=== PATIENT | female | born 1965 | race Caucasian/White ===

== ENCOUNTER 2017-08-01 17:59 | Inpatient (IN) | payer MEDICAID, SELFPAY ==
[2017-08-01] VITALS (7 sets, daily range): BP systolic 94–129; BP diastolic 66–79; PULSE 81–112; RESP 16–28; TEMP 36.7–36.8; O2SAT 92–98; BMI 40.7; BMI 38.8
--- NOTE | 2017-08-01 18:28 | HMH.EDGENADL ---
ED Disposition Condition on Discharge: Fair - Critical Care Critical Care Time: No <RashadTy nava - Last Filed: 08/01/17 20:17> <Bashir Red - Last Filed: 08/01/17 22:12> Clinical Impression: COPD exacerbation Disposition: Still a Patient Attestation: On 08/01/17, the high probability of a clinically significant, sudden or life threatening deterioration of the following system(s) required my full and direct attention, intervention and personal management. The time I documented below is in addition to time spent performing reported procedures but includes the following listed in this critical care notation. Medical Decision Making - Matt Inquiry Pt receiving controlled substance: No - Radiology Data #1 Image(s): Chest Image Reviewed: Yes I reviewed the patient's radiology image <RashadTy nava - Last Filed: 08/01/17 20:17> - Lab Data Result diagrams: 08/01/17 20:03 08/01/17 20:03 - Physician Consults Physician Consulted: franklin Reason -: Admission <Bashir Red - Last Filed: 08/01/17 22:12> Vital Signs: 08/01/17 18:02 08/01/17 18:03 08/01/17 18:32 Temperature 98.0 F Temperature Source Oral Pulse Rate Pulse Rate [Right Radial] 104 H 112 H 97 H Respiratory Rate 16 28 H 16 Blood Pressure [Right Arm] 107/69 129/75 94/66 Blood Pressure Mean [Right Arm] 81 93 75 Blood Pressure Source [Right Arm] Automatic Cuff Automatic Cuff Automatic Cuff Blood Pressure Position [Right Arm] Sitting Sitting Sitting 02 Sat by Pulse Oximetry 94 L 96 98 Oxygen Delivery Method Nasal Cannula Oxygen Flow Rate (LPM) 3 08/01/17 19:02 08/01/17 20:10 Temperature Temperature Source Pulse Rate 81 Pulse Rate [Right Radial] 96 H Respiratory Rate 18 Blood Pressure [Right Arm] 104/71 Blood Pressure Mean [Right Arm] 82 Blood Pressure Source [Right Arm] Automatic Cuff Blood Pressure Position [Right Arm] Sitting 02 Sat by Pulse Oximetry 94 L Oxygen Delivery Method Oxygen Flow Rate (LPM) - Lab Data Lab Results 08/01/17 19:22: Specimen Source R/r, O2 % 3, ABG pH 7.39, ABG pCO2 55.3 H, ABG pO2 73.2 L, ABG HCO3 32.8 H, ABG Total CO2 34.5 H, ABG O2 Saturation 95, ABG Base Excess 7.9 H, Juan M Test Y 08/01/17 20:03: WBC 7.5, RBC 4.40, Hgb 14.6, Hct 44.3, MCV 100.5 H, MCH 33.2 H, MCHC 33.0, RDW 13.0, Plt Count 165, MPV 8.7, Neut % (Auto) 64.5, Lymph % (Auto) 31.4, [place] % (Auto) 3.1, Eos % (Auto) 0.9, Baso % (Auto) 0.2, Neut # (Auto) 4.9, Lymph # (Auto) 2.4, [place] # (Auto) 0.2, Eos # (Auto) 0.1, Baso # (Auto) 0.0 08/01/17 20:03: Sodium 138, Potassium 3.9, Chloride 99, Carbon Dioxide 32, Anion Gap 10.9, BUN 13, Creatinine 0.97, Estimated Creat Clear 129, Estimated GFR 61, Est GFR ( Amer) 74, Glucose 136 H, Calcium 8.2 L, Total Bilirubin 0.3, AST 24, ALT 35, Alkaline Phosphatase 128 H, Total Creatine Kinase 57, CK-MB (CK-2) 1.1, CK-MB (CK-2) Rel Index 1.9, Troponin I < 0.02, Total Protein 7.7, Albumin 3.0 L, Globulin 4.7 H, Albumin/Globulin Ratio 0.6 L 08/01/17 20:03: B-Natriuretic Peptide 12 Orders (Tests/Meds): ED MEDICATIONS Generic Name Dose Route Start Last Admin Trade Name Freq PRN Reason Stop Dose Admin Albuterol/Ipratropium 3 ml 08/01/17 20:00 08/01/17 19:55 Duoneb 3ml Neb IH 08/31/17 19:59 3 ml QIDRT TAMY Administration Sodium Chloride 1,000 mls @ 500 mls/hr 08/01/17 20:30 08/01/17 20:33 Sod Chlor 0.9% 1000ml Bag IV 08/31/17 20:29 500 mls/hr .Q2H TAMY Administration Discontinued Medications Generic Name Dose Route Start Last Admin Trade Name Freq PRN Reason Stop Dose Admin Levofloxacin/Dextrose 750 mg in 150 mls @ 100 mls/hr 08/01/17 19:36 08/01/17 20:07 Levofloxacin 750mg/150ml Premix IV 08/01/17 21:05 100 mls/hr ONCE ONE Administration Protocol Methylprednisolone Sodium Succinate 125 mg 08/01/17 18:49 08/01/17 19:09 Solu-Medrol 125mg/2ml Vial IV 08/01/17 18:50 125 mg ONCE ONE Administration OR
--- NOTE | 2017-08-01 18:49 | XR_ITS ---
XR chest portable HISTORY: Shortness of breath ITS.REASON: soa ORDERING PHYSICIAN: Ty Franklin MD PATIENT AGE: 51 years COMPARISON: None available FINDINGS: Normal heart size. The fátima are somewhat prominent and may be due to underlying vascularity. Nodular opacity is present in the right hilum at 1.6 cm. There are chronic changes in the lower lobes. No acute bony anomalies. IMPRESSION: Chronic changes with possible right hilar nodule. Consider chest CT with contrast for further evaluation
[2017-08-01 19:24] LABS: ABG Base Excess 7.9 mmol/L (-2.4-2.3); ABG HCO3 32.8 mmhg (22.0-26.0); ABG Oxygen Saturation 95 % (90-100); ABG PH 7.39 mmol/L (7.35-7.45); ABG PO2 73.2 mmhg (80-100); ABG TCO2 34.5 mmhg (23-27); Allen's Test Y; Oxygen 3 %; Source R/R
[2017-08-01 19:25] LABS: ABG PCO2 55.3 mmhg (35.0-45.0)
[2017-08-01 20:23] LABS: Basophils % 0.2 % (0.1-2.0); Eosinophils # 0.1 K/mm3 (0.0-0.4); Eosinophils % 0.9 % (0.1-12.0); Hematocrit 44.3 % (37.0-47.0); Hemoglobin 14.6 g/dL (12.2-16.2); Lymphocytes # 2.4 K/mm3 (0.7-4.5); Lymphocytes % 31.4 K/mm3 (10-50); Mean Corpuscular Hemoglobin 33.2 pg (27.0-31.2); Mean Corpuscular Volume 100.5 fl (81-99); Mean Platelet Volume 8.7 fl (7.4-10.4); Monocytes # 0.2 K/mm3 (0.1-1.0); Monocytes % 3.1 % (1.7-9.3); Neutrophils # 4.9 K/mm3 (1.8-7.8); Neutrophils % 64.5 % (37.0-80.0); Platelet Count 165 K/mm3 (142-424); White Blood Count 7.5 K/mm3 (4.8-10.8)
[2017-08-01 21:04] LABS: Alanine Aminotransferase 35 U/L (12-78); Albumin/Globulin Ratio 0.6 (1.1-1.8); Alkaline Phosphatase 128 U/L (46-116); Anion Gap 10.9 mEq/L (5-15); Aspartate Amino Transferase 24 U/L (15-37); Bilirubin,Total 0.3 mg/dL (0.2-1.0); Blood Urea Nitrogen 13 mg/dL (7-18); CKMB Relative Index 1.9 U/L (0-4.0); Calcium 8.2 mg/dL (8.5-10.1); Carbon Dioxide 32 mmol/L (21.0-32.0); Chloride 99 mmol/L (98-107); Creatine Kinase 57 U/L (26-192); Creatine Kinase MB 1.1 mg/ml (0.0-3.6); Creatinine Clearance Estimated 129 mL/min (0-300); Creatinine,Serum 0.97 mg/dL (0.55-1.02); Estimated Glomerular Filt Rate 61 ml/min (>60); GFR (African American) 74 ML/MIN (>60); Globulin 4.7 gm/dl (1.3-3.2); Glucose 136 mg/dL (74-106); Potassium 3.9 mmoL/L (3.5-5.1); Sodium 138 mmol/L (136-145); Total Protein,Serum 7.7 gm/dL (6.4-8.2); Troponin I < 0.02 ng/ml (0.00-0.06)
--- NOTE | 2017-08-01 22:01 | PC.NURSE ---
Dr. Geoffrey guzman
[2017-08-02] VITALS (10 sets, daily range): BP systolic 108–147; BP diastolic 4–95; PULSE 80–107; RESP 18–20; TEMP 36.3–36.9; O2SAT 90–96; BMI 38.9
[2017-08-02 06:42] LABS: Eosinophils % 0.2 % (0.1-12.0); Hematocrit 48.2 % (37.0-47.0); Hemoglobin 14.9 g/dL (12.2-16.2); Lymphocytes # 1.1 K/mm3 (0.7-4.5); Lymphocytes % 22.4 K/mm3 (10-50); Mean Corpuscular HGB Conc 30.9 g/dL (31.8-35.4); Mean Corpuscular Hemoglobin 33.1 pg (27.0-31.2); Mean Corpuscular Volume 107.3 fl (81-99); Monocytes # 0.1 K/mm3 (0.1-1.0); Monocytes % 1.3 % (1.7-9.3); Neutrophils # 3.6 K/mm3 (1.8-7.8); Platelet Count 168 K/mm3 (142-424); Red Blood Count 4.49 M/mm3 (4.20-5.40); Red Cell Distribution Width 12.6 % (11.5-17.5); White Blood Count 4.7 K/mm3 (4.8-10.8)
[2017-08-02 07:05] LABS: Anion Gap 13.8 mEq/L (5-15); Blood Urea Nitrogen 14 mg/dL (7-18); Carbon Dioxide 30 mmol/L (21.0-32.0); Chloride 94 mmol/L (98-107); Creatinine Clearance Estimated 85 mL/min (0-300); Estimated Glomerular Filt Rate 40 ml/min (>60); GFR (African American) 48 ML/MIN (>60); Potassium 4.8 mmoL/L (3.5-5.1); Sodium 133 mmol/L (136-145)
[2017-08-02 07:20] LABS: Glucose 560 mg/dL (74-106)
--- NOTE | 2017-08-02 07:31 | PC.NURSE ---
REPORT GIVEN TO Duy BURROWS W/C
--- NOTE | 2017-08-02 08:16 | HMH.HP ---
*Admission Date: 08/01/17 <Eloise Li 08/02/17 08:17> *Chief complaint: shortness of breath <Eloise Li 08/02/17 08:17> *History of present illness: Ms Jackman is a 51 year old female brought in by ambulance with a complaint of shortness of breath. She states that she has been short of breath since 8 AM. In the p.m. she noticed that her lips, fingertips, and nose were purple. She noted that she has a history of COPD and is on oxygen continuously. She uses nebulizer treatments 4 times a day; she had taken two treatment so far today and was given a third during transport. Her breathing improved as did her O2 sats which originally were 81% in the ambulance. She says she is not wheezing. She denies cough, fever, and any other upper respiratory symptoms. A couple of weeks ago she says she was treated for bronchitis at [facility] emergency department, when she was seen there for pancreatitis. She thinks that she was given antibiotics and steroids. She says she continues to smoke episodically and usually less than half a pack a day. He did smoke 4 cigarettes yesterday. She does not have a primary care provider has been assigned Dr. Mae. She says that she has a dietary tech in [place], but he has left the practice. This a.m. patient states she does not feel any better and is still short of breath. She did not sleep well. She ate breakfast without any problems. She is not coughing. She denies chest pain although her lungs hurt. <Eloise Li 08/02/17 08:51> [facility] History I have reviewed the patient's past medical history: Yes <Eloise Li 08/02/17 08:45> Medical History: Reports:: Anxiety, Chronic Obstructive Pulmonary Disease (COPD), Depression, Hypertension, Lung Disease Denies:: Atherosclerotic Heart Disease, Cancer, Congestive Heart Failure, Coronary Artery Disease, Cerebrovascular Accident, Diabetes Mellitus Type 1, Diabetes Mellitus Type 2 <Eloise Li 08/02/17 08:45> - *Social History Educational Level: Completed High School <Eloise Li 08/02/17 08:17> Smoking Status: Current every day smoker <Eloise Li 08/02/17 08:17> Tobacco Type: cigarettes <Eloise Li 08/02/17 08:17> # Packs/Day (cigarettes): 1 <Eloise Li 08/02/17 08:17> #Yrs smoked (if former smoker): 15 <Eloise Li 08/02/17 08:17> Alcohol Intake: never <Eloise Li 08/02/17 08:17> Occupational Status: unemployed <Eloise Li 08/02/17 08:17> Housing: apartment <Eloise Li 08/02/17 08:17> Household Members: spouse <Eloise Li 08/02/17 08:17> - Psychiatric History Expresses thoughts of harming self/others: None <LiEloise 08/02/17 08:17> Suicide Plan Description: No Plan <Eloise Li 08/02/17 08:17> *Family Hx:: Coronary Artery Disease, no Diabetes <LiEloise 08/02/17 08:45> Review of Systems - Constitutional Denies body ache(s), Denies fever(s), Denies headache(s) <LiEloise 08/02/17 08:45> - ENT Denies dizziness, Denies ear pain, Denies facial pain, Denies headache(s), Denies sore throat <LiEloise 08/02/17 08:45> - *Cardiovascular Reports shortness of breath, Denies chest pain, Denies irregular heart rhythm, Denies leg swelling <GuillermoEloise 08/02/17 08:45> - *Respiratory Reports shortness of breath, Denies cough, Denies excessive phlegm production, Denies coughing up blood <LiEloise 08/02/17 08:45> Comments: States her lungs hurt across the entire back. <Li,Eloise 08/02/17 08:45> - *Gastrointestinal Denies abdominal pain, Denies change in bowel habits, Denies constipation, Denies vomiting blood, Denies nausea, Denies vomiting <GuillermoEloise 08/02/17 08:45> - *Genitourinary Denies difficulty urinating, Denies blood in urine <Eloise Li - 08/02/17 08:45> - *Musculoskeletal Reports joint pain (Knees and feet) <Eloise Li - 08/02/17 08:45> Comments: Difficulty with walking <Benito Li
[2017-08-02 08:32] LABS: Hemoglobin A1C 6.7 % (0.0-7.0)
--- NOTE | 2017-08-02 08:32 | NVE_ITS ---
Venous Exam Indications: 729.5 Pain in limb. IMPRESSIONS 1. There is no evidence of significant Reflux. 2. No evidence of deep or superficial vein thrombosis involving the left lower extremity Left lower extremity venous duplex evaluation. Doppler flow study including spectral analysis, color and almanzar scale imaging. Location: Bedside. Patient status: Inpatient. Tables: Venous flow and imaging: + +-------+ + Location Overall Flow properties + +-------+ + Left common femoral Patent Normal phasicity; spontaneous; normal augmentation; compressible + +-------+ + Left saphenofemoral junction Patent Compressible + +-------+ + Left profunda femoral Patent Compressible + +-------+ + Left femoral Patent Normal phasicity; spontaneous; normal augmentation; compressible + +-------+ + Left greater saphenous Patent Normal phasicity; spontaneous; normal augmentation; compressible + +-------+ + Left popliteal Patent Normal phasicity; spontaneous; normal augmentation; compressible + +-------+ + Left posterior tibial Patent Compressible + +-------+ + Left peroneal Patent Compressible + +-------+ + Left gastrocnemius Patent Compressible + +-------+ + Left soleal Patent Compressible + +-------+ + (Report amended ) Electronically signed by: Juan M Henry [id number]
--- NOTE | 2017-08-02 08:41 | PC.NURSE ---
C/O SOA AROUND 0500, O2SAT OBTAINED AND NOTED 93% ON 2LNC. RT CALLED FOR PRN BREATHING TREATMENT, PT STATED RELIEF FROM PRN BREATHING TREATMENT. LUNG SOUNDS NOTED CLEAR T/O AUSCULTATION. 2LNC TOLERATED WELL. VSS. WILL CONTINUE TO MONITOR.
--- NOTE | 2017-08-02 09:06 | P.CONPHA_ITS ---
[facility] Pharmacy VTE Monitoring - Patient Demographics Admission date: 08/01/17 Report Date: 08/02/17 Time: 09:06 Allergies/Adverse Reactions: Patient Allergies No Known Allergies Allergy (Verified 08/01/17 22:57) Height: 1.7 m Weight: 112.491 kg Patient Problems: Current Active Problems COPD exacerbation (Acute) COPD (chronic obstructive pulmonary disease) (Chronic) Hyperglycemia (Acute) Leg pain (Acute) Tobacco use disorder (Acute) Lung nodule (Chronic) - VTE Risk Labs: VTE Related Lab Results Hgb 14.9 g/dL (12.2-16.2) 08/02/17 06:20 Hct 48.2 % (37.0-47.0) H 08/02/17 06:20 Plt Count 168 K/mm3 (142-424) 08/02/17 06:20 BUN 14 mg/dL (7-18) 08/02/17 06:20 Creatinine 1.40 mg/dL (0.55-1.02) H D 08/02/17 06:20 Estimated Creat Clear 85 mL/min (0-300) 08/02/17 06:20 Was VTE Risk Assessment Performed: Yes VTE Score: 3 VTE Risk Level: Low Risk Clinical Trial Participant: No - Prophylaxis VTE Prophylaxis Ordered?: Yes Types of VTE Prophylaxis: TEDS Knee High
[2017-08-02 09:19] LABS: D-Dimer 542 (0-400)
[2017-08-02 12:00] LABS: POC Glucose,Bedside 486 mg/dL (70-110)
[2017-08-02 16:42] LABS: POC Glucose,Bedside 503 mg/dL (70-110)
--- NOTE | 2017-08-02 16:59 | PC.NURSE ---
DR MOHAMUD STATES TO GIVE PATIENT 12 UNITS OF HUMALOG
--- NOTE | 2017-08-02 17:54 | PC.NURSE ---
PATIENT SITTING ON SIDE OF BED AT THIS TIME. PATIENT IS A&OX3. LUNGS ARE DIMINISHED T/O MORE RIGHT THAN LEFT. DENIES PAIN OR NAUSEA/VOMITING AT THIS TIME. PATIENT WAS EDUCATED THIS SHIFT ON HOW TO ADMINISTER INSULIN PEN INJECTIONS IF NEEDED ON DC. SHE STATES THAT SHE HAD HIGH BLOOD SUGAR ONCE BEFORE AND HER DR SAID IT MAY BE BECAUSE OF HER BAD PANCREAS. CALL LIGHT WITHIN REACH WILL CONTINUE TO MONITOR.
--- NOTE | 2017-08-02 19:15 | PC.NURSE ---
REPORT GIVEN TO Randal NARAYAN
--- NOTE | 2017-08-02 21:01 | PC.NURSE ---
NOTIFIED OF ELEVATED BLOOD SUGAR. PT PLACED ON MEDIUM INTENSITY SCALE. 15 UNITS OF HUMALOG ADMIN.
[2017-08-03] VITALS (10 sets, daily range): BP systolic 135–141; BP diastolic 86–97; PULSE 75–94; RESP 18–20; TEMP 36.2–36.9; O2SAT 88–97
[2017-08-03 01:16] LABS: POC Glucose,Bedside 429 mg/dL (70-110)
--- NOTE | 2017-08-03 03:48 | PC.NURSE ---
PT CURRENTLY RESTING AT THIS TIME. PT RESTLESS AT BEGINNING PART OF SHIFT, REQUESTING SNACK FOODS UNTIL 0100. BLOOD SUGAR AT 2100 WAS 426 MD MOHAMUD NOTIFIED AND MEDIUM SLIDING SCALE ORDERED, 15 UNITS GIVEN. PT QUESTIONED HOW TO LOWER HER BLOOD SUGAR, EDUCATION ON DIABETES GIVEN, SNACKS STILL REQUESTED. LUNGS ARE DIMINISHED UPON AUSCULTATION. NO C/O OF PAIN. NO C/O SOA. MEDS ADMIN PER JUL. VSS. WILL CONT TO MONITOR.
--- NOTE | 2017-08-03 07:26 | PC.NURSE ---
REPORT HAND OFF TO Elroy SANCHEZ
--- NOTE | 2017-08-03 08:13 | HMH.ACPN2 ---
Internal Medicine - PN: Subj *Date: 08/03/17 *Time: 08:13 Interval history: Patient states she is feeling slightly better this a.m. She is now having some epigastric pain. She states she has had some problems with her pancreas in the past and would like her pancreatic enzymes checked this morning. Her shortness of breath has improved with steroids and duo nebs. D-dimer was slightly elevated but her left lower extremity was negative for DVT. Exam Vital signs and Labs for Last 24 Hours: Temp Pulse Resp BP Pulse Ox 98.0 F 88 18 141/86 92 L 08/03/17 07:28 08/03/17 07:28 08/03/17 07:28 08/03/17 07:28 08/03/17 07:28 Laboratory Results - last 24 hr 08/02/17 06:20: Hemoglobin A1c 6.7 08/02/17 06:20: D-Dimer 542 H* 08/02/17 11:45: POC Glucose 486 08/02/17 16:33: POC Glucose 503 08/02/17 16:45: Random Glucose 499 H 08/02/17 20:21: POC Glucose 429 I & O for Last 24 hours: Intake & Output 07/31/17 08/01/17 08/02/17 08/03/17 11:59 11:59 11:59 11:59 Intake Total 2742 / 2742 Balance 2742 / 2742 Weight 248 lb 247 lb 15.968 oz - Constitutional no acute distress - *Routine Respiratory Exam Present: rhonchi (bilateral bases). Absent: rales, wheezes - *Routine Cardiovascular Exam Present: RRR - *Routine Abdominal Exam Present: soft, normoactive bowel sounds, tenderness (epigastric area) - *Routine Extremities Exam Absent: edema Assessment and Plan (1) COPD exacerbation Current visit: Yes Status: Acute Category: Medical Code(s): J44.1 - Chronic obstructive pulmonary disease with (acute) exacerbation (2) COPD (chronic obstructive pulmonary disease) Current visit: Yes Status: Chronic Category: Medical Code(s): J44.9 - Chronic obstructive pulmonary disease, unspecified (3) Hyperglycemia Current visit: Yes Status: Acute Category: Medical Code(s): R73.9 - Hyperglycemia, unspecified (4) Leg pain Current visit: Yes Status: Acute Category: Medical Code(s): M79.606 - Pain in leg, unspecified (5) Tobacco use disorder Current visit: Yes Status: Acute Category: Medical Code(s): F17.200 - Nicotine dependence, unspecified, uncomplicated (6) Lung nodule Current visit: Yes Status: Chronic Category: Medical Code(s): R91.1 - Solitary pulmonary nodule - Assessment and plan all Dx Assessment and Plan for all problems:: We will check labs this morning. Chest x-ray suggested getting a chest CT. Will discuss with Dr. cavazos.
[2017-08-03 09:05] LABS: Basophils % 0.1 % (0.1-2.0); Eosinophils % 0.2 % (0.1-12.0); Hematocrit 45.2 % (37.0-47.0); Hemoglobin 14.2 g/dL (12.2-16.2); Lymphocytes # 0.7 K/mm3 (0.7-4.5); Lymphocytes % 5.6 K/mm3 (10-50); Mean Corpuscular HGB Conc 31.4 g/dL (31.8-35.4); Mean Corpuscular Hemoglobin 33.1 pg (27.0-31.2); Mean Corpuscular Volume 105.5 fl (81-99); Mean Platelet Volume 9.5 fl (7.4-10.4); Monocytes # 0.2 K/mm3 (0.1-1.0); Monocytes % 1.8 % (1.7-9.3); Neutrophils # 11.4 K/mm3 (1.8-7.8); Neutrophils % 92.3 % (37.0-80.0); Platelet Count 184 K/mm3 (142-424); Red Blood Count 4.29 M/mm3 (4.20-5.40); Red Cell Distribution Width 12.9 % (11.5-17.5); White Blood Count 12.4 K/mm3 (4.8-10.8)
[2017-08-03 09:07] LABS: MANUAL DIFFERENTIAL MANUAL DIFFERENTIAL (MANUAL DIFF)
[2017-08-03 09:12] LABS: Alanine Aminotransferase 31 U/L (12-78); Albumin Level 3.2 gm/dL (3.4-5.0); Albumin/Globulin Ratio 0.7 (1.1-1.8); Alkaline Phosphatase 150 U/L (46-116); Amylase 47 U/L (25-125); Anion Gap 12.6 mEq/L (5-15); Aspartate Amino Transferase 13 U/L (15-37); Bilirubin,Total 0.2 mg/dL (0.2-1.0); Blood Urea Nitrogen 26 mg/dL (7-18); Calcium 8.4 mg/dL (8.5-10.1); Carbon Dioxide 31 mmol/L (21.0-32.0); Chloride 94 mmol/L (98-107); Creatinine Clearance Estimated 97 mL/min (0-300); Creatinine,Serum 1.23 mg/dL (0.55-1.02); Estimated Glomerular Filt Rate 46 ml/min (>60); GFR (African American) 56 ML/MIN (>60); Globulin 4.7 gm/dl (1.3-3.2); Lipase 89 u/L (73-393); Potassium 4.6 mmoL/L (3.5-5.1); Sodium 133 mmol/L (136-145); Total Protein,Serum 7.9 gm/dL (6.4-8.2)
[2017-08-03 09:36] LABS: Glucose 481 mg/dL (74-106)
[2017-08-03 12:07] LABS: Lymphocytes % 4 % (10-50); Monocytes % 1 % (2-9); Neutrophils % 95 % (42-76); Total Cells Counted 100
[2017-08-03 12:08] LABS: Hypochromasia 1+; Macrocytosis 1+; Platelet Estimate Normal
[2017-08-03 12:20] LABS: POC Glucose,Bedside 451 mg/dL (70-110)
[2017-08-03 17:09] LABS: POC Glucose,Bedside 382 mg/dL (70-110)
[2017-08-03 17:09] LABS: POC Glucose,Bedside 467 mg/dL (70-110)
--- NOTE | 2017-08-03 17:28 | SW/DCPLANNER ---
Visited patient this evening to explain Discharge Planning Checklist .....patient asked that I help her complete the Living Will packet in her folder. I read packet to patient and patient answered what she wishes to have done if she is ever in a situation that she can NOT make decisions for herself. During the completion of Living Will packet I was informed that there is no staff member available that is a notary. Patient stated that she has a friend that is a notary and will follow up with her when she is released. Patient did not have any other needs at this time. I will follow up with patient at time of discharge to assist with any needs/new orders.
[2017-08-03 20:57] LABS: POC Glucose,Bedside 346 mg/dL (70-110)
--- NOTE | 2017-08-04 04:35 | PC.NURSE ---
PATIENT HAS BEEN AWAKE ALL SHIFT. SHE DID BECOME SOA ONCE, BUT STATED IT WAS BECAUSE HER ROOM WAS TOO WARM. TEMPERATURE IN ROOM WAS DECREASED AND PATIENT WAS GIVEN A FAN AND SOA SUBSIDED. NO C/O PAIN VOICED. PATIENT CURRENTLY SITTING UP IN BED WATCHING TV. VSS. NO OTHER PROBLEMS NOTED AT THIS TIME. WILL CONTINUE TO MONITOR.
[2017-08-04 04:42] VITALS: BP 141/89; PULSE 89; RESP 18; TEMP 37.1; O2SAT 92
[2017-08-04 06:29] VITALS: PULSE 97; O2SAT 93
[2017-08-04 06:37] LABS: POC Glucose,Bedside 283 mg/dL (70-110)
[2017-08-04 07:30] VITALS: BP 137/94; PULSE 100; RESP 18; TEMP 36.9; O2SAT 95
[2017-08-04 07:59] VITALS: O2SAT 95
--- NOTE | 2017-08-04 08:29 | P.PN_ITS ---
Internal Medicine - PN: Subj *Date: 08/04/17 *Time: 08:40 Interval history: Patient feeling better today. Still has a cough. Shortness of air is improved. Denies any pain. Exam Vital signs and Labs for Last 24 Hours: Temp Pulse Resp BP Pulse Ox 98.4 F 100 H 18 137/94 95 08/04/17 07:30 08/04/17 07:30 08/04/17 07:30 08/04/17 07:30 08/04/17 07:59 Laboratory Results - last 24 hr 08/03/17 06:08: POC Glucose 467 08/03/17 08:50: WBC 12.4 H D, RBC 4.29, Hgb 14.2, Hct 45.2, MCV 105.5 H, MCH 33.1 H, MCHC 31.4 L, RDW 12.9, Plt Count 184, MPV 9.5, Neut % (Auto) 92.3 H, Lymph % (Auto) 5.6 L, [place] % (Auto) 1.8, Eos % (Auto) 0.2, Baso % (Auto) 0.1, Neut # (Auto) 11.4 H, Lymph # (Auto) 0.7, [place] # (Auto) 0.2, Eos # (Auto) 0.0, Baso # (Auto) 0.0, Total Counted 100, Neutrophils % (Manual) 95 H, Lymphocytes % (Manual) 4 L, Monocytes % (Manual) 1 L, Platelet Estimate Normal, Hypochromasia 1+, Macrocytosis 1+ 08/03/17 08:50: Sodium 133 L, Potassium 4.6, Chloride 94 L, Carbon Dioxide 31, Anion Gap 12.6, BUN 26 H D, Creatinine 1.23 H, Estimated Creat Clear 97, Estimated GFR 46 L, Est GFR ( Amer) 56 L, Glucose 481 H*, Calcium 8.4 L, Total Bilirubin 0.2, AST 13 L D, ALT 31, Alkaline Phosphatase 150 H, Total Protein 7.9, Albumin 3.2 L, Globulin 4.7 H, Albumin/Globulin Ratio 0.7 L, Amylase 47, Lipase 89 08/03/17 11:57: POC Glucose 451 08/03/17 16:58: POC Glucose 382 08/03/17 20:40: POC Glucose 346 08/04/17 06:12: POC Glucose 283 I & O for Last 24 hours: Intake & Output 08/01/17 08/02/17 08/03/17 08/04/17 11:59 11:59 11:59 11:59 Intake Total 2742 / 2742 1680 / 1680 Output Total 800 / 800 Balance 2742 / 2742 880 / 880 Weight 248 lb 247 lb 15.968 oz - Constitutional no acute distress - *Routine Respiratory Exam Present: CTA bilaterally - *Routine Cardiovascular Exam Present: RRR - *Routine Abdominal Exam Present: soft, normoactive bowel sounds. Absent: tenderness - *Routine Extremities Exam Absent: edema Assessment and Plan (1) COPD exacerbation Current visit: Yes Status: Acute Category: Medical Code(s): J44.1 - Chronic obstructive pulmonary disease with (acute) exacerbation (2) COPD (chronic obstructive pulmonary disease) Current visit: Yes Status: Chronic Category: Medical Code(s): J44.9 - Chronic obstructive pulmonary disease, unspecified (3) Hyperglycemia Current visit: Yes Status: Acute Category: Medical Code(s): R73.9 - Hyperglycemia, unspecified (4) Leg pain Current visit: Yes Status: Acute Category: Medical Code(s): M79.606 - Pain in leg, unspecified (5) Tobacco use disorder Current visit: Yes Status: Acute Category: Medical Code(s): F17.200 - Nicotine dependence, unspecified, uncomplicated (6) Lung nodule Current visit: Yes Status: Chronic Category: Medical Code(s): R91.1 - Solitary pulmonary nodule - Assessment and plan all Dx Assessment and Plan for all problems:: Pt doing well today. Possible discharge home. Lungs and glucose have improved.
--- NOTE | 2017-08-04 09:07 | XR_ITS ---
XR chest 2V COMPARISON: PA and lateral chest 07/30/2012 HISTORY: Chronic cough, suspect bronchitis TECHNIQUE: PA and lateral chest FINDINGS: Mild to moderate emphysematous changes seen with hyperexpansion of lung nevarez and landing of the hemidiaphragms. There is a somewhat shaggy appearance to the right hilum and right heart border and the previous chest film in July 2012 showed patchy pneumonia in the right perihilar region and right upper lobe and this likely represents post inflammatory scarring. The lung nevarez appear to be clear of active infiltrate though there are slightly accentuated bronchovascular markings in the lower lobes bilaterally.. There are partially calcified left hilar nodes. Cardiac size is normal and the vascularity is normal and is no pleural fluid. IMPRESSION: Underlying COPD with mild chronic basilar changes and moderate post inflammatory scarring in the right hilar region and along the right heart border, doubt acute pneumonia.
[2017-08-04 11:09] LABS: POC Glucose,Bedside 283 mg/dL (70-110)
--- NOTE | 2017-08-04 13:19 | DIET.NUTRFU ---
Pt remains with elevated glucose in house. She is on medium intensity sliding scale insulin and a diabetic diet. POC glucose 346,283. Staff reports frequent requests for between meal snacks. A1c 6.7 PO intakes 100% all meals. Provided verbal and written pt education on diabetes and encouraged to f/u with physician for further work up. Pt educated on outpt medical nutrition services available to her. Pt asks appropriate questions and is appreciative of information.
[2017-08-04 15:21] LABS: Vitamin B12 304 pg/mL (232-1245)
[2017-08-04 15:47] VITALS: BP 138/93; PULSE 83; RESP 20; TEMP 36.9; O2SAT 94
--- NOTE | 2017-08-04 15:50 | PC.NURSE ---
PT IS ALERT AND ORIENTED X4, CLEAR SPEECH, APPROPRIATE MOOD/AFFECT. PT IS SITTING ON SIDE OF BED. NO C/O PAIN, NAUSEA OR VOMITING. NO S/S OF DISTRESS NOTED. LUNGS ARE DIMINISHED THROUGHOUT. NO C/O OF SOA. EDUCATION PROVIDED TO PT ON HOW TO ADMINISTER INSULIN AND FSBS, IF NEEDED AT DISCHARGE. IV IS SECURE, PATENT AND INFUSING IVF. VSS. CALL LIGHT WITHIN REACH, WILL CONTINUE TO MONITOR.
[2017-08-05 02:01] LABS: POC Glucose,Bedside 242 mg/dL (70-110)
--- NOTE | 2017-08-07 15:04 | HMH.DCSUM ---
General - General Admission date: 08/01/17 Discharge date: 08/04/17 HPI HPI: Ms Jackman is a 51 year old female brought in by ambulance with a complaint of shortness of breath. She states that she has been short of breath since 8 AM. In the p.m. she noticed that her lips, fingertips, and nose were purple. She noted that she has a history of COPD and is on oxygen continuously. She uses nebulizer treatments 4 times a day; she had taken two treatment so far today and was given a third during transport. Her breathing improved as did her O2 sats which originally were 81% in the ambulance. She says she is not wheezing. She denies cough, fever, and any other upper respiratory symptoms. A couple of weeks ago she says she was treated for bronchitis at [facility] emergency department, when she was seen there for pancreatitis. She thinks that she was given antibiotics and steroids. She says she continues to smoke episodically and usually less than half a pack a day. She does not have a primary care provider and has been assigned Dr. Mae. 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 Hospital Course Hospital Course: CXR showed chronic changes with a left hilar nodule. She had a venous doppler of the LLE d/t and elevated D-dimer and it was normal. She improved but her glucose elevated. Her sliding scale insulin was increased and lantus was added. She was switched to oral steroids. Her respiratory status and glucose improved and she was stable to be discharged home. She will need a workup for the pulmonary nodule on an outpatient basis. Objective Vital signs: Temp Pulse Resp BP Pulse Ox 98.4 F 83 20 138/93 94 L 08/04/17 15:47 08/04/17 15:47 08/04/17 15:47 08/04/17 15:47 08/04/17 15:47 Narrative: - Constitutional no acute distress, obese Comments: Sitting in recliner at bedside. Appears comfortable. - *Routine HEENT Exam Head: Present: normocephalic, atraumatic Eye: Present: PERRL. Absent: scleral injection - *Routine Neck Exam Present: supple, full ROM. Absent: carotid bruit, lymphadenopathy, thyromegaly - *Routine Respiratory Exam Comments: Diminished breath sounds posteriorly - *Routine Cardiovascular Exam Present: RRR - *Routine Abdominal Exam Present: soft, normoactive bowel sounds, tenderness (Left upper quadrant) - *Routine Extremities Exam Present: full ROM. Absent: edema Comments: JUAN PABLO hose on. Tenderness in the left mid calf. No palpable cords or masses. Varicosities - *Routine Neurological Exam Present: alert, oriented X3 DS: Diagnosis - Discharge Diagnosis (1) COPD exacerbation Status: Acute (2) COPD (chronic obstructive pulmonary disease) Status: Chronic (3) Hyperglycemia Status: Acute (4) Leg pain Status: Acute (5) Tobacco use disorder Status: Acute (6) Lung nodule Status: Chronic Discharge Plan - Patient Discharge Instructions ACTIVITY: Limited activity DIET: diabetic diet Additional Instructions: Contact your doctor soon for follow-up Patient Instructions: DI for Chronic Obstructive Pulmonary Disease, DI for Hyperglycemia -- Adult - Follow up Plan Follow up with: Bijan Alvarado [Referring] - Disposition: Home, Self-Long-Term Medications: Home Medications Medication Instructions Recorded Confirmed Type Albuterol Sulfate [Albuterol HFA 1 - 2 puffs IH Q4-6H PRN 08/01/17 08/02/17 History Inhaler] Fluticasone Propionate [Flonase 2 spr NS DAILY 08/01/17 08/02/17 History 50mcg nasal spray 16gm] Fluticasone/Vilanterol [Breo 1 each IH DAILY 08/01/17 08/02/17 History Ellipta 100-25 Mcg INH] Tiotropium Altha [Spiriva 1 puff INHALATION DAILY 08/01/17 08/02/17 History 18mcg/puff inhaler] Prescriptions/Medication Reconciliation: New Nicotine [Nicoderm 21mg/24hr patch] 21 mg TD DAILYP PRN #30 patch.
--- NOTE | 2017-08-07 15:10 | P.DS_ITS ---
General - General Admission date: 08/01/17 Discharge date: 08/04/17 HPI HPI: Ms Jackman is a 51 year old female brought in by ambulance with a complaint of shortness of breath. She states that she has been short of breath since 8 AM. In the p.m. she noticed that her lips, fingertips, and nose were purple. She noted that she has a history of COPD and is on oxygen continuously. She uses nebulizer treatments 4 times a day; she had taken two treatment so far today and was given a third during transport. Her breathing improved as did her O2 sats which originally were 81% in the ambulance. She says she is not wheezing. She denies cough, fever, and any other upper respiratory symptoms. A couple of weeks ago she says she was treated for bronchitis at [facility] emergency department, when she was seen there for pancreatitis. She thinks that she was given antibiotics and steroids. She says she continues to smoke episodically and usually less than half a pack a day. She does not have a primary care provider and has been assigned Dr. Mae. She says that she has a curator of photography and prints in [place], but he has left the practice. Hospital Course Hospital Course: CXR showed chronic changes with a left hilar nodule. She had a venous doppler of the LLE d/t and elevated D-dimer and it was normal. She improved but her glucose elevated. Her sliding scale insulin was increased and lantus was added. She was switched to oral steroids. Her respiratory status and glucose improved and she was stable to be discharged home. She will need a workup for the pulmonary nodule on an outpatient basis. Objective Vital signs: Temp Pulse Resp BP Pulse Ox 98.4 F 83 20 138/93 94 L 08/04/17 15:47 08/04/17 15:47 08/04/17 15:47 08/04/17 15:47 08/04/17 15:47 Narrative: - Constitutional no acute distress, obese Comments: Sitting in recliner at bedside. Appears comfortable. - *Routine HEENT Exam Head: Present: normocephalic, atraumatic Eye: Present: PERRL. Absent: scleral injection - *Routine Neck Exam Present: supple, full ROM. Absent: carotid bruit, lymphadenopathy, thyromegaly - *Routine Respiratory Exam Comments: Diminished breath sounds posteriorly - *Routine Cardiovascular Exam Present: RRR - *Routine Abdominal Exam Present: soft, normoactive bowel sounds, tenderness (Left upper quadrant) - *Routine Extremities Exam Present: full ROM. Absent: edema Comments: JUAN PABLO hose on. Tenderness in the left mid calf. No palpable cords or masses. Varicosities - *Routine Neurological Exam Present: alert, oriented X3 DS: Diagnosis - Discharge Diagnosis (1) COPD exacerbation Status: Acute (2) COPD (chronic obstructive pulmonary disease) Status: Chronic (3) Hyperglycemia Status: Acute (4) Leg pain Status: Acute (5) Tobacco use disorder Status: Acute (6) Lung nodule Status: Chronic Discharge Plan - Patient Discharge Instructions ACTIVITY: Limited activity DIET: diabetic diet Additional Instructions: Contact your doctor soon for follow-up Patient Instructions: DI for Chronic Obstructive Pulmonary Disease, DI for Hyperglycemia -- Adult - Follow up Plan Follow up with: Bijan Alvarado [Referring] - Disposition: Home, Self-Intermediate Medications: Home Medications Medication Instructions Recorded Confirmed Type Albut
[2017-08-07 16:35] LABS: Glucose,Random 499 mg/dL (70-110)
== END 2017-08-04 17:40 | disposition home or self-care (01) | DRG 192 ==
LOC: ER 20:18 → 2ND 08-02 06:50
PROVIDERS: Emergency Medicine; Family Medicine; Nurse Practitioner Family; Physician Assistant; Admitting Provider Family Medicine; Emergency Provider Emergency Medicine; PCP Family Medicine; Visit Provider Family Medicine
DX: J44.1 Chronic obstructive pulmonary disease with (acute) exacerbation (principal); Z99.81 Dependence on supplemental oxygen; I10 Essential (primary) hypertension; Z72.0 Tobacco use; R91.1 Solitary pulmonary nodule; R73.9 Hyperglycemia, unspecified; F41.8 Other specified anxiety disorders
CPT/HCPCS: 36415; 71045; 71046; 80048; 80053; 82150; 82550; 82553; 82607; 82803; 82947; 82962; 83036; 83690; 83880; 84484; 85007; 85025; 85378; 93005; 93971; 94640; 94761; 96365; 96374; 96375; 99284; J1956; J2405

== ENCOUNTER → 2018-02-22 16:28 | Outpatient (CLI) | payer MEDICAID, SELFPAY ==
--- NOTE | 2018-02-22 16:32 | XR_ITS ---
XR chest 2V HISTORY: ITS.REASON: FEVER, SHORTNESS OF BREATH, PULMONARY EMPYSEMA ORDERING PHYSICIAN: Anna Osman PATIENT AGE: 52 years COMPARISON: 08/04/2017 FINDINGS: The heart size is unremarkable. There is prominence of the fátima consistent with prominent pulmonary arteries consistent with pulmonary arterial hypertension. Chronic changes are present with COPD. There is chronic coarsening of the bronchovascular markings. In addition, there is increased density in the right perihilar region which may be due to underlying pneumonia. There is chronic increased density overlying the anterior aspect of the heart on the lateral view. IMPRESSION: Prominence of the pulmonary arteries consistent with pulmonary hypertension with COPD with right perihilar infiltrate
== END ==
PROVIDERS: PCP Nurse Practitioner Family; Visit Provider Nurse Practitioner Family
DX: R50.9 Fever, unspecified (principal); R06.02 Shortness of breath; J43.9 Emphysema, unspecified
CPT/HCPCS: 71046

== ENCOUNTER 2018-02-27 15:53 | Outpatient (RCR) | payer MEDICAID, SELFPAY | END 2018-02-27 15:54 | disposition home or self-care (01) | LOC: PT 15:53 | PROVIDERS: Visit Provider Orthopaedic Surgery | DX: S82.832A Other fracture of upper and lower end of left fibula, initial encounter for closed fracture (principal); S82.65XA Nondisplaced fracture of lateral malleolus of left fibula, initial encounter for closed fracture; S93.491A Sprain of other ligament of right ankle, initial encounter | CPT/HCPCS: 97760 ==

== ENCOUNTER → 2019-11-27 13:51 | Outpatient (POV) | payer MEDICAID, SELFPAY | DX: Z00.00 Encounter for general adult medical examination without abnormal findings (principal) ==

== ENCOUNTER 2019-12-29 09:25 | Emergency (ER) | payer MEDICAID, SELFPAY ==
--- NOTE | 2019-12-29 09:19 | ECG_ITS ---
APPROVED REPORT Exam: Resting ECG HR:79 bpm ECG Measurements Heart Rate 79 AXES AK 130 P 73 QRSd 80 QRS 66 QT 394 T 70 QTc 451 <Conclusion> Sinus rhythm with premature supraventricular complexes Otherwise normal ECG Electronically signed by : Dash Villarreal, 12/30/2019 20:01:55
[2019-12-29 09:25] VITALS: BP 142/96; PULSE 77; RESP 24; TEMP 36.6; O2SAT 94; BMI 29.8
--- NOTE | 2019-12-29 09:29 | XR_ITS ---
PROCEDURE: XR CHEST 2V CLINICAL INDICATION: pain Left-sided chest pain, smoker COMPARISON: CXR2V XR chest 2V from 08/04/2017 CXR2V XR chest 2V from 05/03/2018 FINDINGS: Changes of COPD. Mild prominence of the fátima. No lobar consolidation or collapse. There is a 10 mm nodular opacity overlying the left lower lobe. The remaining lungs are clear. Other findings:None. IMPRESSION: Chronic changes. 10 mm left lower lobe nodule. Consider CT follow-up Dictated b Juan M Henry MD 12/29/2019 10:46 Juan M Henry MD in [place] 12/29/2019 10:46
[2019-12-29 09:40] LABS: Basophils % 0.3 % (0.1-2.0); Eosinophils # 0.1 K/mm3 (0.0-0.4); Eosinophils % 2.3 % (0.1-12.0); Hematocrit 43.3 % (37.0-47.0); Hemoglobin 15.2 g/dL (12.2-16.2); Lymphocytes # 2.1 K/mm3 (0.7-4.5); Mean Corpuscular HGB Conc 35.1 g/dL (31.8-35.4); Mean Corpuscular Hemoglobin 35.2 pg (27.0-31.2); Mean Corpuscular Volume 100.4 fl (81-99); Mean Platelet Volume 8.2 fl (7.4-10.4); Monocytes # 0.3 K/mm3 (0.1-1.0); Neutrophils # 2.9 K/mm3 (1.8-7.8); Neutrophils % 53.5 % (37.0-80.0); Platelet Count 174 K/mm3 (142-424); Red Blood Count 4.31 M/mm3 (4.20-5.40); Red Cell Distribution Width 13.5 % (11.5-17.5); White Blood Count 5.5 K/mm3 (4.8-10.8)
[2019-12-29 09:44] LABS: Chloride 99 mmol/L (98-107); Potassium 4.8 mmoL/L (3.5-5.1); Sodium 139 mmol/L (136-145)
[2019-12-29 09:47] LABS: Alanine Aminotransferase 14 U/L (12-78); Albumin Level 3.8 g/dl (3.5-5.0); Albumin/Globulin Ratio 0.9 (1.1-1.8); Alkaline Phosphatase 98 U/L (38-126); Anion Gap 9.8 mEq/L (5-15); Aspartate Amino Transferase 28 U/L (14-36); Bilirubin,Total 0.5 mg/dl (0.2-1.3); Blood Urea Nitrogen 20 mg/dl (7-17); Calcium 9.1 mg/dl (8.4-10.2); Carbon Dioxide 35 mmol/L (22.0-30.0); Creatinine Clearance Estimated 114 mL/min (50-200); Estimated Glomerular Filt Rate 65 ml/min (>60); GFR (African American) 79 ML/MIN (>60); Globulin 4.2 g/dL (1.3-3.2); Glucose 126 mg/dl (74-100)
[2019-12-29 10:00] LABS: Troponin I < 0.01 ng/ml (0.00-0.034)
--- NOTE | 2019-12-29 10:47 | HMH.EDGENADL ---
ED Disposition Clinical Impression: Chest pain Disposition: Home, Self-Care Condition on Discharge: Good Instructions: DI for Acute Pain -- Adult Additional Instructions: follow up with PCP for outpatient stress test. Referrals: Andreina Shah APRN [Primary Care Provider] - - Critical Care Critical Care Time: No Attestation: On 12/29/19, the high probability of a clinically significant, sudden or life threatening deterioration of the following system(s) required my full and direct attention, intervention and personal management. The time I documented below is in addition to time spent performing reported procedures but includes the following listed in this critical care notation. Medical Decision Making - Medical Records Medical records reviewed: Yes: I reviewed the patient's medical records. - Matt Inquiry Pt receiving controlled substance: No Vital Signs: 12/29/19 09:25 Temperature 98 F Temperature Source Oral Pulse Rate [Right] 77 Respiratory Rate 24 Blood Pressure [Right Arm] 142/96 H Blood Pressure Mean [Right Arm] 111 02 Sat by Pulse Oximetry 94 L - Lab Data Lab results reviewed: Yes: I reviewed the patient's lab results. Lab Results 12/29/19 09:30: WBC 5.5, RBC 4.31, Hgb 15.2, Hct 43.3, MCV 100.4 H, MCH 35.2 H, MCHC 35.1, RDW 13.5, Plt Count 174, MPV 8.2, Neut % (Auto) 53.5, Lymph % (Auto) 39.0, Clinch % (Auto) 5.0, Eos % (Auto) 2.3, Baso % (Auto) 0.3, Neut # (Auto) 2.9, Lymph # (Auto) 2.1, Clinch # (Auto) 0.3, Eos # (Auto) 0.1, Baso # (Auto) 0.0 12/29/19 09:30: Sodium 139, Potassium 4.8, Chloride 99, Carbon Dioxide 35 H, Anion Gap 9.8, BUN 20 H, Creatinine 0.90, Estimated Creat Clear 114, Estimated GFR 65, Est GFR ( Amer) 79, Glucose 126 H, Calcium 9.1, Total Bilirubin 0.5, AST 28, ALT 14, Alkaline Phosphatase 98, Troponin I < 0.01, Total Protein 8.0, Albumin 3.8, Globulin 4.2 H, Albumin/Globulin Ratio 0.9 L Result diagrams: 12/29/19 09:30 12/29/19 09:30 Orders (Tests/Meds): ORDERS Category Date Time Status XR chest 2V Stat Exams 12/29/19 09:29 Taken Troponin I Q3H Lab 12/29/19 12:30 Ordered Troponin I Q3H Lab 12/29/19 15:30 Ordered ECG Request by /Oneil Stat Y 12/29/19 09:29 Ordered - Radiology Data #1 Image(s): Chest Preliminary Findings: Normal/NAD - ECG Data Tracing #1 I reviewed this ECG and interpreted as documented below: Normal Sinus Rhythm: Yes - MIAN Score for Non-Stemi Age of Patient: 50-59 years old Heart Rate: 70-89 bpm Systolic Blood Pressure: 120-139 mmhg Serum Creatinine: 0.40-0.79 mg/dl CHF Killip Class: I-No CHF Other Risk Factors: None Non-Stemi Risk Score: 88 Risk Stratification: 1-108 = Low Risk General Adult HPI - General Chief complaint: PAIN Stated complaint: left arm, shoulder, chest pain Time Seen by Provider: 12/29/19 10:47 Mode of Arrival: EMS Limitations: No Limitations Description of Symptoms (Recalled from ER Triage Doc. by RN): C/O left arm and shoulder pain, states she had a period of chest pain but does not have any now. Pt states she has been under a lot of stress lately since her sister recently, states her symptoms started after she . - History of Present Illness Onset (ago): day(s) Location: chest, left, upper extremity Radiation: extremity Severity: moderate Severity scale (1-10): 4 Quality: aching Consistency: intermittent Relieving factors: rest Exacerbating factors: movement Associated symptoms: denies other symptoms Treatments prior to arrival: none - Related Data Home Medications Medication Instructions Recorded Confirmed Albuterol Sulfate [Ventolin HFA 1 - 2 puffs IH Q4-6H PRN 08/01/17 05/03/18 Inhaler] Fluticasone Propionate [Flonase 2 spr NS DAILY 08/01/17 05/03/18 50mcg nasal spray 16gm] Fluticasone/Vilanterol [Breo 1 each IH DAILY 08/01/17 05/03/18 Ellipta 100-25 Mcg INH] Tiotropium [place] [Spiriva 1 puff INHALATION DAILY 08/01/17 05/03/18 18mcg/
[2019-12-29 10:55] VITALS: BP 105/60; PULSE 68; RESP 20; O2SAT 99
[2019-12-29 11:01] VITALS: BP 145/80; PULSE 80; RESP 18; TEMP 36.7; O2SAT 98
== END 2019-12-29 11:02 | disposition home or self-care (01) ==
PROVIDERS: Emergency Provider Family Medicine; PCP Nurse Practitioner Family
DX: R07.9 Chest pain, unspecified (principal); M79.622 Pain in left upper arm; E11.9 Type 2 diabetes mellitus without complications; Z79.4 Long term (current) use of insulin; I10 Essential (primary) hypertension; J44.9 Chronic obstructive pulmonary disease, unspecified; F41.8 Other specified anxiety disorders; F17.210 Nicotine dependence, cigarettes, uncomplicated; Z90.49 Acquired absence of other specified parts of digestive tract; Z79.899 Other long term (current) drug therapy
CPT/HCPCS: 71046; 80053; 84484; 85025; 93005; 99283

== ENCOUNTER → 2020-04-15 10:44 | Outpatient (CLI) | payer OTHER, SELFPAY | PROVIDERS: PCP Nurse Practitioner Family; Visit Provider Physician Assistant | DX: R91.1 Solitary pulmonary nodule (principal); J44.9 Chronic obstructive pulmonary disease, unspecified | CPT/HCPCS: 93306; 93308; A9502 ==

== ENCOUNTER → 2020-06-29 11:24 | Outpatient (CLI) | payer OTHER, SELFPAY ==
[2020-06-29 13:14] LABS: Coronavirus 19 IgG Antibody Negative (Negative); Coronavirus 19 IgM Antibody Negative (Negative)
== END ==
PROVIDERS: Visit Provider Ophthalmology
DX: Z01.812 Encounter for preprocedural laboratory examination (principal); Z20.822 Contact with and (suspected) exposure to COVID-19; H25.12 Age-related nuclear cataract, left eye
CPT/HCPCS: 36415; 86328

== ENCOUNTER 2020-06-30 07:56 | Day surgery (SDC) | payer OTHER, SELFPAY ==
[2020-06-25 14:25] VITALS: BMI 32.3
[2020-06-30] VITALS (14 sets, daily range): BP systolic 103–143; BP diastolic 60–86; PULSE 64–104; RESP 16–22; TEMP 36.1–36.4; O2SAT 90–100
[2020-06-30 08:48] LABS: POC Glucose,Bedside 104 (70-110)
== END 2020-06-30 11:03 | disposition home or self-care (01) ==
LOC: OR 07:58
PROVIDERS: PCP Nurse Practitioner Family; Visit Provider Ophthalmology
PROC: (CPT 66982; principal; 2020-06-30 09:30)
DX: H26.9 Unspecified cataract (principal); H21.89 Other specified disorders of iris and ciliary body; F41.9 Anxiety disorder, unspecified; J44.9 Chronic obstructive pulmonary disease, unspecified; F32.9 Major depressive disorder, single episode, unspecified; E11.9 Type 2 diabetes mellitus without complications; I10 Essential (primary) hypertension; E78.5 Hyperlipidemia, unspecified; Z82.1 Family history of blindness and visual loss; Z83.3 Family history of diabetes mellitus; Z82.49 Family history of ischemic heart disease and other diseases of the circulatory system; Z79.899 Other long term (current) drug therapy
CPT/HCPCS: 66982; 82962; V2632

== ENCOUNTER → 2020-11-04 15:22 | Outpatient (CLI) | payer OTHER, SELFPAY ==
--- NOTE | 2020-11-04 15:24 | CT_ITS ---
PROCEDURE: CT CHEST WO CON CLINICAL INDICATION: Lung nodule on chest x-ray COMPARISON: CR XR CHEST 2V from 12/29/2019 TECHNIQUE: Axial images obtained with sagittal and coronal reformats. All CT scans at the facility use one or more dose reduction, viz: automated exposure control, ma/kV adjustment per patient size (including targeted exams where dose is matched to indication, i.e. head), or iterative reconstruction technique. FINDINGS: There are a few small subcentimeter pulmonary nodules in the right lower lobe with a single small subcentimeter pulmonary nodule in the right middle lobe and a single small subcentimeter pulmonary nodule in the left lower lobe. Repeat chest CT in 6 months recommended for close follow-up. Scattered emphysematous changes with some areas of bullous emphysema in the right middle lobe and right lung base. No pleural effusion or pneumothorax. Heart is not enlarged. No pericardial effusion or thickening. Some calcified left hilar lymph nodes are present. A few small non-specific middle mediastinal lymph nodes are present. There is mild calcification of thoracic aorta without aneurysm. Airways are patent. Some coronary artery calcifications are noted. Images of the upper abdomen show few calcifications in the spleen. Gallbladder surgically absent. 3 centimeter left renal cortical cyst upper pole. 1.5 centimeter cystic lesion upper pole more anteriorly is incompletely assessed. Correlation with CT abdomen with renal mass protocol is suggested. No adrenal mass. Moderate diffuse degenerative changes of the thoracic spine. No acute bony abnormality. IMPRESSION: A few small bilateral subcentimeter pulmonary nodules as described above for which repeat chest CT in 6 months is recommended for close follow-up. Scattered emphysematous changes with some areas of bullous emphysema in the right middle lobe and right lung base and bilateral areas of parenchymal scarring. Mild calcification of the thoracic aorta without aneurysm. A few small non-specific middle mediastinal lymph nodes. 1.5 centimeter cystic lesion upper pole left kidney incompletely assessed with 3 centimeter left renal cortical cyst also in the upper pole. Correlation with CT abdomen with renal mass protocol is suggested. Prior cholecystectomy. No adrenal mass. Dictated by: Jon Jerry MD 11/04/2020 16:23 Jon Jerry MD in [place] 11/04/2020 16:23
== END ==
PROVIDERS: PCP Family Medicine Adult Medicine; Visit Provider Internal Medicine Pulmonary Disease
DX: R91.8 Other nonspecific abnormal finding of lung field (principal)
CPT/HCPCS: 71250

== ENCOUNTER → 2020-11-11 09:39 | Outpatient (CLI) | payer OTHER, SELFPAY | PROVIDERS: PCP Family Medicine Adult Medicine; Visit Provider Internal Medicine Pulmonary Disease | DX: R06.09 Other forms of dyspnea (principal); R91.8 Other nonspecific abnormal finding of lung field | CPT/HCPCS: 94060; 94727; 94729; 94762 ==

== ENCOUNTER → 2021-01-26 13:48 | Outpatient (CLI) | payer OTHER, SELFPAY | PROVIDERS: PCP Nurse Practitioner Family; Visit Provider Specialist | DX: J43.9 Emphysema, unspecified (principal); G47.34 Idiopathic sleep related nonobstructive alveolar hypoventilation; F17.200 Nicotine dependence, unspecified, uncomplicated | CPT/HCPCS: 94618 ==

== ENCOUNTER → 2021-05-05 14:18 | Outpatient (CLI) | payer OTHER, SELFPAY ==
--- NOTE | 2021-05-05 14:23 | CT_ITS ---
PROCEDURE: CT CHEST WO CON CLINICAL INDICATION: 6 month Six-month follow-up pulmonary nodules COMPARISON: No exams were available for comparison TECHNIQUE: Axial images obtained with sagittal and coronal reformats. All CT scans at the facility use one or more dose reduction, viz: automated exposure control, ma/kV adjustment per patient size (including targeted exams where dose is matched to indication, i.e. head), or iterative reconstruction technique. FINDINGS: HEART AND MEDIASTINAL STRUCTURES: Hypodense nodule noted in the right lobe of the thyroid gland approximately 1 cm not significantly changed. Scattered small mediastinal lymph nodes. No mediastinal or hilar mass. There are severe coronary artery calcifications. Minimal thickening of the pericardium anterior laterally on the left unchanged. There is mild mediastinal shift toward the right. This is unchanged. LUNGS AND PLEURAL SPACES: The most inferior aspect of the left posterior costophrenic sulcus is not imaged.. COPD changes. Scattered areas of scarring. Centrilobular and paraseptal emphysematous changes. Scarring with volume loss is noted the in the right upper lobe inferiorly. There are scattered small bilateral pulmonary nodules some of which have a ground-glass/semi solid appearance. Few small nodules do not appear significantly changed. There is however a new subpleural nodule in the right lower lobe posterior laterally image 60 series 3 the margins are somewhat irregular. This nodule measures approximately 10 mm. This could be inflammatory/infectious or neoplastic. PET CT may provide further evaluation to determine the activity of this nodule. BONY STRUCTURES: No acute bony abnormalities apparent. UPPER ABDOMEN: Unremarkable. ADDITIONAL FINDINGS: No other significant abnormalities. IMPRESSION: 1. Stable numerous small bilateral pulmonary nodules with COPD changes and centrilobular and paraseptal emphysema with chronic volume loss in the right upper lobe inferiorly. 2. New subpleural nodule right lower lobe posterior laterally at 10 mm with irregular margins. Neoplasm versus inflammatory/infectious changes included in the differential diagnosis. PET CT is suggested for further evaluation. If this is not performed then, would suggest a short-term 3 month follow-up CT chest. 3. Severe coronary artery calcifications indicate coronary artery disease. Dictated by: Juan M Henry MD 05/06/2021 09:32 Juan M Henry MD in [place] 05/06/2021 09:32
== END ==
PROVIDERS: PCP Nurse Practitioner Family; Visit Provider Internal Medicine Pulmonary Disease
DX: R91.8 Other nonspecific abnormal finding of lung field (principal)
CPT/HCPCS: 71250

== ENCOUNTER → 2021-10-01 14:16 | Outpatient (CLI) | payer OTHER, SELFPAY ==
--- NOTE | 2021-10-01 14:22 | CT_ITS ---
FINAL REPORT TECHNIQUE: Axial images were obtained from the lung apex to the mid abdomen by computed tomography. Coronal reformatted images were obtained. This study was performed with techniques to keep radiation doses as low as reasonably achievable, (ALARA). Individualized dose reduction techniques using automated exposure control or adjustment of mA and/or kV according to the patient''s size were employed. CLINICAL HISTORY: ABN FINDING OF RT LUNG SEEN ON PRIOR CT CHEST COMPARISON: May 05, 2021 FINDINGS: There is no axillary adenopathy. There is no hilar or mediastinal adenopathy. Heart size is normal. There is no pericardial or pleural effusion. Limited images of the upper abdomen are unremarkable. There is right middle lobe atelectasis or scarring. There is mild scarring elsewhere. There are multiple, less than 5 mm, bilateral pulmonary nodules which are visibly stable in size and number. The pleural based nodular opacity in the right lower lobe is no longer seen. There is no new pulmonary abnormality identified. IMPRESSION: Resolved 10 mm pleural based nodule opacity right lower lobe. Multiple other small pleural nodules, stable, most likely benign. This can be further evaluated with an additional follow-up CT scan in 12 months. Reviewed, Interpreted and Dictated by Ciro Caceres III, MD Transcribed by Leandra Osborne Authenticated by Ciro Caceres III, MD on 10/01/2021 03:13:27 PM [facility]
== END ==
PROVIDERS: PCP Nurse Practitioner Family; Visit Provider Nurse Practitioner Family
DX: R91.8 Other nonspecific abnormal finding of lung field (principal)
CPT/HCPCS: 71250

== ENCOUNTER → 2022-02-16 15:10 | Outpatient (CLI) | payer OTHER, SELFPAY | PROVIDERS: Visit Provider Internal Medicine Pulmonary Disease | DX: R06.09 Other forms of dyspnea (principal) | CPT/HCPCS: 94618 ==

== ENCOUNTER → 2022-10-14 13:01 | Outpatient (CLI) | payer OTHER, SELFPAY ==
--- NOTE | 2022-10-14 13:07 | CT_ITS ---
FINAL REPORT CLINICAL HISTORY: lung cancer screening, smoker, 1 1/2 pks per day x 20 yrs copd, empysema COMPARISON: 10/01/2021 FINDINGS: CTDI vol (mGy): 2.90 DLP: 113.[address] images of the chest were obtained using the low-dose protocol for screening. There is no evidence of mediastinal or hilar mass or adenopathy. No axillary mass or adenopathy is identified. On the lung window images, there are numerous small bilateral pulmonary nodules measuring less than 5 mm, stable from prior exam. No new mass or nodule is identified. Mild emphysema and mild scarring is noted. IMPRESSION: Multiple small bilateral nodules measuring less than 5 mm, stable. Lung RADS category 2. Recommend 12 month followup low-dose CT for further evaluation. Reviewed, Interpreted and Dictated by Ciro Caceres III, MD Transcribed by Lindsay Luna Authenticated and . [facility]
== END ==
PROVIDERS: PCP Nurse Practitioner Family; Visit Provider Internal Medicine Pulmonary Disease
DX: Z87.891 Personal history of nicotine dependence (principal); Z12.2 Encounter for screening for malignant neoplasm of respiratory organs
CPT/HCPCS: 71271

== ENCOUNTER 2022-11-02 16:02 | Inpatient (IN) | payer OTHER, SELFPAY ==
--- NOTE | 2022-11-02 14:12 | XR_ITS ---
FINAL REPORT CLINICAL HISTORY: Shortness of breath COMPARISON: 10/14/2022 FINDINGS: Two views of the chest were obtained. The heart size and pulmonary vascularity are within normal limits. The mediastinum is normal. There is mild bilateral scarring/fibrosis. There is no pneumothorax. The bony thorax is intact. IMPRESSION: Mild bilateral scarring/fibrosis. Reviewed, Interpreted and Dictated by Ciro Caceres III, MD Transcribed by Leandra Osborne Authenticated and . [facility]
--- NOTE | 2022-11-02 16:03 | CT_ITS ---
PROCEDURE INFORMATION: Exam: CTA Chest With Contrast Exam date and time: 11/02/2022 5:43 PM Age: 57 years old Clinical indication: Abnormal findings; Other: Elevated d-dimer; Dyspnea; Additional info: Dyspnea, smoker, elevated d-dimer, diabetic. TECHNIQUE: Imaging protocol: Computed tomographic angiography of the chest with contrast. Exam focused on the arteries. 3D rendering (Not supervised by radiologist): MIP and/or 3D reconstructed images were created by the technologist. Radiation optimization: All CT scans at this facility use at least one of these dose optimization techniques: automated exposure control; mA and/or kV adjustment per patient size (includes targeted exams where dose is matched to clinical indication); or iterative reconstruction. Contrast material: IVSOVUE 370; Contrast volume: 70 ml; Contrast route: INTRAVENOUS (IV); REPORTING DATA: Count of CT and Cardiac NM exams in prior 12 months: This patient has received [address] and 0 known cardiac nuclear medicine studies in the 12 months prior to the current study. COMPARISON: CT LUNG SCREENING 14/10/2022 13:14 FINDINGS: Pulmonary arteries: No pulmonary emboli. Enlarged pulmonary arteries likely represent chronic pulmonary arterial hypertension. Great vessels off aortic arch: Dissection or aneurysm of a short segment of the proximal left subclavian artery. Aorta: The aorta demonstrates mild atherosclerotic disease. The left vertebral artery originates directly from the aorta. Thyroid: Thyroid nodules measure up to 10 mm. No follow-up imaging is warranted. Lungs: [id number] centrilobular and paraseptal emphysema. Patchy widespread nodular ground-glass airspace disease. Chronic right lung volume loss and architectural distortion related to scarring. Pleural spaces: Unremarkable. No pneumothorax. No pleural effusion. Heart: Unremarkable. No cardiomegaly. No pericardial effusion. Coronary arteries: Coronary artery calcifications. Lymph nodes: Unremarkable. No enlarged lymph nodes. Bones/joints: Unremarkable. No acute fracture. Soft tissues: Unremarkable. Other findings: Stigmata of old granulomatous disease. IMPRESSION: 1. No pulmonary emboli. 2. Patchy widespread nodular ground-glass airspace disease. Atypical infection would be most likely. Continue yearly low-dose CT chest follow-up. 3. 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 This is most likely a chronic finding for this patient. COMMENTS: 1. Consistent with the [employer]'s Incidental Findings Committee white paper (J Am Radha Radiol 2015): In patients aged 35 years and older with an incidental thyroid nodule equal to or greater than 1.[address], MRI or extrathyroidal US, further evaluation with dedicated thyroid US is recommended for patients with normal life expectancy and without comorbidities. For smaller nodules without suspicious features, no further evaluation or follow up is recommended. 2. In the absence of a history or active diagnosis of lung cancer, it is recommended that this patient with emphysema be evaluated for enrollment in a low dose CT lung cancer screening program.
[2022-11-02 16:13] VITALS: BP 131/68; PULSE 113; RESP 22; TEMP 37.1; O2SAT 89; BMI 34.8
[2022-11-02 16:45] LABS: Basophils % 0.3 % (0.1-2.0); Eosinophils # 0.1 K/mm3 (0.0-0.4); Eosinophils % 1.5 % (0.1-12.0); Hemoglobin 13.7 g/dL (12.2-16.2); Lymphocytes # 2.9 K/mm3 (0.7-4.5); Lymphocytes % 32.9 % (10-50); Mean Corpuscular HGB Conc 30.4 g/dL (31.8-35.4); Mean Corpuscular Hemoglobin 33.7 pg (27.0-31.2); Mean Corpuscular Volume 110.8 fl (81-99); Mean Platelet Volume 8.3 fl (7.4-10.4); Monocytes # 0.3 K/mm3 (0.1-1.0); Monocytes % 3.6 % (1.7-9.3); Neutrophils # 5.5 K/mm3 (1.8-7.8); Neutrophils % 61.7 % (37.0-80.0); Platelet Count 218 K/mm3 (142-424); Red Blood Count 4.06 M/mm3 (4.20-5.40); Red Cell Distribution Width 14.7 % (11.5-17.5); White Blood Count 8.9 K/mm3 (4.8-10.8)
[2022-11-02 16:49] LABS: Chloride 90 mmol/L (98-107); Sodium 138 mmol/L (136-145)
[2022-11-02 16:51] LABS: Alanine Aminotransferase 30 U/L (12-78); Alkaline Phosphatase 106 U/L (38-126); Aspartate Amino Transferase 34 U/L (14-36); Bilirubin,Total 0.6 mg/dl (0.2-1.3); Blood Urea Nitrogen 15 mg/dl (7-17); Creatinine Clearance Estimated 118 mL/min (50-200); Estimated Glomerular Filt Rate 65 ml/min (>60); GFR (African American) 78 ML/MIN (>60); Lactic Acid 1.1 mmol/L (0.7-2.1)
[2022-11-02 16:52] LABS: Albumin Level 4.1 g/dl (3.5-5.0); Albumin/Globulin Ratio 0.9 (1.1-1.8); Calcium 8.3 mg/dl (8.4-10.2); Globulin 4.4 g/dL (1.3-3.2); Glucose 103 mg/dl (74-100); Total Protein,Serum 8.5 g/dl (6.3-8.2)
[2022-11-02 16:55] LABS: ABG Base Excess 12.3 mmol/L (-2.4-2.3); ABG HCO3 37.5 mmhg (22.0-26.0); ABG Oxygen Saturation 95 % (90-100); ABG PH 7.38 mmol/L (7.35-7.45); ABG PO2 72.5 mmhg (80-100); ABG TCO2 39.5 mmhg (23-27)
--- NOTE | 2022-11-02 16:58 | EXP.HP ---
History of Present Illness *Admission Date: 11/02/22 *Reason for visit:: shortness of breath *History of present illness: This is a 57-year-old current smoker greater than 55-bxyp-ndxb smoking history of severe COPD with hypoxia, on chronic oxygen, @3L at home, Diabetes, HTN, HLD, and obesity that Recently presented to her pulmonary doctor office for follow up on respiratory failure with cough and productive status post treatment with cefdinir and steroids.? Patient seen today with continued worsening respiratory status overnight minimal cough and productive phlegm. Chest Xray showing scarring and fibrotic changes. patient denied any chest pain. patient was referred to the hospital for direct admission. [facility] Disclaimer: The information contained in this section may have been updated after the patient was seen, as this information can be updated by other users. Medical History Abnormal computerized axial tomography of chest Acute and chronic respiratory failure with hypoxia Chronic hypoxemic respiratory failure COPD (chronic obstructive pulmonary disease) Dyspnea Dyspnea on exertion HLD (hyperlipidemia) HTN (hypertension) Lung nodule Multiple pulmonary nodules Nocturnal hypoxemia Non-seasonal allergic rhinitis Seasonal allergies Smoking greater than 30 pack years Tachycardia Tobacco abuse disorder Surgical History No significant past surgical history Family History Coronary artery disease Cancer Social History Smoking Status: Current every day smoker tobacco type: cigarettes packs per day: 1 second hand exposure: No alcohol intake: never substance use type: denies use current occupational status: disabled Travel in the last 8 weeks: None household members: spouse housing: house current occupational exposures/hazards: No caffeine: Yes Review of Systems Review of Systems Review of systems:: pertinent systems reviewed and negative unless documented below Meds Home Medications and Allergies Home Medications Medication Instructions Recorded Confirmed Type montelukast 10 mg tablet 10 mg PO DAILY Allergy symptoms 03/16/20 11/02/22 History simvastatin 10 mg tablet 10 mg PO HS Cholesterol 03/16/20 11/02/22 History lisinopril 10 mg tablet 10 mg PO DAILY bp 01/27/21 11/02/22 History bupropion HCl 150 mg 24 hr tablet, 150 mg PO BID Anxiety 03/24/21 11/02/22 History extended release albuterol sulfate 90 mcg/actuation 1 inh inhalation Q6H PRN shortness 12/23/21 11/02/22 Rx aerosol inhaler of breath or wheezing 90 days #8.5 grams sertraline 50 mg tablet (Zoloft) 100 mg PO DAILY Depression 10/25/22 11/02/22 History ipratropium 0.5 mg-albuterol 3 mg 3 ml inhalation QID PRN shortness 11/01/22 11/02/22 Rx (2.5 mg base)/3 mL nebulization of breath or wheezing 90 days #360 soln mL fluticasone propionate 110 1 puff inhalation BID soa 11/02/22 11/02/22 History mcg/actuation HFA aerosol inhaler (Flovent HFA) fluticasone propionate 50 1 spray intranasal BID allergies 11/02/22 11/02/22 History mcg/actuation nasal spray,suspension loratadine 10 mg tablet (Claritin) 10 mg PO DAILY allergies 11/02/22 11/02/22 History umeclidinium 62.5 mcg-vilanterol 1 inh inhalation DAILY soa 11/02/22 11/02/22 History 25 mcg/actuation powdr for inhalation (Anoro Ellipta) New Prescriptions to Start Prescriptions: Allergies Allergy/AdvReac Type Severity Reaction Status Date / Time No Known Allergies Allergy Verified 11/02/22 14:59 Exam Data for Last 24 hours Vital signs and Labs for Last 24 Hours: Temp Pulse Resp BP Pulse Ox 98.7 F 113 H 22 131/68 89 L 11/02/22 16:13 11/02/22 16:13 11/02/22 16:13 11/02/22 16:13 11/02/22 16:13 Laboratory Results - last 24
[2022-11-02 16:59] LABS: Allen's Test Acceptable; Source Right Radial
[2022-11-02 17:00] LABS: ABG PCO2 65.3 mmhg (35.0-45.0)
[2022-11-02 17:04] LABS: Carbon Dioxide 41 mmol/L (22.0-30.0); Troponin I 0.03 ng/ml (0.00-0.034)
[2022-11-02 17:10] VITALS: PULSE 100; PULSE 107; O2SAT 88
[2022-11-02 18:00] VITALS: PULSE 105; O2SAT 89
--- NOTE | 2022-11-02 18:20 | PC.NURSE ---
pt educated on use of IS at this time, pt demonstrates use and verbalizes understanding
[2022-11-02 20:00] VITALS: BP 115/81; PULSE 98; RESP 20; TEMP 38; O2SAT 95
--- NOTE | 2022-11-02 20:53 | PC.NURSE ---
pt. temp. 100.4, hospitalist notified, tylenol ordered and administered
[2022-11-02 23:02] VITALS: PULSE 84
[2022-11-03] VITALS (9 sets, daily range): BP systolic 102–146; BP diastolic 49–95; PULSE 54–108; RESP 20–22; TEMP 36.5–37.3; O2SAT 90–97; BMI 35.5
--- NOTE | 2022-11-03 06:05 | PC.NURSE ---
pt A&OX4. ambulates in room with standby assistance, tolerating 3L O2 with sats >90% when compliant with wearing NC. pt. removed her Iv nd stated that she removed it because she didn't like it in the bend of her arm. new IV was started, pt tolerated well.
--- NOTE | 2022-11-03 06:06 | ECG_ITS ---
APPROVED REPORT Exam: Resting ECG HR:84 bpm ECG Measurements Heart Rate 84 AXES QRSd 101 QRS 15 QT 380 T 66 QTc 420 Conclusion ATRIAL FIBRILLATION POSSIBLE ANTERIOR MYOCARDIAL INFARCTION , OF INDETERMINATE AGE [30 ms Q WAVE IN V3/V4, OR R < 0.2 mV IN V4] ABNORMAL ECG UNCONFIRMED REPORT Electronically signed by : Dash Villarreal MD 11/04/2022 16:21:23
--- NOTE | 2022-11-03 06:11 | PC.NURSE ---
pt complained of chest pain, [employer] Marlena noified, EKG and troponins ordered.
[2022-11-03 07:03] LABS: Troponin I 0.02 ng/ml (0.00-0.034)
[2022-11-03 08:20] LABS: Chloride 94 mmol/L (98-107); Potassium 4.2 mmoL/L (3.5-5.1); Sodium 137 mmol/L (136-145)
[2022-11-03 08:22] LABS: Blood Urea Nitrogen 15 mg/dl (7-17); Creatinine Clearance Estimated 120 mL/min (50-200); Estimated Glomerular Filt Rate 65 ml/min (>60); GFR (African American) 78 ML/MIN (>60)
[2022-11-03 08:23] LABS: Alanine Aminotransferase 26 U/L (12-78); Albumin Level 3.6 g/dl (3.5-5.0); Alkaline Phosphatase 96 U/L (38-126); Anion Gap 8.2 mEq/L (5-15); Aspartate Amino Transferase 33 U/L (14-36); Bilirubin,Total 0.5 mg/dl (0.2-1.3); Calcium 8.1 mg/dl (8.4-10.2); Carbon Dioxide 39 mmol/L (22.0-30.0); Globulin 3.7 g/dL (1.3-3.2); Glucose 97 mg/dl (74-100); Total Protein,Serum 7.3 g/dl (6.3-8.2)
--- NOTE | 2022-11-03 08:24 | HMH.PHAINT1 ---
Pharmacy Intervention Comments: MEDICATION RECONCILIATION COMPLETED USING EXTERNAL FILL HISTORY FROM OUTSIDE PHARMACY AND PATIENT INTERVIEW.
[2022-11-03 08:25] LABS: Eosinophils # 0.1 K/mm3 (0.0-0.4); Lymphocytes # 1.5 K/mm3 (0.7-4.5); Monocytes # 0.2 K/mm3 (0.1-1.0); Platelet Count 190 K/mm3 (142-424)
[2022-11-03 08:59] LABS: Basophils % 0.3 % (0.1-2.0); Eosinophils % 1.7 % (0.1-12.0); Hematocrit 40.2 % (37.0-47.0); Lymphocytes % 28.9 % (10-50); Mean Corpuscular HGB Conc 30.5 g/dL (31.8-35.4); Mean Corpuscular Hemoglobin 33.1 pg (27.0-31.2); Mean Corpuscular Volume 108.6 fl (81-99); Mean Platelet Volume 8.5 fl (7.4-10.4); Monocytes % 4.5 % (1.7-9.3); Neutrophils # 3.4 K/mm3 (1.8-7.8); Neutrophils % 64.7 % (37.0-80.0); Red Cell Distribution Width 14.5 % (11.5-17.5); White Blood Count 5.2 K/mm3 (4.8-10.8)
--- NOTE | 2022-11-03 09:24 | EXP.PULM.CON ---
History of Present Illness History of present illness: Ms. Jackman is a 57-year-old female current smoker greater than 14-gapd-hlqd smoker severe COPD recently managed in outpatient basis for COPD exacerbation presented to the clinic with progressively worsening respiratory distress and was eventually admitted to the hospital for further evaluation and management. [facility] Disclaimer: The information contained in this section may have been updated after the patient was seen, as this information can be updated by other users. Medical History (Updated 11/03/22 @ 09:25 by Kiel Kathleen MD) Abnormal computerized axial tomography of chest Acute and chronic respiratory failure with hypoxia Chronic hypoxemic respiratory failure COPD (chronic obstructive pulmonary disease) Dyspnea Dyspnea on exertion HLD (hyperlipidemia) HTN (hypertension) Lung nodule Multiple pulmonary nodules Nocturnal hypoxemia Non-seasonal allergic rhinitis Pneumonia Seasonal allergies Smoking greater than 30 pack years Tachycardia Tobacco abuse disorder Surgical History No significant past surgical history Family History Coronary artery disease Cancer Social History Smoking Status: Current every day smoker tobacco type: cigarettes packs per day: 1 second hand exposure: No alcohol intake: never substance use type: denies use current occupational status: disabled Travel in the last 8 weeks: None household members: spouse housing: house current occupational exposures/hazards: No caffeine: Yes Review of Systems Constitutional Constitutional: Reports anorexia, Reports body ache(s), Reports fatigue and Reports lethargy Eyes Eyes: Denies eye discharge, Denies dry eyes, Denies irritation and Denies itchy eyes ENT Ears, Nose, Mouth, and Throat: Denies epistaxis, Denies facial pain, Denies lip swelling and Denies throat swelling *Cardiovascular Cardiovascular: Reports dyspnea, Reports dyspnea on exertion and Reports orthopnea *Respiratory Respiratory: Reports chest congestion, Reports cough, Reports dyspnea, Reports dyspnea on exertion, Reports excessive phlegm production and Reports wheezing *Gastrointestinal Gastrointestinal: Denies abdominal pain, Denies belching and Denies cramping *Musculoskeletal Musculoskeletal: Reports back pain, Reports myalgias and Reports other (No small joint swelling or Pain) Psychiatric Psychiatric: Denies homicidal ideation and Denies suicidal ideation Endocrine Endocrine: Reports fatigue and Denies heat intolerance Hematologic/Lymphatic Hematologic/Lymphatic: Denies easy bleeding and Denies lymphadenopathy Allergic/Immunologic Allergic/Immunologic: Denies itchy eyes, Denies lip swelling, Denies throat swelling and Reports wheezing Pulmonology Exam Inpatient Vital signs and Labs for Last 24 Hours: Temp Pulse Resp BP Pulse Ox 98.7 F 97 H 21 146/95 H 91 L 11/03/22 08:00 11/03/22 08:00 11/03/22 08:00 11/03/22 08:00 11/03/22 08:00 Laboratory Results - last 24 hr 11/02/22 16:05: Specimen Source Right radial, O2 % 5lpm n/c, ABG pH 7.38, ABG pCO2 65.3 H, ABG pO2 72.5 L, ABG HCO3 37.5 H, ABG Total CO2 39.5 H, ABG O2 Saturation 95, ABG Base Excess 12.3 H, Juan M Test Acceptable 11/02/22 16:25: WBC 8.9, RBC 4.06 L, Hgb 13.7, Hct 45.0, MCV 110.8 H, MCH 33.7 H, MCHC 30.4 L, RDW 14.7, Plt Count 218, MPV 8.3, Neut % (Auto) 61.7, Lymph % (Auto) 32.9, [place] % (Auto) 3.6, Eos % (Auto) 1.5, Baso % (Auto) 0.3, Neut # (Auto) 5.5, Lymph # (Auto) 2.9, [place] # (Auto) 0.3, Eos # (Auto) 0.1, Baso # (Auto) 0.0 11/02/22 16:25: Sodium 138, Potassium 4.0, Chloride 90 L, Carbon Dioxide 41 H*, Anion Gap 11.0, BUN 15, Creatinine 0.90, Estimated Creat Clear 118, Estimated GFR 65, Est GFR ( Amer) 78, Glucose 103 H, Calcium 8.3 L, Magnesium 2.0, Total Bilirubin 0.6, AST 34, ALT
[2022-11-03 09:59] LABS: Adenovirus,PCR Not Detected (NotDetected); Bordetella Pertussis Not Detected (NotDetected); Chlamydophila Pneumoniae, PCR Not Detected (NotDetected); Coronavirus 19, PCR Not Detected (NotDetected); Coronavirus 229E Not Detected (NotDetected); Coronavirus NL63 Not Detected (NotDetected); Coronavirus OC43 Not Detected (NotDetected); Coronovirus HKU1,PCR Not Detected (NotDetected); Human Metapneumovirus Not Detected (NotDetected); Influenza A, PCR Not Detected (NotDetected); Influenza AH1, 2009 Not Detected (NotDetected); Influenza AH1, PCR Not Detected (NotDetected); Influenza AH3,PCR Not Detected (NotDetected); Influenza B, PCR Not Detected (NotDetected); Mycoplasma Pneumoniae, PCR Not Detected (NotDetected); Parainfluenza 1, PCR Not Detected (NotDetected); Parainfluenza 2, PCR Not Detected (NotDetected); Parainfluenza 3, PCR Not Detected (NotDetected); Parainfluenza 4, PCR Not Detected (NotDetected); Respiratory Syncytial Virus Not Detected (NotDetected); Rhinovirus/Enterovirus Not Detected (NotDetected)
[2022-11-03 10:12] LABS: Troponin I 0.02 ng/ml (0.00-0.034)
--- NOTE | 2022-11-03 10:40 | PC.NURSE ---
Wolfgang Betancur to give and remove zofran 4mg iv and give for nause.
--- NOTE | 2022-11-03 10:48 | PC.NURSE ---
COURTESY TECH NOTE; ROUNDED ON PT 0835, PT DENIED NEED FOR ASSISTANCE WITH RESTROOM, DRINK, AND NEED TO REPOSITION. CALL LIGHT WITHIN REACH, NO FURTHER REQUESTS AT THIS TIME MONIE HAWKINS
[2022-11-03 14:32] LABS: Troponin I 0.01 ng/ml (0.00-0.034)
[2022-11-03 15:42] LABS: Hemoglobin 12.3 g/dL (12.2-16.2)
--- NOTE | 2022-11-03 16:22 | EXP.ACUTE.PN ---
Subjective *Date: 11/03/22 *Time: 16:22 Interval history: Patient feeling somewhat better today. Stable on 3 L nasal cannula oxygen. Having some intermittent nausea, response to Zofran. No chest pain. Tolerating p.o. intake. Afebrile and hemodynamically stable Medical Exam Vital signs and Labs for Last 24 Hours: Vital Signs Temp Pulse Pulse Resp BP Pulse Ox 11/03/22 15:24 98.6 F 80 22 120/69 96 11/03/22 13:57 94 H 11/03/22 13:57 89 11/03/22 11:22 99.1 F 54 L 20 134/79 91 L 11/03/22 08:00 93 L 11/03/22 08:00 98.7 F 97 H 21 146/95 H 91 L 11/03/22 05:54 108 H 11/03/22 05:54 102 H 11/03/22 05:54 90 L 11/03/22 04:00 98.7 F 78 22 132/87 97 11/03/22 00:00 98.4 F 91 H 22 110/49 L 93 L 11/02/22 23:02 84 11/02/22 23:02 84 11/02/22 20:00 100.4 F H 98 H 20 115/81 95 11/02/22 18:00 105 H 89 L 11/02/22 17:10 107 H 11/02/22 17:10 100 H 11/02/22 17:10 88 L Intake and Output 11/03/22 11/03/22 11/03/22 07:59 15:59 23:59 Intake Total 720 / 720 Output Total 0 / 0 0 / 0 Balance 0 / 720 720 / 720 Intake: Intake, Oral Amount 720 / 720 Output: Output, Urine Amount 0 / 0 0 / 0 Other: Number of Unmeasured Voids 1 1 Number of Bowel Movements 1 Weight 108.953 kg Patient Weight 11/03/22 23:59 Weight 108.953 kg Laboratory Results - last 24 hr 11/02/22 16:05: Specimen Source Right radial, O2 % 5lpm n/c, ABG pH 7.38, ABG pCO2 65.3 H, ABG pO2 72.5 L, ABG HCO3 37.5 H, ABG Total CO2 39.5 H, ABG O2 Saturation 95, ABG Base Excess 12.3 H, Juan M Test Acceptable 11/02/22 16:25: WBC 8.9, RBC 4.06 L, Hgb 13.7, Hct 45.0, MCV 110.8 H, MCH 33.7 H, MCHC 30.4 L, RDW 14.7, Plt Count 218, MPV 8.3, Neut % (Auto) 61.7, Lymph % (Auto) 32.9, [place] % (Auto) 3.6, Eos % (Auto) 1.5, Baso % (Auto) 0.3, Neut # (Auto) 5.5, Lymph # (Auto) 2.9, [place] # (Auto) 0.3, Eos # (Auto) 0.1, Baso # (Auto) 0.0 11/02/22 16:25: Sodium 138, Potassium 4.0, Chloride 90 L, Carbon Dioxide 41 H*, Anion Gap 11.0, BUN 15, Creatinine 0.90, Estimated Creat Clear 118, Estimated GFR 65, Est GFR ( Amer) 78, Glucose 103 H, Calcium 8.3 L, Magnesium 2.0, Total Bilirubin 0.6, AST 34, ALT 30, Alkaline Phosphatase 106, Total Protein 8.5 H, Albumin 4.1, Globulin 4.4 H, Albumin/Globulin Ratio 0.9 L 11/02/22 16:25: Troponin I 0.03 11/02/22 16:25: Lactate 1.1 11/02/22 16:25: Chlamy pneumoniae PCR Not detected, Adenovirus (PCR) Not detected, B. pertussis DNA (PCR) Not detected, Coronavirus OC43 (PCR) Not detected, Coronavirus HKU1 (PCR) Not detected, Coronavirus 229E (PCR) Not detected, SARS-CoV-2 (PCR) Not detected, Coronavirus NL63 (PCR) Not detected, Human Metapneumovir PCR Not detected, Influenza A (H1) PCR Not detected, Influ A (H1N1/09) PCR Not detected, Influenza A (H3) PCR Not detected, Influenza Type A (PCR) Not detected, Influenza Type B (PCR) Not detected, M. pneumoniae (PCR) Not detected, Parainfluenza 1 (PCR) Not detected, Parainfluenza 2 (PCR) Not detected, Parainfluenza 3 (PCR) Not detected, Parainfluenza 4 (PCR) Not detected, RSV (PCR) Not detected, Entero/Rhino (PCR) Not detected 11/03/22 06:28: Troponin I 0.02 11/03/22 06:48: Sodium 137, Potassium 4.2, Chloride 94 L, Carbon Dioxide 39 H, Anion Gap 8.2, BUN 15, Creatinine 0.90, Estimated Creat Clear 120, Estimated GFR 65, Est GFR ( Amer) 78, Glucose 97, Calcium 8.1 L, Total Bilirubin 0.5, AST 33, ALT 26, Alkaline Phosphatase 96, Total Protein 7.3, Albumin 3.6 D, Globulin 3.7 H, Albumin/Globulin Ratio 1.0 L 11/03/22 08:18: WBC 5.2 D, RBC 3.70 L, Hgb 12.3 D, Hct 40.2, MCV 108.6 H, MCH 33.1 H, MCHC 30.5 L, RDW 14.5, Plt Count 190, MPV 8.5, Neut % (Auto) 64.7, Lymph % (Auto) 28.9, [place] % (Auto) 4.5, Eos % (Auto) 1.7, Baso % (Auto) 0.3, Neut # (Auto) 3.4, Lymph # (Auto) 1.5, [place] # (Auto) 0.2, Eos # (Auto) 0.1, Baso # (Auto) 0.0 11/03/22 09:40: Troponin I 0.02 11/03/22 13:36: Troponin I 0.01
--- NOTE | 2022-11-03 17:12 | PC.NURSE ---
Plan is for patient to go to [place] tomorrow taken by family. Colostomy system changed again and had materials bring up more supplies.
[2022-11-04] VITALS (7 sets, daily range): BP systolic 100–124; BP diastolic 55–76; PULSE 67–89; RESP 18–20; TEMP 36.4–37.1; O2SAT 90–98; BMI 35.5
--- NOTE | 2022-11-04 04:51 | PC.NURSE ---
PATIENT HAS BEEN UP ALL NIGHT. SITTING UP IN BED, LOOKING AT PHONE OR READING. . 02 AT 3LNC, NO COMPLAINTS VOICED. NO SOA. 02 SATS 97-98% ON 3LNC. SATS DROP INTO 70s WHEN UP TO BR.
[2022-11-04 06:27] LABS: Basophils % 0.2 % (0.1-2.0); Eosinophils % 0.2 % (0.1-12.0); Hematocrit 40.6 % (37.0-47.0); Hemoglobin 12.4 g/dL (12.2-16.2); Lymphocytes # 1.1 K/mm3 (0.7-4.5); Lymphocytes % 22.5 % (10-50); Mean Corpuscular HGB Conc 30.5 g/dL (31.8-35.4); Mean Corpuscular Hemoglobin 33.3 pg (27.0-31.2); Mean Corpuscular Volume 109.3 fl (81-99); Mean Platelet Volume 8.6 fl (7.4-10.4); Monocytes # 0.3 K/mm3 (0.1-1.0); Neutrophils # 3.4 K/mm3 (1.8-7.8); Neutrophils % 71.1 % (37.0-80.0); Platelet Count 203 K/mm3 (142-424); Red Blood Count 3.71 M/mm3 (4.20-5.40); Red Cell Distribution Width 14.5 % (11.5-17.5); White Blood Count 4.8 K/mm3 (4.8-10.8)
[2022-11-04 06:31] LABS: Chloride 91 mmol/L (98-107); Potassium 4.5 mmoL/L (3.5-5.1); Sodium 135 mmol/L (136-145)
[2022-11-04 06:33] LABS: Blood Urea Nitrogen 15 mg/dl (7-17); Creatinine Clearance Estimated 120 mL/min (50-200); Estimated Glomerular Filt Rate 65 ml/min (>60); GFR (African American) 78 ML/MIN (>60)
[2022-11-04 06:34] LABS: Alanine Aminotransferase 24 U/L (12-78); Albumin Level 3.5 g/dl (3.5-5.0); Albumin/Globulin Ratio 0.9 (1.1-1.8); Alkaline Phosphatase 72 U/L (38-126); Aspartate Amino Transferase 24 U/L (14-36); Bilirubin,Total 0.3 mg/dl (0.2-1.3); Globulin 3.7 g/dL (1.3-3.2); Glucose 135 mg/dl (74-100); Total Protein,Serum 7.2 g/dl (6.3-8.2)
[2022-11-04 06:41] LABS: Anion Gap 8.5 mEq/L (5-15); Carbon Dioxide 40 mmol/L (22.0-30.0)
--- NOTE | 2022-11-04 09:07 | PC.NURSE ---
Pt. is aware we need a sputum sample.
--- NOTE | 2022-11-04 09:38 | EXP.PULM.PN ---
Subjective *Date: 11/04/22 *Time: 10:47 Interval history: No acute respiratory vents overnight. Patient admits continued improvement in her respiratory symptoms. Pulmonology Exam Inpatient Vital signs and Labs for Last 24 Hours: Temp Pulse Resp BP Pulse Ox 98.8 F 86 18 100/55 L 96 11/04/22 08:00 11/04/22 08:00 11/04/22 08:00 11/04/22 08:00 11/04/22 08:00 Laboratory Results - last 24 hr 11/02/22 16:25: Chlamy pneumoniae PCR Not detected, Adenovirus (PCR) Not detected, B. pertussis DNA (PCR) Not detected, Coronavirus OC43 (PCR) Not detected, Coronavirus HKU1 (PCR) Not detected, Coronavirus 229E (PCR) Not detected, SARS-CoV-2 (PCR) Not detected, Coronavirus NL63 (PCR) Not detected, Human Metapneumovir PCR Not detected, Influenza A (H1) PCR Not detected, Influ A (H1N1/09) PCR Not detected, Influenza A (H3) PCR Not detected, Influenza Type A (PCR) Not detected, Influenza Type B (PCR) Not detected, M. pneumoniae (PCR) Not detected, Parainfluenza 1 (PCR) Not detected, Parainfluenza 2 (PCR) Not detected, Parainfluenza 3 (PCR) Not detected, Parainfluenza 4 (PCR) Not detected, RSV (PCR) Not detected, Entero/Rhino (PCR) Not detected 11/03/22 08:18: Hgb 12.3 D 11/03/22 09:40: Troponin I 0.02 11/03/22 13:36: Troponin I 0.01 11/04/22 05:45: WBC 4.8, RBC 3.71 L, Hgb 12.4, Hct 40.6, MCV 109.3 H, MCH 33.3 H, MCHC 30.5 L, RDW 14.5, Plt Count 203, MPV 8.6, Neut % (Auto) 71.1, Lymph % (Auto) 22.5, [place] % (Auto) 6.0, Eos % (Auto) 0.2, Baso % (Auto) 0.2, Neut # (Auto) 3.4, Lymph # (Auto) 1.1, [place] # (Auto) 0.3, Eos # (Auto) 0.0, Baso # (Auto) 0.0 11/04/22 05:45: Sodium 135 L, Potassium 4.5, Chloride 91 L, Carbon Dioxide 40 H, Anion Gap 8.5, BUN 15, Creatinine 0.90, Estimated Creat Clear 120, Estimated GFR 65, Est GFR ( Amer) 78, Glucose 135 H D, Calcium 8.0 L, Magnesium 2.0, Total Bilirubin 0.3, AST 24 D, ALT 24, Alkaline Phosphatase 72, Total Protein 7.2, Albumin 3.5, Globulin 3.7 H, Albumin/Globulin Ratio 0.9 L I & O for Labs for Last 24 Hours: Intake & Output 11/01/22 11/02/22 11/03/22 11/04/22 23:59 23:59 23:59 23:59 Intake Total 480 / 480 870 / 1230 600 / 600 Output Total 700 / 700 1 / 1 Balance 480 / 480 170 / 530 599 / 599 Weight 236 lb 1 oz 240 lb 3.2 oz 240 lb 1 oz Constitutional: Present mild distress Head: Present normocephalic and atraumatic ENT: Present normal exam, normal oropharynx and mucous membranes moist Neck: Present normal inspection and full ROM Respiratory: Present respiratory distress and able to speak in complete sentences; Absent wheezes or diminished air movement Cardiac: Present S1/S2, Tachycardia and radial pulses present GI: Present soft and distention; Absent tenderness or guarding Rectal (female): Present deferred (female): Present deferred Skin: Present intact; Absent cyanosis or jaundice Neuro: Present alert, awake and oriented x 3 Extremities: Present normal inspection; Absent clubbing or cyanosis Psychiatric: Present normal affect and cooperative Assessment and Plan *Assessment and plan (1) Acute and chronic respiratory failure with hypoxia: Status: Acute Category: Medical Code(s): J96.21 - Acute and chronic respiratory failure with hypoxia (2) Abnormal computerized axial tomography of chest: Status: Chronic Category: Medical Code(s): R93.89 - Abnormal findings on diagnostic imaging of other specified body structures (3) Multiple pulmonary nodules: Status: Chronic Category: Medical Code(s): R91.8 - Other nonspecific abnormal finding of lung field Plan #Acute on chronic hypoxic respiratory failure: #COPD exacerbation 57-year-old current smoker greater than 05-joiz-tlhc smoking history following in pulmonary for severe COPD.? Recently seen in pulmonary clinic with worsening respiratory distress associated with with cough and productive status post treatment with cefdinir and steroids.? Patient presented to the clinic today with ant
--- NOTE | 2022-11-04 10:08 | PC.NURSE ---
COURTESY TECH NOTE; ROUNDED ON PT 0825, PT DENIED NEED FOR ASSISTANCE WITH RESTROOM, AND NEED TO REPOSITION. ICE BROUGHT AT PT REQUEST. PULSE OX ADDED AT NURSE REQUEST. CALL LIGHT WITHIN REACH, NO FURTHER REQUESTS AT THIS TIME MONIE HAWKINS
--- NOTE | 2022-11-04 10:33 | EXP.DC.SUM ---
General Admission date:: 11/02/22 Discharge date: 11/04/22 HPI HPI HPI: This is a 57-year-old current smoker greater than 06-yays-hrfy smoking history of severe COPD with hypoxia, on chronic oxygen, @3L at home, Diabetes, HTN, HLD, and obesity that Recently presented to her pulmonary doctor office for follow up on respiratory failure with cough and productive status post treatment with cefdinir and steroids.? Patient seen today with continued worsening respiratory status overnight minimal cough and productive phlegm. Chest Xray showing scarring and fibrotic changes. patient denied any chest pain. patient was referred to the hospital for direct admission. Hospital Course Hospital Course Hospital Course: This? is a 57-year-old current smoker greater than 15-ddxe-cyyj smoking history of? severe COPD with hypoxia, on chronic oxygen @3L at home? Diabetes, HTN, HLD, and obesity that recently presented to her pulmonary doctor office for follow up on? respiratory failure with cough and productive status post treatment with cefdinir and steroids.? Responded to IV antibiotics and steroids. Showing gradual improvement. Meeting criteria to discharge home. Transition to oral antibiotics to complete course. Pulmonology was consulted during admission, will follow-up closely with patient as an outpatient. Problems addressed as follows: Pneumonia COPD -Presented with worsening respiratory failure and failure of outpatient course of antibiotics and steroids. Necessitated inpatient treatment for her pneumonia. CTA obtained on admission showing multifocal patchy airspace disease. Started on broad-spectrum antibiotics, improved clinically. Able to transition to levofloxacin to complete 5-day course of antibiotics. Started on prednisone, will complete a 5-day course of that as well. Continued her home inhaler regimen with Anoro, Flovent, DuoNebs. Also treated with budesonide during admission. Patient improved to her baseline oxygen. Stable for discharge home with plan for outpatient follow-up in the coming week. Counseled on need to stop smoking. Treated with nicotine patch during admission. Sputum culture still pending at time of discharge In regard to chronic conditions, continued home Lipitor, lisinopril, Wellbutrin, buspirone, Zoloft. Follow-up with pulmonary in 7 to 10 days. Stable for discharge home. Continue 3 L nasal cannula oxygen. Complete steroids and antibiotics at home as prescribed. Exam Data for Last 24 hours Vital signs and Labs for Last 24 Hours: Temp Pulse Resp BP Pulse Ox 98.8 F 86 18 100/55 L 96 11/04/22 08:00 11/04/22 08:00 11/04/22 08:00 11/04/22 08:00 11/04/22 08:00 Laboratory Results - last 24 hr 11/02/22 16:25: Chlamy pneumoniae PCR Not detected, Adenovirus (PCR) Not detected, B. pertussis DNA (PCR) Not detected, Coronavirus OC43 (PCR) Not detected, Coronavirus HKU1 (PCR) Not detected, Coronavirus 229E (PCR) Not detected, SARS-CoV-2 (PCR) Not detected, Coronavirus NL63 (PCR) Not detected, Human Metapneumovir PCR Not detected, Influenza A (H1) PCR Not detected, Influ A (H1N1/09) PCR Not detected, Influenza A (H3) PCR Not detected, Influenza Type A (PCR) Not detected, Influenza Type B (PCR) Not detected, M. pneumoniae (PCR) Not detected, Parainfluenza 1 (PCR) Not detected, Parainfluenza 2 (PCR) Not detected, Parainfluenza 3 (PCR) Not detected, Parainfluenza 4 (PCR) Not detected, RSV (PCR) Not detected, Entero/Rhino (PCR) Not detected 11/03/22 08:18: Hgb 12.3 D 11/03/22 13:36: Troponin I 0.01 11/04/22 05:45: WBC 4.8, RBC 3.71 L, Hgb 12.4, Hct 40.6, MCV 109.3 H, MCH 33.3 H, MCHC 30.5 L, RDW 14.5, Plt Count 203, MPV 8.6, Neut % (Auto) 71.1, Lymph % (Auto) 22.5, [place] % (Auto) 6.0, Eos % (Auto) 0.2, Baso % (Auto) 0.2, Neut # (Auto) 3.4, Lymph # (Auto) 1.1, [place] # (Auto) 0.3, Eos # (Auto) 0.0, Baso # (Auto) 0.0 11/04/22 05:45: Sodium 135 L, Potassium 4.5, Chloride 91 L, Carbon Dioxide 40 H, Anion Gap 8.5, BUN 15,
--- NOTE | 2022-11-04 10:48 | PC.NURSE ---
Spoke with patient again about needing a sputum so she can d/c home today. States she will call out when she has a sample.
--- NOTE | 2022-11-04 13:28 | PC.NURSE ---
Iv removed and d/c papers given.
--- NOTE | 2022-11-04 13:50 | HMH.PHAINT1 ---
Pharmacy Intervention Comments: DISCHARGE MEDICATION COUNSELING PROVIDED. DISCUSSED THE FOLLOWING NEW MEDICATIONS: -LEVAQUIN (ANTIBIOTIC, DAILY, START TONIGHT, TAKE WITH FOOD, N/V/D POSSIBLE) -PREDNISONE (STEROID/FOR INFLAMMATION, DAILY, START TOMORROW, TAKE WITH FOOD, IN THE MORNING, MAY CAUSE N/V, INSOMNIA POSSIBLE) PATIENT VERBALIZED NO QUESTIONS AT THIS TIME.
--- NOTE | 2022-11-08 13:38 | CARE MANAGER ---
Attempted to contact patient related to hospital discharge. No VM option.
[2022-12-07 00:22] LABS: MRSA DNA PCR Negative
== END 2022-11-04 13:52 | disposition home or self-care (01) | DRG 190 ==
LOC: RAD 16:02 → 2ND 16:02
PROVIDERS: Internal Medicine Pulmonary Disease; Nurse Practitioner Family; Admitting Provider Internal Medicine Adolescent Medicine; PCP Nurse Practitioner Family; Visit Provider Internal Medicine Adolescent Medicine
DX: J44.1 Chronic obstructive pulmonary disease with (acute) exacerbation (principal); J96.21 Acute and chronic respiratory failure with hypoxia; F17.210 Nicotine dependence, cigarettes, uncomplicated; Z99.81 Dependence on supplemental oxygen; E11.9 Type 2 diabetes mellitus without complications; I10 Essential (primary) hypertension; E78.5 Hyperlipidemia, unspecified; E66.9 Obesity, unspecified; Z68.35 Body mass index [BMI] 35.0-35.9, adult; F32.A Depression, unspecified
CPT/HCPCS: 36415; 71046; 71275; 80053; 82803; 83605; 83735; 84484; 85025; 87040; 87070; 87205; 87581; 87632; 87641; 87798; 93005; 94640; 94760; 94761; C9803; J1956; J2405; Q9967; U0003; U0005

== ENCOUNTER → 2022-11-23 13:46 | Outpatient (CLI) | payer OTHER, SELFPAY ==
[2022-11-29 17:53] LABS: Alpha-1-Antitrypsin 160 mg/dL (101-187); Phenotype (PI) MS (.)
== END ==
PROVIDERS: PCP Nurse Practitioner Family; Visit Provider Internal Medicine Pulmonary Disease
DX: J44.9 Chronic obstructive pulmonary disease, unspecified (principal)
CPT/HCPCS: 36415; 82103; 82104

== ENCOUNTER 2023-01-04 20:17 | Emergency (ER) | payer OTHER, SELFPAY ==
[2023-01-04] VITALS (8 sets, daily range): BP systolic 142–177; BP diastolic 78–104; PULSE 86–116; RESP 16–24; TEMP 36.8; O2SAT 77–99; BMI 35.7
--- NOTE | 2023-01-04 20:36 | HMH.EDGENADL ---
Discharge Plan Disposition Patient Disposition: Home, Self-Care Condition: Good Prescriptions Prescriptions: New prednisone 20 mg tablet 40 mg PO DAILY 4 Days Qty: 8 0RF azithromycin 250 mg tablet 250 mg PO DAILY 4 Days Qty: 4 0RF Rx Instructions: start on day 2 of therapy No Action nicotine 7 mg/24 hr patch 24 hour 1 patch transdermal Q24H Qty: 28 1RF montelukast 10 mg tablet 10 mg PO DAILY bupropion HCl 150 mg tablet extended release 24 hr 150 mg PO BID sertraline [Zoloft] 50 mg tablet 100 mg PO DAILY ipratropium-albuterol 0.5 mg-3 mg(2.5 mg base)/3 mL solution for nebulization 3 ml INHALATION QID PRN (Reason: shortness of breath or wheezing) 90 Days Qty: 360 3RF fluticasone propionate 50 mcg/actuation spray,suspension 1 spray NS BID Rx Instructions: administer into each nostril fluticasone propionate [Flovent HFA] 110 mcg/actuation HFA aerosol inhaler 1 puff INHALATION BID Anoro Ellipta 62.5-25 mcg/actuation blister with device 1 inh INHALATION DAILY loratadine [Claritin] 10 mg Tablet 10 mg PO DAILY albuterol sulfate 2.5 mg /3 mL (0.083 %) solution for nebulization 2.5 mg inhalation Q4-6H PRN (Reason: Shortness Of Breath Or Wheezing) albuterol sulfate [Ventolin HFA] 90 mcg/actuation HFA aerosol inhaler 1 inh INHALATION Q6H PRN (Reason: Shortness Of Breath Or Wheezing) lisinopril 20 mg tablet 20 mg PO DAILY simvastatin 40 mg tablet 40 mg PO HS buspirone 10 mg tablet 10 mg PO TID prednisone 20 mg Tablet 40 mg PO DAILY 3 Days Qty: 6 0RF levofloxacin 750 mg Tablet 750 mg PO 1600 3 Days Qty: 3 0RF Referrals Follow up/Referrals: Azucena Clarke APRN [Primary Care Provider] - See instructions Activity Restrictions/Add. Instructions Additional Instructions/Restrictions: Please take steroids and azithromycin as prescribed for COPD exacerbation. Please return emergency department if you develop any new or worsening symptoms or become concerned for your health. Please follow-up with your primary care provider. Clinical Impressions Clinical Impression: COPD exacerbation Discharge ED Provider: [place],Josh General Adult HPI General Chief complaint: Shortness of Breath/Dyspnea Stated complaint: SOA Time Seen by Provider: 01/04/23 20:30 History of Present Illness HPI narrative: 57-year-old female history of obesity, COPD, chronic respiratory failure on 2 L nasal cannula at baseline who presents with worsening cough and shortness of breath over the last couple of days. Reports no fevers at home. Denies any chest pain. Reports that symptoms have not improved with nebulizers at home. Related Data Home Medications Medication Instructions Recorded Confirmed montelukast 10 mg tablet 10 mg PO DAILY Allergy symptoms 03/16/20 11/23/22 bupropion HCl 150 mg 24 hr tablet, 150 mg PO BID Mood 03/24/21 11/23/22 extended release sertraline 50 mg tablet (Zoloft) 100 mg PO DAILY Mood 10/25/22 11/23/22 fluticasone propionate 110 1 puff inhalation BID soa 11/02/22 11/23/22 mcg/actuation HFA aerosol inhaler (Flovent HFA) fluticasone propionate 50 1 spray intranasal BID allergies 11/02/22 11/23/22 mcg/actuation nasal spray,suspension loratadine 10 mg tablet (Claritin) 10 mg PO DAILY allergies 11/02/22 11/23/22 umeclidinium 62.5 mcg-vilanterol 1 inh inhalation DAILY soa 11/02/22 11/23/22 25 mcg/actuation powdr for inhalation (Anoro Ellipta) albuterol sulfate 2.5 mg/3 mL 2.5 mg inhalation Q4-6H PRN 11/03/22 11/23/22 (0.083 %) solution for nebulization Shortness Of Breath Or Wheezing albuterol sulfate 90 mcg/actuation 1 inh inhalation Q6H PRN Shortness 11/03/22 11/23/22 aerosol inhaler (Ventolin HFA) Of Breath Or Wheezing buspirone 10 mg tablet 10 mg PO TID Mood 11/03/22 11/23/22 lisinopril 20 mg tablet 20 mg PO DAILY High blood pressure 11/03/22 11/23/22 simvastatin 40 mg tablet 40
--- NOTE | 2023-01-04 20:43 | XR_ITS ---
PROCEDURE INFORMATION: Exam: XR Chest Exam date and time: 01/04/2023 9:13 PM Age: 57 years old Clinical indication: Cough and shortness of breath; Additional info: SOA, HX copd, worsen cough TECHNIQUE: Imaging protocol: Radiologic exam of the chest. Views: 2 views. COMPARISON: CR XR CHEST 2V 11/02/2022 2:23 PM FINDINGS: Lungs: There are moderate centrilobular emphysematous changes of the lungs with an apical gradient. Central opacities with peribronchial cuffing, seen to advantage on the lateral chest radiograph suggest viral process versus reactive airways without convincing consolidation. Pleural spaces: Unremarkable. No pleural effusion. No pneumothorax. Heart/Mediastinum: Unremarkable. No cardiomegaly. Bones/joints: Unremarkable. IMPRESSION: Central opacities with peribronchial cuffing, seen to advantage on the lateral chest radiograph suggest viral process versus reactive airways without convincing consolidation.
== END 2023-01-04 22:30 | disposition home or self-care (01) ==
PROVIDERS: Emergency Provider Emergency Medicine; PCP Nurse Practitioner Family
DX: J44.1 Chronic obstructive pulmonary disease with (acute) exacerbation (principal); E78.5 Hyperlipidemia, unspecified; I10 Essential (primary) hypertension; F17.210 Nicotine dependence, cigarettes, uncomplicated
CPT/HCPCS: 71046; 99283

== ENCOUNTER 2023-01-24 22:29 | Observation (INO) | payer OTHER, SELFPAY ==
--- NOTE | 2023-01-24 22:28 | ECG_ITS ---
APPROVED REPORT Exam: Resting ECG HR:104 bpm ECG Measurements Heart Rate 104 AXES HI 132 P 71 QRSd 92 QRS -81 QT 348 T 70 QTc 409 Conclusion SINUS TACHYCARDIA WITH OCCASIONAL SUPRAVENTRICULAR PREMATURE COMPLEXES LEFT AXIS DEVIATION [QRS AXIS < -30] ABNORMAL ECG UNCONFIRMED REPORT Electronically signed by : Dash Villarreal MD 01/26/2023 20:04:21
[2023-01-24 22:29] VITALS: BP 116/71; PULSE 109; RESP 22; TEMP 37.4; O2SAT 90; BMI 33.5; BMI 33.7
--- NOTE | 2023-01-24 22:30 | XR_ITS ---
PROCEDURE INFORMATION: Exam: XR Chest Exam date and time: 01/24/2023 10:36 PM Age: 57 years old Clinical indication: Shortness of breath; Additional info: SOA TECHNIQUE: Imaging protocol: Radiologic exam of the chest. Views: 1 view. COMPARISON: CR XR CHEST 2V 01/04/2023 9:13 PM FINDINGS: Lungs: There is coarsening of the bronchovascular markings. Pleural spaces: Unremarkable. No pleural effusion. No pneumothorax. Heart/Mediastinum: Stable cardiac and mediastinal contours. Bones/joints: Unremarkable. IMPRESSION: No dense parenchymal consolidation, pleural effusion, or pneumothorax.
[2023-01-24 22:34] LABS: VBG HCO3 39.5 mmol/L (23-30); VBG Oxygen Saturation 87.3 % (50-70); VBG PH 7.36 mmol/L (7.31-7.41); VBG PO2 51.9 mmol/L (28-40); VBG Total CO2 41.7 mmol/L (23-27)
--- NOTE | 2023-01-24 22:35 | ED_ITS ---
Discharge Plan Disposition Patient Disposition: Admitted Condition: Good Chief Complaint: Shortness of Breath/Dyspnea Prescriptions Prescriptions: No Action montelukast 10 mg tablet 10 mg PO DAILY bupropion HCl 150 mg tablet extended release 24 hr 150 mg PO BID sertraline [Zoloft] 50 mg tablet 100 mg PO DAILY ipratropium-albuterol 0.5 mg-3 mg(2.5 mg base)/3 mL solution for nebulization 3 ml INHALATION QID PRN (Reason: shortness of breath or wheezing) 90 Days Qty: 360 3RF fluticasone propionate 50 mcg/actuation spray,suspension 1 spray NS BID Rx Instructions: administer into each nostril fluticasone propionate [Flovent HFA] 110 mcg/actuation HFA aerosol inhaler 1 puff INHALATION BID Anoro Ellipta 62.5-25 mcg/actuation blister with device 1 inh INHALATION DAILY loratadine [Claritin] 10 mg Tablet 10 mg PO DAILY albuterol sulfate 2.5 mg /3 mL (0.083 %) solution for nebulization 2.5 mg inhalation Q4-6H PRN (Reason: Shortness Of Breath Or Wheezing) albuterol sulfate [Ventolin HFA] 90 mcg/actuation HFA aerosol inhaler 1 inh INHALATION Q6H PRN (Reason: Shortness Of Breath Or Wheezing) lisinopril 20 mg tablet 20 mg PO DAILY simvastatin 40 mg tablet 40 mg PO HS buspirone 10 mg tablet 10 mg PO TID nicotine 7 mg/24 hr patch 24 hour 1 patch transdermal Q24H Referrals Follow up/Referrals: Azucena Clarke APRN [Primary Care Provider] - See instructions Clinical Impressions Clinical Impression: COPD exacerbation Discharge ED Provider: Jessica Rios General Adult HPI General Chief complaint: Shortness of Breath/Dyspnea Stated complaint: Short of air Time Seen by Provider: 01/24/23 22:31 Mode of Arrival: EMS Source of Information: Patient Limitations: No Limitations Description of Symptoms (Recalled from ER Triage Doc. by RN): pt c/o increasing SOA since monday. pt wears 2L O2 at baseline. History of Present Illness HPI narrative: Patient has a PMHx significant for severe COPD, emphysema, asthma, hypertension who presents to the ED via EMS with complaints of shortness of breath. Patient notes that over the past 3 days, she has been having progressively worsening shortness of breath, generalized weakness. Today, her shortness of breath started to impact her ability to complete ADLs as she was having progressively worsening exertional dyspnea patient denies any chest pain, but notes chest tightness. Patient notes that she wears 2 L at home, but was continuing to feel very short of breath on 2 L. On EMS arrival to home, patient was found to be hypoxic to 78% on 2 L. Patient denies any fevers, chills, but notes that she h as been having a cough, congestion, mild body aches. Related Data Home Medications Medication Instructions Recorded Confirmed montelukast 10 mg tablet 10 mg PO DAILY Allergy symptoms 03/16/20 01/24/23 bupropion HCl 150 mg 24 hr tablet, 150 mg PO BID Mood 03/24/21 01/24/23 extended release sertraline 50 mg tablet (Zoloft) 100 mg PO DAILY Mood 10/25/22 01/24/23 fluticasone propionate 110 1 puff inhalation BID soa 11/02/22 01/24/23 mcg/actuation HFA aerosol inhaler (Flovent HFA) fluticasone propionate 50 1 spray intranasal BID allergies 11/02/22 01/24/23 mcg/actuation nasal spray,suspension loratadine 10 mg tablet (Claritin) 10 mg PO DAILY allergies 11/02/22 01/24/23 umeclidinium 62.5 mcg-vilanterol 1 inh inhalation DAILY soa 11/02/22 11/23/22 25 mcg/actuation powdr for inhalation (Anoro Ellipta) albuterol sulfate 2.5 mg/3 mL 2.5 mg inhalation Q4-6H PRN 11/03/22 01/24/23 (0.083 %) solution for nebulization Shortness Of Breath Or Wheezing albuterol sulfate 90 mcg/actuation 1 inh inhalation Q6H PRN Shortness 11/03/22 01/24/23 aerosol inhaler (Ventolin HFA) Of Breath Or Wheezing buspirone 10 mg tablet 10 mg PO TID Mood 11/03/22 01/24/23 lisinopril 20 mg tablet 20 mg PO DAILY High blood pressure 11/03/22 01/24/23 simvastatin 40 mg tablet 40 mg PO HS Cholesterol 11/03/22 01/24/23 nicotine 7 mg/24 hr daily 1 patch transdermal Q24H Breathing 01/24/23 01/24/23 transdermal patch Problems Previous Rx's Medication Instructions Recorded ipratropium 0.5 mg-albuterol 3 mg 3 ml inhalation QID PRN shortness 11/09/22 (2.5 mg base)/3 mL nebulization of breath or wheezing 90 days #360 soln mL Allergies Allergy/AdvReac Type Severity Reaction Status Date / Time No Known Allergies Allergy Verified 11/23/22 13:28 [facility] Disclaimer: The information contained in this section may have been updated after the patient was seen, as this information can be updated by other users. Medical History (Updated 01/24/23 @ 23:11 by Jessica Rios MD) Abnormal computerized axial tomography of chest Acute and chronic respiratory failure with hypoxia Chronic hypoxemic respiratory failure COPD (chronic obstructive pulmonary disease) Dyspnea Dyspnea on exertion HLD (hyperlipidemia) HTN (hypertension) Lung nodule Multiple pulmonary nodules Nocturnal hypoxemia Non-seasonal allergic rhinitis Pneumonia Seasonal allergies Smoking greater than 30 pack years Tachycardia Tobacco abuse disorder Surgical History No significant past surgical history Family History Other Cancer Coronary artery disease Social History Smoking Status: Current every day smoker tobacco type: cigarettes packs per day: 1 second hand exposure: No alcohol intake: never substance use type: denies use current occupational status: disabled Travel in the last 8 weeks: None household members: spouse housing: house current occupational exposures/hazards: No caffeine: Yes ROS Obtained: Yes All systems reviewed & no additional complaints except as documented Physical Exam General General appearance: alert and in no apparent distress Head Head exam: atraumatic, normocephalic and normal inspection Eye Eye exam: Present normal appearance, PERRL and EOMI; Absent scleral icterus or nystagmus ENT ENT exam: Present normal exam, mucous membranes moist and normal external ear exam Neck Neck exam: Present normal inspection, full ROM and trachea midline Chest Chest inspection: Present normal inspection and symmetric chest wall rise; Absent tenderness Respiratory Respiratory exam: Present normal lung sounds bilaterally and wheezes; Absent respiratory distress or accessory muscle use Cardiovascular Cardiovascular exam: Present regular rate, normal rhythm and normal heart sounds Abdominal Exam Abdominal exam: Present soft; Absent distention, tenderness, guarding, rebound, rigidity, trauma, ascites or pulsatile mass Extremities Exam Extremities exam: Present normal inspection and full ROM; Absent tenderness Back Exam Back exam: Present normal inspection and full ROM; Absent tenderness Neurological Exam Neurological exam: Present alert, oriented X3, normal gait and motor sensory deficit Psychiatric Psychiatric exam: Present normal affect and normal mood Skin Skin exam: Present warm, dry and normal color Medical Decision Making Medical Records Medical records reviewed: Yes I reviewed the patient's medical records. Matt Inquiry Pt receiving controlled substance: No Vital Signs: 01/24/23 22:29 Temperature 99.3 F Temperature Source Oral Pulse Rate [Right] 109 H Respiratory Rate 22 Blood Pressure [Right Arm] 116/71 Blood Pressure Mean [Right Arm] 86 02 Sat by Pulse Oximetry 90 L Oxygen Delivery Method Nasal Cannula Oxygen Flow Rate (LPM) 6 Lab Data Lab results reviewed: Yes I reviewed the patient's lab results. Lab Results 01/24/23 22:30: WBC 6.7, RBC 4.38, Hgb 14.1, Hct 45.4, MCV 103.6 H, MCH 32.2 H, MCHC 31.1 L, RDW 14.4, Plt Count 198, MPV 8.5, Neut % (Auto) 65.2, Lymph % (Auto) 29.6, [place] % (Auto) 4.3, Eos % (Auto) 0.7, Baso % (Auto) 0.2, Neut # (Auto) 4.3, Lymph # (Auto) 2.0, [place] # (Auto) 0.3, Eos # (Auto) 0.1, Baso # (Auto) 0.0, VBG pH 7.36, VBG pCO2 71.7 H, VBG pO2 51.9 H, VBG HCO3 39.5 H, VBG Total CO2 41.7 H, VBG O2 Saturation 87.3 H, VBG Base Excess 14.0 H, Sodium 138, Potassium 4.0, Chloride 90 L, Carbon Dioxide 38 H, Anion Gap 14.0, BUN 16, Creatinine 0.90, Estimated Creat Clear 114, Estimated GFR 65, Est GFR ( Amer) 78, Glucose 163 H, Calcium 8.6, Total Bilirubin 1.0, AST 28, ALT 20, Alkaline Phosphatase 96, Troponin I 0.02, NT-Pro-B Natriuret Pep 4220 H, Total Protein 8.1, Albumin 3.7, Globulin 4.4 H, Albumin/Globulin Ratio 0.8 L 01/24/23 22:30 01/24/23 22:30 Orders (Tests/Meds): ED MEDICATIONS Generic Name Dose Route Start Last Admin Trade Name Freq PRN Reason Stop Dose Admin Furosemide 40 mg 01/24/23 23:05 Furosemide 40mg/4ml Vial IV 01/24/23 23:06 ONCE ONE Ceftriaxone Sodium 2 gm/ 50 mls @ 100 mls/hr 01/24/23 23:15 Sodium Chloride IV 02/03/23 23:14 Q24H TAMY Azithromycin 500 mg/ Sodium 250 mls @ 250 mls/hr 01/24/23 23:15 Chloride IV 02/03/23 23:14 Q24H TAMY Methylprednisolone Sodium Succinate 125 mg 01/24/23 23:01 01/24/23 23:03 Methylprednisolone Sod Succ 125mg Vial IV 01/24/23 23:02 125 mg ONCE STA Administration Discontinued Medications Generic Name Dose Route Start Last Admin Trade Name Jaredq PRN Reason Stop Dose Admin Albuterol/Ipratropium 3 ml 01/24/23 22:31 Ipratropium/Albuterol 3 Ml [facility] 01/24/23 22:32 ONCE ONE Albuterol/Ipratropium 3 ml 01/24/23 22:31 Ipratropium/Albuterol 3 Ml [facility] 01/24/23 22:32 ONCE ONE Albuterol/Ipratropium 3 ml 01/24/23 22:32 Ipratropium/Albuterol 3 Ml [facility] 01/24/23 22:33 ONCE ONE Methylprednisolone Sodium 250 mls @ 500 mls/hr 01/24/23 22:39 01/24/23 23:00 Succinate 125 mg/ Sodium IV 01/24/23 22:40 Not Given Chloride ONCE ONE ORDERS Category Date Time Status XR chest portable Stat Exams 01/24/23 22:30 Taken Brain Natriuretic Peptide Stat Lab 01/24/23 22:30 Completed Complete Blood Count Auto Diff Stat Lab 01/24/23 22:30 Completed Comprehensive Metabolic Panel Stat Lab 01/24/23 22:30 Completed Lactic Acid Stat Lab 01/24/23 23:05 Ordered Rapid PCR Covid and Flu A/B Stat Lab 01/24/23 22:30 Received Troponin I Q3H Lab 01/25/23 01:30 Ordered Troponin I Q3H Lab 01/25/23 04:30 Ordered Troponin I Stat Lab 01/24/23 22:30 Completed Blood Culture Stat Micro 01/24/23 23:05 Ordered Venous Blood Gas Stat RT 01/24/23 22:30 Completed Medical Decision Narrative: In summary, Patient has a PMHx significant for severe COPD, emphysema, asthma, hypertension who presents to the ED via EMS with complaints of shortness of breath. Patient notes that over the past 3 days, she has been having progressively worsening shortness of breath, generalized weakness. Today, her shortness of breath started to impact her ability to complete ADLs as she was h aving progressively worsening exertional dyspnea patient denies any chest pain, but notes chest tightness. Patient notes that she wears 2 L at home, but was continuing to feel very short of breath on 2 L. On EMS arrival to home, patient was found to be hypoxic to 78% on 2 L. Patient denies any fevers, chills, but notes that she has been having a cough, congestion, mild body aches. Patient was afebrile, hemodynamically stable, and nontoxic in appearance upon arrival and throughout the entire stay in the ED. On physical exam, patient was morbidly obese female with significantly tight air movement in bilateral lung nevarez with end expiratory wheezing. Patient did not have any bilateral lower extremity pitting edema. The DDx includes, but is not limited to, ACS, PE, CHF exacerbation, asthma vs COPD exacerbation, arrhythmia, pneumothorax, pneumonia, pleural effusion, acute metabolic derangement, acute hematologic derangement, viral syndrome, pericarditis/myocarditis, thoracic aortic dissection, musculoskeletal chest pain, costochondritis or other acute infectious process. All of these have been considered, however ruling out the most morbid conditions drove my clinical assessment and thus the following laboratory and/or radiographic evaluation was conducted to the appropriate extent based on history and physical examination. All ordered laboratory studies independently reviewed and interpreted by myself and pertinent for: - CBC was unremarkable for any actionable leukocytosis, anemia, or thrombocytopenia. - CMP was unremarkable for any actionable electrolyte derangement, elevated reatine, or transaminitis. - VBG was notable for pH of 7.36, CO2 of 72, HCO3 39.5. VBG was consistent with a compensated chronic respiratory acidosis - Troponin 0.02 - BNP elevated to 4200 EKG independently reviewed and interpreted as follows: - EKG: Regular rate and rhythm. No actionable ST elevations or interval abnormalities with normal QTc X-ray/CT/US studies independently reviewed and interpreted by myself and notable for: - Chest x-ray was notable for opacities in bilateral lower lobes with bilateral effusions Interventions/Medications Received in the ED: -125 mg of Solu-Medrol, 3 times DuoNebs, 40 IV lasix, 2g IV rocephin, 500mg Zithro Consults: At this time it was felt that the patient should be evaluated by Hospital medicine (Norberto DALEY). After I had an interactive discussion with the team, Hospital medicine assumed primary responsibility for patient care and agreed to admit the patient to their service. At this time, given unremarkable workup and/or symptomatic relief, as well as the fact that patient continued to remain well-appearing, it was felt that the patient was safe to be discharged home. The patient/parents were comfortable and in agreement with this plan. Patient instructed to follow up with [facility] [facility]/PCP. The patient/parents were given strict return precautions prior to being discharged from the emergency department. All questions were answered. Jessica Rios MD Emergency Medicine Critical Care Critical Care Time Critical Care Time: No
[2023-01-24 22:37] LABS: VBG PCO2 71.7 mmol/L (35-51)
[2023-01-24 22:40] LABS: Coronavirus 19, PCR Not Detected (NotDetected); Influenza A, PCR Not Detected (NotDetected); Influenza B, PCR Not Detected (NotDetected)
--- NOTE | 2023-01-24 22:41 | PC.NURSE ---
notified Md of critical CO2 71.7
[2023-01-24 22:43] LABS: Basophils % 0.2 % (0.1-2.0); Eosinophils # 0.1 K/mm3 (0.0-0.4); Eosinophils % 0.7 % (0.1-12.0); Hematocrit 45.4 % (37.0-47.0); Hemoglobin 14.1 g/dL (12.2-16.2); Lymphocytes % 29.6 % (10-50); Mean Corpuscular HGB Conc 31.1 g/dL (31.8-35.4); Mean Corpuscular Hemoglobin 32.2 pg (27.0-31.2); Mean Corpuscular Volume 103.6 fl (81-99); Mean Platelet Volume 8.5 fl (7.4-10.4); Monocytes # 0.3 K/mm3 (0.1-1.0); Monocytes % 4.3 % (1.7-9.3); Neutrophils # 4.3 K/mm3 (1.8-7.8); Neutrophils % 65.2 % (37.0-80.0); Platelet Count 198 K/mm3 (142-424); Red Blood Count 4.38 M/mm3 (4.20-5.40); Red Cell Distribution Width 14.4 % (11.5-17.5); White Blood Count 6.7 K/mm3 (4.8-10.8)
[2023-01-24 22:44] VITALS: PULSE 89
[2023-01-24 22:46] LABS: Chloride 90 mmol/L (98-107); Sodium 138 mmol/L (136-145)
[2023-01-24 22:49] LABS: Alanine Aminotransferase 20 U/L (12-78); Albumin Level 3.7 g/dl (3.5-5.0); Albumin/Globulin Ratio 0.8 (1.1-1.8); Alkaline Phosphatase 96 U/L (38-126); Aspartate Amino Transferase 28 U/L (14-36); Blood Urea Nitrogen 16 mg/dl (7-17); Creatinine Clearance Estimated 114 mL/min (50-200); Estimated Glomerular Filt Rate 65 ml/min (>60); GFR (African American) 78 ML/MIN (>60); Globulin 4.4 g/dL (1.3-3.2); Total Protein,Serum 8.1 g/dl (6.3-8.2)
[2023-01-24 22:50] LABS: Calcium 8.6 mg/dl (8.4-10.2); Glucose 163 mg/dl (74-100)
[2023-01-24 22:57] LABS: Carbon Dioxide 38 mmol/L (22.0-30.0)
[2023-01-24 22:59] LABS: NT Pro Brain Natriuretic Pep. 4220 pg/mL (0-125)
[2023-01-24 23:00] VITALS: BP 127/104; PULSE 95; RESP 20; O2SAT 93
[2023-01-24 23:01] LABS: Troponin I 0.02 ng/ml (0.00-0.034)
[2023-01-24] MEDS: METHYLPREDNISOLONE SOD SUCC 125MG VIAL 125 MG IV (23:03)
--- NOTE | 2023-01-24 23:07 | PC.NURSE ---
Rounded on patient; call light within reach
--- NOTE | 2023-01-24 23:08 | PC.NURSE ---
on phone with hospitalist. notified household personal assistant of admission
[2023-01-24 23:15] VITALS: PULSE 94
--- NOTE | 2023-01-24 23:24 | PC.NURSE ---
Respiratory @ [facility] for Duoneb treatments
[2023-01-24] MEDS: FUROSEMIDE 40MG/4ML VIAL 40 MG IV (23:28)
[2023-01-24 23:31] VITALS: BP 127/75; PULSE 94; RESP 21; O2SAT 96
[2023-01-24] MEDS: CEFTRIAXONE SODIUM 2 GM in 0.9 % SODIUM CHLORIDE 50 ML IV (23:37)
--- NOTE | 2023-01-24 23:38 | P.HP_ITS ---
History of Present Illness *Admission Date: 01/24/23 *Reason for visit:: COPD Exacerbation *History of present illness: 57 year old female presented to the ED for c/o SOA. PMHx of severe COPD, emphysema, asthma, hypertension, DM, tobacco abuse and hld. Patient notes that over the past 3 days, she has been having progressively worsening shortness of breath and generalized weakness. Wears 2L at home. The patient called 911 and EMS stated that her O2 was 78 % at home. Patient denies any fevers, chills, but notes that she has been having a cough, congestion, mild body aches. Her lab work reveals no leukocytosis. Her BNP is elevated at 4220. Her chest XRAY reveals no signs of infection or pleural effusions. She is requiring 5L of [place] oxygen to maintain a saturation above 90 %. She was given 3 breathing treatments, solu-medrol, 40 mg of IV Lasix, and started on rocephin 2gm and azit hromycin 500 mg daily. The ED physician spoke with the hospitalist team for further medical management. The pt was admitted to the medical floor. She will continue IV steroids and antibiotics. Her oxygen requirement is still elevated from her baseline but she is in no acute distress. [facility] Disclaimer: The information contained in this section may have been updated after the patient was seen, as this information can be updated by other users. Medical History (Updated 01/25/23 @ 09:46 by Jon Tomas MD) Abnormal computerized axial tomography of chest Acute and chronic respiratory failure with hypoxia Anxiety and depression Cataract Chronic hypoxemic respiratory failure COPD (chronic obstructive pulmonary disease) Dyspnea Dyspnea on exertion Ectopic HLD (hyperlipidemia) HTN (hypertension) Lung nodule Multiple pulmonary nodules Nocturnal hypoxemia Non-seasonal allergic rhinitis Pneumonia Seasonal allergies Smoking greater than 30 pack years Tachycardia Tobacco abuse disorder Surgical History (Updated 01/25/23 @ 00:33 by Traci Lyman RN) History of cholecystectomy No significant past surgical history Family History Other Cancer Coronary artery disease Social History (Updated 01/25/23 @ 00:34 by Traci Lyman RN) Smoking Status: Current every day smoker tobacco type: cigarettes packs per day: 1 second hand exposure: No alcohol intake: never substance use type: denies use current occupational status: disabled Travel in the last 8 weeks: None household members: spouse housing: house current occupational exposures/hazards: No caffeine: Yes Review of Systems *Cardiovascular Cardiovascular: Reports chest pain with activity, Reports dyspnea and Reports dyspnea on exertion *Respiratory Respiratory: Reports dyspnea, Reports dyspnea on exertion and Reports wheezing *Gastrointestinal Gastrointestinal: Reports system reviewed and no additional complaints, except as documented and Reports nausea *Genitourinary Genitourinary: Reports system reviewed and no additional complaints, except as documented *Musculoskeletal Musculoskeletal: Reports system reviewed and no additional complaints, except as documented *Neurologic Neurologic: Reports system reviewed and no additional complaints, except as documented Allergic/Immunologic Allergic/Immunologic: Reports wheezing Meds Home Medications and Allergies Home Medications Medication Instructions Recorded Confirmed Type bupropion HCl 150 mg 24 hr tablet, 150 mg PO BID Mood 03/24/21 01/25/23 History extended release sertraline 50 mg tablet (Zoloft) 100 mg PO DAILY Mood 10/25/22 01/25/23 History fluticasone propionate 110 1 puff inhalation BID Copd 11/02/22 01/25/23 History mcg/actuation HFA aerosol inhaler (Flovent HFA) fluticasone propionate 50 1 spray intranasal BID allergies 11/02/22 01/25/23 History mcg/actuation nasal spray,suspension loratadine 10 mg tablet (Claritin) 10 mg PO DAILY allergies 11/02/22 01/25/23 History umeclidinium 62.5 mcg-vilanterol 1 inh inhalation DAILY Copd 11/02/22 01/25/23 History 25 mcg/actuation powdr for inhalation (Anoro Ellipta) albuterol sulfate 2.5 mg/3 mL 2.5 mg inhalation Q4-6H PRN 11/03/22 01/25/23 History (0.083 %) solution for nebulization Shortness Of Breath Or Wheezing albuterol sulfate 90 mcg/actuation 1 inh inhalation Q6H PRN Shortness 11/03/22 01/25/23 History aerosol inhaler (Ventolin HFA) Of Breath Or Wheezing buspirone 10 mg tablet 10 mg PO TID Mood 11/03/22 01/25/23 History lisinopril 20 mg tablet 20 mg PO DAILY High blood pressure 11/03/22 01/25/23 History simvastatin 40 mg tablet 40 mg PO HS Cholesterol 11/03/22 01/25/23 History ipratropium 0.5 mg-albuterol 3 mg 3 ml inhalation QID PRN shortness 11/09/22 01/25/23 Rx (2.5 mg base)/3 mL nebulization of breath or wheezing 90 days #360 soln mL New Prescriptions to Start Prescriptions: Allergies Allergy/AdvReac Type Severity Reaction Status Date / Time No Known Allergies Allergy Verified 11/23/22 13:28 Exam Data for Last 24 hours Vital signs and Labs for Last 24 Hours: Temp Pulse Resp BP Pulse Ox O2 Del Method O2 Flow Rate 99.3 F 95 H 20 127/104 H 93 L Nasal Cannula 6 01/24/23 22:29 01/24/23 23:00 01/24/23 23:00 01/24/23 23:00 01/24/23 23:00 01/24/23 22:29 01/24/23 22:29 Laboratory Results - last 24 hr 01/24/23 22:30: WBC 6.7, RBC 4.38, Hgb 14.1, Hct 45.4, MCV 103.6 H, MCH 32.2 H, MCHC 31.1 L, RDW 14.4, Plt Count 198, MPV 8.5, Neut % (Auto) 65.2, Lymph % (Auto) 29.6, [place] % (Auto) 4.3, Eos % (Auto) 0.7, Baso % (Auto) 0.2, Neut # (Auto) 4.3, Lymph # (Auto) 2.0, [place] # (Auto) 0.3, Eos # (Auto) 0.1, Baso # (Auto) 0.0, VBG pH 7.36, VBG pCO2 71.7 H, VBG pO2 51.9 H, VBG HCO3 39.5 H, VBG Total CO2 41.7 H, VBG O2 Saturation 87.3 H, VBG Base Excess 14.0 H, Sodium 138, Potassium 4.0, Chloride 90 L, Carbon Dioxide 38 H, Anion Gap 14.0, BUN 16, Creatinine 0.90, Estimated Creat Clear 114, Estimated GFR 65, Est GFR ( Amer) 78, Glucose 163 H, Calcium 8.6, Total Bilirubin 1.0, AST 28, ALT 20, Alkaline Phosphatase 96, Troponin I 0.02, NT-Pro-B Natriuret Pep 4220 H, Total Protein 8.1, Albumin 3.7, Globulin 4.4 H, Albumin/Globulin Ratio 0.8 L, SARS-CoV-2 (PCR) Not detected, Influenza A Untype (PCR) Not detected, Influenza Type B (PCR) Not detected I & O for Last 24 hours: Intake & Output 01/21/23 01/22/23 01/23/23 01/24/23 23:59 23:59 23:59 23:59 Weight 103.873 kg Constitutional Constitutional: no acute distress, obese and chronically ill appearing *Routine HEENT Exam Head: Present normocephalic Eye: Present EOMI ENT: Present mucous membranes moist *Routine Neck Exam Neck: Present full ROM *Routine Respiratory Exam Respiratory: Present wheezes, crackles and symmetric chest movement; Absent CTA bilaterally *Routine Cardiovascular Exam Cardiovascular: Present RRR *Routine Abdominal Exam Abdominal: Present soft, normoactive bowel sounds and distended; Absent tenderness *Routine Rectal Exam Rectal:: deferred *Routine Genitalia Exam Genitalia:: deferred *Routine Extremities Exam Extremities: Present cyanosis, edema and full ROM *Routine Skin Exam Skin: Present intact and cyanosis *Routine Neurological Exam Neurological: Present alert and oriented X3 Assessment and Plan *Assessment and plan (1) COPD exacerbation: Status: Acute Category: Medical Code(s): J44.1 - Chronic obstructive pulmonary disease with (acute) exacerbation (2) Asthma: Status: Acute Category: Medical Code(s): J45.909 - Unspecified asthma, uncomplicated (3) Emphysema lung: Status: Acute Category: Medical Code(s): J43.9 - Emphysema, unspecified (4) HTN (hypertension): Status: Chronic Qualifiers: Hypertension type: primary hypertension Qualified Code(s): I10 - Essential (primary) hypertension Category: Medical Code(s): I10 - Essential (primary) hypertension (5) HLD (hyperlipidemia): Status: Chronic Qualifiers: Hyperlipidemia type: unspecified Qualified Code(s): E78.5 - Hyperlipidemia, unspecified Category: Medical Code(s): E78.5 - Hyperlipidemia, unspecified (6) Diabetes: Status: Acute Qualifiers: Diabetes mellitus complication status: with unspecified complications Diabetes mellitus long lines operator insulin use: with correction use Diabetes mellitus type: type 2 Qualified Code(s): E11.8 - Type 2 diabetes mellitus with unspecified complications; Z79.4 - halfway (current) use of insulin Category: Medical Code(s): E11.9 - Type 2 diabetes mellitus without complications (7) Tobacco abuse disorder: Status: Chronic Category: Medical Code(s): Z72.0 - Tobacco use (8) Depression: Status: Chronic Category: Medical Code(s): F32.A - Depression, unspecified Plan 57 year old female presented to the ED for c/o SOA. Patient notes that over the past 3 days, she has been having progressively worsening shortness of breath and generalized weakness. Wears 2L at home. The patient called 911 and EMS stated that her O2 was 78 % at home. Her lab work reveals no leukocytosis. Her BNP is elevated at 4220. Her chest XRAY reveals no signs of infection or pleural effusions. She is requiring 5L of [place] oxygen to maintain a saturation above 90 %. The ED physician spoke with the hospitalist team for further medical management. The pt was admitted to the medical floor. She will continue IV steroids, antibiotics, and have a pulmonary consult placed. Her oxygen requirement is still elevated from her baseline but she is in no acute distress. Plan as to follow: COPD EXACERBATION ASTHMA EMPHYSEMA -SOA for 3 days. Hx of chronic lung disease requiring 2 L of oxygen at baseline. She was hypoxic today at 78 % upon ems arrival. Now wearing 5L NC. -Goal O2 above 90 % -3 breathing treatments, solu-medrol, 40 mg of IV Lasix, and started on rocephin 2gm and azithromycin 500 mg daily given in the ED -Her lab work reveals no leukocytosis. Her BNP is elevated at 4220. chest XRAY reviewed and reveals no signs of infection or pleural effusions. -The patient is without peripheral edema. Repeat BNP in the morning -COVID negative -Blood cultures pending -Continue rocephin 2gm and azithromycin 500 mg daily, and solu-medrol 60mg BID -continue home claritin 10 mg and montelukast 10 mg -Duoneb Q 6hr scheduled -Trend daily CBC and BMP -Pulmonary consult place. Thank you for the recommendations!! HTN HLD -continue home lisinopril 20 mg daily and simvastatin 40 mg daily DM -ssi low dose insulin ordered -A1C pending TOBACCO ABUSE -Nicotine patch ordered DEPRESSION -continue home Bupropion 150mg, Buspirone 10 mg, and sertraline 50 mg daily FULL CODE DIABETIC DIET DVT: Heparin SQ Rounded on patient after nurse practitioner. Personally examined and interviewed patient. Agree with exam findings and care plan as documented. Suspect component of CHF. Given elevated BNP. Echo ordered.
[2023-01-24] MEDS: IPRATROPIUM/ALBUTEROL 3 ML NEB IH ×3 (23:43→23:44)
--- NOTE | 2023-01-24 23:44 | PC.NURSE ---
Called report to Traci COBOS
--- NOTE | 2023-01-24 23:45 | PC.NURSE ---
Rounded on patient nothing needed at this time call light within reach
[2023-01-24 23:47] VITALS: BP 127/75; PULSE 94; RESP 21; TEMP 37.4; O2SAT 96
[2023-01-25] VITALS (13 sets, daily range): BP systolic 105–151; BP diastolic 50–87; PULSE 80–110; RESP 18–20; TEMP 36.6–37.1; O2SAT 69–97; BMI 33.5; BMI 33.3
[2023-01-25 00:18] LABS: Hemoglobin A1C 5.8 % (4.0-6.0)
[2023-01-25] MEDS: AZITHROMYCIN 500 MG in 0.9 % SODIUM CHLORIDE 250 ML 250 MG IV ×2 (00:59→21:20)
[2023-01-25 01:49] LABS: Troponin I 0.03 ng/ml (0.00-0.034)
[2023-01-25] MEDS: ONDANSETRON 4MG/2ML VIAL 4 MG IV (03:42)
--- NOTE | 2023-01-25 06:01 | PC.NURSE ---
pt admitted for copd ex. pt received azithromycin. pt currently on vapotherm.
[2023-01-25] MEDS: IPRATROPIUM/ALBUTEROL 3 ML NEB IH ×4 (06:06→23:57)
[2023-01-25 06:31] LABS: POC Glucose,Bedside 223 (70-110)
[2023-01-25 06:32] LABS: Basophils % 0.3 % (0.1-2.0); Eosinophils % 0.3 % (0.1-12.0); Hematocrit 45.4 % (37.0-47.0); Hemoglobin 13.9 g/dL (12.2-16.2); Lymphocytes # 0.6 K/mm3 (0.7-4.5); Lymphocytes % 11.3 % (10-50); Mean Corpuscular HGB Conc 30.7 g/dL (31.8-35.4); Mean Corpuscular Hemoglobin 31.4 pg (27.0-31.2); Mean Corpuscular Volume 102.4 fl (81-99); Mean Platelet Volume 8.6 fl (7.4-10.4); Monocytes # 0.1 K/mm3 (0.1-1.0); Monocytes % 1.3 % (1.7-9.3); Neutrophils # 4.4 K/mm3 (1.8-7.8); Neutrophils % 86.7 % (37.0-80.0); Platelet Count 175 K/mm3 (142-424); Red Blood Count 4.44 M/mm3 (4.20-5.40); Red Cell Distribution Width 14.2 % (11.5-17.5)
[2023-01-25 06:43] LABS: MANUAL DIFFERENTIAL MANUAL DIFFERENTIAL (MANUAL DIFF)
--- NOTE | 2023-01-25 07:26 | P.PN_ITS ---
Subjective *Date: 01/25/23 *Time: 11:11 Interval history: Patient on 5 L nasal cannula on morning rounds. States she is feeling somewhat better after diuretic overnight, breathing treatments, and steroids. No nausea or vomiting. Still dyspneic on exam. Patient cannot member the last time she had an echocardiogram obtained. Discussed ordering 1 today to evaluate for heart failure component given elevated BNP. Patient afebrile and hemodynamically stable. Medical Exam Vital signs and Labs for Last 24 Hours: Vital Signs Temp Pulse Pulse Resp BP BP Pulse Ox 01/25/23 07:14 98.7 F 80 18 142/87 H 93 L 01/25/23 07:00 01/25/23 06:09 81 01/25/23 06:09 84 01/25/23 06:09 92 L 01/25/23 05:00 01/25/23 04:00 98.4 F 85 20 150/82 H 90 L 01/25/23 03:00 01/25/23 01:00 01/25/23 01:31 94 L 01/25/23 00:39 01/25/23 00:00 98.5 F 90 18 151/83 H 93 L 01/24/23 23:47 99.3 F 94 H 21 127/75 01/24/23 23:15 94 H 01/24/23 22:44 89 01/24/23 23:31 94 H 21 127/75 96 01/24/23 23:00 95 H 20 127/104 H 93 L 01/24/23 22:29 99.3 F 109 H 22 116/71 90 L O2 Del Method O2 Flow Rate FiO2 01/25/23 07:14 Nasal Cannula 5 01/25/23 07:00 Vapotherm 01/25/23 06:09 01/25/23 06:09 01/25/23 06:09 Vapotherm 55 01/25/23 05:00 Vapotherm 01/25/23 04:00 Vapotherm 01/25/23 03:00 Vapotherm 01/25/23 01:00 Vapotherm 01/25/23 01:31 Vapotherm 01/25/23 00:39 Vapotherm 10 50 01/25/23 00:00 Vapotherm 01/24/23 23:47 Nasal Cannula 6 01/24/23 23:15 01/24/23 22:44 01/24/23 23:31 Nasal Cannula 6 01/24/23 23:00 01/24/23 22:29 Nasal Cannula 6 Intake and Output 01/24/23 01/24/23 01/25/23 15:59 23:59 07:59 Intake Total 480 / 480 Output Total 400 / 400 Balance 80 / 80 Intake: Intake, Oral Amount 480 / 480 Output: Output, Urine Amount 400 / 400 Other: Number of Unmeasured Voids 1 Number of Bowel Movements 1 Weight 103.873 kg 102.739 kg Patient Weight 01/25/23 23:59 Weight 102.739 kg Laboratory Results - last 24 hr 01/24/23 22:30: WBC 6.7, RBC 4.38, Hgb 14.1, Hct 45.4, MCV 103.6 H, MCH 32.2 H, MCHC 31.1 L, RDW 14.4, Plt Count 198, MPV 8.5, Neut % (Auto) 65.2, Lymph % (Auto) 29.6, [place] % (Auto) 4.3, Eos % (Auto) 0.7, Baso % (Auto) 0.2, Neut # (Auto) 4.3, Lymph # (Auto) 2.0, [place] # (Auto) 0.3, Eos # (Auto) 0.1, Baso # (Auto) 0.0, VBG pH 7.36, VBG pCO2 71.7 H, VBG pO2 51.9 H, VBG HCO3 39.5 H, VBG Total CO2 41.7 H, VBG O2 Saturation 87.3 H, VBG Base Excess 14.0 H, Sodium 138, Potassium 4.0, Chloride 90 L, Carbon Dioxide 38 H, Anion Gap 14.0, BUN 16, Creatinine 0.90, Estimated Creat Clear 114, Estimated GFR 65, Est GFR ( Amer) 78, Glucose 163 H, Calcium 8.6, Total Bilirubin 1.0, AST 28, ALT 20, Alkaline Phosphatase 96, Troponin I 0.02, NT-Pro-B Natriuret Pep 4220 H, Total Protein 8.1, Albumin 3.7, Globulin 4.4 H, Albumin/Globulin Ratio 0.8 L, SARS-CoV-2 (PCR) Not detected, Influenza A Untype (PCR) Not detected, Influenza Type B (PCR) Not detected 09/05/23 23:20: Lactate 1.0 01/24/23 23:30: Hemoglobin A1c 5.8 01/25/23 01:25: Troponin I 0.03 01/25/23 06:01: WBC 5.0 D, RBC 4.44, Hgb 13.9, Hct 45.4, MCV 102.4 H, MCH 31.4 H, MCHC 30.7 L, RDW 14.2, Plt Count 175, MPV 8.6, Neut % (Auto) 86.7 H, Lymph % (Auto) 11.3, [place] % (Auto) 1.3 L, Eos % (Auto) 0.3, Baso % (Auto) 0.3, Neut # (Auto) 4.4, Lymph # (Auto) 0.6 L, [place] # (Auto) 0.1, Eos # (Auto) 0.0, Baso # (Auto) 0.0 01/25/23 06:24: POC Glucose 223 H I & O for Labs for Last 24 Hours: Intake & Output 01/22/23 01/23/23 01/24/23 01/25/23 23:59 23:59 23:59 23:59 Intake Total 480 / 480 Output Total 400 / 400 Balance 80 / 80 Weight 103.873 kg 102.739 kg Constitutional: Present mild distress, obese and chronically ill appearing Head: Present atraumatic and normocephalic ENT: Present normal exam Neck: Present normal inspection Respiratory: Present prolonged expiratory phase, rhonchi, wheezes, crackles (Bases) and diminished air movement Cardiac: Present Reg Rate and Rhythm GI: Present normal bowel sounds; Absent tenderness Extremities: Present normal inspection and full ROM Skin: Absent erythema Neuro: Present Grossly Intact, alert, awake, oriented x 3 and moves all extremities Assessment and Plan *Assessment and plan (1) CHF exacerbation: Status: Acute Category: Medical Code(s): I50.9 - Heart failure, unspecified (2) COPD exacerbation: Status: Acute Category: Medical Code(s): J44.1 - Chronic obstructive pulmonary disease with (acute) exacerbation (3) Asthma: Status: Acute Category: Medical Code(s): J45.909 - Unspecified asthma, uncomplicated (4) Emphysema lung: Status: Acute Category: Medical Code(s): J43.9 - Emphysema, unspecified (5) HTN (hypertension): Status: Chronic Qualifiers: Hypertension type: primary hypertension Qualified Code(s): I10 - Essential (primary) hypertension Category: Medical Code(s): I10 - Essential (primary) hypertension (6) HLD (hyperlipidemia): Status: Chronic Qualifiers: Hyperlipidemia type: unspecified Qualified Code(s): E78.5 - Hyperlipidemia, unspecified Category: Medical Code(s): E78.5 - Hyperlipidemia, unspecified (7) Diabetes: Status: Acute Qualifiers: Diabetes mellitus complication status: with unspecified complications Diabetes mellitus intermediate manager insulin use: with intermediate manager use Diabetes mellitus type: type 2 Qualified Code(s): E11.8 - Type 2 diabetes mellitus with unspecified complications; Z79.4 - nursing home (current) use of insulin Category: Medical Code(s): E11.9 - Type 2 diabetes mellitus without complications (8) Tobacco abuse disorder: Status: Chronic Category: Medical Code(s): Z72.0 - Tobacco use (9) Depression: Status: Chronic Category: Medical Code(s): F32.A - Depression, unspecified Plan 57 year old female presented to the ED for c/o SOA. Patient notes that over the past 3 days, she has been having progressively worsening shortness of breath and generalized weakness. Wears 2L at home. The patient called 911 and EMS stated that her O2 was 78 % at home. Her lab work reveals no leukocytosis. Her BNP is elevated at 4220. Her chest XRAY reveals no signs of infection or pleural effusions. She is requiring 5L of [place] oxygen to maintain a saturation above 90 %. On Vapotherm overnight, patient intolerant of it. Switch back to 5 L nasal cannula oxygen this morning. Feeling somewhat better today. Still requiring si gnificant increase in oxygen from her baseline. Continues to require inpatient management. Problems addressed as follows: COPD EXACERBATION ASTHMA EMPHYSEMA -SOA for 3 days. Hx of chronic lung disease requiring 2 L of oxygen at baseline. Continue supplemental oxygen as needed with goal saturation greater 90%. Currently on 5 L. -Pulmonology consulted, appreciate their recommendations. - COVID negative -Blood cultures pending -Continue rocephin 2gm and azithromycin 500 mg daily, and solu-medrol 60mg BID -continue home claritin 10 mg and montelukast 10 mg -Duoneb Q 6hr scheduled -Trend daily CBC and BMP ordered CHF exacerbation HTN HLD -Echo ordered, concern for component of CHF given elevated BNP of 4200. Will diurese with 2 mg Bumex x1 this morning. Monitor for improvement in oxygen requirement. -Chest imaging personally reviewed, bibasilar increased opacification, suspicious for pulmonary congestion. -continue home lisinopril 20 mg daily and simvastatin 40 mg daily DM -ssi low dose insulin ordered -A1C 5.8 TOBACCO ABUSE -Nicotine patch ordered DEPRESSION -continue home Bupropion 150mg, Buspirone 10 mg, and sertraline 50 mg daily FULL CODE DIABETIC DIET DVT: Heparin SQ
--- NOTE | 2023-01-25 07:28 | HMH.PHAINT1 ---
Pharmacy Intervention Comments: Medication history complete, medications verified with fill history and patient. Of note, patient has not picked up many of her medications since July, however, she reported that she still had them at home. - Neema Stewart, PharmD Candidate 2023
[2023-01-25 07:39] LABS: Lymphocytes % 13 % (10-50); Monocytes % 2 % (2-9); Neutrophils % 85 % (42-76); Total Cells Counted 100
[2023-01-25 07:40] LABS: Macrocytosis 1+; Platelet Estimate Normal
[2023-01-25 07:59] LABS: Blood Urea Nitrogen 17 mg/dl (7-17); Calcium 7.9 mg/dl (8.4-10.2); Chloride 87 mmol/L (98-107); Creatinine Clearance Estimated 113 mL/min (50-200); Estimated Glomerular Filt Rate 65 ml/min (>60); GFR (African American) 78 ML/MIN (>60); Glucose 219 mg/dl (74-100); Potassium 4.2 mmoL/L (3.5-5.1); Sodium 136 mmol/L (136-145)
--- NOTE | 2023-01-25 08:01 | CA_ITS ---
APPROVED REPORT EXAM: Comprehensive 2D, Doppler, and color-flow Echocardiogram Vp Account Director: Yin Khanna RT(R) Ht: 5 ft 8 in Wt: 227lbs BSA: 2.16 BP: 127/104 mmHg Indications: CHF, COPD, smoker, DM, HTN, SOB, hyperlipidemia, tachycardia, morbid obesity, O2 dependent. 2D Dimensions Aortic Root 1.97 cm F: 2.7 - 3.3 M-Mode Dimensions RVDd 3.23 cm (0.9-2.6) LA Diam 4.22 cm (1.9-4.0) LVDd 5.18 cm (3.5-5.7) Ao Diam 3.15 cm (2.0-3.7) LVDs 3.91 cm (3.5-5.7) IVSd 0.81 cm (0.6-1.1) PWd 0.81 cm (0.6-1.1) EF (Teich) 48.40% FS 24.50% EDV (Teich) 128.40 mL ESV (Teich) 66.30 mL LV Diastology E Decel Time 220.00 (160-240 msec) E/A Ratio 1.0 MED E' 6.00 (< 7 cm/sec) E'/MED E' Ratio 19.57 (>14) LAT E' 9.40 (<10 cm/sec) E/LAT E' Ratio 12.49 (>14) Mitral Valve MV E Max Gregg. 117.00 (40-130 cm/s) MV A Velocity 113.00 (40-130 cm/s) E/A Ratio 1.04 MV Decel. Time 220.00 (160-240 ms) MV PHT 64.00 ms Tricuspid Valve TR P. Velocity 297.00 cm/s RAP Estimate 15.00 mmHg RVSP 50.20 mmHg Left Ventricle The left ventricle is normal size. The left ventricular systolic function is normal. The left ventricular ejection fraction is within the normal range. There is increased LV wall thickness. There is normal LV segmental wall motion. There is grade II diastolic dysfunction present. LVEF is 55%. Right Ventricle The right ventricle is mildly dilated. The right ventricular systolic function is normal. Atria The left atrium size is normal. The right atrium size is normal. There is no Doppler evidence of interatrial shunt. Aortic Valve The aortic valve is mildly thickened. There is no aortic valvular stenosis. No aortic regurgitation is present. Mitral Valve The mitral valve is mildly thickened. No evidence of mitral valve stenosis. Trace mitral regurgitation. Tricuspid Valve The tricuspid valve leaflets are thin and pliable. Mild tricuspid regurgitation. RVSP is 35-40 mmHg. Pulmonic Valve The pulmonary valve is normal in structure. Trace pulmonic regurgitation. Great Vessels The aortic root is normal in size. The ascending aorta is not well visualized. IVC is normal in size and collapses >50% with inspiration. Pericardium There is no pericardial effusion. Other Information Study Quality: Fair Conclusion Normal biventricular systolic function. Grade II diastolic dysfunction. Mildly dilated RV. No significant valvular disease. RVSP 35-40 mmHg. Electronically signed by : Aidee Pulliam, 01/26/2023 00:42:49
[2023-01-25 08:07] LABS: Anion Gap 13.2 mEq/L (5-15); Carbon Dioxide 40 mmol/L (22.0-30.0); NT Pro Brain Natriuretic Pep. 4250 pg/mL (0-125)
[2023-01-25] MEDS: SERTRALINE 100MG TABLET 100 MG PO (09:00)
[2023-01-25] MEDS: BUMETANIDE 1MG/4ML VIAL 2 MG IV (09:00)
[2023-01-25] MEDS: NICOTINE 7MG/24HRS PATCH 7 MG TD (09:00)
[2023-01-25] MEDS: HEPARIN SODIUM 5,000 UNIT/ML VIAL 5000 UNIT SQ ×2 (09:00→20:40)
[2023-01-25] MEDS: LORATADINE 10MG TABLET 10 MG PO (09:01)
[2023-01-25] MEDS: buPROPion HCl SR 150MG TAB 150 MG PO ×2 (09:01→20:39)
[2023-01-25] MEDS: LISINOPRIL 20MG TABLET 20 MG PO (09:01)
[2023-01-25] MEDS: BUSPIRONE HCL 10 MG TABLET PO ×3 (09:01→20:39)
--- NOTE | 2023-01-25 09:37 | EXP.PULM.CON ---
History of Present Illness History of present illness: Ms. Jackman 57-year-old male current smoker greater than [id number] smoking history of asthma COPD overlap syndrome presented to the hospital with progressively worsening shortness of breath and generalized weakness. Upon EMS presentation patient saturations were 78% and upon presenting the patient increasing oxygen recommend symptoms admitted to hospital for further evaluation and management and pulmonary was consulted. Patient also complains of worsening bilateral lower extremity swelling. [facility] Disclaimer: The information contained in this section may have been updated after the patient was seen, as this information can be updated by other users. Medical History (Updated 01/25/23 @ 09:46 by Jon Tomas MD) Abnormal computerized axial tomography of chest Acute and chronic respiratory failure with hypoxia Anxiety and depression Cataract Chronic hypoxemic respiratory failure COPD (chronic obstructive pulmonary disease) Dyspnea Dyspnea on exertion Ectopic HLD (hyperlipidemia) HTN (hypertension) Lung nodule Multiple pulmonary nodules Nocturnal hypoxemia Non-seasonal allergic rhinitis Pneumonia Seasonal allergies Smoking greater than 30 pack years Tachycardia Tobacco abuse disorder Surgical History (Updated 01/25/23 @ 00:33 by Traci Lyman RN) History of cholecystectomy No significant past surgical history Family History Other Cancer Coronary artery disease Social History (Updated 01/25/23 @ 00:34 by Traci Lyman RN) Smoking Status: Current every day smoker tobacco type: cigarettes packs per day: 1 second hand exposure: No alcohol intake: never substance use type: denies use current occupational status: disabled Travel in the last 8 weeks: None household members: spouse housing: house current occupational exposures/hazards: No caffeine: Yes Review of Systems Constitutional Constitutional: Reports anorexia, Reports body ache(s) and Reports fatigue Eyes Eyes: Denies eye discharge, Denies dry eyes, Denies irritation and Denies itchy eyes ENT Ears, Nose, Mouth, and Throat: Denies epistaxis, Denies facial pain, Denies lip swelling and Denies throat swelling *Cardiovascular Cardiovascular: Reports dyspnea, Reports dyspnea on exertion, Reports leg edema and Reports orthopnea *Respiratory Respiratory: Denies change in phlegm color, Reports chest congestion, Reports cough, Reports dyspnea, Reports dyspnea on exertion, Denies excessive phlegm production and Reports wheezing *Gastrointestinal Gastrointestinal: Denies abdominal pain, Denies belching and Denies cramping *Musculoskeletal Musculoskeletal: Reports back pain, Reports myalgias and Reports other (No small joint swelling or Pain) *Neurologic Neurologic: Reports system reviewed and no additional complaints, except as documented Psychiatric Psychiatric: Denies homicidal ideation and Denies suicidal ideation Endocrine Endocrine: Reports fatigue and Denies heat intolerance Hematologic/Lymphatic Hematologic/Lymphatic: Denies easy bleeding and Denies lymphadenopathy Allergic/Immunologic Allergic/Immunologic: Denies itchy eyes, Denies lip swelling, Denies throat swelling and Reports wheezing Pulmonology Exam Inpatient Vital signs and Labs for Last 24 Hours: Temp Pulse Resp BP Pulse Ox O2 Del Method O2 Flow Rate 98.7 F 80 18 142/87 H 93 L Nasal Cannula 3 01/25/23 07:14 01/25/23 07:14 01/25/23 07:14 01/25/23 07:14 01/25/23 07:14 01/25/23 09:00 01/25/23 09:00 FiO2 55 01/25/23 06:09 Laboratory Results - last 24 hr 01/24/23 22:30: WBC 6.7, RBC 4.38, Hgb 14.1, Hct 45.4, MCV 103.6 H, MCH 32.2 H, MCHC 31.1 L, RDW 14.4, Plt Count 198, MPV 8.5, Neut % (Auto) 65.2, Lymph % (Auto) 29.6, Scurry % (Auto) 4.3, Eos % (Auto) 0.7, Baso % (Auto) 0.2, Neut # (Auto) 4.3, Lymph # (Auto) 2.0, Scurry # (Auto) 0.3, Eos # (Auto) 0.1, Baso # (Auto) 0.0, VBG pH 7.36, VBG pCO2 71.7 H, VBG pO2 51.9 H, VBG HCO3 39.5 H, VBG Total CO2 41.7 H, VBG O2 Saturation 87.3 H, VBG Base Excess 14.0 H, Sodium 138, Potassium 4.0, Chloride 90 L, Carbon Dioxide 38 H, Anion Gap 14.0, BUN 16, Creatinine 0.90, Estimated Creat Clear 114, Estimated GFR 65, Est GFR ( Amer) 78, Glucose 163 H, Calcium 8.6, Total Bilirubin 1.0, AST 28, ALT 20, Alkaline Phosphatase 96, Troponin I 0.02, NT-Pro-B Natriuret Pep 4220 H, Total Protein 8.1, Albumin 3.7, Globulin 4.4 H, Albumin/Globulin Ratio 0.8 L, SARS-CoV-2 (PCR) Not detected, Influenza A Untype (PCR) Not detected, Influenza Type B (PCR) Not detected 01/24/23 23:20: Lactate 1.0 01/24/23 23:30: Hemoglobin A1c 5.8 01/25/23 01:25: Troponin I 0.03 01/25/23 06:01: WBC 5.0 D, RBC 4.44, Hgb 13.9, Hct 45.4, MCV 102.4 H, MCH 31.4 H, MCHC 30.7 L, RDW 14.2, Plt Count 175, MPV 8.6, Neut % (Auto) 86.7 H, Lymph % (Auto) 11.3, Scurry % (Auto) 1.3 L, Eos % (Auto) 0.3, Baso % (Auto) 0.3, Neut # (Auto) 4.4, Lymph # (Auto) 0.6 L, Scurry # (Auto) 0.1, Eos # (Auto) 0.0, Baso # (Auto) 0.0, Total Counted 100, Neutrophils % (Manual) 85 H, Lymphocytes % (Manual) 13, Monocytes % (Manual) 2, Platelet Estimate Normal, Macrocytosis 1+, Sodium 136, Potassium 4.2, Chloride 87 L, Carbon Dioxide 40 H, Anion Gap 13.2, BUN 17, Creatinine 0.90, Estimated Creat Clear 113, Estimated GFR 65, Est GFR ( Amer) 78, Glucose 219 H D, Calcium 7.9 L, NT-Pro-B Natriuret Pep 4250 H 01/25/23 06:24: POC Glucose 223 H I & O for Labs for Last 24 Hours: Intake & Output 01/22/23 01/23/23 01/24/23 01/25/23 23:59 23:59 23:59 23:59 Intake Total 480 / 480 Output Total 400 / 400 Balance 80 / 80 Weight 229 lb 226 lb 8 oz Constitutional: Present moderate distress Head: Present normocephalic and atraumatic ENT: Present normal exam, normal oropharynx and mucous membranes moist Neck: Present normal inspection and full ROM Respiratory: Present respiratory distress, wheezes, crackles and able to speak in complete sentences Cardiac: Present S1/S2, Tachycardia and radial pulses present GI: Present soft and distention; Absent tenderness or guarding Rectal (female): Present deferred (female): Present deferred Skin: Present intact; Absent cyanosis or jaundice Neuro: Present alert, awake and oriented x 3 Extremities: Present normal inspection and edema; Absent clubbing or cyanosis Psychiatric: Present normal affect and cooperative Meds Home Medications and Allergies Home Medications Medication Instructions Recorded Confirmed Type bupropion HCl 150 mg 24 hr tablet, 150 mg PO BID Mood 03/24/21 01/25/23 History extended release sertraline 50 mg tablet (Zoloft) 100 mg PO DAILY Mood 10/25/22 01/25/23 History fluticasone propionate 110 1 puff inhalation BID Copd 11/02/22 01/25/23 History mcg/actuation HFA aerosol inhaler (Flovent HFA) fluticasone propionate 50 1 spray intranasal BID allergies 11/02/22 01/25/23 History mcg/actuation nasal spray,suspension loratadine 10 mg tablet (Claritin) 10 mg PO DAILY allergies 11/02/22 01/25/23 History umeclidinium 62.5 mcg-vilanterol 1 inh inhalation DAILY Copd 11/02/22 01/25/23 History 25 mcg/actuation powdr for inhalation (Anoro Ellipta) albuterol sulfate 2.5 mg/3 mL 2.5 mg inhalation Q4-6H PRN 11/03/22 01/25/23 History (0.083 %) solution for nebulization Shortness Of Breath Or Wheezing albuterol sulfate 90 mcg/actuation 1 inh inhalation Q6H PRN Shortness 11/03/22 01/25/23 History aerosol inhaler (Ventolin HFA) Of Breath Or Wheezing buspirone 10 mg tablet 10 mg PO TID Mood 11/03/22 01/25/23 History lisinopril 20 mg tablet 20 mg PO DAILY High blood pressure 11/03/22 01/25/23 History simvastatin 40 mg tablet 40 mg PO HS Cholesterol 11/03/22 01/25/23 History ipratropium 0.5 mg-albuterol 3 mg 3 ml inhalation QID PRN shortness 11/09/22 01/25/23 Rx (2.5 mg base)/3 mL nebulization of breath or wheezing 90 days #360 soln mL New Prescriptions to Start Prescriptions: Allergies Allergy/AdvReac Type Severity Reaction Status Date / Time No Known Allergies Allergy Verified 11/23/22 13:28 Results Laboratory Findings 01/25/23 06:01 01/25/23 06:01 Abnormal lab findings: Abnormal Labs 01/24/23 01/25/23 01/25/23 22:30 06:01 06:24 MCV 103.6 H 102.4 H MCH 32.2 H 31.4 H MCHC 31.1 L 30.7 L Neut % (Auto) 86.7 H Scurry % (Auto) 1.3 L Lymph # (Auto) 0.6 L Neutrophils % (Manual) 85 H VBG pCO2 71.7 H VBG pO2 51.9 H VBG HCO3 39.5 H VBG Total CO2 41.7 H VBG O2 Saturation 87.3 H VBG Base Excess 14.0 H Chloride 90 L 87 L Carbon Dioxide 38 H 40 H Glucose 163 H 219 H D POC Glucose 223 H Calcium 7.9 L NT-Pro-B Natriuret Pep 4220 H 4250 H Globulin 4.4 H Albumin/Globulin Ratio 0.8 L Assessment and Plan *Assessment and plan (1) Acute and chronic respiratory failure with hypoxia: Status: Acute Category: Medical Code(s): J96.21 - Acute and chronic respiratory failure with hypoxia (2) COPD exacerbation: Status: Acute Category: Medical Code(s): J44.1 - Chronic obstructive pulmonary disease with (acute) exacerbation Plan Ms. Jackman 57-year-old male current smoker greater than [id number] smoking history of asthma COPD overlap syndrome presented to the hospital with progressively worsening shortness of breath and generalized weakness. Upon EMS presentation patient saturations were 78% and upon presenting the patient increasing oxygen recommend symptoms admitted to hospital for further evaluation and management and pulmonary was consulted. Patient also complains of worsening bilateral lower extremity swelling. Afebrile. Hemodynamically stable. No evidence of leukocytosis upon admission. VBG from admission showed chronic hypercarbic respiratory failure with a pH of 7.36, PCO2 71.7 and hypoxic respiratory failure with a PO2 of 51.9. Chest x-ray upon admission, rotated, no dense consolidation. CT chest without contrast no dense consolidation noted. GGO UL opacities noted. Centrilobular and paraseptal emphysematous changes noted on chronic. flu and respiratory viral PCR panel negative.. Auscultation mild expiratory wheezing. Patient was initiated on ceftriaxone azithromycin along with DuoNebs and methylprednisolone. Received 40 mg of IV Lasix overnight Plan: -Continue nasal oxygen supplementation to maintain O2 saturation 90%, currently on 5 L nasal cannula. Continue to wean as tolerated. -Continue ceftriaxone azithromycin pending cultures -DuoNebs every 6 hours scheduled along with budesonide every 12 scheduled -Wean steroids to prednisone 40 mg daily -Lasix 40 mg IV once Thank you for involving pulmonary in this patient care. We will continue to follow.
[2023-01-25 10:09] LABS: Troponin I 0.03 ng/ml (0.00-0.034)
--- NOTE | 2023-01-25 10:31 | CT_ITS ---
FINAL REPORT TECHNIQUE: Axial images were obtained from the lung apex to the mid abdomen by computed tomography. Coronal and sagittal reformatted images were obtained. This study was performed with techniques to keep radiation doses as low as reasonably achievable, (ALARA). Individualized dose reduction techniques using automated exposure control or adjustment of mA and/or kV according to the patient's size were employed. CLINICAL HISTORY: Hypoxic resp failure COMPARISON: 11/02/2022 FINDINGS: There is enlargement of the left subclavian artery that is compatible with the previously noted subclavian artery dissection. Without intravenous contrast however, the actual dissection is not seen on today's exam. There is no axillary adenopathy. There are multiple mildly enlarged mediastinal nodes, which are nonspecific but likely reactive. Heart size is normal. There is no pericardial or pleural effusion. Limited images of the upper abdomen are unremarkable. Mild changes of emphysema are present, and there is a large calcified granuloma in the left upper lobe. There are multifocal ground glass opacities and small nodules once again noted. The ground glass opacities are stable, while the size of some nodules has increased. Most likely these are reactive, and may be the result of an atypical pneumonia, or mycobacterial/fungal infection. IMPRESSION: Multifocal ground glass opacities and small nodules once again identified. Some of the small nodules appear slightly increased in size compared to the prior exam, most likely these are reactive and may be the result of an atypical pneumonia or mycobacterial/fungal infection. Reviewed, Interpreted and Dictated by Ciro Caceres III, MD Transcribed by Amy Fisher Authenticated and [facility]
[2023-01-25 11:59] LABS: POC Glucose,Bedside 343 (70-110)
[2023-01-25] MEDS: humaLOG 100 UNITS/ML 3ML VIAL (SSI) SQ ×2 (11:59→20:53)
[2023-01-25] MEDS: FUROSEMIDE 40MG/4ML VIAL 40 MG IV ×2 (12:00→19:45)
[2023-01-25 16:52] LABS: POC Glucose,Bedside 139 (70-110)
--- NOTE | 2023-01-25 17:15 | PC.NURSE ---
pt has done well this shift. around 1100 pulse ox read 69%, checked on pt, pt was sitting up in bed on phone not wearing o2 nc. pt stated i took it off when i went to the br and forgot to put it back on . educated pt on the need to keep o2 on at all time. o2 currently on 5l nc with sats above 90%. has been at bs at intervals t/o the day. cb within reach.
[2023-01-25] MEDS: MONTELUKAST SODIUM 10MG TAB 10 MG PO (17:24)
[2023-01-25] MEDS: BUDESONIDE 0.5MG/2ML NEB 0.5 MG IH (18:25)
[2023-01-25] MEDS: CEFTRIAXONE SODIUM 2 GM in 0.9 % SODIUM CHLORIDE 100 ML IV (20:39)
[2023-01-25] MEDS: PRAVASTATIN 40MG TAB 80 MG PO (20:40)
[2023-01-25 20:56] LABS: POC Glucose,Bedside 185 (70-110)
[2023-01-26] VITALS (7 sets, daily range): BP systolic 100–112; BP diastolic 45–77; PULSE 78–105; RESP 18; TEMP 36.1–36.9; O2SAT 91–96; BMI 33.5
[2023-01-26] MEDS: IPRATROPIUM/ALBUTEROL 3 ML NEB IH ×2 (06:10→11:33)
[2023-01-26] MEDS: BUDESONIDE 0.5MG/2ML NEB 0.5 MG IH (06:15)
[2023-01-26 06:18] LABS: Basophils % 0.1 % (0.1-2.0); Eosinophils # 0.1 K/mm3 (0.0-0.4); Eosinophils % 0.6 % (0.1-12.0); Hematocrit 47.5 % (37.0-47.0); Hemoglobin 14.3 g/dL (12.2-16.2); Lymphocytes # 1.5 K/mm3 (0.7-4.5); Lymphocytes % 17.9 % (10-50); Mean Corpuscular Hemoglobin 31.3 pg (27.0-31.2); Mean Corpuscular Volume 104.2 fl (81-99); Mean Platelet Volume 8.7 fl (7.4-10.4); Monocytes # 0.4 K/mm3 (0.1-1.0); Monocytes % 4.5 % (1.7-9.3); Neutrophils # 6.6 K/mm3 (1.8-7.8); Neutrophils % 76.8 % (37.0-80.0); Platelet Count 199 K/mm3 (142-424); Red Blood Count 4.55 M/mm3 (4.20-5.40); Red Cell Distribution Width 14.4 % (11.5-17.5); White Blood Count 8.5 K/mm3 (4.8-10.8)
[2023-01-26 06:22] LABS: Alanine Aminotransferase 17 U/L (12-78); Albumin Level 4.1 g/dl (3.5-5.0); Albumin/Globulin Ratio 0.8 (1.1-1.8); Alkaline Phosphatase 91 U/L (38-126); Aspartate Amino Transferase 24 U/L (14-36); Bilirubin,Total 0.2 mg/dl (0.2-1.3); Blood Urea Nitrogen 24 mg/dl (7-17); Calcium 7.7 mg/dl (8.4-10.2); Chloride 78 mmol/L (98-107); Creatinine Clearance Estimated 85 mL/min (50-200); Estimated Glomerular Filt Rate 46 ml/min (>60); GFR (African American) 56 ML/MIN (>60); Globulin 4.9 g/dL (1.3-3.2); Glucose 108 mg/dl (74-100); Magnesium 1.5 mg/dl (1.6-2.3); Potassium 3.4 mmoL/L (3.5-5.1); Sodium 139 mmol/L (136-145)
[2023-01-26 06:34] LABS: Anion Gap 14.4 mEq/L (5-15); Carbon Dioxide 50 mmol/L (22.0-30.0)
[2023-01-26 06:45] LABS: POC Glucose,Bedside 125 (70-110)
--- NOTE | 2023-01-26 06:47 | PC.NURSE ---
pt remained on 6l/n through the night, noted sats 96%. pt turned down to 3l/nc. reported critical co2 at 50 to hospitalist. flonase ordered for nasal congestion and humidification added to o2
[2023-01-26] MEDS: NICOTINE 7MG/24HRS PATCH 7 MG TD (08:03)
[2023-01-26] MEDS: buPROPion HCl SR 150MG TAB 150 MG PO (08:03)
[2023-01-26] MEDS: POTASSIUM CHLORIDE 20MEQ TAB 40 MEQ PO (08:03)
[2023-01-26] MEDS: BUSPIRONE HCL 10 MG TABLET PO (08:03)
[2023-01-26] MEDS: predniSONE 20MG TAB 40 MG PO (08:04)
[2023-01-26] MEDS: HEPARIN SODIUM 5,000 UNIT/ML VIAL 5000 UNIT SQ (08:04)
[2023-01-26] MEDS: SERTRALINE 100MG TABLET 100 MG PO (08:04)
[2023-01-26] MEDS: MAGNESIUM SULFATE IN WATER 2 GM/50 ML PIGGYBACK IV (08:05)
[2023-01-26] MEDS: FUROSEMIDE 40MG/4ML VIAL 40 MG IV (08:05)
[2023-01-26] MEDS: FLUTICASONE PROP 50MCG NASAL SPRAY 16GM 1 SPRAY NS (08:06)
[2023-01-26] MEDS: LORATADINE 10MG TABLET 10 MG PO (08:07)
--- NOTE | 2023-01-26 08:09 | P.DS_ITS ---
General Admission date:: 01/24/23 Discharge date: 01/26/23 HPI HPI HPI: 57 year old female presented to the ED for c/o SOA. PMHx of severe COPD, emphysema, asthma, hypertension, DM, tobacco abuse and hld. Patient notes that over the past 3 days, she has been having progressively worsening shortness of breath and generalized weakness. Wears 2L at home. The patient called 911 and EMS stated that her O2 was 78 % at home. Patient denies any fevers, chills, but notes that she has been having a cough, congestion, mild body aches. Her lab work reveals no leukocytosis. Her BNP is elevated at 4220. Her chest XRAY reveals no signs of infection or pleural effusions. She is requiring 5L of [place] oxygen to maintain a saturation above 90 %. She was given 3 breathing treatments, solu-medrol, 40 mg of IV Lasix, and started on rocephin 2gm and azithromycin 500 mg daily. The ED physician spoke with the hospitalist team for further medical management. The pt was admitted to the medical floor. She will continue IV steroids and antibiotics. Her oxygen requirement is still elevated from her baseline but she is in no acute distress. Hospital Course Hospital Course Hospital Course: 57 year old female presented to the ED for c/o SOA. Patient notes that over the past 3 days, she has been having progressively worsening shortness of breath and generalized weakness. Wears 2L at home. The patient called 911 and EMS stated that her O2 was 78 % at home. Her lab work reveals no leukocytosis. Her BNP is elevated at 4220. Her chest XRAY reveals no signs of infection or pleural effusions. She is requiring 5L of [place] oxygen to maintain a saturation above 90 %. Initially on Vapotherm, weaned to nasal cannula oxygen. Tolerating 3 L nasal cannula on day of discharge with saturations in the low to mid 90s. Recommend continuing 3 L until follows up with pulmonology. Patient overall feeling better. Has responded well to diuretics. Stable for discharge home. Transition to oral regimen to complete therapy for COPD exacerbation and diuretic regimen. Problems addressed during admission as follows: COPD EXACERBATION ASTHMA EMPHYSEMA -SOA for 3 days. Hx of chronic lung disease requiring 2 L of oxygen at baseline. Initially required increase and supplemental oxygen with Vapotherm. Weaned to nasal cannula oxygen by day of discharge. Tolerating 3 L nasal cannula. Initially on Rocephin and azithromycin along with Solu-Medrol. Will transition to cefdinir to complete 5 days of antibiotics for COPD exacerbation and prednisone for 5 days total of steroids. Pulmonology assisted with care during admission. Appreciate their recommendations. We will have close follow-up with pulmonology after discharge. Continue breathing treatments per home regimen. Patient stable for discharge home. CHF exacerbation; heart failure with preserved ejection fraction. HTN HLD -Echo ordered, concern for component of CHF given elevated BNP of 4200. Diuresed well during admission. Transition to Lasix to continue daily usage. Continue home lisinopril 20 mg daily and simvastatin 40 mg daily. Will diurese with 2 mg Bumex x1 this morning. Monitor for improvement in oxygen requirement. Echo with preserved ejection fraction, does show elevated RVSP and grade 2 diastolic dysfunction. DM: A1C 5.8 on admission. hyperglycemia likely due to steroids. No indication for meds at this time TOBACCO ABUSE: counseled on cessation, nicotine patch during admission. Nicotine patch sent at discharge. DEPRESSION: continue home Bupropion 150mg, Buspirone 10 mg, and sertraline 50 mg daily Spent 35 minutes in discharge counseling, consultation with pulmonology, chart review, documentation, and direct care with patient. Exam Data for Last 24 hours Vital signs and Labs for Last 24 Hours: Temp Pulse Resp BP Pulse Ox O2 Del Method O2 Flow Rate 96.9 F L 105 H 18 105/45 L 91 L Nasal Cannula 3 01/26/23 07:14 01/26/23 07:14 01/26/23 07:14 01/26/23 07:14 01/26/23 07:14 01/26/23 07:14 01/26/23 07:14 FiO2 55 01/25/23 06:09 Laboratory Results - last 24 hr 01/25/23 06:01: Troponin I 0.03, NT-Pro-B Natriuret Pep 4250 H 01/25/23 11:47: POC Glucose 343 H* 01/25/23 16:42: POC Glucose 139 H 01/25/23 20:35: POC Glucose 185 H 01/26/23 05:43: WBC 8.5 D, RBC 4.55, Hgb 14.3, Hct 47.5 H, MCV 104.2 H, MCH 31.3 H, MCHC 30.0 L, RDW 14.4, Plt Count 199, MPV 8.7, Neut % (Auto) 76.8, Lymph % (Auto) 17.9, [place] % (Auto) 4.5, Eos % (Auto) 0.6, Baso % (Auto) 0.1, Neut # (Auto) 6.6, Lymph # (Auto) 1.5, [place] # (Auto) 0.4, Eos # (Auto) 0.1, Baso # (Auto) 0.0, Sodium 139, Potassium 3.4 L, Chloride 78 L, Carbon Dioxide 50 H* D, Anion Gap 14.4, BUN 24 H D, Creatinine 1.20 H D, Estimated Creat Clear 85, Estimated GFR 46 L, Est GFR ( Amer) 56 L D, Glucose 108 H D, Calcium 7.7 L, Magnesium 1.5 L, Total Bilirubin 0.2, AST 24, ALT 17, Alkaline Phosphatase 91, Total Protein 9.0 H, Albumin 4.1 D, Globulin 4.9 H, Albumin/Globulin Ratio 0.8 L 01/26/23 05:46: POC Glucose 125 H I & O for Last 24 hours: Intake & Output 01/23/23 01/24/23 01/25/23 01/26/23 23:59 23:59 23:59 23:59 Intake Total 1080 / 1080 720 / 720 Output Total 1400 / 1400 700 / 700 Balance -320 / -320 Weight 103.873 kg 102 kg 102.625 kg Constitutional Constitutional: no acute distress, obese and chronically ill appearing *Routine HEENT Exam Head: Present normocephalic Eye: Present EOMI and PERRL ENT: Present mucous membranes moist *Routine Neck Exam Neck: Present supple; Absent lymphadenopathy *Routine Respiratory Exam Respiratory: Present decreased breath sounds and diminished air movement; Absent rhonchi, wheezes or crackles *Routine Cardiovascular Exam Cardiovascular: Present RRR *Routine Abdominal Exam Abdominal: Present soft and normoactive bowel sounds; Absent tenderness *Routine Rectal Exam Patient deferred: visual exam *Routine Exam Patient deferred: external exam *Routine Extremities Exam Extremities: Absent cyanosis, clubbing or edema *Routine Skin Exam Skin: Present warm; Absent rash *Routine Neurological Exam Neurological: Present alert, oriented X3 and moving all extremities; Absent altered mental status Results Data Completed and Pending Labs on day of discharge: Labs from last 24 hours 01/26/23 01/26/23 01/25/23 05:46 05:43 20:35 WBC 8.5 D RBC 4.55 Hgb 14.3 Hct 47.5 H MCV 104.2 H MCH 31.3 H MCHC 30.0 L RDW 14.4 Plt Count 199 MPV 8.7 Neut % (Auto) 76.8 Lymph % (Auto) 17.9 [place] % (Auto) 4.5 Eos % (Auto) 0.6 Baso % (Auto) 0.1 Neut # (Auto) 6.6 Lymph # (Auto) 1.5 [place] # (Auto) 0.4 Eos # (Auto) 0.1 Baso # (Auto) 0.0 Sodium 139 Potassium 3.4 L Chloride 78 L Carbon Dioxide 50 H* D Anion Gap 14.4 BUN 24 H D Creatinine 1.20 H D Estimated Creat Clear 85 Estimated GFR 46 L Est GFR ( Amer) 56 L D Glucose 108 H D POC Glucose 125 H 185 H Calcium 7.7 L Magnesium 1.5 L Total Bilirubin 0.2 AST 24 ALT 17 Alkaline Phosphatase 91 Troponin I NT-Pro-B Natriuret Pep Total Protein 9.0 H Albumin 4.1 D Globulin 4.9 H Albumin/Globulin Ratio 0.8 L 01/25/23 01/25/23 01/25/23 16:42 11:47 06:01 WBC RBC Hgb Hct MCV MCH MCHC RDW Plt Count MPV Neut % (Auto) Lymph % (Auto) [place] % (Auto) Eos % (Auto) Baso % (Auto) Neut # (Auto) Lymph # (Auto) [place] # (Auto) Eos # (Auto) Baso # (Auto) Sodium Potassium Chloride Carbon Dioxide Anion Gap BUN Creatinine Estimated Creat Clear Estimated GFR Est GFR ( Amer) Glucose POC Glucose 139 H 343 H* Calcium Magnesium Total Bilirubin AST ALT Alkaline Phosphatase Troponin I 0.03 NT-Pro-B Natriuret Pep 4250 H Total Protein Albumin Globulin Albumin/Globulin Ratio DS: Diagnosis Discharge Diagnosis (1) Acute and chronic respiratory failure with hypoxia: Status: Acute Code(s): J96.21 - Acute and chronic respiratory failure with hypoxia (2) COPD exacerbation: Status: Acute Code(s): J44.1 - Chronic obstructive pulmonary disease with (acute) exacerbation Meds Home Medications and Allergies Home Medications Medication Instructions Recorded Confirmed Type bupropion HCl 150 mg 24 hr tablet, 150 mg PO BID Mood 03/24/21 01/25/23 History extended release sertraline 50 mg tablet (Zoloft) 100 mg PO DAILY Mood 10/25/22 01/25/23 History fluticasone propionate 110 1 puff inhalation BID Copd 11/02/22 01/25/23 History mcg/actuation HFA aerosol inhaler (Flovent HFA) fluticasone propionate 50 1 spray intranasal BID allergies 11/02/22 01/25/23 History mcg/actuation nasal spray,suspension loratadine 10 mg tablet (Claritin) 10 mg PO DAILY allergies 11/02/22 01/25/23 History umeclidinium 62.5 mcg-vilanterol 1 inh inhalation DAILY Copd 11/02/22 01/25/23 History 25 mcg/actuation powdr for inhalation (Anoro Ellipta) albuterol sulfate 2.5 mg/3 mL 2.5 mg inhalation Q4-6H PRN 11/03/22 01/25/23 History (0.083 %) solution for nebulization Shortness Of Breath Or Wheezing albuterol sulfate 90 mcg/actuation 1 inh inhalation Q6H PRN Shortness 11/03/22 01/25/23 History aerosol inhaler (Ventolin HFA) Of Breath Or Wheezing buspirone 10 mg tablet 10 mg PO TID Mood 11/03/22 01/25/23 History lisinopril 20 mg tablet 20 mg PO DAILY High blood pressure 11/03/22 01/25/23 History simvastatin 40 mg tablet 40 mg PO HS Cholesterol 11/03/22 01/25/23 History ipratropium 0.5 mg-albuterol 3 mg 3 ml inhalation QID PRN shortness 11/09/22 01/25/23 Rx (2.5 mg base)/3 mL nebulization of breath or wheezing 90 days #360 soln mL cefdinir 300 mg capsule 300 mg PO BID 3 days #6 caps 01/26/23 Rx furosemide 20 mg tablet (Lasix) 20 mg PO DAILY 30 days #30 tabs 01/26/23 Rx ipratropium 0.5 mg-albuterol 3 mg 3 ml inhalation Q6HP PRN shortness 01/26/23 Rx (2.5 mg base)/3 mL nebulization of breath 30 days #100 ea soln montelukast 10 mg tablet 10 mg PO PM 30 days #30 tabs 01/26/23 Rx nicotine 7 mg/24 hr daily 7 mg transdermal Q24H 30 days #30 01/26/23 Rx transdermal patch ea prednisone 20 mg tablet 40 mg PO DAILY 3 days #6 tabs 01/26/23 Rx New Prescriptions to Start Prescriptions: cefdinir Thom,Jon furosemide [Lasix] Thom,Jon ipratropium-albuterol Thom,Jon nicotine Thom,Jon prednisone Thom,Jon Allergies Allergy/AdvReac Type Severity Reaction Status Date / Time No Known Allergies Allergy Verified 11/23/22 13:28 Discharge Plan Disposition Patient Disposition: Home, Self-Care Condition: Fair Discharge Order Discharge Orders: Discharge Order (Routine); Ordered 01/26/23 Ordered By: Jon Tomas Follow up Plan Follow up with: Azucena Clarke APRN [Primary Care Provider] - 02/02/23 10:30 am Kiel Kathleen MD [Physician] - 02/06/23 1:15 pm Prescriptions/Medication Reconciliation: New montelukast 10 mg Tablet 10 mg PO PM 30 Days Qty: 30 0RF prednisone 20 mg Tablet 40 mg PO DAILY 3 Days Qty: 6 0RF cefdinir 300 mg capsule 300 mg PO BID 3 Days Qty: 6 0RF furosemide [Lasix] 20 mg tablet 20 mg PO DAILY 30 Days Qty: 30 0RF ipratropium-albuterol 0.5 mg-3 mg(2.5 mg base)/3 mL Solution For Nebulization 3 ml inhalation Q6HP PRN (Reason: shortness of breath) 30 Days Qty: 100 0RF nicotine 7 mg/24 hr Patch 24 Hour 7 mg transdermal Q24H 30 Days Qty: 30 0RF Continued bupropion HCl 150 mg tablet extended release 24 hr 150 mg PO BID sertraline [Zoloft] 50 mg tablet 100 mg PO DAILY ipratropium-albuterol 0.5 mg-3 mg(2.5 mg base)/3 mL solution for nebulization 3 ml INHALATION QID PRN (Reason: shortness of breath or wheezing) 90 Days Qty: 360 3RF fluticasone propionate 50 mcg/actuation spray,suspension 1 spray NS BID Rx Instructions: administer into each nostril fluticasone propionate [Flovent HFA] 110 mcg/actuation HFA aerosol inhaler 1 puff INHALATION BID Anoro Ellipta 62.5-25 mcg/actuation blister with device 1 inh INHALATION DAILY loratadine [Claritin] 10 mg Tablet 10 mg PO DAILY albuterol sulfate 2.5 mg /3 mL (0.083 %) solution for nebulization 2.5 mg inhalation Q4-6H PRN (Reason: Shortness Of Breath Or Wheezing) albuterol sulfate [Ventolin HFA] 90 mcg/actuation HFA aerosol inhaler 1 inh INHALATION Q6H PRN (Reason: Shortness Of Breath Or Wheezing) lisinopril 20 mg tablet 20 mg PO DAILY simvastatin 40 mg tablet 40 mg PO HS buspirone 10 mg tablet 10 mg PO TID Problem Reconciliation Problems Reviewed?: Yes Patient Discharge Instructions ACTIVITY: Continue current activity DIET: continue same diet Patient Instructions: DI for Chronic Obstructive Pulmonary Disease, DI for Heart Failure Exacerbations Providers Primary Care Provider: Azucena Clarke Admit Provider: Jon Tomas Attending Provider: Jon Tomas
--- NOTE | 2023-01-26 09:15 | EXP.PULM.PN ---
Subjective *Date: 01/26/23 *Time: 10:21 Interval history: No acute respiratory vents overnight. Patient admits continued improvement in her respiratory symptoms. Pulmonology Exam Inpatient Vital signs and Labs for Last 24 Hours: Temp Pulse Resp BP Pulse Ox O2 Del Method O2 Flow Rate 96.9 F L 105 H 18 105/45 L 91 L Nasal Cannula 4 01/26/23 07:14 01/26/23 07:14 01/26/23 07:14 01/26/23 07:14 01/26/23 08:00 01/26/23 08:11 01/26/23 08:11 FiO2 55 01/25/23 06:09 Laboratory Results - last 24 hr 01/25/23 06:01: Troponin I 0.03 01/25/23 11:47: POC Glucose 343 H* 01/25/23 16:42: POC Glucose 139 H 01/25/23 20:35: POC Glucose 185 H 01/26/23 05:43: WBC 8.5 D, RBC 4.55, Hgb 14.3, Hct 47.5 H, MCV 104.2 H, MCH 31.3 H, MCHC 30.0 L, RDW 14.4, Plt Count 199, MPV 8.7, Neut % (Auto) 76.8, Lymph % (Auto) 17.9, [place] % (Auto) 4.5, Eos % (Auto) 0.6, Baso % (Auto) 0.1, Neut # (Auto) 6.6, Lymph # (Auto) 1.5, [place] # (Auto) 0.4, Eos # (Auto) 0.1, Baso # (Auto) 0.0, Sodium 139, Potassium 3.4 L, Chloride 78 L, Carbon Dioxide 50 H* D, Anion Gap 14.4, BUN 24 H D, Creatinine 1.20 H D, Estimated Creat Clear 85, Estimated GFR 46 L, Est GFR ( Amer) 56 L D, Glucose 108 H D, Calcium 7.7 L, Magnesium 1.5 L, Total Bilirubin 0.2, AST 24, ALT 17, Alkaline Phosphatase 91, Total Protein 9.0 H, Albumin 4.1 D, Globulin 4.9 H, Albumin/Globulin Ratio 0.8 L 01/26/23 05:46: POC Glucose 125 H I & O for Labs for Last 24 Hours: Intake & Output 01/23/23 01/24/23 01/25/23 01/26/23 23:59 23:59 23:59 23:59 Intake Total 1080 / 1080 720 / 720 Output Total 1400 / 1400 700 / 700 Balance -320 / -320 20 / 20 Weight 229 lb 224 lb 13.944 oz 226 lb 4 oz Constitutional: Present moderate distress Head: Present normocephalic and atraumatic ENT: Present normal exam, normal oropharynx and mucous membranes moist Neck: Present normal inspection and full ROM Respiratory: Present respiratory distress and able to speak in complete sentences; Absent wheezes Cardiac: Present S1/S2, Tachycardia and radial pulses present GI: Present soft and distention; Absent tenderness or guarding Rectal (female): Present deferred (female): Present deferred Skin: Present intact; Absent cyanosis or jaundice Neuro: Present alert, awake and oriented x 3 Extremities: Present normal inspection and edema; Absent clubbing or cyanosis Psychiatric: Present normal affect and cooperative Assessment and Plan *Assessment and plan (1) Acute and chronic respiratory failure with hypoxia: Status: Acute Category: Medical Code(s): J96.21 - Acute and chronic respiratory failure with hypoxia (2) COPD exacerbation: Status: Acute Category: Medical Code(s): J44.1 - Chronic obstructive pulmonary disease with (acute) exacerbation Plan Ms. Jackman 57-year-old male current smoker greater than [id number] smoking history of asthma COPD overlap syndrome presented to the hospital with progressively worsening shortness of breath and generalized weakness. Upon EMS presentation patient saturations were 78% and upon presenting the patient increasing oxygen recommend symptoms admitted to hospital for further evaluation and management and pulmonary was consulted. Patient also complains of worsening bilateral lower extremity swelling. Afebrile. Hemodynamically stable. No evidence of leukocytosis upon admission. VBG from admission showed chronic hypercarbic respiratory failure with a pH of 7.36, PCO2 71.7 and hypoxic respiratory failure with a PO2 of 51.9. Chest x-ray upon admission, rotated, no dense consolidation. CT chest without contrast no dense consolidation noted. GGO UL opacities noted. Centrilobular and paraseptal emphysematous changes noted on chronic. flu and respiratory viral PCR panel negative.. Auscultation mild expiratory wheezing. Patient was initiated on ceftriaxone azithromycin along with DuoNebs and methylprednisolone. Interval update: No acute respiratory events overnight. Improving oxygen requirements. Stable leukocytosis. Echocardiogram showed diastolic dysfunction currently on diuretics. Slightly worsening BUN/creatinine along with hypokalemia. Plan: -Continue nasal oxygen supplementation to maintain O2 saturation 90% and above Continue to wean as tolerated. -Continue ceftriaxone azithromycin pending cultures, antibiotics can be weaned to cefdinir to complete total of 5-day course upon discharge -DuoNebs every 6 hours scheduled along with budesonide every 12 scheduled -Prednisone 40 mg daily x 5 days Thank you for involving pulmonary in this patient care. We will follow the patient in pulmonary clinic in 1 to 2 weeks post discharge
--- NOTE | 2023-01-26 09:48 | PC.NURSE ---
RESP CARE NOTE: Pt placed on 4 lpm nc, SPO2 remains at 93%. Will continue to monitor patient.
[2023-01-26] MEDS: humaLOG 100 UNITS/ML 3ML VIAL (SSI) SQ (10:17)
[2023-01-26 10:30] LABS: POC Glucose,Bedside 154 (70-110)
--- NOTE | 2023-01-26 11:30 | PC.NURSE ---
pt. is 96% on 3L after an hour.
--- NOTE | 2023-01-26 11:31 | PC.NURSE ---
RESP CARE NOTE: Pt on 3 lpm nc, SPO2 at 94% on 3 lpm. Will continue to monitor patient.
--- NOTE | 2023-01-27 12:37 | CARE MANAGER ---
Contacted patient related to hospital discharge. Patient states she is doing better. She wrote down her follow up appointments and already picked up her medication. Denies questions or concerns at this time.CHANDRIKA Bell
== END 2023-01-26 12:20 | disposition home or self-care (01) | DRG 189 ==
LOC: ER 23:11 → 2ND 01-25 01:46
PROVIDERS: Nurse Practitioner Critical Care Medicine; Admitting Provider Internal Medicine Adolescent Medicine; Emergency Provider Emergency Medicine; PCP Nurse Practitioner Family; Visit Provider Internal Medicine Adolescent Medicine
DX: J96.21 Acute and chronic respiratory failure with hypoxia (principal); I50.33 Acute on chronic diastolic (congestive) heart failure; I11.0 Hypertensive heart disease with heart failure; J96.12 Chronic respiratory failure with hypercapnia; Z99.81 Dependence on supplemental oxygen; F17.210 Nicotine dependence, cigarettes, uncomplicated; F32.A Depression, unspecified; J43.2 Centrilobular emphysema; Z71.6 Tobacco abuse counseling
CPT/HCPCS: 36415; 71045; 71250; 80048; 80053; 82803; 82962; 83036; 83605; 83735; 83880; 84484; 85007; 85025; 87040; 87636; 93005; 93306; 94640; 94760; 94761; G0378; J0456; J0696; J2405; J3475

== ENCOUNTER 2023-05-31 13:12 | Outpatient (CLI) | payer OTHER, SELFPAY ==
[2023-05-31 13:40] VITALS: PULSE 87; PULSE 90
[2023-05-31] MEDS: ALBUTEROL 0.083% 2.5 MG/3 ML NEB IH (13:45)
== END 2023-05-31 23:59 ==
LOC: RT 13:14
PROVIDERS: PCP Nurse Practitioner Family; Visit Provider Internal Medicine Pulmonary Disease
DX: R06.02 Shortness of breath (principal); J44.9 Chronic obstructive pulmonary disease, unspecified
CPT/HCPCS: 94060; 94640

== ENCOUNTER 2023-06-18 20:28 | Emergency (ER) | payer OTHER, SELFPAY ==
[2023-06-18 20:32] VITALS: BP 156/89; PULSE 107; RESP 32; TEMP 36.7; O2SAT 87; BMI 33.5
--- NOTE | 2023-06-18 20:43 | XR_ITS ---
PROCEDURE INFORMATION: Exam: XR Chest Exam date and time: 06/18/2023 8:46 PM Age: 57 years old Clinical indication: Shortness of breath; Additional info: Dyspnea TECHNIQUE: Imaging protocol: Radiologic exam of the chest. Views: 1 view. COMPARISON: CT CHEST WO CON 01/25/2023 10:41 AM FINDINGS: Lungs: Bilateral lower lobe airspace disease concerning for pneumonia. Pleural spaces: Unremarkable. No pleural effusion. No pneumothorax. Heart/Mediastinum: Cardiomegaly. Bones/joints: Unremarkable. IMPRESSION: Bilateral lower lobe airspace disease concerning for pneumonia.
--- NOTE | 2023-06-18 20:43 | ECG_ITS ---
APPROVED REPORT Exam: Resting ECG HR:106 bpm ECG Measurements Heart Rate 106 AXES [place] 136 P 77 QRSd 82 QRS 65 QT 332 T 74 QTc 394 Conclusion SINUS TACHYCARDIA ABNORMAL RHYTHM ECG UNCONFIRMED REPORT Electronically signed by : Dash Villarreal MD 06/20/2023 16:43:13
--- NOTE | 2023-06-18 20:44 | ED_ITS ---
Discharge Plan Disposition Patient Disposition: Home, Self-Care Prescriptions Prescriptions: New albuterol sulfate 90 mcg/actuation HFA aerosol inhaler 4 inh inhalation Q4H PRN (Reason: shortness of breath or wheezing) Qty: 8.5 0RF Rx Instructions: 4 puffs every 4 hours for 48 hours then as needed for shortness of breath or wheezing following benzonatate 100 mg capsule 100 mg PO TID PRN (Reason: cough) 5 Days Qty: 20 0RF amoxicillin-pot clavulanate 875-125 mg tablet 1 tab PO BID 7 Days Qty: 14 0RF No Action bupropion HCl 150 mg tablet extended release 24 hr 150 mg PO BID sertraline [Zoloft] 50 mg tablet 100 mg PO DAILY ipratropium-albuterol 0.5 mg-3 mg(2.5 mg base)/3 mL solution for nebulization 3 ml INHALATION QID PRN (Reason: shortness of breath or wheezing) 90 Days Qty: 360 3RF fluticasone propionate 50 mcg/actuation spray,suspension 1 spray NS BID Rx Instructions: administer into each nostril fluticasone propionate [Flovent HFA] 110 mcg/actuation HFA aerosol inhaler 1 puff INHALATION BID Anoro Ellipta 62.5-25 mcg/actuation blister with device 1 inh INHALATION DAILY loratadine [Claritin] 10 mg Tablet 10 mg PO DAILY albuterol sulfate 2.5 mg /3 mL (0.083 %) solution for nebulization 2.5 mg inhalation Q4-6H PRN (Reason: Shortness Of Breath Or Wheezing) albuterol sulfate [Ventolin HFA] 90 mcg/actuation HFA aerosol inhaler 1 inh INHALATION Q6H PRN (Reason: Shortness Of Breath Or Wheezing) lisinopril 20 mg tablet 20 mg PO DAILY simvastatin 40 mg tablet 40 mg PO HS buspirone 10 mg tablet 10 mg PO TID montelukast 10 mg Tablet 10 mg PO PM 30 Days Qty: 30 0RF ipratropium-albuterol 0.5 mg-3 mg(2.5 mg base)/3 mL Solution For Nebulization 3 ml inhalation Q6HP PRN (Reason: shortness of breath) 30 Days Qty: 100 0RF Referrals Follow up/Referrals: Clarke,Azucena, RN [facility] [Primary Care Provider] - See instructions Activity Restrictions/Add. Instructions Additional Instructions/Restrictions: Please return to the emergency department any significant worsening your symptoms otherwise follow-up with primary care doctor in 1 to 3 days. Clinical Impressions Clinical Impression: Acute exacerbation of chronic obstructive pulmonary disease Discharge ED Provider: Kimber Garg [facility] General Chief Complaint: Chest Pain Stated Complaint: chest pain Time Seen by Provider: 06/18/23 20:39 Mode of Arrival: Family Vehicle Source of Information: Patient Limitations: No Limitations Description of Symptoms (Recalled from ER Triage Doc. by RN): 57 yo female presents with CC of midsternal cp, onset earlier this evening; shortness of air associated with what she feels to be her COPD, and congestion. Baseline oxygenation is 2lpm/nc, but she comes in today on 4lpm, and SaO2 is 87%. Patient is alert, oriented, able to communicate. Afebrile. Denies pain radiation, denies any recent ble edema, or decrease in UOP. Patient states her PMH: emphysema, COPD, HTN, hyperlipidemia, anxiety. Former smoker. Denies etoh,denies marijuana/rec drugs History of Present Illness HPI narrative: Patient is a 57-year-old female with a history of COPD presenting today with shortness of breath primarily. She also states she has some chest tightness. States has been ongoing for the last 4 days associate with increased wheezing cough with sputum production and exertional dyspnea. No history of heart failure that she is aware of. No fevers or chills. Has a 30+ pack year history of smoking but stopped smoking 5 days ago. Related Data Home Medications Medication Instructions Recorded Confirmed bupropion HCl 150 mg 24 hr tablet, 150 mg PO BID Mood 03/24/21 06/18/23 extended release sertraline 50 mg tablet (Zoloft) 100 mg PO DAILY Mood 10/25/22 06/18/23 fluticasone propionate 110 1 puff inhalation BID Copd 11/02/22 06/18/23 mcg/actuation HFA aerosol inhaler (Flovent HFA) fluticasone propionate 50 1 spray intranasal BID allergies 11/02/22 06/18/23 mcg/actuation nasal spray,suspension loratadine 10 mg tablet (Claritin) 10 mg PO DAILY allergies 11/02/22 06/18/23 umeclidinium 62.5 mcg-vilanterol 1 inh inhalation DAILY Copd 11/02/22 06/18/23 25 mcg/actuation powdr for inhalation (Anoro Ellipta) albuterol sulfate 2.5 mg/3 mL 2.5 mg inhalation Q4-6H PRN 11/03/22 06/18/23 (0.083 %) solution for nebulization Shortness Of Breath Or Wheezing albuterol sulfate 90 mcg/actuation 1 inh inhalation Q6H PRN Shortness 11/03/22 0 06/18/23 aerosol inhaler (Ventolin HFA) Of Breath Or Wheezing buspirone 10 mg tablet 10 mg PO TID Mood 11/03/22 06/18/23 lisinopril 20 mg tablet 20 mg PO DAILY High blood pressure 11/03/22 06/18/23 simvastatin 40 mg tablet 40 mg PO HS Cholesterol 11/03/22 06/18/23 Previous Rx's Medication Instructions Recorded ipratropium 0.5 mg-albuterol 3 mg 3 ml inhalation QID PRN shortness 11/09/22 (2.5 mg base)/3 mL nebulization of breath or wheezing 90 days #360 soln mL ipratropium 0.5 mg-albuterol 3 mg 3 ml inhalation Q6HP PRN shortness 01/26/23 (2.5 mg base)/3 mL nebulization of breath 30 days #100 ea soln montelukast 10 mg tablet 10 mg PO PM 30 days #30 tabs 01/26/23 albuterol sulfate 90 mcg/actuation 4 inh inhalation Q4H PRN shortness 06/18/23 aerosol inhaler of breath or wheezing #8.5 grams amoxicillin 875 mg-potassium 1 tab PO BID 7 days #14 tabs 06/18/23 clavulanate 125 mg tablet benzonatate 100 mg capsule 100 mg PO TID PRN cough 5 days #20 06/18/23 caps Allergies Allergy/AdvReac Type Severity Reaction Status Date / Time No Known Allergies Allergy Verified 05/31/23 14:18 [facility] Disclaimer: The information contained in this section may have been updated after the patient was seen, as this information can be updated by other users. Medical History Abnormal computerized axial tomography of chest Acute and chronic respiratory failure with hypoxia Anxiety and depression Cataract Chronic hypoxemic respiratory failure COPD (chronic obstructive pulmonary disease) Dyspnea Dyspnea on exertion Ectopic HLD (hyperlipidemia) HTN (hypertension) Lung nodule Multiple pulmonary nodules Nocturnal hypoxemia Non-seasonal allergic rhinitis Pneumonia Seasonal allergies Smoking greater than 30 pack years Tachycardia Tobacco abuse disorder Surgical History History of cholecystectomy No significant past surgical history Family History Other Cancer Coronary artery disease Social History Smoking Status: Former smoker tobacco type: cigarettes packs per day: 1 second hand exposure: No alcohol intake: never substance use type: denies use current occupational status: disabled Travel in the last 8 weeks: None household members: spouse housing: house current occupational exposures/hazards: No caffeine: Yes ROS Obtained: Yes All systems reviewed & no additional complaints except as documented Physical Exam General General appearance: alert Respiratory Respiratory exam: Present other (No respiratory distress oxygen saturations in the mid 90s on 4 L nasal cannula which she has been using at home no excess or m uscle use there is some mild wheezing throughout) Cardiovascular Cardiovascular exam: Present normal rhythm and tachycardia Neurological Exam Neurological exam: Present alert HEART Score HEART Score HEART Score assessment performed?: Yes History (anamnesis): Slightly suspicious ECG: Non-specific disturbance Age: 45-65 years Risk factors: 1-2 risk factors Troponin: </= normal limit HEART Score: 3 Critical Care Critical Care Time Critical Care Time: Yes Attestation: On 06/18/23, the high probability of a clinically significant, sudden or life threatening deterioration of the following system(s) required my full and direct attention, intervention and personal management. The time I documented below is in addition to time spent performing reported procedures but includes the following listed in this critical care notation. Total Time Total Critical Care Time: 35 Medical Decision Making Matt Inquiry Pt receiving controlled substance: No Vital Signs Vital Signs: 06/18/23 20:32 Temperature 98.1 F Temperature Source Oral Pulse Rate [Right Brachial] 107 H Respiratory Rate 32 H Blood Pressure [Right Arm] 156/89 H Blood Pressure Mean [Right Arm] 111 Blood Pressure Source [Right Arm] Automatic Cuff Blood Pressure Position [Right Arm] Sitting 02 Sat by Pulse Oximetry 87 L Oxygen Delivery Method Nasal Cannula Oxygen Flow Rate (LPM) 4 Lab Data Lab results reviewed: Yes I reviewed the patient's lab results. Labs: Lab Results 06/18/23 20:44: VBG pH 7.29 L, VBG pCO2 83.4 H, VBG pO2 36.9, VBG HCO3 39.2 H, VBG Total CO2 41.8 H, VBG O2 Saturation 68.8, VBG Base Excess 12.6 H 06/18/23 20:45: WBC 7.3, RBC 3.80 L, Hgb 12.5, Hct 38.7, MCV 102.0 H, MCH 32.9 H , MCHC 32.2, RDW 14.1, Plt Count 193, MPV 8.6, Neut % (Auto) 64.4, Lymph % (Auto) 30.7, [place] % (Auto) 3.6, Eos % (Auto) 0.9, Baso % (Auto) 0.4, Neut # (Auto) 4.7, Lymph # (Auto) 2.3, [place] # (Auto) 0.3, Eos # (Auto) 0.1, Baso # (Auto) 0.0, Sodium 142, Potassium 3.8, Chloride 91 L, Carbon Dioxide 42 H*, Anion Gap 12.8, BUN 20 H, Creatinine 0.90, Estimated Creat Clear 113, Estimated GFR 65, Est GFR ( Amer) 78, Glucose 106 H, Calcium 9.1, Total Bilirubin 0.4, AST 27, ALT 16, Alkaline Phosphatase 87, Troponin I < 0.01, NT-Pro-B Natriuret Pep 456 H, Total Protein 8.6 H, Albumin 4.2, Globulin 4.4 H, Albumin/Globulin Ratio 1.0 L 06/18/23 20:45 06/18/23 20:45 Response Orders (Tests/Meds): ED MEDICATIONS Generic Name Dose Route Start Last Admin Trade Name Freq PRN Reason Stop Dose Admin Magnesium Sulfate 2 gm in 50 mls @ 50 mls/hr 06/18/23 20:43 06/18/23 21:05 Magnesium Sulfate 2gm/50ml Premix IV 06/18/23 21:42 50 mls/hr ONCE ONE Administration Discontinued Medications Generic Name Dose Route Start Last Admin Trade Name Freq PRN Reason Stop Dose Admin Albuterol/Ipratropium 3 ml 06/18/23 20:43 Ipratropium/Albuterol 3 Ml Neb IH 06/18/23 20:44 ONCE ONE Amoxicillin/Clavulanate Potassium 1 each 06/18/23 20:43 06/18/23 21:04 Amoxicillin/Clavulanate Potassium 875/125mg Tablet PO 06/18/23 20:44 1 each ONCE ONE Administration Dexamethasone Sodium Phosphate 10 mg 06/18/23 20:43 06/18/23 21:04 Dexamethasone 4mg/Ml 1ml Vial IV 06/18/23 20:44 10 mg ONCE ONE Administration ORDERS Category Date Time Status CT chest wo con Stat Cat Scan 06/18/23 21:14 Taken CXR --portable [XR chest portable] Stat Exams 06/18/23 20:43 Completed BNP [Brain Natriuretic Peptide] Stat Lab 06/18/23 20:45 Completed CBC w/Auto Diff [Complete Blood Count Auto Diff] Stat Lab 06/18/23 20:45 Completed CMP [Comprehensive Metabolic Panel] Stat Lab 06/18/23 20:45 Completed Rapid PCR Covid and Flu A/B Stat Lab 06/18/23 20:43 Received Trop I [Troponin I] Stat Lab 06/18/23 20:45 Completed Troponin I Q3H Lab 06/18/23 23:45 Ordered Troponin I Q3H Lab 06/19/23 02:45 Ordered Venous Blood Gas Stat RT 06/18/23 20:44 Completed MDM Narrative Medical Decision Narrative: Patient is a 57-year-old female present today with cough shortness of breath increased wheezing and sputum production in the setting of COPD consistent with a COPD exacerbation. Other things in the differential would include myocardial injury or NSTEMI EKG was performed I personally interpreted which shows a ventricular rate of 106 sinus tachycardia no acute ischemic changes noted there is normal axis nondiagnostic EKG. Possible patient has a superimposed pneumonia COVID flu etc. Will initiate nebs steroids antibiotics magnesium and will reassess. Chest x-ray performed which I personally interpreted which shows questionable bilateral lower lobe pneumonias given the fact that this will dramatically change my treatment I did get a noncontrasted CT scan which I also personally interpreted which does not show significant consolidation. Therefore we will treat with Augmentin alone and not add further atypical coverage. Also she does not need to be admitted as she is significantly improved my reassessment at 9:39 PM. He is breathing comfortably she is on her home oxygen requirement oxygen saturations in the mid 90s respiratory exam significantly improved. Venous blood gas did show a very mildly depressed pH but she has dramatically improved from a clinical standpoint. No evidence of sepsis her labs are otherwise unr emarkable I discussed with her and consider admission but she would like to go home and see if she does well at home she will closely follow-up with primary care doctor and return with any worsening symptoms. She was discharged in improved and stable condition.
[2023-06-18 20:59] LABS: Basophils % 0.4 % (0.1-2.0); Eosinophils # 0.1 K/mm3 (0.0-0.4); Eosinophils % 0.9 % (0.1-12.0); Hematocrit 38.7 % (37.0-47.0); Hemoglobin 12.5 g/dL (12.2-16.2); Lymphocytes # 2.3 K/mm3 (0.7-4.5); Lymphocytes % 30.7 % (10-50); Mean Corpuscular HGB Conc 32.2 g/dL (31.8-35.4); Mean Corpuscular Hemoglobin 32.9 pg (27.0-31.2); Mean Platelet Volume 8.6 fl (7.4-10.4); Monocytes # 0.3 K/mm3 (0.1-1.0); Monocytes % 3.6 % (1.7-9.3); Neutrophils # 4.7 K/mm3 (1.8-7.8); Neutrophils % 64.4 % (37.0-80.0); Platelet Count 193 K/mm3 (142-424); Red Cell Distribution Width 14.1 % (11.5-17.5); White Blood Count 7.3 K/mm3 (4.8-10.8)
[2023-06-18 21:00] VITALS: BP 124/99; RESP 16; O2SAT 97
[2023-06-18] MEDS: DEXAMETHASONE 4MG/ML 1ML VIAL 10 MG IV (21:04)
[2023-06-18] MEDS: AMOXICILLIN/CLAVULANATE POTASSIUM 875/125MG TABLET 1 EACH PO (21:04)
[2023-06-18] MEDS: MAGNESIUM SULFATE IN WATER 2 GM/50 ML PIGGYBACK IV (21:05)
[2023-06-18 21:10] LABS: Alanine Aminotransferase 16 U/L (12-78); Albumin Level 4.2 g/dl (3.5-5.0); Alkaline Phosphatase 87 U/L (38-126); Aspartate Amino Transferase 27 U/L (14-36); Bilirubin,Total 0.4 mg/dl (0.2-1.3); Blood Urea Nitrogen 20 mg/dl (7-17); Calcium 9.1 mg/dl (8.4-10.2); Chloride 91 mmol/L (98-107); Creatinine Clearance Estimated 113 mL/min (50-200); Estimated Glomerular Filt Rate 65 ml/min (>60); GFR (African American) 78 ML/MIN (>60); Globulin 4.4 g/dL (1.3-3.2); Glucose 106 mg/dl (74-100); Potassium 3.8 mmoL/L (3.5-5.1); Sodium 142 mmol/L (136-145); Total Protein,Serum 8.6 g/dl (6.3-8.2)
--- NOTE | 2023-06-18 21:14 | CT_ITS ---
PROCEDURE INFORMATION: Exam: CT Chest Without Contrast; Diagnostic Exam date and time: 06/18/2023 9:29 PM Age: 57 years old Clinical indication: Shortness of breath; Additional info: Lower lobe abnormalities, characterize further TECHNIQUE: Imaging protocol: Diagnostic computed tomography of the chest without contrast. Radiation optimization: All CT scans at this facility use at least one of these dose optimization techniques: automated exposure control; mA and/or kV adjustment per patient size (includes targeted exams where dose is matched to clinical indication); or iterative reconstruction. COMPARISON: CT CHEST WO CON 01/25/2023 10:41 AM FINDINGS: Lungs: Pulmonary emphysema. Probable slight improvement in few mild ground-glass opacities and tiny nodules, probably infectious or inflammatory. Several areas of probable scarring in the lung. Persistent Probable scarring/atelectasis in the right middle lobe. Pleural spaces: No pneumothorax. No pleural effusion. Heart: No pericardial effusion. Coronary arteries: Coronary artery calcifications. Lymph nodes: Persistent relatively mild mediastinal lymphadenopathy. Vasculature: Atherosclerotic calcifications. Gallbladder and bile ducts: Cholecystectomy. Spleen: Calcified granulomas in the spleen. Kidneys and ureters: Several renal cysts and too small to characterize renal hypodensities. Bones/joints: No acute fracture. Soft tissues: Grossly unremarkable. IMPRESSION: 1. Pulmonary emphysema. Probable slight improvement in few mild ground-glass opacities and tiny nodules, probably infectious or inflammatory. Recommend 3 month imaging follow-up unless clinically indicated earlier. 2. Persistent Probable scarring/atelectasis in the right middle lobe. No acute focal airspace consolidation. 3. Persistent relatively mild mediastinal lymphadenopathy. Recommend 3 month imaging follow-up unless clinically indicated earlier. 4. Coronary artery calcifications. COMMENTS: 1. Consistent with the [employer]'s Incidental Findings Committee white paper (J Am Radha Radiol 2018): Any incidental renal lesion less than 1 cm or classified as too small to characterize, or any incidental cystic renal lesion characterized as simple-appearing, is likely benign. No follow-up imaging is recommended for these lesions per consensus recommendations based on imaging criteria. 2. The presence of pulmonary emphysema on CT is an independent risk factor for lung cancer. In the absence of a history or active diagnosis of lung cancer, it is recommended that this patient with emphysema be evaluated for enrollment in a low dose CT lung cancer screening program.
[2023-06-18 21:21] LABS: VBG Base Excess 12.6 mmol/L (-2.4-2.3); VBG HCO3 39.2 mmol/L (23-30); VBG Oxygen Saturation 68.8 % (50-70); VBG PH 7.29 mmol/L (7.31-7.41); VBG PO2 36.9 mmol/L (28-40); VBG Total CO2 41.8 mmol/L (23-27)
[2023-06-18 21:22] LABS: NT Pro Brain Natriuretic Pep. 456 pg/mL (0-125)
[2023-06-18 21:22] LABS: VBG PCO2 83.4 mmol/L (35-51)
[2023-06-18 21:24] LABS: Anion Gap 12.8 mEq/L (5-15); Carbon Dioxide 42 mmol/L (22.0-30.0); Troponin I < 0.01 ng/ml (0.00-0.034)
[2023-06-18 21:28] LABS: Coronavirus 19, PCR Not Detected (NotDetected); Influenza A, PCR Not Detected (NotDetected); Influenza B, PCR Not Detected (NotDetected)
[2023-06-18] MEDS: IPRATROPIUM/ALBUTEROL 3 ML NEB IH (21:55)
[2023-06-18 21:56] VITALS: PULSE 101
[2023-06-18 22:00] VITALS: BP 145/90; RESP 20; O2SAT 99
[2023-06-18 22:22] VITALS: BP 145/90; PULSE 88; RESP 20; TEMP 36.9; O2SAT 98
== END 2023-06-18 22:23 | disposition home or self-care (01) ==
PROVIDERS: Emergency Provider Student in an Organized Health Care Education/Training Program; PCP Nurse Practitioner Family
DX: J44.1 Chronic obstructive pulmonary disease with (acute) exacerbation (principal); R07.9 Chest pain, unspecified; R06.02 Shortness of breath; R06.2 Wheezing; R05.9 Cough, unspecified; I10 Essential (primary) hypertension; E78.5 Hyperlipidemia, unspecified; Z87.891 Personal history of nicotine dependence
CPT/HCPCS: 71045; 71250; 80053; 82803; 83880; 84484; 85025; 87636; 93005; 96365; 96375; 99291; J3475

== ENCOUNTER 2023-12-22 15:19 | Outpatient (CLI) | payer OTHER, SELFPAY | END 2023-12-22 23:59 | disposition home or self-care (01) | LOC: RAD 15:20 | PROVIDERS: PCP Nurse Practitioner Family; Visit Provider Internal Medicine Pulmonary Disease | DX: R06.00 Dyspnea, unspecified (principal) ==

== ENCOUNTER 2023-12-30 19:34 | Emergency (ER) | payer OTHER, SELFPAY ==
[2023-12-30 19:35] VITALS: BP 117/87; PULSE 121; RESP 24; TEMP 36.6; O2SAT 90; BMI 36.5
[2023-12-30 20:02] LABS: Lactate Venous 1.9 mmol/L (0.4-2.0); VBG Base Excess 9.5 mmol/L (-2.4-2.3); VBG Oxygen Saturation 99.1 % (50-70); VBG PH 7.42 mmol/L (7.31-7.41); VBG PO2 146.8 mmol/L (28-40); VBG Total CO2 35.6 mmol/L (23-27)
[2023-12-30 20:04] LABS: VBG PCO2 53.6 mmol/L (35-51)
--- NOTE | 2023-12-30 20:07 | XR_ITS ---
PROCEDURE INFORMATION: Exam: XR Left Elbow Exam date and time: 12/30/2023 8:12 PM Age: 58 years old Clinical indication: Pain; Elbow; Left; Additional info: L arm pain TECHNIQUE: Imaging protocol: Radiologic exam of the left elbow. Views: 3 or more views. Total images: 3 COMPARISON: CR XR FOREARM LT 2V 12/30/2023 8:12 PM FINDINGS: Bones/joints: No acute fracture, joint dislocation, or joint effusion. No concerning bone lesions or calcifications. Unremarkable joint spaces. Soft tissues: IV catheter tubing antecubital fossa. Unremarkable soft tissues. IMPRESSION: Negative left elbow.
--- NOTE | 2023-12-30 20:07 | XR_ITS ---
PROCEDURE INFORMATION: Exam: XR Left Wrist Exam date and time: 12/30/2023 8:12 PM Age: 58 years old Clinical indication: Pain; Wrist; Left; Additional info: L arm pain TECHNIQUE: Imaging protocol: Radiologic exam of the left wrist. Views: 3 or more views. Total images: 3 COMPARISON: CR XR WRIST LT MIN 3V 12/30/2023 8:12 PM FINDINGS: Bones/joints: No acute fracture or joint dislocation. No concerning bone lesions or calcifications. Carpal alignment is well maintained. Unremarkable joint spaces. Soft tissues: Mild soft tissue swelling distal forearm and wrist. IMPRESSION: 1. No acute osseous abnormality. 2. Mild soft tissue swelling.
--- NOTE | 2023-12-30 20:07 | XR_ITS ---
PROCEDURE INFORMATION: Exam: XR Chest Exam date and time: 12/30/2023 8:12 PM Age: 58 years old Clinical indication: Pain; Chest pressure; Additional info: L arm tingling TECHNIQUE: Imaging protocol: Radiologic exam of the chest. Views: 1 view. Total images: 1 COMPARISON: CT CHEST WO CON 06/18/2023 9:29 PM FINDINGS: Lungs: Stable volume loss right hemithorax. Chronic right middle lobe collapse. Attenuation artifact bilateral lung bases. Centrilobular emphysema. Right basilar scarring. No acute infiltrate or vascular congestion. Pleural spaces: Unremarkable. No pleural effusion. No pneumothorax. Heart/Mediastinum: Unremarkable. No cardiomegaly. No mediastinal widening or hilar enlargement. Bones/joints: Slight rotation to the right. Mild osteopenia. IMPRESSION: 1. No radiographically acute cardiopulmonary process. 2. Emphysema and chronic right middle lobe collapse.
--- NOTE | 2023-12-30 20:07 | XR_ITS ---
PROCEDURE INFORMATION: Exam: XR Left Forearm Exam date and time: 12/30/2023 8:12 PM Age: 58 years old Clinical indication: Pain; Lower or forearm; Left; Additional info: L arm pain TECHNIQUE: Imaging protocol: Radiologic exam of the left forearm. Views: 2 views. Total images: 2 COMPARISON: CR XR FOREARM LT 2V 12/30/2023 8:12 PM FINDINGS: Bones/joints: No acute fracture or joint dislocation. No concerning bone lesions or calcifications. Unremarkable joint spaces. Soft tissues: IV catheter tubing antecubital fossa. Soft tissue swelling distal forearm. IMPRESSION: 1. No acute osseous abnormality. 2. Soft tissue swelling distal forearm.
--- NOTE | 2023-12-30 20:11 | ED_ITS ---
Discharge Plan Disposition Patient Disposition: Home, Self-Care Condition: Good Prescriptions Prescriptions: New lidocaine [Lidoderm] 5 % adhesive patch,medicated 1 patch topical DAILY Qty: 15 0RF Rx Instructions: leave on most painful area for up to 12 hrs No Action sodium chloride 0.9 % solution for nebulization inhalation cholecalciferol (vitamin D3) 125 mcg (5,000 unit) capsule 125 mcg PO Dulera 200-5 mcg/actuation HFA aerosol inhaler inhalation Entresto 24-26 mg tablet 1 tab PO BID cyanocobalamin (vitamin B-12) 5,000 mcg capsule PO furosemide 40 mg tablet 40 mg PO DAILY Qty: 30 2RF spironolactone 25 mg tablet 25 mg PO DAILY Qty: 30 3RF sertraline [Zoloft] 50 mg tablet 100 mg PO DAILY ipratropium-albuterol 0.5 mg-3 mg(2.5 mg base)/3 mL solution for nebulization See Rx Instructions .ROUTE .COMPLEX Qty: 360 2RF Dose Instruction: INHALE CONTENTS OF 1 VIAL USING NEBULIZER FOUR TIMES A DAY NEEDED FOR SHORTNESS OF BREATH OR WHEEZING Rx Instructions: INHALE CONTENTS OF 1 VIAL USING NEBULIZER FOUR TIMES A DAY NEEDED FOR SHORTNESS OF BREATH OR WHEEZING fluticasone propionate 50 mcg/actuation spray,suspension 1 spray NS BID Rx Instructions: administer into each nostril fluticasone propionate [Flovent HFA] 110 mcg/actuation HFA aerosol inhaler 1 puff INHALATION BID Anoro Ellipta 62.5-25 mcg/actuation blister with device 1 inh INHALATION DAILY loratadine [Claritin] 10 mg Tablet 10 mg PO DAILY albuterol sulfate 2.5 mg /3 mL (0.083 %) solution for nebulization 2.5 mg inhalation Q4-6H PRN (Reason: Shortness Of Breath Or Wheezing) albuterol sulfate [Ventolin HFA] 90 mcg/actuation HFA aerosol inhaler 1 inh INHALATION Q6H PRN (Reason: Shortness Of Breath Or Wheezing) lisinopril 20 mg tablet 20 mg PO DAILY simvastatin 40 mg tablet 40 mg PO HS buspirone 10 mg tablet 10 mg PO TID montelukast 10 mg Tablet 10 mg PO PM 30 Days Qty: 30 0RF ipratropium-albuterol 0.5 mg-3 mg(2.5 mg base)/3 mL Solution For Nebulization 3 ml inhalation Q6HP PRN (Reason: shortness of breath) 30 Days Qty: 100 0RF albuterol sulfate 90 mcg/actuation HFA aerosol inhaler 4 inh inhalation Q4H PRN (Reason: shortness of breath or wheezing) Qty: 8.5 0RF Rx Instructions: 4 puffs every 4 hours for 48 hours then as needed for shortness of breath or wheezing following Referrals Follow up/Referrals: Azucena Clarke APRN [Primary Care Provider] - See instructions Activity Restrictions/Add. Instructions Additional Instructions/Restrictions: You were evaluated in the emergency department today. Please follow-up closely with your primary care provider. Take Tylenol at home as needed for pain. We also sent in lidocaine patches for you to have as needed return to the emergency department for new or worsening symptoms. Clinical Impressions Clinical Impression: Arm pain, left Instructions Patient Instructions: DI for Forearm Muscle Strain Print Language Print Language: Estonian Discharge ED Provider: Ashly Mosley General Adult HPI General Chief complaint: Extremity Injury, Upper Stated complaint: LT arm pain Time Seen by Provider: 12/30/23 19:45 Mode of Arrival: Wheelchair Source of Information: Patient Limitations: No Limitations Description of Symptoms (Recalled from ER Triage Doc. by RN): pt began having left wrist to elbow pain and it feel like it is cold and numb, pt denies any injury or trauma, pt denies chest pain or any worse soa, pt wears O2 at home at 2-3 L and has for years, has hx of copd, the arm pain has come and gone all day History of Present Illness HPI narrative: This patient is a 58-year-old female with a history of COPD on 2 to 3 L nasal cannula chronically, CAD, CHF, hypertension, hyperlipidemia, and previous history of diabetes but she states she is not diabetic anymore presenting with concern for left arm pain. Patient denies any known injuries. She states that she started having pain from her left wrist to left elbow earlier today with no known trauma. It has come and gone all day. No injuries noted. She also states that her hand feels like it is cold and numb. She denies any associated neck pain, shoulder pain, upper back pain, chest pain, shortness of breath, or other concerns. She denies experiencing any like this in the past. Related Data Home Medications ?Medication ?Instructions ?Recorded ?Confirmed sertraline 50 mg tablet (Zoloft) 100 mg PO DAILY Mood 10/25/22 12/26/23 fluticasone propionate 110 1 puff inhalation BID Copd 11/02/22 12/26/23 mcg/actuation HFA aerosol inhaler (Flovent HFA) fluticasone propionate 50 1 spray intranasal BID allergies 11/02/22 12/26/23 mcg/actuation nasal spray,suspension loratadine 10 mg tablet (Claritin) 10 mg PO DAILY allergies 11/02/22 12/26/23 umeclidinium 62.5 mcg-vilanterol 1 inh inhalation DAILY Copd 11/02/22 12/26/23 25 mcg/actuation powdr for inhalation (Anoro Ellipta) albuterol sulfate 2.5 mg/3 mL 2.5 mg inhalation Q4-6H PRN 11/03/22 12/26/23 (0.083 %) solution for nebulization Shortness Of Breath Or Wheezing albuterol sulfate 90 mcg/actuation 1 inh inhalation Q6H PRN Shortness 11/03/22 12/26/23 aerosol inhaler (Ventolin HFA) Of Breath Or Wheezing buspirone 10 mg tablet 10 mg PO TID Mood 11/03/22 12/26/23 lisinopril 20 mg tablet 20 mg PO DAILY High blood pressure 11/03/22 12/26/23 simvastatin 40 mg tablet 40 mg PO HS Cholesterol 11/03/22 12/26/23 cholecalciferol (vitamin D3) 125 125 mcg PO 12/26/23 12/26/23 mcg (5,000 unit) capsule cyanocobalamin (vitamin B-12) mcg PO 12/26/23 12/26/23 5,000 mcg capsule mometasone-formoterol HFA 200 inhalation 12/26/23 12/26/23 mcg-5 mcg/actuation aerosol inhaler (Dulera) sacubitril 24 mg-valsartan 26 mg 1 tab PO BID 12/26/23 12/26/23 tablet (Entresto) sodium chloride 0.9 % for ml inhalation 12/26/23 12/26/23 nebulization Previous Rx's ?Medication ?Instructions ?Recorded ipratropium 0.5 mg-albuterol 3 mg 3 ml inhalation Q6HP PRN shortness 01/26/23 (2.5 mg base)/3 mL nebulization of breath 30 days #100 ea soln montelukast 10 mg tablet 10 mg PO PM 30 days #30 tabs 01/26/23 albuterol sulfate 90 mcg/actuation 4 inh inhalation Q4H PRN shortness 06/18/23 aerosol inhaler of breath or wheezing #8.5 grams ipratropium 0.5 mg-albuterol 3 mg See Rx Instructions .Route 07/31/23 (2.5 mg base)/3 mL nebulization .COMPLEX #360 mL soln furosemide 40 mg tablet 40 mg PO DAILY #30 tabs 12/26/23 spironolactone 25 mg tablet 25 mg PO DAILY #30 tabs 12/26/23 lidocaine 5 % topical patch 1 patch topical DAILY #15 ea 12/30/23 (Lidoderm) Allergies Allergy/AdvReac Type Severity Reaction Status Date / Time No Known Allergies Allergy Verified 12/26/23 11:27 [facility] Disclaimer: The information contained in this section may have been updated after the patient was seen, as this information can be updated by other users. Medical History Cataract Ectopic Anxiety and depression Pneumonia Tachycardia Acute and chronic respiratory failure with hypoxia Abnormal computerized axial tomography of chest Multiple pulmonary nodules Smoking greater than 30 pack years Non-seasonal allergic rhinitis Nocturnal hypoxemia Tobacco abuse disorder Seasonal allergies Dyspnea on exertion Chronic hypoxemic respiratory failure Dyspnea HLD (hyperlipidemia) HTN (hypertension) Lung nodule COPD (chronic obstructive pulmonary disease) Surgical History History of cholecystectomy No significant past surgical history Family History Other Cancer Coronary artery disease Social History Smoking Status: Former smoker tobacco type: cigarettes packs per day: 1 smoking status stop date: Jun 2023 second hand exposure: No alcohol intake: never substance use type: denies use current occupational status: disabled Travel in the last 8 weeks: None household members: spouse housing: house current occupational exposures/hazards: No caffeine: Yes ROS Obtained: Yes All systems reviewed & no additional complaints except as documented Physical Exam General General appearance: alert and in no apparent distress Head Head exam: atraumatic and normocephalic Eye Eye exam: Present normal appearance, PERRL and EOMI ENT ENT exam: Present normal exam, normal oropharynx, mucous membranes moist and normal external ear exam Neck Neck exam: Present normal inspection, full ROM and trachea midline; Absent tenderness Chest Chest inspection: Present normal inspection and symmetric chest wall rise; Absent tenderness Respiratory Respiratory exam: Present normal lung sounds bilaterally; Absent respiratory distress, wheezes, stridor or accessory muscle use Cardiovascular Cardiovascular exam: Present regular rate and normal rhythm Abdominal Exam Abdominal exam: Present soft; Absent distention, tenderness or guarding Extremities Exam Extremities exam: Present full ROM, tenderness, normal capillary refill and other (Patient has tenderness to palpation of the left elbow, forearm, wrist with no obvious skin color changes, deformities, or other concerns. No rashes or lesions. She has full intact range of motion and has normal cap refill, pulses, and sensation.); Absent edema Back Exam Back exam: Present normal inspection and full ROM; Absent tenderness Neurological Exam Neurological exam: Present alert, oriented X3, CN II-XII intact and normal gait; Absent motor sensory deficit Psychiatric Psychiatric exam: Present normal affect and normal mood Skin Skin exam: Present warm and dry Medical Decision Making Medical Records Medical records reviewed: Yes I reviewed the patient's medical records. Matt Inquiry Pt receiving controlled substance: No Vital Signs: 12/30/23 19:35 12/30/23 21:00 12/30/23 22:14 Temperature 97.9 F 98.0 F Temperature Source Oral Pulse Rate 89 80 Pulse Rate [Right Radial] 121 H Respiratory Rate 24 18 20 Blood Pressure 105/73 L 101/67 L Blood Pressure [Right Arm] 117/87 Blood Pressure Mean 80 Blood Pressure Mean [Right Arm] 97 02 Sat by Pulse Oximetry 90 L 95 Oxygen Delivery Method Nasal Cannula Nasal Cannula Nasal Cannula Oxygen Flow Rate (LPM) 2 2 2 Lab Data Lab results reviewed: Yes I reviewed the patient's lab results. Lab Results 12/30/23 19:50: WBC 7.8, RBC 3.91 L, Hgb 12.9, Hct 41.1, MCV 105.2 H, MCH 32.9 H , MCHC 31.3 L, RDW 14.4, Plt Count 196, MPV 8.7, Neut % (Auto) 56.7, Lymph % (Auto) 37.8, [place] % (Auto) 3.7, Eos % (Auto) 1.1, Baso % (Auto) 0.6, Neut # (Auto) 4.4, Lymph # (Auto) 3.0, [place] # (Auto) 0.3, Eos # (Auto) 0.1, Baso # (Auto) 0.1, D-Dimer 0.41, Sodium 136, Potassium 3.7, Chloride 92 L, Carbon Dioxide 40 H, Anion Gap 7.7, BUN 38 H, Creatinine 1.30 H, Estimated Creat Clear 82, Estimated GFR 42 L, Est GFR ( Amer) 51 L, Glucose 158 H, Calcium 8.8, Magnesium 1.6, Total Bilirubin 0.6, AST 32, ALT 21, Alkaline Phosphatase 92, Troponin I < 0.01, Total Protein 8.3 H, Albumin 4.3, Globulin 4.0 H, Albumin/Globulin Ratio 1.1 12/30/23 20:01: VBG pH 7.42 H, VBG pCO2 53.6 H, VBG pO2 146.8 H, VBG HCO3 34.0 H , VBG Total CO2 35.6 H, VBG O2 Saturation 99.1 H, VBG Base Excess 9.5 H, VBG Lactic Acid 1.9 12/30/23 19:50 12/30/23 19:50 Orders (Tests/Meds): ED MEDICATIONS Discontinued Medications Generic Name Dose Route Start Last Admin Trade Name Oleg PRN Reason Stop Dose Admin Acetaminophen 1,000 mg 12/30/23 20:09 12/30/23 20:19 Acetaminophen 500mg Tab PO 12/30/23 20:10 1,000 mg ONCE ONE Administration Ketorolac Tromethamine 15 mg 12/30/23 20:10 12/30/23 20:18 Ketorolac 30mg/Ml Vial IV 12/30/23 20:11 15 mg ONCE ONE Administration Lidocaine 1 each 12/30/23 20:07 12/30/23 20:18 Lidocaine 5% Transdermal Patch TP 12/30/23 20:08 1 each ONCE ONE Administration Methocarbamol 500 mg 12/30/23 20:10 12/30/23 20:19 Methocarbamol 500mg Tablet PO 12/30/23 20:11 500 mg ONCE ONE Administration ORDERS Category Date Time Status CXR --portable [XR chest portable] Stat Exams 12/30/23 20:07 Completed XR elbow LT min 3V Stat Exams 12/30/23 20:07 Completed XR forearm LT 2V Stat Exams 12/30/23 20:07 Completed XR wrist LT min 3V Stat Exams 12/30/23 20:07 Completed CBC w/Auto Diff [Complete Blood Count Auto Diff] Stat Lab 12/30/23 19:50 Completed CMP [Comprehensive Metabolic Panel] Stat Lab 12/30/23 19:50 Completed D-Dimer Stat Lab 12/30/23 19:50 Completed MAG [Magnesium] Stat Lab 12/30/23 19:50 Completed Trop I [Troponin I] Stat Lab 12/30/23 19:50 Completed Venous Blood Gas Routine RT 12/30/23 20:01 Completed ECG Data Tracing #1: I reviewed this ECG and interpreted as documented below: Normal sinus rhythm with ectopic atrial beats. Ventricular rate of [address] changes concerning for ischemia. Normal axis. ECG initial impression date: 12/30/23 ECG initial impression time: 19:44 Medical Decision Narrative: In summary, this patient is a 58-year-old female presenting to the Emergency Department for evaluation of atraumatic left lower arm pain. Differential diagnoses considered include but are not limited to fracture, contusion, strain/sprain, radiculopathy, ACS. Ruling out the most morbid conditions drove assessment. It should be noted patient's history includes COPD, CHF, hypertension, hyperlipidemia, CAD which may or may not be at goal therapy. This complicates all aspects of care by increasing patient's risk for morbidity. On exam, the patient is very well-appearing. She has tenderness to palpation of the left arm without obvious deformities. She is fully neurovascularly intact with intact range of motion, though she does complain of subjective numbness. Extremity is warm and well-perfused. workup included lab evaluation to evaluate for cardiac cause, including CBC, CMP, troponin, as well as chest x-ray, EKG. X-rays of the left upper extremity were also ordered. Patient was given IV Toradol, oral Tylenol, topical Lidoderm patch, oral Robaxin. I independently interpreted x-rays prior to the radiologist read and noted no acute fracture or bony abnormality. Please see their read for final interpretation. Labs were obtained that demonstrated negative D-dimer, no significant leukocytosis, negative troponin, and no other acutely concerning abnormalities. Creatinine is slightly elevated but not significantly elevated from prior labs. On reassessment, patient had great improvement after administration of as above. She is feeling a lot better. Given we have excluded ACS, DVT, or acute bony abnormality as a cause, I feel she is appropriate for discharge home. I feel she likely has pain from soft tissue strain/sprain versus radicular pain. I gave her prescription for Lidoderm patches and instructions for supportive management as an outpatient. Patient was discharged after all questions were answered with very strict return precautions and instructions for close outpatient follow-up.. Critical Care Critical Care Time Critical Care Time: No
--- NOTE | 2023-12-30 20:11 | ECG_ITS ---
APPROVED REPORT Exam: Resting ECG HR:93 bpm ECG Measurements Heart Rate 93 AXES QRSd 105 QRS 55 QT 356 T 80 QTc 407 Conclusion ATRIAL FIBRILLATION ABNORMAL RHYTHM ECG Electronically signed by : POLA CRUZ, 12/30/2023 23:30:43
[2023-12-30 20:15] LABS: Basophils # 0.1 K/mm3 (0-0.2); Basophils % 0.6 % (0.1-2.0); Eosinophils # 0.1 K/mm3 (0.0-0.4); Eosinophils % 1.1 % (0.1-12.0); Hematocrit 41.1 % (37.0-47.0); Hemoglobin 12.9 g/dL (12.2-16.2); Lymphocytes % 37.8 % (10-50); Mean Corpuscular HGB Conc 31.3 g/dL (31.8-35.4); Mean Corpuscular Hemoglobin 32.9 pg (27.0-31.2); Mean Corpuscular Volume 105.2 fl (81-99); Mean Platelet Volume 8.7 fl (7.4-10.4); Monocytes # 0.3 K/mm3 (0.1-1.0); Monocytes % 3.7 % (1.7-9.3); Neutrophils # 4.4 K/mm3 (1.8-7.8); Neutrophils % 56.7 % (37.0-80.0); Platelet Count 196 K/mm3 (142-424); Red Blood Count 3.91 M/mm3 (4.20-5.40); Red Cell Distribution Width 14.4 % (11.5-17.5); White Blood Count 7.8 K/mm3 (4.8-10.8)
[2023-12-30 20:17] LABS: Albumin Level 4.3 g/dl (3.5-5.0); Chloride 92 mmol/L (98-107); Potassium 3.7 mmoL/L (3.5-5.1); Sodium 136 mmol/L (136-145)
[2023-12-30] MEDS: KETOROLAC 30MG/ML VIAL 15 MG IV (20:18)
[2023-12-30] MEDS: LIDOCAINE 5% TRANSDERMAL PATCH 1 EACH TP (20:18)
[2023-12-30] MEDS: METHOCARBAMOL 500MG TABLET 500 MG PO (20:19)
[2023-12-30] MEDS: ACETAMINOPHEN 500MG TAB 1000 MG PO (20:19)
[2023-12-30 20:20] LABS: Alanine Aminotransferase 21 U/L (12-78); Albumin/Globulin Ratio 1.1 (1.1-1.8); Alkaline Phosphatase 92 U/L (38-126); Anion Gap 7.7 mEq/L (5-15); Aspartate Amino Transferase 32 U/L (14-36); Bilirubin,Total 0.6 mg/dl (0.2-1.3); Blood Urea Nitrogen 38 mg/dl (7-17); Calcium 8.8 mg/dl (8.4-10.2); Carbon Dioxide 40 mmol/L (22.0-30.0); Creatinine Clearance Estimated 82 mL/min (50-200); Estimated Glomerular Filt Rate 42 ml/min (>60); GFR (African American) 51 ML/MIN (>60); Glucose 158 mg/dl (74-100); Total Protein,Serum 8.3 g/dl (6.3-8.2)
[2023-12-30 20:21] LABS: Magnesium 1.6 mg/dl (1.6-2.3)
[2023-12-30 20:33] LABS: Troponin I < 0.01 ng/ml (0.00-0.034)
[2023-12-30 21:00] VITALS: BP 105/73; PULSE 89; RESP 18; O2SAT 95
[2023-12-30 21:49] LABS: D-Dimer 0.41 ug/mL (0.0-0.5)
[2023-12-30 22:14] VITALS: BP 101/67; PULSE 80; RESP 20; TEMP 36.7; O2SAT 92
== END 2023-12-30 22:16 | disposition home or self-care (01) ==
PROVIDERS: Emergency Provider Emergency Medicine; PCP Nurse Practitioner Family
DX: M79.602 Pain in left arm (principal); J44.9 Chronic obstructive pulmonary disease, unspecified; I11.0 Hypertensive heart disease with heart failure; I50.9 Heart failure, unspecified; I25.10 Atherosclerotic heart disease of native coronary artery without angina pectoris; E78.5 Hyperlipidemia, unspecified; Z87.891 Personal history of nicotine dependence; Z99.81 Dependence on supplemental oxygen
CPT/HCPCS: 71045; 73080; 73090; 73110; 80053; 82803; 83735; 84484; 85025; 85378; 93005; 96374; 99284; J1885

== ENCOUNTER 2024-02-17 18:05 | Emergency (ER) | payer OTHER, SELFPAY ==
[2024-02-17 18:06] VITALS: BP 149/113; PULSE 115; RESP 24; O2SAT 91; BMI 33.5
--- NOTE | 2024-02-17 18:17 | XR_ITS ---
PROCEDURE INFORMATION: Exam: XR Left Foot Exam date and time: 02/17/2024 6:19 PM Age: 58 years old Clinical indication: Injury or trauma; Fall; Other: Pain; Additional info: Inversion injury TECHNIQUE: Imaging protocol: Radiologic exam of the left foot. Views: 3 or more views. COMPARISON: CR XR FOOT LT MIN 3V 02/17/2024 6:19 PM FINDINGS: Bones/joints: There are fractures of the 2nd and 3rd metatarsal bases with lateral displacement of the distal fracture fragments. There is a plantar calcaneal enthesophyte. Fracture follow-up Soft tissues: Normal. IMPRESSION: There are fractures of the 2nd and 3rd metatarsal bases with lateral displacement of the distal fracture fragments.
--- NOTE | 2024-02-17 18:17 | XR_ITS ---
PROCEDURE INFORMATION: Exam: XR Left Ankle Exam date and time: 02/17/2024 6:19 PM Age: 58 years old Clinical indication: Injury or trauma; Fall; Other: Pain; Additional info: Inversion injury TECHNIQUE: Imaging protocol: Radiologic exam of the left ankle. Views: 3 or more views. COMPARISON: CR XR FOOT LT MIN 3V 02/17/2024 6:19 PM FINDINGS: Bones/joints: There is a plantar calcaneal enthesophyte. Multiple views were obtained. The osseous structures appear intact with no evidence of acute fracture, dislocation, or malalignment. Degenerative changes are noted, consistent with age-related wear and tear. Joint spaces are generally preserved. No abnormal bone density or destructive lesions are noted. Soft tissues: Soft tissue swelling is observed, warranting further clinical correlation. IMPRESSION: At the time of imaging, the skeletal radiograph demonstrates no acute osseous abnormalities but shows signs of degenerative changes and soft tissue swelling.
--- NOTE | 2024-02-17 18:18 | PC.NURSE ---
DR NICHOLAS AT BEDSIDE
--- NOTE | 2024-02-17 18:20 | ED_ITS ---
Discharge Plan Disposition Patient Disposition: Home, Self-Care Prescriptions Prescriptions: New oxycodone 5 mg tablet 5 mg PO Q8H PRN (Reason: pain refractory to Tylenol and ibuprofen) Qty: 4 0RF No Action sodium chloride 0.9 % solution for nebulization inhalation cholecalciferol (vitamin D3) 125 mcg (5,000 unit) capsule 125 mcg PO Dulera 200-5 mcg/actuation HFA aerosol inhaler inhalation Entresto 24-26 mg tablet 1 tab PO BID cyanocobalamin (vitamin B-12) 5,000 mcg capsule PO furosemide 40 mg tablet 40 mg PO DAILY Qty: 30 2RF spironolactone 25 mg tablet 25 mg PO DAILY Qty: 30 3RF sertraline [Zoloft] 50 mg tablet 100 mg PO DAILY ipratropium-albuterol 0.5 mg-3 mg(2.5 mg base)/3 mL solution for nebulization See Rx Instructions .ROUTE .COMPLEX Qty: 360 2RF Dose Instruction: INHALE CONTENTS OF 1 VIAL USING NEBULIZER FOUR TIMES A DAY NEEDED FOR SHORTNESS OF BREATH OR WHEEZING Rx Instructions: INHALE CONTENTS OF 1 VIAL USING NEBULIZER FOUR TIMES A DAY NEEDED FOR SHORTNESS OF BREATH OR WHEEZING lidocaine [Lidoderm] 5 % adhesive patch,medicated 1 patch topical DAILY Qty: 15 0RF Rx Instructions: leave on most painful area for up to 12 hrs fluticasone propionate 50 mcg/actuation spray,suspension 1 spray NS BID Rx Instructions: administer into each nostril fluticasone propionate [Flovent HFA] 110 mcg/actuation HFA aerosol inhaler 1 puff INHALATION BID Anoro Ellipta 62.5-25 mcg/actuation blister with device 1 inh INHALATION DAILY loratadine [Claritin] 10 mg Tablet 10 mg PO DAILY albuterol sulfate 2.5 mg /3 mL (0.083 %) solution for nebulization 2.5 mg inhalation Q4-6H PRN (Reason: Shortness Of Breath Or Wheezing) albuterol sulfate [Ventolin HFA] 90 mcg/actuation HFA aerosol inhaler 1 inh INHALATION Q6H PRN (Reason: Shortness Of Breath Or Wheezing) lisinopril 20 mg tablet 20 mg PO DAILY simvastatin 40 mg tablet 40 mg PO HS buspirone 10 mg tablet 10 mg PO TID montelukast 10 mg Tablet 10 mg PO PM 30 Days Qty: 30 0RF ipratropium-albuterol 0.5 mg-3 mg(2.5 mg base)/3 mL Solution For Nebulization 3 ml inhalation Q6HP PRN (Reason: shortness of breath) 30 Days Qty: 100 0RF albuterol sulfate 90 mcg/actuation HFA aerosol inhaler 4 inh inhalation Q4H PRN (Reason: shortness of breath or wheezing) Qty: 8.5 0RF Rx Instructions: 4 puffs every 4 hours for 48 hours then as needed for shortness of breath or wheezing following Referrals Follow up/Referrals: Keon Chow, [Staff Physician] - See instructions Azucena Clarke APRN [Primary Care Provider] - See instructions Activity Restrictions/Add. Instructions Additional Instructions/Restrictions: At this time it was felt you are safe to be discharged home. If new or worsening symptoms please do not hesitate to return the emergency department. For pain please take Tylenol and 600 mg of ibuprofen every 6 hours as needed. If your pain becomes extreme please take your oxycodone for breakthrough pain. If numbness or progressive severe pain that is unrelenting or any other concerning symptoms please represent to the emergency department. Otherwise please call and schedule an appoint with Dr. Chow as soon as you are able. Clinical Impressions Clinical Impression: Metatarsal fracture Print Language Print Language: Kazakh Discharge ED Provider: Ihsan Waddell General Adult HPI General Chief complaint: Extremity Injury, Lower Stated complaint: fall Time Seen by Provider: 02/17/24 18:09 Mode of Arrival: EMS Source of Information: Patient and EMS Limitations: No Limitations Description of Symptoms (Recalled from ER Triage Doc. by RN): left foodt pain after fall History of Present Illness HPI narrative: Patient is a 58-year-old female past medical history of COPD on 3 L nasal cannula baseline presents to the emergency department for evaluation of traumatic injury sustained to her left ankle. She tripped over her oxygen courting suffering an inversion injury to her left ankle and foot causing pain over the dorsal lateral aspect of her left foot. She has had limited ability to bear weight since. No other traumatic complaints. Related Data Home Medications ?Medication ?Instructions ?Recorded ?Confirmed sertraline 50 mg tablet (Zoloft) 100 mg PO DAILY Mood 10/25/22 02/07/24 fluticasone propionate 110 1 puff inhalation BID Copd 11/02/22 02/07/24 mcg/actuation HFA aerosol inhaler (Flovent HFA) fluticasone propionate 50 1 spray intranasal BID allergies 11/02/22 02/07/24 mcg/actuation nasal spray,suspension loratadine 10 mg tablet (Claritin) 10 mg PO DAILY allergies 11/02/22 02/07/24 umeclidinium 62.5 mcg-vilanterol 1 inh inhalation DAILY Copd 11/02/22 02/07/24 25 mcg/actuation powdr for inhalation (Anoro Ellipta) albuterol sulfate 2.5 mg/3 mL 2.5 mg inhalation Q4-6H PRN 11/03/22 02/07/24 (0.083 %) solution for nebulization Shortness Of Breath Or Wheezing albuterol sulfate 90 mcg/actuation 1 inh inhalation Q6H PRN Shortness 11/03/22 02/07/24 aerosol inhaler (Ventolin HFA) Of Breath Or Wheezing buspirone 10 mg tablet 10 mg PO TID Mood 11/03/22 02/07/24 lisinopril 20 mg tablet 20 mg PO DAILY High blood pressure 11/03/22 02/07/24 simvastatin 40 mg tablet 40 mg PO HS Cholesterol 11/03/22 02/07/24 cholecalciferol (vitamin D3) 125 125 mcg PO 12/26/23 02/07/24 mcg (5,000 unit) capsule cyanocobalamin (vitamin B-12) mcg PO 12/26/23 02/07/24 5,000 mcg capsule mometasone-formoterol HFA 200 inhalation 12/26/23 02/07/24 mcg-5 mcg/actuation aerosol inhaler (Dulera) sacubitril 24 mg-valsartan 26 mg 1 tab PO BID 12/26/23 02/07/24 tablet (Entresto) sodium chloride 0.9 % for ml inhalation 12/26/23 02/07/24 nebulization Previous Rx's ?Medication ?Instructions ?Recorded ipratropium 0.5 mg-albuterol 3 mg 3 ml inhalation Q6HP PRN shortness 01/26/23 (2.5 mg base)/3 mL nebulization of breath 30 days #100 ea soln montelukast 10 mg tablet 10 mg PO PM 30 days #30 tabs 01/26/23 albuterol sulfate 90 mcg/actuation 4 inh inhalation Q4H PRN shortness 06/18/23 aerosol inhaler of breath or wheezing #8.5 grams ipratropium 0.5 mg-albuterol 3 mg See Rx Instructions .Route 07/31/23 (2.5 mg base)/3 mL nebulization .COMPLEX #360 mL soln furosemide 40 mg tablet 40 mg PO DAILY #30 tabs 12/26/23 spironolactone 25 mg tablet 25 mg PO DAILY #30 tabs 12/26/23 lidocaine 5 % topical patch 1 patch topical DAILY #15 ea 12/30/23 (Lidoderm) oxycodone 5 mg tablet 5 mg PO Q8H PRN pain refractory to 02/17/24 Tylenol and ibuprofen #4 tabs Allergies Allergy/AdvReac Type Severity Reaction Status Date / Time No Known Allergies Allergy Verified 02/07/24 13:44 [facility] Disclaimer: The information contained in this section may have been updated after the patient was seen, as this information can be updated by other users. Medical History Cataract Ectopic Anxiety and depression Pneumonia Tachycardia Acute and chronic respiratory failure with hypoxia Abnormal computerized axial tomography of chest Multiple pulmonary nodules Smoking greater than 30 pack years Non-seasonal allergic rhinitis Nocturnal hypoxemia Tobacco abuse disorder Seasonal allergies Dyspnea on exertion Chronic hypoxemic respiratory failure Dyspnea HLD (hyperlipidemia) HTN (hypertension) Lung nodule COPD (chronic obstructive pulmonary disease) Surgical History History of cholecystectomy No significant past surgical history Family History Other Cancer Coronary artery disease Social History Smoking Status: Never smoker smoking status stop date: Jun 2023 second hand exposure: No alcohol intake: never substance use type: denies use current occupational status: disabled Travel in the last 8 weeks: None household members: spouse housing: house current occupational exposures/hazards: No caffeine: Yes ROS Obtained: Yes Systems reviewed as appropriate & no additional complaints except as documented Physical Exam General General appearance: alert and in no apparent distress Head Head exam: atraumatic and normocephalic Eye Eye exam: Present PERRL ENT ENT exam: Present mucous membranes moist Neck Neck exam: Present normal inspection Chest Chest inspection: Present normal inspection and symmetric chest wall rise Respiratory Respiratory exam: Absent respiratory distress Cardiovascular Cardiovascular exam: Present regular rate and normal rhythm Abdominal Exam Abdominal exam: Present soft; Absent tenderness Extremities Exam Extremities exam: Present other (Tenderness over the dorsal lateral left foot, palpable dorsal pedal pulse, distally neurovascularly intact in all digits of the left foot. No tenderness of the medial malleolus.) Neurological Exam Neurological exam: Present alert and oriented X3 Psychiatric Psychiatric exam: Present normal affect Skin Skin exam: Present warm and dry Medical Decision Making Medical Records Screening: Per USPSTF and CDC recommendations, given the prevalence of disease in our region, it is our hospital?s policy to screen for HIV and viral Hepatitis for all patients aged 18 and over and those with ongoing risk factors. Matt Inquiry Pt receiving controlled substance: No Vital Signs: 02/17/24 18:06 02/17/24 18:30 02/17/24 19:00 Pulse Rate 94 H 84 Pulse Rate [Right] 115 H Respiratory Rate 24 Blood Pressure 137/96 H 139/84 Blood Pressure [Right Arm] 149/113 H Blood Pressure Mean [Right Arm] 125 02 Sat by Pulse Oximetry 91 L 94 L 95 Oxygen Delivery Method Nasal Cannula Nasal Cannula Nasal Cannula Oxygen Flow Rate (LPM) 1.5 02/17/24 19:30 Pulse Rate 75 Pulse Rate [Right] Respiratory Rate Blood Pressure 157/95 H Blood Pressure [Right Arm] Blood Pressure Mean [Right Arm] 02 Sat by Pulse Oximetry 98 Oxygen Delivery Method Oxygen Flow Rate (LPM) Orders (Tests/Meds): ED MEDICATIONS Discontinued Medications Generic Name Dose Route Start Last Admin Trade Name Freq PRN Reason Stop Dose Admin Acetaminophen 1,000 mg 02/17/24 18:17 02/17/24 18:23 Acetaminophen 500mg Tab PO 02/17/24 18:18 1,000 mg ONCE ONE Administration Ibuprofen 600 mg 02/17/24 18:17 02/17/24 18:24 Ibuprofen 600 Mg Tablet PO 02/17/24 18:18 600 mg ONCE ONE Administration ORDERS Category Date Time Status Ankle XR - Left minimum 3 Views [XR ankle LT min 3V] Exams 02/17/24 18:17 Completed Stat Foot XR left minimum 3 views [XR foot LT min 3V] Stat Exams 02/17/24 18:17 Completed HIV (1&2) Antibody Rapid Stat Lab 02/17/24 18:12 Ordered Hep C Ab with Reflex to RNA Stat Lab 02/17/24 18:12 Ordered Medical Decision Narrative: In summary patient is a 58-year-old female past medical history described above presents emergency department for evaluation of traumatic injury to her left foot. Patient is hemodynamically stable upon arrival. Differential includes fracture, ligamentous strain, among others. Limited workup we conducted plain film of the left foot and ankle. Initial inventions include Tylenol and ibuprofen. Other diagnostic imaging for trauma such as CT scan of the head was considered however given no history of this will be deferred at this time. Follow informally interpreted by me, it appears there is a fracture at the base of the second metatarsal. Formal read shows fractures of the second and third metatarsal bases with lateral displacement of the distal fracture fragments. The case was cussed with Dr. Chow regarding management. Patient will be placed in a posterior slab and will be nonweightbearing with crutches and she already has a wheelchair at home we will follow-up on an outpatient basis. Patient was given return precautions. Procedure: Procedure performed was posterior slab splint. Procedure performed by splint tech under my supervision. Posterior slab was fashioned out of Ortho- Glass after patient's leg was wrapped in soft roll was held in place with Isael wrap. Post capillary fill check normal. Patient tolerated procedure well. Critical Care Critical Care Time Critical Care Time: No
[2024-02-17] MEDS: ACETAMINOPHEN 500MG TAB 1000 MG PO (18:23)
[2024-02-17] MEDS: IBUPROFEN 600 MG TABLET PO (18:24)
[2024-02-17 18:30] VITALS: BP 137/96; PULSE 94; O2SAT 94
[2024-02-17 19:00] VITALS: BP 139/84; PULSE 84; O2SAT 95
[2024-02-17 19:30] VITALS: BP 157/95; PULSE 75; O2SAT 98
[2024-02-17 20:38] VITALS: BP 138/92; PULSE 74; RESP 18; TEMP 36.9; O2SAT 97
== END 2024-02-17 20:44 | disposition home or self-care (01) ==
PROVIDERS: Emergency Provider Emergency Medicine; PCP Nurse Practitioner Family
DX: S92.332A Displaced fracture of third metatarsal bone, left foot, initial encounter for closed fracture (principal); S92.322A Displaced fracture of second metatarsal bone, left foot, initial encounter for closed fracture; X50.1XXA Overexertion from prolonged static or awkward postures, initial encounter
CPT/HCPCS: 29515; 73610; 73630; 99283

== ENCOUNTER 2024-03-21 13:59 | Outpatient (CLI) | payer OTHER, SELFPAY ==
--- NOTE | 2024-03-21 14:00 | CT_ITS ---
PROCEDURE INFORMATION: Exam: CT Left Lower Extremity, Foot Exam date and time: 03/21/2024 2:02 PM Age: 58 years old Clinical indication: Pain; Foot; Left; Additional info: FX of the proximal 2 and 3 metatarsal TECHNIQUE: Imaging protocol: CT of the left lower extremity without contrast was performed. Exam focused on the foot. Radiation optimization: All CT scans at this facility use at least one of these dose optimization techniques: automated exposure control; mA and/or kV adjustment per patient size (includes targeted exams where dose is matched to clinical indication); or iterative reconstruction. 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 There is subtle lateral displacement of the 2nd and 3rd metatarsal distal fracture fragments relative to the proximal fracture fragments. No other fractures are identified. The tibiotalar joint space is normal. There are small calcaneal bone spurs. Soft tissues: Normal. 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
== END 2024-03-21 23:59 | disposition home or self-care (01) ==
LOC: RAD 14:00
PROVIDERS: PCP Nurse Practitioner Family; Visit Provider Physician Assistant
DX: S92.302A Fracture of unspecified metatarsal bone(s), left foot, initial encounter for closed fracture (principal)
CPT/HCPCS: 73700

== ENCOUNTER 2024-04-15 02:11 | Inpatient (IN) | payer OTHER, SELFPAY ==
[2024-04-15] VITALS (20 sets, daily range): BP systolic 74–150; BP diastolic 44–122; PULSE 57–178; RESP 16–23; TEMP 36.6–36.7; O2SAT 91–98; BMI 34.8; BMI 33.0
--- NOTE | 2024-04-15 | ECG_ITS ---
APPROVED REPORT Exam: Resting ECG HR:178 bpm ECG Measurements Heart Rate 178 AXES QRSd 118 QRS 41 QT 258 T 129 QTc 352 Conclusion SUPRAVENTRICULAR TACHYCARDIA POSSIBLE RIGHT VENTRICULAR CONDUCTION DELAY [RSR (QR) IN V1/V2] MARKED ST DEPRESSION, CONSIDER SUBENDOCARDIAL INJURY [0.2+ mV ST DEPRESSION] ACUTE [place] UNCONFIRMED REPORT Electronically signed by : MIGUELINA REYES, 04/18/2024 06:29:27
--- NOTE | 2024-04-15 02:23 | XR_ITS ---
PROCEDURE INFORMATION: Exam: XR Chest Exam date and time: 04/15/2024 2:28 AM Age: 58 years old Clinical indication: Shortness of breath; Additional info: SOA TECHNIQUE: Imaging protocol: Radiologic exam of the chest. Views: 1 view. COMPARISON: 1. CR XR CHEST PORTABLE 12/30/2023 8:[address] CHEST WO CON 06/18/2023 9:29 PM FINDINGS: Tubes, catheters and devices: Monitoring devices project over the left mid to lower lung zones obscuring detail. Lungs: Persistent density medial right lung base correlating with chronic right middle lobe scarring noted on prior CT. No focal consolidation or overt failure. Pleural spaces: Unremarkable. No pleural effusion. No pneumothorax. Heart/Mediastinum: Unremarkable. No cardiomegaly. Vasculature: Unremarkable. Bones/joints: Unremarkable. IMPRESSION: No acute findings.
--- NOTE | 2024-04-15 02:26 | PC.NURSE ---
EKG 12-lead taken at this time.
--- NOTE | 2024-04-15 02:27 | HMH.EDGENADL ---
Discharge Plan Disposition Patient Disposition: Admitted Condition: Good Clinical Impressions Clinical Impression: Sustained SVT, Hypotension, Respiratory failure Discharge ED Provider: Josh Conroy General Adult HPI General Chief complaint: Shortness of Breath/Dyspnea Stated complaint: chest pain Time Seen by Provider: 04/15/24 02:15 History of Present Illness HPI narrative: 58-year-old female with history of COPD on 2 to 3 L nasal cannula at baseline, coronary artery disease without prior intervention, heart failure, diabetes, obesity presents for chest pain shortness of breath and tachycardia. She reports she started feeling bad approximately 6 PM yesterday, went to sleep and woke up feeling worse. She checked her heart rate and it was over 180. With EMS her heart rate was between 170 and 180 with SVT on the strip. They performed vagal maneuvers but were unsuccessful in converting her. On arrival to the ER she reports that she is having chest pain and shortness of breath and feels bad all over . She reports that she has been more congested than normal recently. She denies history of SVT or A-fib. She was given aspirin 324 by EMS prior to arrival. Related Data Home Medications ?Medication ?Instructions ?Recorded ?Confirmed sertraline 50 mg tablet (Zoloft) 100 mg PO DAILY Mood 10/25/22 04/10/24 fluticasone propionate 110 1 puff inhalation BID Copd 11/02/22 04/10/24 mcg/actuation HFA aerosol inhaler (Flovent HFA) fluticasone propionate 50 1 spray intranasal BID allergies 11/02/22 04/10/24 mcg/actuation nasal spray,suspension loratadine 10 mg tablet (Claritin) 10 mg PO DAILY allergies 11/02/22 04/10/24 umeclidinium 62.5 mcg-vilanterol 1 inh inhalation DAILY Copd 11/02/22 04/10/24 25 mcg/actuation powdr for inhalation (Anoro Ellipta) albuterol sulfate 2.5 mg/3 mL 2.5 mg inhalation Q4-6H PRN 11/03/22 04/10/24 (0.083 %) solution for nebulization Shortness Of Breath Or Wheezing albuterol sulfate 90 mcg/actuation 1 inh inhalation Q6H PRN Shortness 11/03/22 04/10/24 aerosol inhaler (Ventolin HFA) Of Breath Or Wheezing buspirone 10 mg tablet 10 mg PO TID Mood 11/03/22 04/10/24 simvastatin 40 mg tablet 40 mg PO HS Cholesterol 11/03/22 04/10/24 cholecalciferol (vitamin D3) 125 125 mcg PO 12/26/23 04/10/24 mcg (5,000 unit) capsule cyanocobalamin (vitamin B-12) mcg PO 12/26/23 04/10/24 5,000 mcg capsule mometasone-formoterol HFA 200 inhalation 12/26/23 04/10/24 mcg-5 mcg/actuation aerosol inhaler (Dulera) sacubitril 24 mg-valsartan 26 mg 1 tab PO BID 12/26/23 04/10/24 tablet (Entresto) sodium chloride 0.9 % for ml inhalation 12/26/23 04/10/24 nebulization Previous Rx's ?Medication ?Instructions ?Recorded ipratropium 0.5 mg-albuterol 3 mg 3 ml inhalation Q6HP PRN shortness 01/26/23 (2.5 mg base)/3 mL nebulization of breath 30 days #100 ea soln montelukast 10 mg tablet 10 mg PO PM 30 days #30 tabs 01/26/23 albuterol sulfate 90 mcg/actuation 4 inh inhalation Q4H PRN shortness 06/18/23 aerosol inhaler of breath or wheezing #8.5 grams ipratropium 0.5 mg-albuterol 3 mg See Rx Instructions .Route 07/31/23 (2.5 mg base)/3 mL nebulization .COMPLEX #360 mL soln spironolactone 25 mg tablet 25 mg PO DAILY #30 tabs 12/26/23 lidocaine 5 % topical patch 1 patch topical DAILY #15 ea 12/30/23 (Lidoderm) oxycodone 5 mg tablet 5 mg PO Q8H PRN pain refractory to 02/17/24 Tylenol and ibuprofen #4 tabs furosemide 40 mg tablet 40 mg PO DAILY #30 tabs 04/10/24 Allergies Allergy/AdvReac Type Severity Reaction Status Date / Time No Known Allergies Allergy Verified 04/10/24 16:48 PFSH PFS Disclaimer: The information contained in this section may have been updated after the patient was seen, as this information can be updated by other users. Medical History Cataract Ectopic Anxiety and depression Pneumonia Tachycardia Acute and chronic respiratory failure with hypoxia Abnormal computerized axial tomography of chest Multiple pulmonary nodules Smoking greater than 30 pack years Non-seasonal allergic rhinitis Nocturnal hypoxemia Tobacco abuse disorder Seasonal allergies Dyspnea on exertion Chronic hypoxemic respiratory failure Dyspnea HLD (hyperlipidemia) HTN (hypertension) Lung nodule COPD (chronic obstructive pulmonary disease) Surgical History History of cholecystectomy No significant past surgical history Family History Other Cancer Coronary artery disease Social History (Updated 04/15/24 @ 05:12 by Sari Mendoza RN) Smoking Status: Current every day smoker tobacco type: cigarettes packs per day: 1 smoking status stop date: Jun 2023 second hand exposure: No alcohol intake: never substance use type: denies use current occupational status: disabled Travel in the last 8 weeks: None household members: spouse housing: house current occupational exposures/hazards: No caffeine: Yes Other Medical History Have you received the Flu Vaccine for this season: No Have you received the Pneumonia Vaccine: No ROS Obtained: Yes All systems reviewed & no additional complaints except as documented Physical Exam General General appearance: alert, anxious and obese Head Head exam: atraumatic and normocephalic Eye Eye exam: Present normal appearance, PERRL and EOMI ENT ENT exam: Present normal oropharynx and normal external ear exam Neck Neck exam: Present normal inspection and full ROM Chest Chest inspection: Present normal inspection and symmetric chest wall rise; Absent tenderness Respiratory Respiratory exam: Present other (Diminished breath sounds in all lung field); Absent respiratory distress Cardiovascular Cardiovascular exam: Present normal rhythm and tachycardia Abdominal Exam Abdominal exam: Present soft; Absent distention, tenderness or guarding Extremities Exam Extremities exam: Present normal inspection; Absent edema or joint swelling Back Exam Back exam: Present normal inspection; Absent tenderness Neurological Exam Neurological exam: Present alert and oriented X3; Absent motor sensory deficit Psychiatric Psychiatric exam: Present normal affect and normal mood Skin Skin exam: Present warm, dry and normal color Lymphatic Lymphatic Findings: no adenopathy Medical Decision Making Medical Records Medical records reviewed: Yes I reviewed the patient's medical records. Screening: Per USPSTF and CDC recommendations, given the prevalence of disease in our region, it is our hospital?s policy to screen for HIV and viral Hepatitis for all patients aged 18 and over and those with ongoing risk factors. Matt Inquiry Pt receiving controlled substance: No Matt was queried for this patient: No Vital Signs: 04/15/24 02:11 04/15/24 02:30 04/15/24 02:45 Temperature 97.9 F Temperature Source Oral Pulse Rate 177 H 113 H Pulse Rate [Right Radial] 178 H Respiratory Rate 18 22 20 Blood Pressure Blood Pressure [Right Arm] 113/98 H Blood Pressure Mean Blood Pressure Mean [Right Arm] 103 Blood Pressure Source Blood Pressure Source [Right Arm] Automatic Cuff Blood Pressure Position Blood Pressure Position [Right Arm] Supine 02 Sat by Pulse Oximetry 94 L 96 94 L Oxygen Delivery Method Nasal Cannula Nasal Cannula Nasal Cannula Oxygen Flow Rate (LPM) 4 3 3 04/15/24 03:01 04/15/24 03:03 04/15/24 03:06 Temperature Temperature Source Pulse Rate 106 H 110 H 108 H Pulse Rate [Right Radial] Respiratory Rate 21 16 16 Blood Pressure 74/49 L 89/66 L 78/57 L Blood Pressure [Right Arm] Blood Pressure Mean Blood Pressure Mean [Right Arm] Blood Pressure Source Blood Pressure Source [Right Arm] Blood Pressure Position Blood Pressure Position [Right Arm] 02 Sat by Pulse Oximetry 95 93 L 93 L Oxygen Delivery Method Oxygen Flow Rate (LPM) 04/15/24 03:12 04/15/24 03:15 04/15/24 03:30 Temperature Temperature Source Pulse Rate 108 H 99 H 105 H Pulse Rate [Right Radial] Respiratory Rate 19 20 23 Blood Pressure 78/44 L 83/59 L 79/59 L Blood Pressure [Right Arm] Blood Pressure Mean Blood Pressure Mean [Right Arm] Blood Pressure Source Blood Pressure Source [Right Arm] Blood Pressure Position Blood Pressure Position [Right Arm] 02 Sat by Pulse Oximetry 93 L 95 91 L Oxygen Delivery Method Oxygen Flow Rate (LPM) 04/15/24 03:48 04/15/24 04:23 04/15/24 04:40 Temperature 97.9 F Temperature Source Oral Pulse Rate 100 H 90 98 H Pulse Rate [Right Radial] Respiratory Rate 18 20 18 Blood Pressure 104/70 L 150/122 H 128/74 Blood Pressure [Right Arm] Blood Pressure Mean 131 Blood Pressure Mean [Right Arm] Blood Pressure Source Automatic Cuff Blood Pressure Source [Right Arm] Blood Pressure Position Supine Blood Pressure Position [Right Arm] 02 Sat by Pulse Oximetry 94 L 94 L Oxygen Delivery Method Nasal Cannula Oxygen Flow Rate (LPM) Lab Data Lab results reviewed: Yes I reviewed the patient's lab results. Lab Results 04/15/24 02:11: WBC 11.5 H, RBC 4.48, Hgb 14.6, Hct 44.8, MCV 100.0 H, MCH 32.6 H, MCHC 32.6, RDW 14.3, Plt Count 242, MPV 8.8, Neut % (Auto) 35.2 L, Lymph % (Auto) 57.3 H, [place] % (Auto) 4.8, Eos % (Auto) 1.2, Baso % (Auto) 1.5, Neut # (Auto) 4.0, Lymph # (Auto) 6.6 H, [place] # (Auto) 0.6, Eos # (Auto) 0.1, Baso # (Auto) 0.2, Total Counted 100, Neutrophils % (Manual) 33 L, Lymphocytes % (Manual) 55 H, Monocytes % (Manual) 5, Eosinophils % (Manual) 3, Basophils % (Manual) 4.0 H, Platelet Estimate Normal, Macrocytosis 1+, D-Dimer 0.91 H, Sodium 138, Potassium 5.1, Chloride 101, Carbon Dioxide 32 H, Anion Gap 10.1, BUN 35 H, Creatinine 1.10 H, Estimated GFR 51 L, Est GFR ( Amer) 62, Glucose 247 H, Calcium 10.7 H, Magnesium 1.8, Total Bilirubin 0.7, AST 30, ALT 23, Alkaline Phosphatase 118, Troponin I 0.03, NT-Pro-B Natriuret Pep 437 H, Total Protein 8.2, Albumin 4.2, Globulin 4.0 H, Albumin/Globulin Ratio 1.1 04/15/24 02:48: VBG pH 7.19 L, VBG pCO2 77.5 H, VBG pO2 48.1 H, VBG HCO3 28.7, VBG Total CO2 31.1 H, VBG O2 Saturation 76.9 H, VBG Base Excess 0.4, VBG Lactic Acid 4.1 H 04/15/24 03:11: VBG pH 7.20 L, VBG pCO2 79.3 H, VBG pO2 30.9, VBG HCO3 30.6 H, VBG Total CO2 33.0 H, VBG O2 Saturation 48.4 L, VBG Base Excess 2.6 H, VBG Lactic Acid 1.9 04/15/24 02:11 04/15/24 02:11 Orders (Tests/Meds): ED MEDICATIONS Generic Name Dose Route Start Last Admin Trade Name Oleg PRN Reason Stop Dose Admin Acetaminophen 650 mg 04/15/24 05:14 Acetaminophen 325mg Tab PO 05/15/24 05:12 Q4HP PRN Fever or Mild Pain (1-3) Enoxaparin Sodium 40 mg 04/15/24 09:00 Enoxaparin 40mg/0.4ml Syringe SUBCUT 05/15/24 08:59 DAILY TAMY Insulin Human Lispro 0 unit 04/15/24 06:00 04/15/24 06:02 Humalog 100 Units/Ml 10ml Vial (Ssi) SUBCUT 05/15/24 05:59 Not Given ACHS TAMY Protocol Nicotine 14 mg 04/15/24 05:14 Nicotine 14mg/24hrs Patch TD 05/15/24 05:12 DAILYP PRN Nicotine Cravings Ondansetron HCl 4 mg 04/15/24 05:14 Ondansetron 4mg/2ml Vial IV 05/15/24 05:12 Q8HP PRN Nausea Discontinued Medications Generic Name Dose Route Start Last Admin Trade Name Oleg PRN Reason Stop Dose Admin Acetaminophen 650 mg 04/15/24 05:13 Acetaminophen 325mg Tab PO 05/15/24 05:12 Q4HP PRN Fever or Mild Pain (1-3) Adenosine 6 mg 04/15/24 02:23 04/15/24 02:45 Adenosine 6mg/2ml Vial IV 04/15/24 02:24 6 mg ONCE ONE Administration Adenosine 12 mg 04/15/24 02:23 04/15/24 02:46 Adenosine 6mg/2ml Vial IV 04/15/24 02:24 12 mg ONCE ONE Administration Enoxaparin Sodium 40 mg 04/15/24 09:00 Enoxaparin 40mg/0.4ml Syringe SUBCUT 05/15/24 08:59 DAILY TAMY Lactated Ringer's 1,000 mls @ 999 mls/hr 04/15/24 02:30 04/15/24 02:47 Lactated Ringer's 1000 Ml Bag IV 04/15/24 03:30 999 mls/hr .Q1H1M TAMY Administration Insulin Human Lispro 0 unit 04/15/24 06:00 Humalog 100 Units/Ml 10ml Vial (Ssi) SUBCUT 05/15/24 05:59 ACHS TAMY Protocol Nicotine 14 mg 04/15/24 05:13 Nicotine 14mg/24hrs Patch TD 05/15/24 05:12 DAILYP PRN Nicotine Cravings Ondansetron HCl 4 mg 04/15/24 02:38 04/15/24 02:45 Ondansetron 4mg/2ml Vial IV 04/15/24 02:39 4 mg ONCE ONE Administration Ondansetron HCl 4 mg 04/15/24 05:13 Ondansetron 4mg/2ml Vial IV 05/15/24 05:12 Q8HP PRN Nausea ORDERS Category Date Time Status CXR --portable [XR chest portable] Stat Exams 04/15/24 02:23 Completed BNP [NT Pro Brain Natriuretic Pep.] Stat Lab 04/15/24 02:11 Completed CBC w/Auto Diff [Complete Blood Count Auto Diff] Stat Lab 04/15/24 02:11 Completed CMP [Comprehensive Metabolic Panel] Stat Lab 04/15/24 02:11 Completed D-Dimer Stat Lab 04/15/24 02:11 Completed Magnesium Stat Lab 04/15/24 02:11 Completed Troponin I Q3H Lab 04/15/24 02:11 Completed VBG [Venous Blood Gas] Stat RT 04/15/24 02:48 Completed VBG [Venous Blood Gas] Stat RT 04/15/24 03:11 Completed HEART Score History (anamnesis): Slightly suspicious ECG: Non-specific disturbance Age: 45-65 years Risk factors: Atherosclerosis history Troponin: </= normal limit HEART Score: 4 Medical Decision Narrative: 58-year-old female with history of of COPD on 2 to 3 L nasal cannula baseline, diabetes obesity coronary artery disease presents for chest pain shortness of breath since 6 PM, noted to be in SVT by EMS, given aspirin by EMS prior to arrival.. History was obtained via interactive discussion with patient, EMS, chart review. On arrival, patient is afebrile, normotensive, satting mid 90s on home 2 to 3 L, tachycardic and regular rhythm to 180., moving all extremities spontaneously. Full physical exam performed and significant for diminished breath sounds bilaterally, patient is diaphoretic. EKG on arrival shows SVT with QRS 121, diffuse ST depression consistent with demand ischemia. Differential includes but is not limited to sinus tach, SVT, A-fib, PE, ME, electrolyte derangement. We attempted multiple vagal maneuvers without success upon arrival. Patient was given 6 mg of adenosine and then 12 mg of adenosine without any change in rhythm. Approximately 1 to 2 minutes after the adenosine was administered patient began feeling nauseous and vomited. She converted herself while vomiting. After vomiting she reports she feels much better. Patient given 4 mg of Zofran IV. Workup initiated including CBC CMP mag troponin BNP D-dimer VBG EKG x 2 chest x-ray. On re-evaluation, patient became hypotensive with maps in the 50s. She reports that she still feels well. She was given 1 L IV fluid bolus. After IV fluid bolus she again became hypotensive, she was given additional 1 L fluid bolus with improvement. Laboratory workup independently interpreted by me and significant for mild leukocytosis, D-dimer elevated at 0.9, initial blood gas that was obtained while patient was in SVT shows elevated lactate at 4, respiratory acidosis. Repeat blood gas shows normalization of lactate, pH and pCO2 remained stable.. Initial troponin within normal limits. Imaging independently interpreted by me and significant for clear lungs bilaterally on chest x-ray. I ordered a CT PE and spoke with the patient several times about the importance of obtaining it but patient ultimately refused. See radiology read for full review of final results. Repeat EKG independently interpreted by me and significant for sinus tachycardia with rate in the 100s, resolution of previously seen ST depressions, no evidence of arrhythmia. Given patient history, exam and workup, patient's presentation most likely represents SVT. Given her persistent hypotension after she converted to sinus rhythm, I am concerned that there could be other underlying pathology. She likely also has some component of COPD exacerbation going on affecting her ventilation, but given her SVT I am very hesitant to provide any nebs at this time. She is clinically well-appearing from respiratory standpoint so I think continued monitoring would be the best course of action at this time. I had an interactive discussion with the hospitalist on-call for admission. Procedures Risk/Benefits of Procedure(s) Were Explained: Yes Critical Care Critical Care Time Critical Care Time: Yes Attestation: On 11/25/24, the high probability of a clinically significant, sudden or life threatening deterioration of the following system(s) required my full and direct attention, intervention and personal management. The time I documented below is in addition to time spent performing reported procedures but includes the following listed in this critical care notation. Total Time Total Critical Care Time: 50
--- NOTE | 2024-04-15 02:30 | ECG_ITS ---
APPROVED REPORT Exam: Resting ECG HR:118 bpm ECG Measurements Heart Rate 118 AXES MN 124 P 70 QRSd 89 QRS 43 QT 307 T 81 QTc 377 Conclusion SINUS TACHYCARDIA POSSIBLE LEFT ATRIAL ENLARGEMENT [-0.1mV P-WAVE IN V1/V2] ABNORMAL RHYTHM ECG UNCONFIRMED REPORT Electronically signed by : MIGUELINA REYES, 04/18/2024 06:28:26
[2024-04-15 02:34] LABS: Albumin Level 4.2 g/dl (3.5-5.0); Basophils # 0.2 K/mm3 (0-0.2); Basophils % 1.5 % (0.1-2.0); Chloride 101 mmol/L (98-107); Eosinophils # 0.1 K/mm3 (0.0-0.4); Eosinophils % 1.2 % (0.1-12.0); Hematocrit 44.8 % (37.0-47.0); Hemoglobin 14.6 g/dL (12.2-16.2); Lymphocytes # 6.6 K/mm3 (0.7-4.5); Lymphocytes % 57.3 % (10-50); Mean Corpuscular HGB Conc 32.6 g/dL (31.8-35.4); Mean Corpuscular Hemoglobin 32.6 pg (27.0-31.2); Mean Platelet Volume 8.8 fl (7.4-10.4); Monocytes # 0.6 K/mm3 (0.1-1.0); Monocytes % 4.8 % (1.7-9.3); Neutrophils % 35.2 % (37.0-80.0); Platelet Count 242 K/mm3 (142-424); Red Blood Count 4.48 M/mm3 (4.20-5.40); Red Cell Distribution Width 14.3 % (11.5-17.5); White Blood Count 11.5 K/mm3 (4.8-10.8)
[2024-04-15 02:35] LABS: Potassium 5.1 mmoL/L (3.5-5.1); Sodium 138 mmol/L (136-145)
[2024-04-15 02:36] LABS: MANUAL DIFFERENTIAL MANUAL DIFFERENTIAL (MANUAL DIFF)
[2024-04-15 02:37] LABS: Blood Urea Nitrogen 35 mg/dl (7-17); Estimated Glomerular Filt Rate 51 ml/min (>60); GFR (African American) 62 ML/MIN (>60); Magnesium 1.8 mg/dl (1.6-2.3)
[2024-04-15 02:38] LABS: Alanine Aminotransferase 23 U/L (12-78); Albumin/Globulin Ratio 1.1 (1.1-1.8); Alkaline Phosphatase 118 U/L (38-126); Anion Gap 10.1 mEq/L (5-15); Aspartate Amino Transferase 30 U/L (14-36); Bilirubin,Total 0.7 mg/dl (0.2-1.3); Calcium 10.7 mg/dl (8.4-10.2); Carbon Dioxide 32 mmol/L (22.0-30.0); Glucose 247 mg/dl (74-100); Total Protein,Serum 8.2 g/dl (6.3-8.2)
[2024-04-15 02:42] LABS: D-Dimer 0.91 ug/mL (0.0-0.5)
[2024-04-15] MEDS: ADENOSINE 6MG/2ML VIAL 6 MG IV (02:45)
[2024-04-15] MEDS: ONDANSETRON 4MG/2ML VIAL 4 MG IV (02:45)
[2024-04-15] MEDS: ADENOSINE 6MG/2ML VIAL 12 MG IV (02:46)
[2024-04-15 02:47] LABS: Eosinophils % 3 % (0-3); Lymphocytes % 55 % (10-50); Macrocytosis 1+; Monocytes % 5 % (2-9); NT Pro Brain Natriuretic Pep. 437 pg/mL (0-125); Neutrophils % 33 % (42-76); Platelet Estimate Normal; Total Cells Counted 100
[2024-04-15 02:47] LABS: VBG Base Excess 0.4 mmol/L (-2.4-2.3); VBG HCO3 28.7 mmol/L (23-30); VBG Oxygen Saturation 76.9 % (50-70); VBG PO2 48.1 mmol/L (28-40); VBG Total CO2 31.1 mmol/L (23-27)
[2024-04-15] MEDS: LACTATED RINGERS 1000ML 1,000 ML 999 ML IV (02:47)
[2024-04-15 02:50] LABS: Troponin I 0.03 ng/ml (0.00-0.034)
[2024-04-15 02:55] LABS: Lactate Venous 4.1 mmol/L (0.4-2.0); VBG PCO2 77.5 mmol/L (35-51); VBG PH 7.19 mmol/L (7.31-7.41)
[2024-04-15 03:10] LABS: Lactate Venous 1.9 mmol/L (0.4-2.0); VBG Base Excess 2.6 mmol/L (-2.4-2.3); VBG HCO3 30.6 mmol/L (23-30); VBG Oxygen Saturation 48.4 % (50-70); VBG PO2 30.9 mmol/L (28-40)
[2024-04-15 03:12] LABS: VBG PCO2 79.3 mmol/L (35-51)
--- NOTE | 2024-04-15 04:52 | EXP.HP ---
History of Present Illness *Admission Date: 04/15/24 *Reason for visit:: SVT *History of present illness: August Gasper is a 58-year-old female past medical history significant for COPD, CAD, tobacco abuse, CHF, type 2 diabetes, HTN, HLD who presents emergency room tonight with complaints of tachycardia. Ms. Jackman states that she has had episodes of tachycardia before. Reports that she woke up and felt like her heart was racing, heart rate was noted to be in the 180s. Reports some shortness of breath associated with the tachycardia. No chest pain noted. Does not use oxygen at home. is accompanying her at bedside. Patient recently saw the cardiology clinic with Dr. Hancock, is waiting for insurance to approve an [facility]. Does not know when the last time she had an echo or a stress test done. Did have an abnormal CCTA. Endorses tobacco use, smokes less than half a pack of cigarettes per day. Denies any alcohol or illicit drug use. Lab work in the ER showed a slightly elevated white count of 11.5, D-dimer elevated at 0.91. VBG showed a pH of 7.2, CO2 of 79, pO2 of 30 with a bicarb of 30. Lactic acid was 1.9. BUN and creatinine slightly elevated at 35 and 1.1. BNP elevated at 437. When patient arrived to the ER, heart rate noted to still be in the 180s. Was given 6 mg and then 12 mg of adenosine without improvement in the heart rate. Patient actually became nauseous and vomited 1 time and it converted out of SVT. She then became a bit hypotensive, received a IV fluid bolus. Blood pressure then improved. Patient declined having a CTA of the chest to rule out PE. She will be admitted to the hospitalist service for SVT for cardiac monitoring today. [facility] Disclaimer: The information contained in this section may have been updated after the patient was seen, as this information can be updated by other users. Medical History Cataract Ectopic Anxiety and depression Pneumonia Tachycardia Acute and chronic respiratory failure with hypoxia Abnormal computerized axial tomography of chest Multiple pulmonary nodules Smoking greater than 30 pack years Non-seasonal allergic rhinitis Nocturnal hypoxemia Tobacco abuse disorder Seasonal allergies Dyspnea on exertion Chronic hypoxemic respiratory failure Dyspnea HLD (hyperlipidemia) HTN (hypertension) Lung nodule COPD (chronic obstructive pulmonary disease) Surgical History History of cholecystectomy No significant past surgical history Family History Other Cancer Coronary artery disease Social History Smoking Status: Current every day smoker tobacco type: cigarettes packs per day: 1 smoking status stop date: Jun 2023 second hand exposure: No alcohol intake: never substance use type: denies use current occupational status: disabled household members: spouse housing: house current occupational exposures/hazards: No caffeine: Yes Other Medical History Have you received the Flu Vaccine for this season: No Have you received the Pneumonia Vaccine: No Review of Systems Review of Systems Review of systems:: pertinent systems reviewed and negative unless documented below *Cardiovascular Cardiovascular: Reports dyspnea, Reports palpitations and Reports rapid heart rate *Respiratory Respiratory: Reports dyspnea Endocrine Endocrine: Reports palpitations Meds Home Medications and Allergies Home Medications ?Medication ?Instructions ?Recorded ?Confirmed ?Type fluticasone propionate 50 1 spray intranasal BID 11/02/22 04/15/24 History mcg/actuation nasal spray,suspension loratadine 10 mg tablet (Claritin) 10 mg PO DAILY 11/02/22 04/15/24 History umeclidinium 62.5 mcg-vilanterol 1 inh inhalation DAILY 11/02/22 04/15/24 History 25 mcg/actuation powdr for inhalation (Anoro Ellipta) albuterol sulfate 90 mcg/actuation 2 inh inhalation Q6HP PRN 11/03/22 04/15/24 History aerosol inhaler (Ventolin HFA) Shortness Of Breath Or Wheezing buspirone 10 mg tablet 10 mg PO TID 11/03/22 04/15/24 History simvastatin 40 mg tablet 40 mg PO HS 11/03/22 04/15/24 History montelukast 10 mg tablet 10 mg PO PM 30 days #30 tabs 01/26/23 04/15/24 Rx cholecalciferol (vitamin D3) 125 125 mcg PO DAILY 12/26/23 04/15/24 History mcg (5,000 unit) capsule cyanocobalamin (vitamin B-12) 5,000 mcg PO DAILY 12/26/23 04/15/24 History 5,000 mcg capsule sacubitril 24 mg-valsartan 26 mg 1 tab PO BID 12/26/23 04/15/24 History tablet (Entresto) spironolactone 25 mg tablet 25 mg PO DAILY #30 tabs 12/26/23 04/15/24 Rx furosemide 40 mg tablet 40 mg PO DAILY #30 tabs 04/10/24 04/15/24 Rx bupropion HCl 150 mg 24 hr tablet, 300 mg PO DAILY 04/15/24 04/15/24 History extended release ipratropium 0.5 mg-albuterol 3 mg 3 ml inhalation Q6H 04/15/24 04/15/24 History (2.5 mg base)/3 mL nebulization soln metoprolol succinate 25 mg 25 mg PO DAILY 30 days #30 tabs 04/15/24 Rx tablet,extended release 24 hr sertraline 100 mg tablet 100 mg PO DAILY 04/15/24 04/15/24 History New Prescriptions to Start Prescriptions: metoprolol succinate Jon Tomas Allergies Allergy/AdvReac Type Severity Reaction Status Date / Time No Known Allergies Allergy Verified 04/10/24 16:48 Exam Data for Last 24 hours Vital signs and Labs for Last 24 Hours: Temp Pulse Resp BP Pulse Ox O2 Del Method O2 Flow Rate 97.9 F 98 H 18 128/74 94 L Nasal Cannula 3 04/15/24 04:40 04/15/24 04:40 04/15/24 04:40 04/15/24 04:40 04/15/24 04:23 04/15/24 04:40 04/15/24 02:45 Laboratory Results - last 24 hr 04/15/24 02:11: WBC 11.5 H, RBC 4.48, Hgb 14.6, Hct 44.8, MCV 100.0 H, MCH 32.6 H, MCHC 32.6, RDW 14.3, Plt Count 242, MPV 8.8, Neut % (Auto) 35.2 L, Lymph % (Auto) 57.3 H, [place] % (Auto) 4.8, Eos % (Auto) 1.2, Baso % (Auto) 1.5, Neut # (Auto) 4.0, Lymph # (Auto) 6.6 H, [place] # (Auto) 0.6, Eos # (Auto) 0.1, Baso # (Auto) 0.2, Total Counted 100, Neutrophils % (Manual) 33 L, Lymphocytes % (Manual) 55 H, Monocytes % (Manual) 5, Eosinophils % (Manual) 3, Basophils % (Manual) 4.0 H, Platelet Estimate Normal, Macrocytosis 1+, D-Dimer 0.91 H, Sodium 138, Potassium 5.1, Chloride 101, Carbon Dioxide 32 H, Anion Gap 10.1, BUN 35 H, Creatinine 1.10 H, Estimated GFR 51 L, Est GFR ( Amer) 62, Glucose 247 H, Calcium 10.7 H, Magnesium 1.8, Total Bilirubin 0.7, AST 30, ALT 23, Alkaline Phosphatase 118, Troponin I 0.03, NT-Pro-B Natriuret Pep 437 H, Total Protein 8.2, Albumin 4.2, Globulin 4.0 H, Albumin/Globulin Ratio 1.1 04/15/24 02:48: VBG pH 7.19 L, VBG pCO2 77.5 H, VBG pO2 48.1 H, VBG HCO3 28.7, VBG Total CO2 31.1 H, VBG O2 Saturation 76.9 H, VBG Base Excess 0.4, VBG Lactic Acid 4.1 H 04/15/24 03:11: VBG pH 7.20 L, VBG pCO2 79.3 H, VBG pO2 30.9, VBG HCO3 30.6 H, VBG Total CO2 33.0 H, VBG O2 Saturation 48.4 L, VBG Base Excess 2.6 H, VBG Lactic Acid 1.9 I & O for Last 24 hours: Intake & Output 04/12/24 04/13/24 04/14/24 04/15/24 23:59 23:59 23:59 23:59 Weight 113.398 kg Constitutional Constitutional: no acute distress *Routine HEENT Exam Head: Present normocephalic Eye: Present EOMI and PERRL ENT: Present mucous membranes moist *Routine Neck Exam Neck: Present supple; Absent lymphadenopathy *Routine Respiratory Exam Respiratory: Present CTA bilaterally *Routine Cardiovascular Exam Cardiovascular: Present RRR *Routine Abdominal Exam Abdominal: Present soft and normoactive bowel sounds; Absent tenderness *Routine Rectal Exam Rectal:: deferred *Routine Genitalia Exam Genitalia:: deferred *Routine Extremities Exam Extremities: Absent cyanosis, clubbing or edema *Routine Skin Exam Skin: Present warm; Absent rash *Routine Neurological Exam Neurological: Present alert and oriented X3 Assessment and Plan *Assessment and plan (1) Sustained SVT: Status: Acute Category: Medical Code(s): I47.10 - Supraventricular tachycardia, unspecified (2) Hypotension: Status: Acute Category: Medical Code(s): I95.9 - Hypotension, unspecified (3) Multiple closed fractures of metatarsal bone of left foot: Status: Acute Qualifiers: Encounter type: initial encounter Qualified Code(s): S92.302A - Fracture of unspecified metatarsal bone(s), left foot, initial encounter for closed fracture Category: Medical Code(s): S92.302A - Fracture of unspecified metatarsal bone(s), left foot, initial encounter for closed fracture (4) Diabetes: Status: Acute Qualifiers: Diabetes mellitus complication status: with unspecified complications Diabetes mellitus intermediate insulin use: with intermediate card tender use Diabetes mellitus type: type 2 Qualified Code(s): E11.8 - Type 2 diabetes mellitus with unspecified complications; Z79.4 - oil heaterman (current) use of insulin Category: Medical Code(s): E11.9 - Type 2 diabetes mellitus without complications (5) Depression: Status: Chronic Category: Medical Code(s): F32.A - Depression, unspecified (6) Tobacco abuse disorder: Status: Chronic Category: Medical Code(s): Z72.0 - Tobacco use (7) HLD (hyperlipidemia): Status: Chronic Qualifiers: Hyperlipidemia type: unspecified Qualified Code(s): E78.5 - Hyperlipidemia, unspecified Category: Medical Code(s): E78.5 - Hyperlipidemia, unspecified (8) HTN (hypertension): Status: Chronic Qualifiers: Hypertension type: primary hypertension Qualified Code(s): I10 - Essential (primary) hypertension Category: Medical Code(s): I10 - Essential (primary) hypertension (9) CAD (coronary artery disease): Status: Acute Category: Medical Code(s): I25.10 - Atherosclerotic heart disease of [place] coronary artery without angina pectoris (10) Anxiety: Status: Acute Category: Medical Code(s): F41.9 - Anxiety disorder, unspecified (11) CHF (congestive heart failure): Status: Acute Category: Medical Code(s): I50.9 - Heart failure, unspecified Plan Assessment: This is a 58-year-old female being admitted for sustained SVT for cardiac monitoring with hypotension that has since resolved. On my exam, patient is sitting up in bed in no acute distress. No complaints. Plan: Admit to inpatient-MedSurg w/ telemetry SVT Hypotension-resolved -Telemetry -Will repeat echo, last echo was done in January 2023 which showed grade 2 diastolic dysfunction -Serial troponins -Consider consult to cardiology HFpEF -Continue Entresto, Aldactone -Telemetry -Strict I's and O's COPD -Not in acute exacerbation -Maintain SpO2 greater than 90% -Continue Dulera -Would like to avoid nebs if possible so that we do not stimulate the heart back into a tachyarrhythmia Depression/anxiety -Continue BuSpar Zoloft Type 2 diabetes -A1c -Patient states she is not taking any antidiabetics at this time -SSI for glycemic control -Carb consistent diet HLD -Continue statin DVT prophylaxis: Lovenox CODE STATUS: Full code Surrogate decision maker: Ty [phone] Skin: Low risk Estimated length of stay: Less than 2 midnights Rounded on patient after nurse practitioner. Personally examined and interviewed patient. Agree with exam findings and care plan as documented. Initiated on metoprolol for SVT. Responding well to metoprolol tartrate 25 mg oral once. Discussed case with cardiology, anticipate further adjustment to rate controlling medications.
--- NOTE | 2024-04-15 05:24 | CA_ITS ---
APPROVED REPORT EXAM: Comprehensive 2D, Doppler, and color-flow Echocardiogram Sanding Machine Tender Automatic: Jazmin Tate CRT Ht: 5 ft 10 in Wt: 236lbs BSA: 2.24 BP: 128/74 mmHg Indications: Diabetes, Palpitations, Hyperlipidemia, Hypertension/HDD, SVT, home O2, smoker TDE pt refused additional images d/t pain M-Mode Dimensions RVDd 2.49 cm (0.9-2.6) LA Diam 2.74 cm (1.9-4.0) LVDd 4.05 cm (3.5-5.7) LVDs 2.89 cm (3.5-5.7) IVSd 1.81 cm (0.6-1.1) PWd 0.96 cm (0.6-1.1) EF (Teich) 55.80% FS 28.60% EDV (Teich) 72.10 mL ESV (Teich) 31.90 mL LV Diastology E Decel Time 330 (160-240 msec) E/A Ratio 0.73 MED A' 8.40 cm/s LAT A' 8.70 cm/s Aortic Valve AO Peak GR. 9.90 mmHg Mitral Valve MV E Max Gregg. 65.0 (40-130 cm/s) MV A Velocity 88.0 (40-130 cm/s) E/A Ratio 0.73 MV PHT 97.0 ms Pulmonary Valve PV Peak Velocity 79.0 (50-150 cm/s) Tricuspid Valve TR P. Velocity 148.00 cm/s RAP Estimate 10.00 mmHg RVSP 18.80 mmHg Left Ventricle The left ventricle is normal size. The left ventricular systolic function is normal. The left ventricular ejection fraction is within the normal range. There is increased LV wall thickness. There is normal LV segmental wall motion. Diastolic function is indeterminate. LVEF is 55%. Right Ventricle The right ventricle is not well-visualized. Atria The left atrium is mildly dilated. The right atrium is not well-visualized. The interatrial septum is not well-visualized. Aortic Valve The aortic valve is mildly thickened. There is no aortic valvular stenosis. No aortic regurgitation is present. Mitral Valve The mitral valve leaflets are mildly thickened. No evidence of mitral valve stenosis. Trace mitral regurgitation. Tricuspid Valve The tricuspid valve leaflets are not well-visualized. Trace tricuspid regurgitation. There is insufficient TR jet to estimate RVSP. Pulmonic Valve The pulmonic valve leaflets are not well-visualized. Great Vessels The aortic root is not well-visualized. The IVC is not well-visualized. Pericardium There is no pericardial effusion. Other Information Study Quality: Technically Difficult Conclusion Technically difficult study due to poor acoustic windows. Grossly, normal LV systolic function. RV is not well-visualized. Mild LA dilation. No significant valvular stenosis or regurgitation. Electronically signed by : Aidee Pulliam MD 04/15/2024 11:11:22
--- NOTE | 2024-04-15 05:32 | PC.NURSE ---
pt arrived to floor via stretcher @04:53
[2024-04-15 06:14] LABS: Basophils % 0.5 % (0.1-2.0); Eosinophils # 0.1 K/mm3 (0.0-0.4); Eosinophils % 0.9 % (0.1-12.0); Hematocrit 37.8 % (37.0-47.0); Lymphocytes # 1.9 K/mm3 (0.7-4.5); Lymphocytes % 31.6 % (10-50); Mean Corpuscular HGB Conc 33.3 g/dL (31.8-35.4); Mean Corpuscular Hemoglobin 33.2 pg (27.0-31.2); Mean Corpuscular Volume 99.7 fl (81-99); Mean Platelet Volume 8.5 fl (7.4-10.4); Monocytes # 0.3 K/mm3 (0.1-1.0); Monocytes % 4.7 % (1.7-9.3); Neutrophils # 3.8 K/mm3 (1.8-7.8); Neutrophils % 62.4 % (37.0-80.0); Platelet Count 196 K/mm3 (142-424); Red Blood Count 3.79 M/mm3 (4.20-5.40); White Blood Count 6.1 K/mm3 (4.8-10.8)
[2024-04-15 06:25] LABS: Chloride 105 mmol/L (98-107); Potassium 4.5 mmoL/L (3.5-5.1); Sodium 138 mmol/L (136-145)
[2024-04-15 06:28] LABS: Anion Gap 6.5 mEq/L (5-15); Blood Urea Nitrogen 34 mg/dl (7-17); Carbon Dioxide 31 mmol/L (22.0-30.0); Creatinine Clearance Estimated 105 mL/min (50-200); Estimated Glomerular Filt Rate 57 ml/min (>60); GFR (African American) 69 ML/MIN (>60); Glucose 109 mg/dl (74-100)
[2024-04-15 06:29] LABS: Calcium 9.6 mg/dl (8.4-10.2)
[2024-04-15 06:31] LABS: Hemoglobin 12.6 g/dL (12.2-16.2)
[2024-04-15 06:37] LABS: Troponin I 0.02 ng/ml (0.00-0.034)
[2024-04-15] MEDS: METOPROLOL TARTRATE 5MG/5ML VIAL 5 MG IV (06:39)
--- NOTE | 2024-04-15 06:50 | PC.NURSE ---
Pt ambulated to the restroom, HR into 180s, back to bed, patient sitting up with complaints of SOA, 93% on 3L Misbah MADRID APRN notified, new orders received and carried out. Patient converted and HR 77.
[2024-04-15 06:54] LABS: Reflex Lactic Add Lactic Reflex
[2024-04-15 06:57] LABS: Hemoglobin A1C 5.7 % (4.0-6.0)
[2024-04-15] MEDS: METOPROLOL TARTRATE 25MG TABLET 25 MG PO (07:31)
--- NOTE | 2024-04-15 08:45 | HMH.PHAINT1 ---
Pharmacy Intervention Comments: HOME MEDICATIONS VERIFIED VIA OUTPATIENT PHARMACY AND PRESCRIBER
[2024-04-15] MEDS: ENOXAPARIN 40MG/0.4ML SYRINGE 40 MG SUBCUT (08:55)
[2024-04-15 10:54] LABS: POC Glucose,Bedside 131 (70-110)
--- NOTE | 2024-04-15 11:53 | EXP.CARD.CON ---
History of Present Illness History of Present Illness Consult date: 04/15/24 Requesting physician: Jon Tomas Chief complaint: tachycardia History of present illness: 58 yo WF established patient of our office with a history of COPD, DM-II, Htn, and HLD. She had an abnormal cardiac CTA in our office earlier this year and declined LHC at that time. Seen in office recently with worsening angina and LHC ordered and currently pending insurance approval. This morning pt awoke with severe tachycardia and came to ED where she was found to be in SVT with rate in 180s. Adenosine 6mg and 12mg failed to break her rhythm but she vomited and converted to sinus rhythm. Pt denies any prior episodes and was not on BB at home due to possible interaction with her Psych meds. Her D-Dimer is elevated at 0.9. Normal seral Trop, CXR clear. EKG still ST 118, O2 91% on nasal canula. BP 90s systolic without home meds. She is currently on Lovenox and sitting in tele bed with no acute symptoms. [facility] Disclaimer: The information contained in this section may have been updated after the patient was seen, as this information can be updated by other users. Medical History Cataract Ectopic Anxiety and depression Pneumonia Tachycardia Acute and chronic respiratory failure with hypoxia Abnormal computerized axial tomography of chest Multiple pulmonary nodules Smoking greater than 30 pack years Non-seasonal allergic rhinitis Nocturnal hypoxemia Tobacco abuse disorder Seasonal allergies Dyspnea on exertion Chronic hypoxemic respiratory failure Dyspnea HLD (hyperlipidemia) HTN (hypertension) Lung nodule COPD (chronic obstructive pulmonary disease) Surgical History History of cholecystectomy No significant past surgical history Family History Other Cancer Coronary artery disease Social History Smoking Status: Current every day smoker tobacco type: cigarettes packs per day: 1 smoking status stop date: Jun 2023 second hand exposure: No alcohol intake: never substance use type: denies use current occupational status: disabled Travel in the last 8 weeks: None household members: spouse housing: house current occupational exposures/hazards: No caffeine: Yes Review of Systems Constitutional Constitutional: Denies fatigue and Denies weakness Eyes Eyes: Denies loss of vision ENT Ears, Nose, Mouth, and Throat: Denies hearing loss and Denies vertigo *Cardiovascular Cardiovascular: Denies chest pain, Denies dyspnea and Denies syncope *Respiratory Respiratory: Denies cough and Denies dyspnea *Gastrointestinal Gastrointestinal: Denies change in stool character, Denies nausea and Denies vomiting *Musculoskeletal Musculoskeletal: Denies muscle weakness Integumentary/Breasts Skin/Breast: Denies changing lesions *Neurologic Neurologic: Denies loss of vision, Denies syncope, Denies vertigo and Denies weakness Endocrine Endocrine: Denies fatigue Exam Data for Last 24 hours Vital signs and Labs for Last 24 Hours: Temp Pulse Resp BP Pulse Ox O2 Del Method O2 Flow Rate 97.8 F 95 H 16 104/69 L 91 L Nasal Cannula 3 04/15/24 08:00 04/15/24 08:00 04/15/24 08:00 04/15/24 08:00 04/15/24 08:00 04/15/24 11:00 04/15/24 06:49 Laboratory Results - last 24 hr 04/15/24 02:11: WBC 11.5 H, RBC 4.48, Hgb 14.6, Hct 44.8, MCV 100.0 H, MCH 32.6 H, MCHC 32.6, RDW 14.3, Plt Count 242, MPV 8.8, Neut % (Auto) 35.2 L, Lymph % (Auto) 57.3 H, [place] % (Auto) 4.8, Eos % (Auto) 1.2, Baso % (Auto) 1.5, Neut # (Auto) 4.0, Lymph # (Auto) 6.6 H, [place] # (Auto) 0.6, Eos # (Auto) 0.1, Baso # (Auto) 0.2, Total Counted 100, Neutrophils % (Manual) 33 L, Lymphocytes % (Manual) 55 H, Monocytes % (Manual) 5, Eosinophils % (Manual) 3, Basophils % (Manual) 4.0 H, Platelet Estimate Normal, Macrocytosis 1+, D-Dimer 0.91 H, Sodium 138, Potassium 5.1, Chloride 101, Carbon Dioxide 32 H, Anion Gap 10.1, BUN 35 H, Creatinine 1.10 H, Estimated GFR 51 L, Est GFR ( Amer) 62, Glucose 247 H, Calcium 10.7 H, Magnesium 1.8, Total Bilirubin 0.7, AST 30, ALT 23, Alkaline Phosphatase 118, Troponin I 0.03, NT-Pro-B Natriuret Pep 437 H, Total Protein 8.2, Albumin 4.2, Globulin 4.0 H, Albumin/Globulin Ratio 1.1 04/15/24 02:48: VBG pH 7.19 L, VBG pCO2 77.5 H, VBG pO2 48.1 H, VBG HCO3 28.7, VBG Total CO2 31.1 H, VBG O2 Saturation 76.9 H, VBG Base Excess 0.4, VBG Lactic Acid 4.1 H 04/15/24 03:11: VBG pH 7.20 L, VBG pCO2 79.3 H, VBG pO2 30.9, VBG HCO3 30.6 H, VBG Total CO2 33.0 H, VBG O2 Saturation 48.4 L, VBG Base Excess 2.6 H, VBG Lactic Acid 1.9 04/15/24 05:17: WBC 6.1 D, RBC 3.79 L, Hgb 12.6 D, Hct 37.8, MCV 99.7 H, MCH 33.2 H, MCHC 33.3, RDW 14.0, Plt Count 196, MPV 8.5, Neut % (Auto) 62.4, Lymph % (Auto) 31.6, [place] % (Auto) 4.7, Eos % (Auto) 0.9, Baso % (Auto) 0.5, Neut # (Auto) 3.8, Lymph # (Auto) 1.9, [place] # (Auto) 0.3, Eos # (Auto) 0.1, Baso # (Auto) 0.0, Sodium 138, Potassium 4.5, Chloride 105, Carbon Dioxide 31 H, Anion Gap 6.5, BUN 34 H, Creatinine 1.00, Estimated Creat Clear 105, Estimated GFR 57 L, Est GFR ( Amer) 69, Glucose 109 H D, Hemoglobin A1c 5.7, Calcium 9.6, Troponin I 0.02 04/15/24 08:02: Lactate 1.0 04/15/24 10:42: POC Glucose 131 H I & O for Last 24 hours: Intake & Output 04/12/24 04/13/24 04/14/24 04/15/24 23:59 23:59 23:59 23:59 Output Total 100 / 100 Balance -100 / -100 Weight 236 lb Constitutional Constitutional: no acute distress and cooperative *Routine HEENT Exam Eye: Present PERRL *Routine Respiratory Exam Respiratory: Present CTA bilaterally; Absent accessory muscle use, wheezes or crackles *Routine Cardiovascular Exam Cardiovascular: Present RRR, Normal S1 and Normal S2; Absent murmur, gallop or rubs *Routine Abdominal Exam Abdominal: Present soft; Absent tenderness *Routine Extremities Exam Extremities: Present pulses intact; Absent cyanosis or edema *Routine Skin Exam Skin: Present intact; Absent erythema or wounds *Routine Neurological Exam Neurological: Present alert and oriented X3 Routine Psychiatric Exam Psychiatric: Present cooperative Meds Home Medications and Allergies Home Medications ?Medication ?Instructions ?Recorded ?Confirmed ?Type fluticasone propionate 50 1 spray intranasal BID 11/02/22 04/15/24 History mcg/actuation nasal spray,suspension loratadine 10 mg tablet (Claritin) 10 mg PO DAILY 11/02/22 04/15/24 History umeclidinium 62.5 mcg-vilanterol 1 inh inhalation DAILY 11/02/22 04/15/24 History 25 mcg/actuation powdr for inhalation (Anoro Ellipta) albuterol sulfate 90 mcg/actuation 2 inh inhalation Q6HP PRN 11/03/22 04/15/24 History aerosol inhaler (Ventolin HFA) Shortness Of Breath Or Wheezing buspirone 10 mg tablet 10 mg PO TID 11/03/22 04/15/24 History simvastatin 40 mg tablet 40 mg PO HS 11/03/22 04/15/24 History montelukast 10 mg tablet 10 mg PO PM 30 days #30 tabs 01/26/23 04/15/24 Rx cholecalciferol (vitamin D3) 125 125 mcg PO DAILY 12/26/23 04/15/24 History mcg (5,000 unit) capsule cyanocobalamin (vitamin B-12) 5,000 mcg PO DAILY 12/26/23 04/15/24 History 5,000 mcg capsule sacubitril 24 mg-valsartan 26 mg 1 tab PO BID 12/26/23 04/15/24 History tablet (Entresto) spironolactone 25 mg tablet 25 mg PO DAILY #30 tabs 12/26/23 04/15/24 Rx furosemide 40 mg tablet 40 mg PO DAILY #30 tabs 04/10/24 04/15/24 Rx bupropion HCl 150 mg 24 hr tablet, 300 mg PO DAILY 04/15/24 04/15/24 History extended release ipratropium 0.5 mg-albuterol 3 mg 3 ml inhalation Q6H 04/15/24 04/15/24 History (2.5 mg base)/3 mL nebulization soln sertraline 100 mg tablet 100 mg PO DAILY 04/15/24 04/15/24 History New Prescriptions to Start Prescriptions: Allergies Allergy/AdvReac Type Severity Reaction Status Date / Time No Known Allergies Allergy Verified 04/10/24 16:48 Assessment and Plan *Assessment and plan (1) Sustained SVT: Status: Acute Category: Medical Code(s): I47.10 - Supraventricular tachycardia, unspecified (2) Coronary artery calcification: Status: Acute Category: Medical Code(s): I25.10 - Atherosclerotic heart disease of [place] coronary artery without angina pectoris (3) Anxiety: Status: Acute Category: Medical Code(s): F41.9 - Anxiety disorder, unspecified (4) Respiratory failure: Status: Acute Qualifiers: Chronicity: acute on chronic Respiratory failure complication: hypoxia and hypercapnia Qualified Code(s): J96.21 - Acute and chronic respiratory failure with hypoxia; J96.22 - Acute and chronic respiratory failure with hypercapnia Category: Medical Code(s): J96.90 - Respiratory failure, unspecified, unspecified whether with hypoxia or hypercapnia (5) Tobacco abuse disorder: Status: Chronic Category: Medical Code(s): Z72.0 - Tobacco use Plan SVT - new dx this admission, converted post emesis - ECHO shows nml EF and no wall motion changes - cont telemetry - add Toprol XL 25mg daily - place 2 week monitor at discharge Chronic Angina with abnormal CCTA - pt has stable angina at home - CCTA, 12/2023, CAC of 1484 with moderate proximal RCA disease, mild diffuse LAD and circumflex disease. - I offered to try and do her LHC while admitted but she declines and wants to wait until after holidays - normal serial Trop and no WMA on ECHO - cont ASA, and statin add BB and PRN Ntg Sinus Tachycardia, Elevated D-Dimer, SOA - check CTA PE protocol DM - cont home meds Htn - resume home meds when BP will tolerate CV stable, further plans pending CT results.
[2024-04-15 12:34] LABS: POC Glucose,Bedside 126 (70-110)
--- NOTE | 2024-04-15 12:46 | HMH.ITSTN ---
pt refused ct scan, told didi david and said she would relay the message to pts nurse
[2024-04-15] MEDS: METOPROLOL SUCCINATE XL 25MG TABLET 25 MG PO (13:37)
--- NOTE | 2024-04-15 13:40 | PC.NURSE ---
patient refused CT scan
--- OUTSIDE RECORDS SUMMARY | 2024-04-15 14:30 | XMS_ITS | Clinical Summary ---
Author Organization Healthcare Address [address] [place] [address] Care Team Providers Care Form Setter/Driver Name Role Phone Andreina Shah APRN Primary Care Provider Social History Tobacco Use Types Packs/Day Years Used Date Smoking Tobacco: Never Assessed Comments Unknown Sex and Gender Information Value Date Recorded Sex Assigned at Not on file Legal Sex Female 8:51 PM EDT Gender Identity Not on file Sexual Orientation Not on file Plan of Treatment Health Maintenance Due Date Last Done Comments [facility]-Depression Screening 1965 [facility]-Infant/Child/Adol SDOH Screenings 1965 [facility]- SDOH Screenings 1984 [facility]-Adult SDOH Screenings 1984 [facility]-Hepatitis B Vaccines (1 of 3 - 19+ 3-dose series) 1985 [facility]-Pap Smear 08/16/1987 [facility]-DTaP,Tdap,and Td Vaccine s (1 - Tdap) 07/24/1996 07/23/1996 [facility]-Cervical Cancer Screening 1996 [facility]-HPV/Cotest 1996 CT Colonography 08/16/2011 Colonoscopy 08/16/2011 FIT-DNA 08/16/2011 FIT 08/16/2011 FOBT 08/16/2011 Sigmoidoscopy 08/16/2011 [facility]-Colorectal Cancer Screening 08/16/2011 [facility]-Zoster Vaccines (1 of 2) 2016 RSX-REAOR-47 Vaccine (1 - 20 24-25 season) 2024 [facility]-Influenza Vaccine (#1) 2024 [facility]-RSV Vaccine: 60+ Years o r (1 - 1-dose 75+ series) 2041 [facility]-HIB Vaccines Aged Out No longer e ligible based on patient's age to complete this topic [facility]-HPV Vaccines Aged Out No longer e ligible based on patient's age to complete this topic [facility]-Hepatitis A Vaccines Aged Out No longer eligible based on patient's age to complete this topic [facility]-IPV Vaccines Aged Out No longer e ligible based on patient's age to complete this topic [facility]-Pneumococcal Vaccine: Pediatrics (0 to 5 Years) and At-Risk Patients (6 to 64 Years) Aged Out No long er eligible based on patient's age to complete this topic [facility]-Rotavirus Vaccines Aged Out No lo nger eligible based on patient's age to complete this topic Insurance [employer] Care Teams Form Setter/Driver Relationship Specialty Start Date End Date Andreina Shah APRN PCP - General 10/02/20
--- OUTSIDE RECORDS SUMMARY | 2024-04-15 14:30 | XMS_ITS | Encounter Summary ---
Author Organization Healthcare Address [address] [place] [address] Care Team Providers Care Stereotype Molder Name Role Phone Andreina Shah APRN Primary Care Provider Encounter Details Date Type Department Care Team (Late st Contact Info) Description 01/05/2024 2:35 PM EDT Ancillary Procedure [address] [place] [id number] Examination Social History Tobacco Use Types Packs/Day Years Used Date Smoking Tobacco: Never Assessed Comments Unknown Sex and Gender Information Value Date Recorded Sex Assigned at Not on file Legal Sex Female 8:51 PM EDT Gender Identity Not on file Sexual Orientation Not on file documented as of this encounter Plan of Treatment Not on file documented as of this encounter Procedures Procedure Name Priority Date/Time Associated Diagnosis Comments CT ANGIO CARDIAC CORONARY ARTERIES Routine 01/05/2024 2:34 PM EDT Examination documented in this encounter Results * CT Angio Cardiac Coronary Arteries (01/05/2024 2:34 PM EDT) Anatomical Region Laterality Modality Heart Computed Tomogra phy Impressions 01/05/2024 4:33 PM EDT 1. Severe coronary calcification with an Agatston score = 1484 using the AJ-130 method, which represents 99 percentile when matched for age, gender and ethnicity. ??Vascular age is 89 years. 2. Moderate stenosis in the proximal RCA. ??Otherwise, diffuse mild disease in the LAD and LCx. ??There is aneurysmal segments in the LCx measuring 6-7mm in diameter. 3. CAD-RADS 3: Management recommendations: ??Consider cardiology consultation, functional testing and/or invasive coronary angiography for evaluation and management. Recommendation for anti-ischemic and preventative management should be considered as well as risk factor modification. 4. ??There is fatty infiltrates into the RV free wall especially the RVOT area. ??Differential includes adipositas cordis (especially with prominent epicardial fat and lipomatous hypertrophy of the interatrial septum) vs. ARVC. The RV appears to have reduced systolic function. ??Consider CMR for further evaluation. 5. ??Extracardiac structures in the field of view are unremarkable. CRITICAL RESULT: No. COMMUNICATION: Per this written report. Drafted by Jono Connors MD on 01/05/2024 3:59 PM Final report signed by Jono Connors MD on 01/05/2024 4:33 PM Narrative 01/05/2024 4:33 PM EDT CLINICAL INDICATION: 58 years Female Symptoms: Chest pain with clinical features suggesting myocardial ischemia TECHNIQUE: Procedure Data Image Acquisition: Images were acquired at [facility] in [place], and interpreted at [facility]. ??A 128-slice MDCT scanner ([facility]) was used for data acquisition. A non-contrast coronary calcium scan was initially performed. was performed. Bolus tracking in the ascending aorta with a threshold of 180HU. Immediately afterwards, ECG synchronized Cardiac CT was then performed from cardiac base to apex using retrospective gating. A total of 85 mL Isovue 370mg/mL contrast media was administered at 5 mL/sec followed by a saline flush using a biphasic injection protocol. ??A tube voltage of 120 kVp was used. ?? The patient received the following medications prior to the Cardiac CT: 50mg of po metoprolol, 15mg of IV metoprolol, and 0.8mg sublingual nitroglycerin. The average heart rate at the time of acquisition was 56 bpm (46 bpm to 75 bpm) and markedly irregular Image Reconstruction: Transaxial images were reconstructed at 0.63 mm slice thickness. ??Data was reviewed interactively on an advanced workstation ([employer]) capable of 2 and 3 dimensional displays in all conventional reconstruction formats including multiplanar reformations, maximum intensity projections, curved multiplanar reformations, and volume rendered reconstructions. Selected routine images displaying relevant coronary anatomy and pathology were saved and sent to PACS. Complications: None Technical Quality: Overall image quality is Average. Coronary artery opacification is Adequate Total DLP (Dose-Length Product): 1977.3 mGycm. (27.7 mSv) Please note: The reported value represents the total of one or more individual components during the CT acquisition on this date and at this time, and as such, the same value may appear in more than one CT report depending on the interpreting/reporting physicians. COMPARISON: None. FINDINGS: -CT Coronary Calcium Scoring- LMA= 0 LAD= 674 LCX= 618 RCA= 292 Total calcium score = 1484 using the AJ-130 method. This score is in the 99 percentile rank for age and gender, meaning that 1 % of patients of the same age and gender will have a higher score. The total volume score is 1142. The calculated vascular age for this patient is 89 years. There is calcification in the aortic wall. -Coronary CT Angiography- Coronary Arteries: The coronaries have normal origin and proximal course. The coronary arterial system is right ??dominant. Note: Stenosis is reported as maximum percentage diameter stenosis. Stenosis grading is reported using the following scheme. Quantitative Stenosis Grading: CAD-RADS 0: 0% - No visible stenosis CAD-RADS 1: 1-24% - Minimal stenosis CAD-RADS 2: 25-49% - Mild stenosis CAD-RADS 3: 50-69% - Moderate stenosis CAD-RADS 4A: 70-99% - Severe stenosis in 1-2 vessels CAD-RADS 4B: Left main >50%, or 3 vessel >70% CAD-RADS 5: 100% - Occluded Left Main: CAD-RADS 0 The left main is very short, and bifurcates into the left anterior descending artery and left circumflex artery. LAD and Diagonals: CAD-RADS 2. Large vessel gives off a large septal and a branching diagonal before reaching the apex. ??There is diffuse mild stenosis with calcified and mixed plaque throughout the LAD, and proximal septal, proximal and mid diagonal branch. LCx and Obtuse Marginals: CAD-RADS 2 Large vessel, gives off a small high OM1, a small OM2, and terminates as a large OM3 and PL branch. ??There is diffuse mild stenosis with calcified plaques throughout the LCx, OM3, and PL branches. ??There are aneurysmal segments in the LCx measuring up to 6mm in diameter between OM1 and OM2, and 7mm in diameter (between OM2 and OM3). RCA: CAD-RADS 3 Large dominant vessel, gives off the PDA and PL branches. ??There is a focal area of moderate stenosis with mixed plaque in the proximal RCA, and mild stenosis with calcified plaque in the mid and distal segments. Non Coronary Cardiac Findings: Normal cardiac chamber size. ??There is fatty infiltrates into the RV free wall especially in the RVOT area. 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 No pericardial thickening or calcification. Prominent epicardial fat and lipomatous hypertrophy of the interatrial septum. Normal interatrial and interventricular septum, atrioventricular valves, ventriculo-arterial valves, pulmonary veins and imaged central veins. Central and branch pulmonary arteries in the field of view are unremarkable. Thoracic aorta and imaged thoracic aortic branches in the field of view are unremarkable. The right ventricular systolic function appears reduced. ??Left ventricular systolic function appears normal. Extra Cardiac Structures: Within the focused field of view, blebs in the RLL, and chronic granulomatous disease Procedure Note Jono Connors MD - 01/05/2024 CLINICAL INDICATION: 58 years Female Symptoms: Chest pain with clinical features suggesting myocardialischemia TECHNIQUE: Procedure Data Image Acquisition: Images were acquired at [facility] in [place], andinterpreted at [facility]. A 128-slice MDCT scanner ([employer]) was used for data acquisition. A non-contrast coronarycalcium scan was initially performed. was performed. Bolus tracking in theascending aorta with a threshold of 180HU. Immediately afterwards, ECGsynchronized Cardiac CT was then performed from cardiac base to apex usingretrospective gating. A total of 85 mL Isovue 370mg/mL contrast media wasadministered at 5 mL/sec followed by a saline flush using a biphasicinjection protocol. A tube voltage of 120 kVp was used. The patient received the following medications prior to the Cardiac CT:50mg of po metoprolol, 15mg of IV metoprolol, and 0.8mg sublingualnitroglycerin. The average heart rate at the time of acquisition was 56 bpm (46 bpm to 75bpm) and markedly irregular Image Reconstruction: Transaxial images were reconstructed at 0.63 mm slice thickness. Data wasreviewed interactively on an advanced workstation ([employer]) capable of 2and 3 dimensional displays in all conventional reconstruction formatsincluding multiplanar reformations, maximum intensity projections, curvedmultiplanar reformations, and volume rendered reconstructions. Selectedroutine images displaying relevant coronary anatomy and pathology weresaved and sent to PACS. Complications: None Technical Quality: Overall image quality is Average. Coronary artery opacification is Adequate Total DLP (Dose-Length Product): 1977.3 mGycm. (27.7 mSv) Please note: Thereported value represents the total of one or more individual componentsduring the CT acquisition on this date and at this time, and as such, thesame value may appear in more than one CT report depending on theinterpreting/reporting physicians. COMPARISON: None. FINDINGS: -CT Coronary Calcium Scoring- LMA= 0 LAD= 674 LCX= 618 RCA= 292 Total calcium score = 1484 using the AJ-130 method. This score is in the99 percentile rank for age and gender, meaning that 1 % of patients of thesame age and gender will have a higher score. The total volume score [id number]. The calculated vascular age for this patient is 89 years. There is calcification in the aortic wall. -Coronary CT Angiography- Coronary Arteries: The coronaries have normal origin and proximal course. The coronaryarterial system is right dominant. Note: Stenosis is reported as maximum percentage diameter stenosis.Stenosis grading is reported using the following scheme. Quantitative Stenosis Grading: CAD-RADS 0: 0% - No visible stenosis CAD-RADS 1: 1-24% - Minimal stenosis CAD-RADS 2: 25-49% - Mild stenosis CAD-RADS 3: 50-69% - Moderate stenosis CAD-RADS 4A: 70-99% - Severe stenosis in 1-2 vessels CAD-RADS 4B: Left main >50%, or 3 vessel >70% CAD-RADS 5: 100% - Occluded Left Main: CAD-RADS 0 The left main is very short, and bifurcates into theleft anterior descending artery and left circumflex artery. LAD and Diagonals: CAD-RADS 2. Large vessel gives off a large septal and abranching diagonal before reaching the apex. There is diffuse mildstenosis with calcified and mixed plaque throughout the LAD, and proximalseptal, proximal and mid diagonal branch. LCx and Obtuse Marginals: CAD-RADS 2 Large vessel, gives off a small highOM1, a small OM2, and terminates as a large OM3 and PL branch. There isdiffuse mild stenosis with calcified plaques throughout the LCx, OM3, andPL branches. There are aneurysmal segments in the LCx measuring up to 6mmin diameter between OM1 and OM2, and 7mm in diameter (between OM2 andOM3). RCA: CAD-RADS 3 Large dominant vessel, gives off the PDA and PL branches.There is a focal area of moderate stenosis with mixed plaque in theproximal RCA, and mild stenosis with calcified plaque in the mid anddistal segments. Non Coronary Cardiac Findings: Normal cardiac chamber size. There is fatty infiltrates into the RV freewall especially in the RVOT area. 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 No pericardial thickening or calcification. Prominent epicardial fat andlipomatous hypertrophy of the interatrial septum. Normal interatrial and interventricular septum, atrioventricular valves,ventriculo-arterial valves, pulmonary veins and imaged central veins. Central and branch pulmonary arteries in the field of view areunremarkable. Thoracic aorta and imaged thoracic aortic branches in the field of vieware unremarkable. The right ventricular systolic function appears reduced. Left ventricularsystolic function appears normal. Extra Cardiac Structures: Within the focused field of view, blebs in the RLL, and chronicgranulomatous disease IMPRESSION: 1. Severe coronary calcification with an Agatston score = 1484 using theAJ-130 method, which represents 99 percentile when matched for age, genderand ethnicity. Vascular age is 89 years. 2. Moderate stenosis in the proximal RCA. Otherwise, diffuse mild diseasein the LAD and LCx. There is aneurysmal segments in the LCx measuring6-7mm in diameter. 3. CAD-RADS 3: Management recommendations: Consider cardiologyconsultation, functional testing and/or invasive coronary angiography forevaluation and management. Recommendation for anti-ischemic andpreventative management should be considered as well as risk factormodification. 4. There is fatty infiltrates into the RV free wall especially the RVOTarea. Differential includes adipositas cordis (especially with prominentepicardial fat and lipomatous hypertrophy of the interatrial septum) vs.ARVC. The RV appears to have reduced systolic function. Consider CMR forfurther evaluation. 5. Extracardiac structures in the field of view are unremarkable. CRITICAL RESULT: No. COMMUNICATION: Per this written report. Drafted by Jono Connors MD on 01/05/2024 3:59 PM Final report signed by Jono Connors MD on 01/05/2024 4:33 PM [facility] IMG CT PROCEDURES Final Result documented in this encounter Visit Diagnoses Diagnosis Examination Unspecified examination documented in this encounter Care Teams Stereotype Molder Relationship Specialty Start Date End Date Andreina Shah, PRIVATE DETECTIVE PCP - General 10/02/20 documented as of this encounter
--- OUTSIDE RECORDS SUMMARY | 2024-04-15 14:30 | XMS_ITS | Encounter Summary ---
Author Organization Healthcare Address [address] [place] [address] Care Team Providers Care User Experience Analyst Name Role Phone Unavailable Primary Care Provider Unavailabl e Encounter Details Date Type Department Care Team (Late st Contact Info) Description 06/25/2010 3:44 AM EST Hospital Encounter [facility] In[facility] [address] [place] [address] ProviderVignesh MD [address] [place] [id number] Social History Tobacco Use Types Packs/Day Years Used Date Smoking Tobacco: Never Assessed Comments Unknown Sex and Gender Information Value Date Recorded Sex Assigned at Not on file Legal Sex Female 8:51 PM EDT Gender Identity Not on file Sexual Orientation Not on file documented as of this encounter Miscellaneous Notes * Discharge Summary - ProviderVignesh MD - 06/25/2010 3:44 AM EST [place], [place] DISCHARGE SUMMARY Patient Name: ORALIA MERIDA Hospital Number: [id number] Date of : 1965 Date of Admission: 06/25/2010 Date of Discharge: 07/01/2010 Clinical Service(s): MEDICINE Patient Location: [address] [place] [address] PRIMARY CARE PROVIDER: Dr. Hale FINAL DISCHARGE DIAGNOSES 1. Biliary obstruction. 2. Hypertension. 3. Depression and anxiety. PROCEDURES 1. June 25, 2010, EKG showed normal sinus rhythm, nonspecific ST and T-wave abnormalities. 2. June 25, 2010, chest x-ray showed nodule in the right perihilar lung and patchy opacity extends from the right hilum anteriorly and may represent atelectasis, pneumonia, or scar. CT scan is recommended for further evaluation. Dense nodule in the left mid-lung, likely represents a calcified granuloma. 3. June 28, 2010, MRI of the abdomen without contrast shows: a. Choledocholithiasis with mild extrahepatic biliary ductal dilatation and no appreciable intrahepatic biliary ductal dilatation. b. Hepatic steatosis. 4. June 30, 2010, ERCP shows: a. A 12-mm stone was seen in the distal bile duct. b. Successful mechanical lithotripsy was performed using a trapezoid basket. c. Multiple balloon sweeps of the common bile duct was performed and the stone fragments were successfully removed. Recommendations were n.p.o. for now, clear liquids tomorrow a.m. and advance diet as tolerated, watch for complications such as bleeding, infection, perforation, and pancreatic, recommend surgical consult with Dr. Chaudhari for cholecystectomy. 5. June 30, 2010, ERC shows stone in the distal common bile duct was removed and multiple gallbladder stones. PAST MEDICAL AND SURGICAL DIAGNOSES 1. Hypertension. 2. Depression and anxiety. ALLERGIES: NO KNOWN DRUG ALLERGIES. REASON FOR HOSPITALIZATION: This is a 44-year-old female with a past medical history of hypertension and depression who presented to the office of her family clinical care manager with complaints of abdominal pain for 2 weeks, right upper quadrant pain, jaundice, and vomiting. She had been nauseated and vomiting with food for the past 4 days. She states her abdomen has become distended and she has a lot of gas. The patient recently went to the emergency room at outside hospital on Monday and her bilirubin was found to be 10.6, AST was 361, ALT was 422, alkaline phosphatase was 487. A UA showed a UTI and patient was discharged with amoxicillin which she completed today. She was scheduled for outpatient ultrasound and Radiology sent her to the clinic and she was admitted directly to [facility] for possible ERCP for biliary obstruction and jaundice. HOSPITAL COURSE: Patient is a 44-year-old female with a past medical history of hypertension and depression who was admitted for possible ERCP for biliary obstruction and jaundice. Problem list as follows: 1. Biliary obstruction. Records from the outside hospital ultrasound showed cholelithiasis with mild dilated common bile duct and a CT of the abdomen showed slightly greater density of the common bile duct. Patient was initially kept n.p.o. Lipid profile was checked as well as chest x-ray and EKG. She was given morphine p.r.n. for pain and normal saline, IV fluids for hydration. The plan was to consult GI in the morning for ERCP recommendations and patient was initially kept n.p.o. Patient was started on IV antibiotics prophylactically as she was waiting for her scheduled ERCP. The patient was scheduled to have ERCP on June 25, 2010, however, once Anesthesia had cleared the patient she became tearful and refused to have the procedure secondary to her family not being present. She was explained the risks and benefits of withholding the procedure for the time being and she understood this and was agreeable. The patient was rescheduled for her ERCP on the following Monday and it was assured that family would be present during this followup procedure. Again, the day before the procedure on June 29, the patient wanted to leaved AMA stating she was tearful and wanted to see her children. She was convinced to stay, however, and then on June 30 she was able to complete the ERCP. A 1.2-cm stone was removed. The patient tolerated the procedure well, had no complaints following. Her antibiotics were discontinued and she was advanced. Diet as tolerated. Her labs showed continual improvement throughout her hospital stay and she was instructed to follow up with Surgery for scheduling a cholecystectomy. A followup appointment was scheduled for July 08, at 3:15 p.m. 2. Hypertension. The patient has a history of hypertension. She was unsure of her antihypertensive medications upon admit. She did have some episodes of hypertension during her stay and she was started on lisinopril and her blood pressure was continued to be monitored. Lisinopril was increased to 20 daily as she continued to have some episodes of hypertension at night. This was changed to enalapril/hydrochlorothiazide combo 5/12.5 once a day and patient tolerated this well and her blood pressure remained normotensive throughout the remainder of her hospitalization. 3. Depression and anxiety. Patient was not restarted on her home medication of Paxil as she said this did not really help her. Her mood remained euthymic during her hospitalization stay although she did have a couple of episodes of tearfulness regarding her family not being present. She was instructed to follow up with primary care physician regarding new antidepressant medication. 4. Tobacco abuse. Patient was given a nicotine patch and instructed to follow up with her PCP upon discharge. She tolerated this well and was counseled on smoking cessation. DISCHARGE INSTRUCTIONS MEDICATIONS: Patient was given a prescription for: 1. Enalapril/hydrochlorothiazide 5/12.5 p.o. daily. 2. Nicotine patch 21 mcg for 7 days, 14 mcg for 7 days, and 7 mcg for 7 days, and instructed to slowly trend this down. She was instructed to stop taking her lisinopril and her home Paxil and follow up with her PCP regarding further management. DISPOSITION: Patient was to return home with family assist. DIET: Patient was instructed to follow a low-fat, low-sodium diet as tolerated. ACTIVITY: As tolerated. FOLLOWUP: Patient has a followup appointment with Dr. Sherman on July 08, 2010, at 3:15 p.m. for cholecystectomy. Electronically Signed By: MERRITT BATES MD 07/27/2010 12:21 P MERRITT BATES MD Attending Physician, MEDICINE ENRRIQUE GOLDEN MD Dictating Provider, MEDICINE LMS/wmx Dictated Date/Time: 07/26/2010 17:24 Network Cabler Date/Time: 07/26/2010 19:02 Document Number: [id number] Job Number: [id number] REFERRING PHYSICIAN: PRIMARY CARE PHYSICIAN: NON- REFERRING PHYSICIAN: [facility] [address] [place] [address] [place] [id number] DICTATED CC: DICTATED CC: Document is Signed NOTE: supplied by interface documented in this encounter Plan of Treatment Not on file documented as of this encounter Procedures Procedure Name Priority Date/Time Associated Diagnosis Comments ECG ADULT 06/29/2010 ECG ADULT 06/25/2010 documented in this encounter Results * ECG ADULT (06/29/2010) Narrative 06/29/2010 Ordered by an unspecified provider. Historical Provider ECG ORDERABLES Final Res ult * ECG ADULT (06/25/2010) Narrative 06/25/2010 Ordered by an unspecified provider. us Historical Provider ECG ORDERABLES Final Res ult documented in this encounter Visit Diagnoses Not on filedocumented in this encounter
--- NOTE | 2024-04-15 15:14 | P.DS_ITS ---
General Admission date:: 04/15/24 Discharge date: 04/15/24 HPI HPI HPI: August Gasper is a 58-year-old female past medical history significant for COPD, CAD, tobacco abuse, CHF, type 2 diabetes, HTN, HLD who presents emergency room tonight with complaints of tachycardia. Ms. Jackman states that she has had episodes of tachycardia before. Reports that she woke up and felt like her heart was racing, heart rate was noted to be in the 180s. Reports some shortness of breath associated with the tachycardia. No chest pain noted. Does not use oxygen at home. is accompanying her at bedside. Patient recently saw the cardiology clinic with Dr. Hancock, is waiting for insurance to approve an [facility]. Does not know when the last time she had an echo or a stress test done. Did have an abnormal CCTA. Endorses tobacco use, smokes less than half a pack of cigarettes per day. Denies any alcohol or illicit drug use. Lab work in the ER showed a slightly elevated white count of 11.5, D-dimer elevated at 0.91. VBG showed a pH of 7.2, CO2 of 79, pO2 of 30 with a bicarb of 30. Lactic acid was 1.9. BUN and creatinine slightly elevated at 35 and 1.1. BNP elevated at 437. When patient arrived to the ER, heart rate noted to still be in the 180s. Was given 6 mg and then 12 mg of adenosine without improvement in the heart rate. Patient actually became nauseous and vomited 1 time and it converted out of SVT. She then became a bit hypotensive, received a IV fluid bolus. Blood pressure then improved. Patient declined having a CTA of the chest to rule out PE. She will be admitted to the hospitalist service for SVT for cardiac monitoring today. Hospital Course Hospital Course Hospital Course: This is a 58-year-old female being admitted for sustained SVT for cardiac monitoring with hypotension that has since resolved. Was evaluated by cardiology. Discussion had with patient and cardiology, recommended CT PE but patient not comfortable with this image. Did not want to proceed with a CT after much discussion and offering sedative to help with her anxiety and claustrophobia. Given her improvement clinically, decision made to discharge home with further management as an outpatient. Patient hemodynamically stable on baseline oxygen. Problems addressed as follows: SVT Hypotension-resolved HFpEF -SVT is new diagnosis this admission. Converted after an episode of emesis. Failed to convert with adenosine x 2. Echo was obtained, showed normal ejection fraction and no wall motion abnormalities. Previous echo in January 2023 showed grade 2 diastolic dysfunction. Monitored on telemetry. No further events. Initiated on metoprolol succinate 25 mg daily with good rate control. Discussed case with cardiology, will provide 2-week event monitor at discharge. Follow-up with cardiology in the next few weeks. Stable to discharge home. -Continue home Entresto and Aldactone COPD -Not in acute exacerbation. On baseline oxygen of 3 L. O2 sats maintained greater than 80%. Continue Dulera. Depression/anxiety: Continue BuSpar, Zoloft Type 2 diabetes -A1c normal less than 6. Continue home regimen at discharge. Chronic Angina with abnormal CCTA - pt has stable angina at home. CCTA, 12/2023, CAC of 1484 with moderate proximal RCA disease, mild diffuse LAD and circumflex disease. Cardiology offered to try and do her heart cath while admitted but patient declined and wants to wait until after the holidays. Normal serial troponins with no wall motion abnormalities on echo. Continue aspirin, statin, nitro as needed. Beta-simone added as above. Exam Data for Last 24 hours Vital signs and Labs for Last 24 Hours: Temp Pulse Resp BP Pulse Ox O2 Del Method O2 Flow Rate 97.9 F 60 16 102/74 L 95 Room Air 3 04/15/24 12:00 04/15/24 14:24 04/15/24 12:00 04/15/24 12:00 04/15/24 12:00 04/15/24 13:00 04/15/24 06:49 Laboratory Results - last 24 hr 04/15/24 02:11: WBC 11.5 H, RBC 4.48, Hgb 14.6, Hct 44.8, MCV 100.0 H, MCH 32.6 H, MCHC 32.6, RDW 14.3, Plt Count 242, MPV 8.8, Neut % (Auto) 35.2 L, Lymph % (Auto) 57.3 H, [place] % (Auto) 4.8, Eos % (Auto) 1.2, Baso % (Auto) 1.5, Neut # (Auto) 4.0, Lymph # (Auto) 6.6 H, [place] # (Auto) 0.6, Eos # (Auto) 0.1, Baso # (Auto) 0.2, Total Counted 100, Neutrophils % (Manual) 33 L, Lymphocytes % (Manual) 55 H, Monocytes % (Manual) 5, Eosinophils % (Manual) 3, Basophils % (Manual) 4.0 H, Platelet Estimate Normal, Macrocytosis 1+, D-Dimer 0.91 H, Sodium 138, Potassium 5.1, Chloride 101, Carbon Dioxide 32 H, Anion Gap 10.1, BUN 35 H, Creatinine 1.10 H, Estimated GFR 51 L, Est GFR ( Amer) 62, Glucose 247 H, Calcium 10.7 H, Magnesium 1.8, Total Bilirubin 0.7, AST 30, ALT 23, Alkaline Phosphatase 118, Troponin I 0.03, NT-Pro-B Natriuret Pep 437 H, Total Protein 8.2, Albumin 4.2, Globulin 4.0 H, Albumin/Globulin Ratio 1.1 04/15/24 02:48: VBG pH 7.19 L, VBG pCO2 77.5 H, VBG pO2 48.1 H, VBG HCO3 28.7, VBG Total CO2 31.1 H, VBG O2 Saturation 76.9 H, VBG Base Excess 0.4, VBG Lactic Acid 4.1 H 04/15/24 03:11: VBG pH 7.20 L, VBG pCO2 79.3 H, VBG pO2 30.9, VBG HCO3 30.6 H, VBG Total CO2 33.0 H, VBG O2 Saturation 48.4 L, VBG Base Excess 2.6 H, VBG Lactic Acid 1.9 04/15/24 05:17: WBC 6.1 D, RBC 3.79 L, Hgb 12.6 D, Hct 37.8, MCV 99.7 H, MCH 33.2 H, MCHC 33.3, RDW 14.0, Plt Count 196, MPV 8.5, Neut % (Auto) 62.4, Lymph % (Auto) 31.6, [place] % (Auto) 4.7, Eos % (Auto) 0.9, Baso % (Auto) 0.5, Neut # (Auto) 3.8, Lymph # (Auto) 1.9, [place] # (Auto) 0.3, Eos # (Auto) 0.1, Baso # (Auto) 0.0, Sodium 138, Potassium 4.5, Chloride 105, Carbon Dioxide 31 H, Anion Gap 6.5, BUN 34 H, Creatinine 1.00, Estimated Creat Clear 105, Estimated GFR 57 L, Est GFR ( Amer) 69, Glucose 109 H D, Hemoglobin A1c 5.7, Calcium 9.6, Troponin I 0.02 04/15/24 05:59: POC Glucose 126 H 04/15/24 08:02: Lactate 1.0 04/15/24 10:42: POC Glucose 131 H I & O for Last 24 hours: Intake & Output 04/12/24 04/13/24 04/14/24 04/15/24 23:59 23:59 23:59 23:59 Intake Total 360 / 360 Output Total 100 / 100 Balance 260 / 260 Weight 107.048 kg Constitutional Constitutional: no acute distress, obese, chronically ill appearing and cooperative *Routine HEENT Exam Head: Present normocephalic Eye: Present EOMI and PERRL ENT: Present mucous membranes moist *Routine Neck Exam Neck: Present supple; Absent lymphadenopathy *Routine Respiratory Exam Respiratory: Present decreased breath sounds, wheezes and diminished air movement; Absent rhonchi or crackles *Routine Cardiovascular Exam Cardiovascular: Present RRR *Routine Abdominal Exam Abdominal: Present soft and normoactive bowel sounds; Absent tenderness *Routine Rectal Exam Patient deferred: visual exam *Routine Exam Patient deferred: external exam *Routine Extremities Exam Extremities: Absent cyanosis, clubbing or edema *Routine Skin Exam Skin: Present warm; Absent rash *Routine Neurological Exam Neurological: Present alert, oriented X3 and moving all extremities; Absent altered mental status Results Data Completed and Pending Labs on day of discharge: Labs from last 24 hours 04/15/24 04/15/24 04/15/24 10:42 08:02 05:59 WBC RBC Hgb Hct MCV MCH MCHC RDW Plt Count MPV Neut % (Auto) Lymph % (Auto) [place] % (Auto) Eos % (Auto) Baso % (Auto) Neut # (Auto) Lymph # (Auto) [place] # (Auto) Eos # (Auto) Baso # (Auto) Total Counted Neutrophils % (Manual) Lymphocytes % (Manual) Monocytes % (Manual) Eosinophils % (Manual) Basophils % (Manual) Platelet Estimate Macrocytosis D-Dimer VBG pH VBG pCO2 VBG pO2 VBG HCO3 VBG Total CO2 VBG O2 Saturation VBG Base Excess VBG Lactic Acid Sodium Potassium Chloride Carbon Dioxide Anion Gap BUN Creatinine Estimated Creat Clear Estimated GFR Est GFR ( Amer) Glucose POC Glucose 131 H 126 H Hemoglobin A1c Lactate 1.0 Calcium Magnesium Total Bilirubin AST ALT Alkaline Phosphatase Troponin I NT-Pro-B Natriuret Pep Total Protein Albumin Globulin Albumin/Globulin Ratio 04/15/24 04/15/24 04/15/24 05:17 03:11 02:48 WBC 6.1 D RBC 3.79 L Hgb 12.6 D Hct 37.8 MCV 99.7 H MCH 33.2 H MCHC 33.3 RDW 14.0 Plt Count 196 MPV 8.5 Neut % (Auto) 62.4 Lymph % (Auto) 31.6 [place] % (Auto) 4.7 Eos % (Auto) 0.9 Baso % (Auto) 0.5 Neut # (Auto) 3.8 Lymph # (Auto) 1.9 [place] # (Auto) 0.3 Eos # (Auto) 0.1 Baso # (Auto) 0.0 Total Counted Neutrophils % (Manual) Lymphocytes % (Manual) Monocytes % (Manual) Eosinophils % (Manual) Basophils % (Manual) Platelet Estimate Macrocytosis D-Dimer VBG pH 7.20 L 7.19 L VBG pCO2 79.3 H 77.5 H VBG pO2 30.9 48.1 H VBG HCO3 30.6 H 28.7 VBG Total CO2 33.0 H 31.1 H VBG O2 Saturation 48.4 L 76.9 H VBG Base Excess 2.6 H 0.4 VBG Lactic Acid 1.9 4.1 H Sodium 138 Potassium 4.5 Chloride 105 Carbon Dioxide 31 H Anion Gap 6.5 BUN 34 H Creatinine 1.00 Estimated Creat Clear 105 Estimated GFR 57 L Est GFR ( Amer) 69 Glucose 109 H D POC Glucose Hemoglobin A1c 5.7 Lactate Calcium 9.6 Magnesium Total Bilirubin AST ALT Alkaline Phosphatase Troponin I 0.02 NT-Pro-B Natriuret Pep Total Protein Albumin Globulin Albumin/Globulin Ratio 04/15/24 02:11 WBC 11.5 H RBC 4.48 Hgb 14.6 Hct 44.8 MCV 100.0 H MCH 32.6 H MCHC 32.6 RDW 14.3 Plt Count 242 MPV 8.8 Neut % (Auto) 35.2 L Lymph % (Auto) 57.3 H [place] % (Auto) 4.8 Eos % (Auto) 1.2 Baso % (Auto) 1.5 Neut # (Auto) 4.0 Lymph # (Auto) 6.6 H [place] # (Auto) 0.6 Eos # (Auto) 0.1 Baso # (Auto) 0.2 Total Counted 100 Neutrophils % (Manual) 33 L Lymphocytes % (Manual) 55 H Monocytes % (Manual) 5 Eosinophils % (Manual) 3 Basophils % (Manual) 4.0 H Platelet Estimate Normal Macrocytosis 1+ D-Dimer 0.91 H VBG pH VBG pCO2 VBG pO2 VBG HCO3 VBG Total CO2 VBG O2 Saturation VBG Base Excess VBG Lactic Acid Sodium 138 Potassium 5.1 Chloride 101 Carbon Dioxide 32 H Anion Gap 10.1 BUN 35 H Creatinine 1.10 H Estimated Creat Clear Estimated GFR 51 L Est GFR ( Amer) 62 Glucose 247 H POC Glucose Hemoglobin A1c Lactate Calcium 10.7 H Magnesium 1.8 Total Bilirubin 0.7 AST 30 ALT 23 Alkaline Phosphatase 118 Troponin I 0.03 NT-Pro-B Natriuret Pep 437 H Total Protein 8.2 Albumin 4.2 Globulin 4.0 H Albumin/Globulin Ratio 1.1 DS: Diagnosis Discharge Diagnosis (1) Sustained SVT: Status: Resolved Code(s): I47.10 - Supraventricular tachycardia, unspecified (2) Coronary artery calcification: Status: Acute Code(s): I25.10 - Atherosclerotic heart disease of [place] coronary artery without angina pectoris (3) Anxiety: Status: Acute Code(s): F41.9 - Anxiety disorder, unspecified (4) Respiratory failure: Status: Acute Code(s): J96.90 - Respiratory failure, unspecified, unspecified whether with hypoxia or hypercapnia Qualifiers: Chronicity: acute on chronic Respiratory failure complication: hypoxia and hypercapnia Qualified Code(s): J96.21 - Acute and chronic respiratory failure with hypoxia; J96.22 - Acute and chronic respiratory failure with hypercapnia (5) Tobacco abuse disorder: Status: Chronic Code(s): Z72.0 - Tobacco use Meds Home Medications and Allergies Home Medications ?Medication ?Instructions ?Recorded ?Confirmed ?Type fluticasone propionate 50 1 spray intranasal BID 11/02/22 04/15/24 History mcg/actuation nasal spray,suspension loratadine 10 mg tablet (Claritin) 10 mg PO DAILY 11/02/22 04/15/24 History umeclidinium 62.5 mcg-vilanterol 1 inh inhalation DAILY 11/02/22 04/15/24 History 25 mcg/actuation powdr for inhalation (Anoro Ellipta) albuterol sulfate 90 mcg/actuation 2 inh inhalation Q6HP PRN 11/03/22 04/15/24 History aerosol inhaler (Ventolin HFA) Shortness Of Breath Or Wheezing buspirone 10 mg tablet 10 mg PO TID 11/03/22 04/15/24 History simvastatin 40 mg tablet 40 mg PO HS 11/03/22 04/15/24 History montelukast 10 mg tablet 10 mg PO PM 30 days #30 tabs 01/26/23 04/15/24 Rx cholecalciferol (vitamin D3) 125 125 mcg PO DAILY 12/26/23 04/15/24 History mcg (5,000 unit) capsule cyanocobalamin (vitamin B-12) 5,000 mcg PO DAILY 12/26/23 04/15/24 History 5,000 mcg capsule sacubitril 24 mg-valsartan 26 mg 1 tab PO BID 12/26/23 04/15/24 History tablet (Entresto) spironolactone 25 mg tablet 25 mg PO DAILY #30 tabs 12/26/23 04/15/24 Rx furosemide 40 mg tablet 40 mg PO DAILY #30 tabs 04/10/24 04/15/24 Rx bupropion HCl 150 mg 24 hr tablet, 300 mg PO DAILY 04/15/24 04/15/24 History extended release ipratropium 0.5 mg-albuterol 3 mg 3 ml inhalation Q6H 04/15/24 04/15/24 History (2.5 mg base)/3 mL nebulization soln metoprolol succinate 25 mg 25 mg PO DAILY 30 days #30 tabs 04/15/24 Rx tablet,extended release 24 hr sertraline 100 mg tablet 100 mg PO DAILY 04/15/24 04/15/24 History New Prescriptions to Start Prescriptions: metoprolol succinate Jon Tomas Allergies Allergy/AdvReac Type Severity Reaction Status Date / Time No Known Allergies Allergy Verified 04/10/24 16:48 Discharge Plan Disposition Patient Disposition: Home, Self-Care Condition: Good Discharge Order Discharge Orders: Discharge Order (Routine); Ordered 04/15/24 Ordered By: Jon Tomas Follow up Plan Follow up with: Azucena Clarke APRN [Primary Care Provider] - 04/23/24 2:00 pm Jose Pulliam MD [Staff Physician] - 04/30/24 3:00 pm Prescriptions/Medication Reconciliation: New metoprolol succinate 25 mg Tablet Extended Release 24 Hr 25 mg PO DAILY 30 Days Qty: 30 0RF Continued cholecalciferol (vitamin D3) 125 mcg (5,000 unit) capsule 125 mcg PO DAILY Entresto 24-26 mg tablet 1 tab PO BID cyanocobalamin (vitamin B-12) 5,000 mcg capsule 5,000 mcg PO DAILY spironolactone 25 mg tablet 25 mg PO DAILY Qty: 30 3RF furosemide 40 mg tablet 40 mg PO DAILY Qty: 30 5RF fluticasone propionate 50 mcg/actuation spray,suspension 1 spray intranasal BID Rx Instructions: administer into each nostril Anoro Ellipta 62.5-25 mcg/actuation blister with device 1 inh INHALATION DAILY loratadine [Claritin] 10 mg Tablet 10 mg PO DAILY albuterol sulfate [Ventolin HFA] 90 mcg/actuation HFA aerosol inhaler 2 inh INHALATION Q6HP PRN (Reason: Shortness Of Breath Or Wheezing) simvastatin 40 mg tablet 40 mg PO HS buspirone 10 mg tablet 10 mg PO TID montelukast 10 mg Tablet 10 mg PO PM 30 Days Qty: 30 0RF bupropion HCl 150 mg tablet extended release 24 hr 300 mg PO DAILY sertraline 100 mg tablet 100 mg PO DAILY ipratropium-albuterol 0.5 mg-3 mg(2.5 mg base)/3 mL solution for nebulization 3 ml inhalation Q6H Problem Reconciliation Problems Reviewed?: Yes Patient Discharge Instructions ACTIVITY: Continue current activity DIET: continue same diet Patient Instructions: Paroxysmal Supraventricular Tachycardia Print Language: Kyr[place]z Providers Primary Care Provider: Azucena Clarke Admit Provider: Jon Tomas Attending Provider: Jon Tomas
--- NOTE | 2024-04-17 10:36 | SW/DCPLANNER ---
spoke with patient on the phone. Patient stated that she is doing good and that she was able to get her medicine filled and she has no concerns or questions at this time. Cornelia Richardson
== END 2024-04-15 17:13 | disposition home or self-care (01) | DRG 308 ==
LOC: ER 04:13 → 2ND 04:43
PROVIDERS: Nurse Practitioner Acute Care; Admitting Provider Internal Medicine Adolescent Medicine; Emergency Provider Emergency Medicine; PCP Nurse Practitioner Family; Visit Provider Internal Medicine Adolescent Medicine
DX: I47.10 Supraventricular tachycardia, unspecified (principal); J96.21 Acute and chronic respiratory failure with hypoxia; J96.22 Acute and chronic respiratory failure with hypercapnia; I50.30 Unspecified diastolic (congestive) heart failure; I11.0 Hypertensive heart disease with heart failure; I95.9 Hypotension, unspecified; S92.302D Fracture of unspecified metatarsal bone(s), left foot, subsequent encounter for fracture with routine healing; E11.8 Type 2 diabetes mellitus with unspecified complications; Z79.4 Long term (current) use of insulin; F32.A Depression, unspecified; F17.210 Nicotine dependence, cigarettes, uncomplicated; E78.5 Hyperlipidemia, unspecified; I25.118 Atherosclerotic heart disease of native coronary artery with other forms of angina pectoris; F41.9 Anxiety disorder, unspecified; Z99.81 Dependence on supplemental oxygen; Z79.899 Other long term (current) drug therapy
CPT/HCPCS: 36415; 71045; 80048; 80053; 82803; 82962; 83036; 83605; 83735; 83880; 84484; 85007; 85025; 85378; 93005; 93306; 99291; J0153; J1650; J2405; J7120

== ENCOUNTER 2024-06-26 13:47 | Outpatient (RCR) | payer OTHER, SELFPAY | END 2024-06-26 23:59 | disposition home or self-care (01) | LOC: PT 13:47 | PROVIDERS: Visit Provider Nurse Practitioner Family | DX: Z00.8 Encounter for other general examination (principal) | CPT/HCPCS: 97163 ==

== ENCOUNTER 2024-10-06 21:22 | Emergency (ER) | payer OTHER, SELFPAY ==
--- NOTE | 2024-10-06 21:13 | ECG_ITS ---
APPROVED REPORT Exam: Resting ECG HR:131 bpm ECG Measurements Heart Rate 131 AXES CA 96 P 58 QRSd 81 QRS 49 QT 296 T 60 QTc 373 Conclusion Sinus tachycardia with PACs Electronically signed by : PAXTON AKHTAR, 10/10/2024 18:33:17
[2024-10-06 21:25] VITALS: BP 113/73; PULSE 130; RESP 24; TEMP 37.2; O2SAT 96; BMI 37.2
--- NOTE | 2024-10-06 21:26 | XR_ITS ---
PROCEDURE INFORMATION: Exam: XR Chest Exam date and time: 10/06/2024 9:34 PM Age: 59 years old Clinical indication: Pain; Other: Rib; Additional info: Rib pain TECHNIQUE: Imaging protocol: Radiologic exam of the chest. Views: 1 view. COMPARISON: CR XR CHEST PORTABLE 04/15/2024 2:28 AM FINDINGS: Lungs: Right middle lobe atelectasis. No consolidation. Pleural spaces: Unremarkable. No pleural effusion. No pneumothorax. Heart/Mediastinum: Unremarkable. No cardiomegaly. Bones/joints: Unremarkable. IMPRESSION: Right middle lobe atelectasis.
[2024-10-06 21:29] LABS: VBG Base Excess 10.4 mmol/L (-2.4-2.3); VBG HCO3 35.8 mmol/L (23-30); VBG Oxygen Saturation 65.6 % (50-70); VBG PH 7.36 mmol/L (7.31-7.41); VBG PO2 36.5 mmol/L (28-40); VBG Total CO2 37.8 mmol/L (23-27)
[2024-10-06 21:30] LABS: Lactate Venous 2.6 mmol/L (0.4-2.0); VBG PCO2 64.9 mmol/L (35-51)
--- NOTE | 2024-10-06 21:30 | ED_ITS ---
Discharge Plan Disposition Patient Disposition: Home, Self-Care Prescriptions Prescriptions: New doxycycline hyclate 100 mg capsule 100 mg PO BID 5 Days Qty: 10 0RF prednisone 20 mg tablet 40 mg PO DAILY 5 Days Qty: 10 0RF No Action cholecalciferol (vitamin D3) 125 mcg (5,000 unit) capsule 125 mcg PO DAILY Entresto 24-26 mg tablet 1 tab PO BID cyanocobalamin (vitamin B-12) 5,000 mcg capsule 5,000 mcg PO DAILY metoprolol succinate 50 mg tablet extended release 24 hr 50 mg PO DAILY Qty: 90 3RF spironolactone 25 mg tablet 25 mg PO DAILY Qty: 90 3RF furosemide 40 mg tablet 40 mg PO DAILY Qty: 30 5RF fluticasone propionate 50 mcg/actuation spray,suspension 1 spray intranasal BID Rx Instructions: administer into each nostril Anoro Ellipta 62.5-25 mcg/actuation blister with device 1 inh INHALATION DAILY loratadine [Claritin] 10 mg Tablet 10 mg PO DAILY albuterol sulfate [Ventolin HFA] 90 mcg/actuation HFA aerosol inhaler 2 inh INHALATION Q6HP PRN (Reason: Shortness Of Breath Or Wheezing) simvastatin 40 mg tablet 40 mg PO HS buspirone 10 mg tablet 10 mg PO TID montelukast 10 mg Tablet 10 mg PO PM 30 Days Qty: 30 0RF bupropion HCl 150 mg tablet extended release 24 hr 300 mg PO DAILY sertraline 100 mg tablet 100 mg PO DAILY ipratropium-albuterol 0.5 mg-3 mg(2.5 mg base)/3 mL solution for nebulization 3 ml inhalation Q6H Referrals Follow up/Referrals: Azucena Clarke APRN [Primary Care Provider] - See instructions Activity Restrictions/Add. Instructions Additional Instructions/Restrictions: Call your family doctor to establish care for this visit to the emergency department and schedule follow-up within 48 hours to ensure improvement. If you have any worsening of your condition or any other concerning signs or symptoms, return to the emergency department or your primary care doctor for further evaluation. Clinical Impressions Clinical Impression: COPD exacerbation Print Language Print Language: Grenadian Discharge ED Provider: [facility] HPI <Lesvia Arceo (ED), IRENE - Last Filed: 10/06/24 21:50> General Chief complaint: Shortness of Breath/Dyspnea Stated complaint: SOA Time Seen by Provider: 10/06/24 21:25 Mode of Arrival: EMS Source of Information: Patient and EMS Description of Symptoms (Recalled from ER Triage Doc. by RN): Pt to ED with c/o SOA and vomiting since yesterday. Pt reports hx of asthma and COPD. History of Present Illness HPI narrative: 59-year-old female presents to the ED today for complaint of shortness of air when EMS arrived to her home. They gave her a DuoNeb and Solu-Medrol and route. She tells me that she uses oxygen 24/7 3 L nasal cannula all the time. She says she started vomiting yesterday with chills. No abdominal pain or diarrhea. She says she had fevers but did not check the number. No chest pain or shortness of breath at this time. She says that the nebs and the Solu-Medrol helped on the way here. Patient does have history of COPD, asthma, heart blockages per her. Patient states she is on metoprolol and albuterol. Related Data Home Medications ?Medication ?Instructions ?Recorded ?Confirmed fluticasone propionate 50 1 spray intranasal BID 11/02/22 04/30/24 mcg/actuation nasal spray,suspension loratadine 10 mg tablet (Claritin) 10 mg PO DAILY 11/02/22 04/30/24 umeclidinium 62.5 mcg-vilanterol 1 inh inhalation DAILY 11/02/22 04/30/24 25 mcg/actuation powdr for inhalation (Anoro Ellipta) albuterol sulfate 90 mcg/actuation 2 inh inhalation Q6HP PRN 11/03/22 04/30/24 aerosol inhaler (Ventolin HFA) Shortness Of Breath Or Wheezing buspirone 10 mg tablet 10 mg PO TID 11/03/22 04/30/24 simvastatin 40 mg tablet 40 mg PO HS 11/03/22 04/30/24 cholecalciferol (vitamin D3) 125 125 mcg PO DAILY 12/26/23 04/30/24 mcg (5,000 unit) capsule cyanocobalamin (vitamin B-12) 5,000 mcg PO DAILY 12/26/23 04/30/24 5,000 mcg capsule sacubitril 24 mg-valsartan 26 mg 1 tab PO BID 12/26/23 04/30/24 tablet (Entresto) bupropion HCl 150 mg 24 hr tablet, 300 mg PO DAILY 04/15/24 04/30/24 extended release ipratropium 0.5 mg-albuterol 3 mg 3 ml inhalation Q6H 04/15/24 04/30/24 (2.5 mg base)/3 mL nebulization soln sertraline 100 mg tablet 100 mg PO DAILY 04/15/24 04/30/24 Previous Rx's ?Medication ?Instructions ?Recorded montelukast 10 mg tablet 10 mg PO PM 30 days #30 tabs 01/26/23 metoprolol succinate 50 mg 50 mg PO DAILY #90 tabs 04/30/24 tablet,extended release 24 hr spironolactone 25 mg tablet 25 mg PO DAILY #90 tabs 06/11/24 furosemide 40 mg tablet 40 mg PO DAILY #30 tabs 10/02/24 doxycycline hyclate 100 mg capsule 100 mg PO BID 5 days #10 caps 10/06/24 prednisone 20 mg tablet 40 mg (2 x 20 mg) PO DAILY 5 days 10/06/24 #10 tabs Allergies Allergy/AdvReac Type Severity Reaction Status Date / Time No Known Allergies Allergy Verified 04/30/24 15:18 PFS <Lesvia Arceo (ED), [employer] - Last Filed: 10/06/24 21:50> [facility] Disclaimer: The information contained in this section may have been updated after the patient was seen, as this information can be updated by other users. Medical History Metatarsal fracture Cataract Ectopic Anxiety and depression Pneumonia Tachycardia Acute and chronic respiratory failure with hypoxia Abnormal computerized axial tomography of chest Multiple pulmonary nodules Smoking greater than 30 pack years Non-seasonal allergic rhinitis Nocturnal hypoxemia Tobacco abuse disorder Seasonal allergies Dyspnea on exertion Chronic hypoxemic respiratory failure Dyspnea HLD (hyperlipidemia) HTN (hypertension) Lung nodule COPD (chronic obstructive pulmonary disease) Surgical History History of cholecystectomy No significant past surgical history Family History Other Cancer Coronary artery disease Social History Smoking Status: Current every day smoker tobacco type: cigarettes packs per day: 1 smoking status stop date: Jun 2023 second hand exposure: No alcohol intake: never substance use type: denies use current occupational status: disabled Travel in the last 8 weeks?: None household members: spouse housing: house current occupational exposures/hazards: No caffeine: Yes Have you lived/traveled outside [place] in past 30 days?: No Contact w/someone who lives/traveled outside [place] past 30 days?: No Exposure to someone with infectious disease in past 14 days?: No Do you have a fever (greater than 100.4 F or 38 C)?: No Have you tested positive for COVID-19?: No Exposed to someone with COVID-19 in past 14 days?: No Do you have a sore throat?: No Do you have a cough?: No Do you have any weakness?: No Do you have any diarrhea?: No Are you experiencing any unusual bleeding?: No Do you have any muscle aches/pain?: No Do you have any abdominal pain?: No Are you experiencing loss of taste or smell?: No Other Medical History Have you received the Flu Vaccine for this season: No Have you received the Pneumonia Vaccine: No <Lesvia Arceo (ED), [employer] - Last Filed: 10/06/24 21:50> ROS Obtained: Yes Systems reviewed as appropriate & no additional complaints except as documented Constitutional Constitutional: Reports as per HPI Physical Exam <Lesvia Arceo (ED), [employer] - Last Filed: 10/06/24 21:50> General General appearance: alert and in no apparent distress Head Head exam: atraumatic and normocephalic Eye Eye exam: Present normal appearance, PERRL and EOMI ENT ENT exam: Present normal oropharynx and mucous membranes moist Neck Neck exam: Present full ROM and trachea midline Respiratory Respiratory exam: Present wheezes Cardiovascular Cardiovascular exam: Present normal rhythm, tachycardia, normal heart sounds, +S1 and +S2 Abdominal Exam Abdominal exam: Present soft and normal bowel sounds Extremities Exam Extremities exam: Present normal inspection, full ROM and normal capillary refill Neurological Exam Neurological exam: Present alert and oriented X3 Skin Skin exam: Present warm, dry and intact Medical Decision Making <Lesvia Arceo (ED), [employer] - Last Filed: 10/06/24 21:50> Medical Records Screening: Per USPSTF and CDC recommendations, given the prevalence of disease in our region, it is our hospital?s policy to screen for HIV and viral Hepatitis for all patients aged 18 and over and those with ongoing risk factors. Matt Inquiry Pt receiving controlled substance: No Vital Signs: 10/06/24 21:25 Temperature 98.9 F Temperature Source Oral Pulse Rate [Apical] 130 H Respiratory Rate 24 Blood Pressure [Right Arm] 113/73 Blood Pressure Mean [Right Arm] 86 Blood Pressure Source [Right Arm] Automatic Cuff Blood Pressure Position [Right Arm] Sitting 02 Sat by Pulse Oximetry 96 Oxygen Delivery Method Nasal Cannula Oxygen Flow Rate (LPM) 3 Lab Data Lab Results 10/06/24 21:20: WBC 11.1 H, RBC 4.22, Hgb 13.8, Hct 41.7, MCV 98.8, MCH 32.7 H, MCHC 33.1, RDW 12.9, Plt Count 160, MPV 11.3 H, Neut % (Auto) 72.1, Lymph % (Auto) 23.0, Foster % (Auto) 4.2, Eos % (Auto) 0.1, Baso % (Auto) 0.2, Neut # (Auto) 8.0 H, Lymph # (Auto) 2.6, Foster # (Auto) 0.5, Eos # (Auto) 0.0, Baso # (Auto) 0.0, PT 11.0, INR 0.99, Sodium 132 L, Potassium 4.0, Chloride 91 L, C arbon Dioxide 37 H, Anion Gap 8.0, BUN 24 H, Creatinine 1.00, Estimated Creat Clear 108, Estimated GFR 57 L, Est GFR ( Amer) 69, Glucose 169 H, Calcium 8.9, Magnesium 1.6, Total Bilirubin 1.2, AST 34, ALT 20, Alkaline Phosphatase 93, Troponin I < 0.01, Total Protein 8.1, Albumin 4.2, Globulin 3.9 H, Albumin/Globulin Ratio 1.1, Lipase 22 L 10/06/24 21:28: VBG pH 7.36, VBG pCO2 64.9 H, VBG pO2 36.5, VBG HCO3 35.8 H, VBG Total CO2 37.8 H, VBG O2 Saturation 65.6, VBG Base Excess 10.4 H, VBG Lactic Acid 2.6 H 10/06/24 21:20 10/06/24 21:20 Orders (Tests/Meds): ED MEDICATIONS Generic Name Dose Route Start Last Admin Trade Name Freq PRN Reason Stop Dose Admin Ceftriaxone Sodium 2 gm/ 100 mls @ 200 mls/hr 10/06/24 21:30 10/06/24 21:48 Sodium Chloride IV 10/16/24 21:29 200 mls/hr Q24H TAMY Administration Discontinued Medications Generic Name Dose Route Start Last Admin Trade Name Freq PRN Reason Stop Dose Admin Sodium Chloride 1,000 mls @ 999 mls/hr 10/06/24 21:36 10/06/24 21:48 Sod Chlor 0.9% 1000ml Bag IV 10/06/24 22:36 999 mls/hr .Q1H1M ONE Administration ORDERS Category Date Time Status XR chest portable Stat Exams 10/06/24 21:26 Completed CBC [Complete Blood Count Auto Diff] Stat Lab 10/06/24 21:20 Completed Comprehensive Metabolic Panel Stat Lab 10/06/24 21:20 Completed Lactate Venous Stat Lab 10/06/24 21:22 Ordered Lipase Stat Lab 10/06/24 21:20 Completed Magnesium Stat Lab 10/06/24 21:20 Completed Mini Respiratory Panel Stat Lab 10/06/24 21:20 Received PT INR [Prothrombin Time INR] Stat Lab 10/06/24 21:20 Completed Trop I [Troponin I] Stat Lab 10/06/24 21:20 Completed Troponin I Q3H Lab 10/07/24 00:30 Ordered Troponin I Q3H Lab 10/07/24 03:30 Ordered Blood Culture Stat Micro 10/06/24 21:30 Received Venous Blood Gas Routine RT 10/06/24 21:28 Completed <New Robert MD - Last Filed: 10/06/24 22:58> Vital Signs: 10/06/24 21:25 Temperature 98.9 F Temperature Source Oral Pulse Rate [Apical] 130 H Respiratory Rate 24 Blood Pressure [Right Arm] 113/73 Blood Pressure Mean [Right Arm] 86 Blood Pressure Source [Right Arm] Automatic Cuff Blood Pressure Position [Right Arm] Sitting 02 Sat by Pulse Oximetry 96 Oxygen Delivery Method Nasal Cannula Oxygen Flow Rate (LPM) 3 Lab Data Lab Results 10/06/24 21:20: WBC 11.1 H, RBC 4.22, Hgb 13.8, Hct 41.7, MCV 98.8, MCH 32.7 H, MCHC 33.1, RDW 12.9, Plt Count 160, MPV 11.3 H, Neut % (Auto) 72.1, Lymph % (Auto) 23.0, Foster % (Auto) 4.2, Eos % (Auto) 0.1, Baso % (Auto) 0.2, Neut # (Auto) 8.0 H, Lymph # (Auto) 2.6, Foster # (Auto) 0.5, Eos # (Auto) 0.0, Baso # (Auto) 0.0, PT 11.0, INR 0.99, Sodium 132 L, Potassium 4.0, Chloride 91 L, C arbon Dioxide 37 H, Anion Gap 8.0, BUN 24 H, Creatinine 1.00, Estimated Creat Clear 108, Estimated GFR 57 L, Est GFR ( Amer) 69, Glucose 169 H, Calcium 8.9, Magnesium 1.6, Total Bilirubin 1.2, AST 34, ALT 20, Alkaline Phosphatase 93, Troponin I < 0.01, Total Protein 8.1, Albumin 4.2, Globulin 3.9 H, Albumin/Globulin Ratio 1.1, Lipase 22 L 10/06/24 21:28: VBG pH 7.36, VBG pCO2 64.9 H, VBG pO2 36.5, VBG HCO3 35.8 H, VBG Total CO2 37.8 H, VBG O2 Saturation 65.6, VBG Base Excess 10.4 H, VBG Lactic Acid 2.6 H Orders (Tests/Meds): ED MEDICATIONS Generic Name Dose Route Start Last Admin Trade Name Freq PRN Reason Stop Dose Admin Ceftriaxone Sodium 2 gm/ 100 mls @ 200 mls/hr 10/06/24 21:30 10/06/24 21:48 Sodium Chloride IV 10/16/24 21:29 200 mls/hr Q24H TAMY Administration Discontinued Medications Generic Name Dose Route Start Last Admin Trade Name Freq PRN Reason Stop Dose Admin Sodium Chloride 1,000 mls @ 999 mls/hr 10/06/24 21:36 10/06/24 21:48 Sod Chlor 0.9% 1000ml Bag IV 10/06/24 22:36 999 mls/hr .Q1H1M ONE Administration ORDERS Category Date Time Status XR chest portable Stat Exams 10/06/24 21:26 Completed CBC [Complete Blood Count Auto Diff] Stat Lab 10/06/24 21:20 Completed Comprehensive Metabolic Panel Stat Lab 10/06/24 21:20 Completed Lactate Venous Stat Lab 10/06/24 21:22 Ordered Lipase Stat Lab 10/06/24 21:20 Completed Magnesium Stat Lab 10/06/24 21:20 Completed Mini Respiratory Panel Stat Lab 10/06/24 21:20 Received PT INR [Prothrombin Time INR] Stat Lab 10/06/24 21:20 Completed Trop I [Troponin I] Stat Lab 10/06/24 21:20 Completed Troponin I Q3H Lab 10/07/24 00:30 Ordered Troponin I Q3H Lab 10/07/24 03:30 Ordered Blood Culture Stat Micro 10/06/24 21:30 Received Venous Blood Gas Routine RT 10/06/24 21:28 Completed Medical Decision Narrative: 59-year-old female presenting with shortness of breath is been getting worse over the past few days. History of hypertension, hyperlipidemia, CAD, COPD. States that she has been coughing, feeling more short of breath and short of breath as exertional, but no chest pains. No fevers or chills or systemic signs or symptoms. Came in for further evaluation with EMS. On arrival, chronically ill, but not acutely ill. Moderately tachycardic and tachypneic. Bilateral wheezes. Tachypneic. Speaking in full sentences. On her home nasal cannula oxygen. History obtained with patient and EMS. Differential includes COPD exacerbation, bronchitis, pneumonia, CAD, ACS, MD, CHF, among others. Patient was given fluids, Solu-Medrol, DuoNebs, 2 g ceftriaxone. Placed on continuous cardiac rehab nurse and pulse oximetry with initial blood pressure 113/73, pulse rate 130, oxygen saturation 96% on 3 L nasal cannula. Workup independently interpreted mild leukocytosis of 11, but nonactionable overall. VBG with chronic respiratory acidosis. Chemistry with mild hyponatremia with normal kidney function. Troponin negative. Chest x-ray independently interpreted, patient has what appears to be atelectasis with developing pneumonia on the right side. Repeat evaluation, patient states that she is feeling much better, is agreeable to go home, but states she is going to have trouble finding a ride. Family in the room states that they will take her. Because patient at baseline without signs or symptoms of clinical decompensation, deemed appropriate for discharge. Results were relayed to patient who voiced understanding and were agreeable to outpatient management and follow up. I discussed my clinical impression with patient and answered all questions. At this time, the evidence for any other entities in the differential is insufficient to warrant any further testing or ED observation. This was explained as well. Advisory was given that persistent or worsening symptoms require further evaluation. I confirmed the understanding of this discussion. Critical Care <Lesvia Arceo (ED), [employer] - Last Filed: 10/06/24 21:50> Critical Care Time Critical Care Time: No
[2024-10-06 21:34] LABS: Basophils % 0.2 % (0.1-2.0); Eosinophils % 0.1 % (0.1-12.0); Hematocrit 41.7 % (37.0-47.0); Hemoglobin 13.8 g/dL (12.2-16.2); Immature Granulocytes # 0.05 10^3uL; Immature Granulocytes % 0.4 %; Lymphocytes # 2.6 K/mm3 (0.7-4.5); Mean Corpuscular HGB Conc 33.1 g/dL (31.8-35.4); Mean Corpuscular Hemoglobin 32.7 pg (27.0-31.2); Mean Corpuscular Volume 98.8 fl (81-99); Mean Platelet Volume 11.3 fl (7.4-10.4); Monocytes # 0.5 K/mm3 (0.1-1.0); Monocytes % 4.2 % (1.7-9.3); Neutrophils % 72.1 % (37.0-80.0); Nucleated Red Blood Cells # 0 10^3/uL; Nucleated Red Blood Cells % 0 %; Platelet Count 160 K/mm3 (142-424); Red Blood Count 4.22 M/mm3 (4.20-5.40); Red Cell Distribution Width 12.9 % (11.5-17.5); Red Cell Distribution Width-SD 46.5 fL; White Blood Count 11.1 K/mm3 (4.8-10.8)
[2024-10-06 21:37] LABS: Albumin Level 4.2 g/dl (3.5-5.0); Chloride 91 mmol/L (98-107)
[2024-10-06 21:38] LABS: Sodium 132 mmol/L (136-145)
--- NOTE | 2024-10-06 21:38 | PC.NURSE ---
Dr Robert notified of code sepsis
[2024-10-06 21:40] LABS: Alanine Aminotransferase 20 U/L (12-78); Albumin/Globulin Ratio 1.1 (1.1-1.8); Aspartate Amino Transferase 34 U/L (14-36); Blood Urea Nitrogen 24 mg/dl (7-17); Carbon Dioxide 37 mmol/L (22.0-30.0); Coronavirus 19, PCR Not Detected (NotDetected); Creatinine Clearance Estimated 108 mL/min (50-200); Estimated Glomerular Filt Rate 57 ml/min (>60); GFR (African American) 69 ML/MIN (>60); Globulin 3.9 g/dL (1.3-3.2); Human Rhinovirus Not Detected (NotDetected); INR 0.99 (0.9-1.1); Influenza A, PCR Not Detected (NotDetected); Influenza B, PCR Not Detected (NotDetected); Respiratory Syncytial Virus Not Detected (NotDetected); Total Protein,Serum 8.1 g/dl (6.3-8.2)
[2024-10-06 21:41] LABS: Alkaline Phosphatase 93 U/L (38-126); Bilirubin,Total 1.2 mg/dl (0.2-1.3); Calcium 8.9 mg/dl (8.4-10.2); Glucose 169 mg/dl (74-100); Lipase 22 U/L (23-300); Magnesium 1.6 mg/dl (1.6-2.3)
[2024-10-06] MEDS: 0.9 % SODIUM CHLORIDE 1000ML 1,000 ML 999 ML IV (21:48)
[2024-10-06] MEDS: CEFTRIAXONE SODIUM 2 GM in 0.9 % SODIUM CHLORIDE 100 ML IV (21:48)
--- NOTE | 2024-10-06 21:54 | PC.NURSE ---
Per MD Robert, we are starting with only 1L NS instead of full sepsis bolus at this time
[2024-10-06 21:56] LABS: Troponin I < 0.01 ng/ml (0.00-0.034)
[2024-10-06 22:00] VITALS: BP 113/71; PULSE 125; RESP 26; O2SAT 94
[2024-10-06 22:30] VITALS: BP 118/77; PULSE 108; RESP 25; O2SAT 96
[2024-10-06 22:57] VITALS: BP 118/77; PULSE 16; RESP 18; TEMP 37; O2SAT 95
[2024-10-06 23:11] VITALS: BP 145/81; PULSE 90; RESP 16; TEMP 36.8
[2024-10-07 01:28] LABS: Reflex Lactic Add Lactic Reflex
[2024-10-07 15:18] LABS: Acinetobacter calcoaceticus-ba Not Detected; Bacteroides fragilis Not Detected; CTX-M Not Detected; Candida albicans Not Detected; Candida auris Not Detected; Candida glabrata Not Detected; Candida krusei Not Detected; Candida parapsilosis Not Detected; Candida tropicalis Not Detected; Cryptococcus neoformans/gattii Not Detected; Enterobacter cloacae complex Not Detected; Enterobacterales Detected; Enterococcus faecalis Not Detected; Enterococcus faecium Not Detected; Haemophilus influenzae Not Detected; IMP Not Detected; KPC Not Detected; Klebsiella aerogenes Not Detected; Klebsiella pneumoniae grp Not Detected; Listeria monocytogenes Not Detected; NDM Not Detected; Neisseria meningitidis Not Detected; OXA-48-like Not Detected; Proteus spp. Not Detected; Pseudomonas aeruginosa Not Detected; Salmonella spp. Not Detected; Serratia marcescens Not Detected; Staphylococcus epidermidis Not Detected; Staphylococcus lugdunensis Not Detected; Staphylococcus spp. Not Detected; Stenotrophomonas maltophilia Not Detected; Streptococcus agalactiae(GrpB) Not Detected; Streptococcus pneumoniae Not Detected; Streptococcus pyogenes Group A Not Detected; Streptococcus spp. Not Detected; VIM Not Detected; mcr-1 Not Detected
[2024-10-07 15:18] LABS: Acinetobacter calcoaceticus-ba Not Detected; Bacteroides fragilis Not Detected; CTX-M Not Detected; Candida albicans Not Detected; Candida auris Not Detected; Candida glabrata Not Detected; Candida krusei Not Detected; Candida parapsilosis Not Detected; Candida tropicalis Not Detected; Cryptococcus neoformans/gattii Not Detected; Enterobacter cloacae complex Not Detected; Enterobacterales Detected; Enterococcus faecalis Not Detected; Enterococcus faecium Not Detected; Haemophilus influenzae Not Detected; IMP Not Detected; KPC Not Detected; Klebsiella aerogenes Not Detected; Klebsiella pneumoniae grp Not Detected; Listeria monocytogenes Not Detected; NDM Not Detected; Neisseria meningitidis Not Detected; OXA-48-like Not Detected; Proteus spp. Not Detected; Pseudomonas aeruginosa Not Detected; Salmonella spp. Not Detected; Serratia marcescens Not Detected; Staphylococcus epidermidis Not Detected; Staphylococcus lugdunensis Not Detected; Staphylococcus spp. Not Detected; Stenotrophomonas maltophilia Not Detected; Streptococcus agalactiae(GrpB) Not Detected; Streptococcus pneumoniae Not Detected; Streptococcus pyogenes Group A Not Detected; Streptococcus spp. Not Detected; VIM Not Detected; mcr-1 Not Detected
--- NOTE | 2024-10-08 10:31 | EXP.EVENT.NO ---
I was notified today that blood culture PCR from 10/06/2024 has positive PCR for E. coli. I called and spoke with the patient, and she states that she has been vomiting and has not been able to keep anything down, including the antibiotic that she was prescribed for COPD exacerbation. She states she is feeling generally weak. Given symptoms and PCR positive blood cultures, I advised the patient to return to the emergency department right away. I explained to her her condition and risk of not coming in. She expressed understanding and agreement and stated she would have her bring her.
--- NOTE | 2024-10-12 17:46 | PC.NURSE ---
pt was admitted on 10/08 and treated for her positive blood cultures.
== END 2024-10-06 23:12 | disposition home or self-care (01) ==
PROVIDERS: Nurse Practitioner; Emergency Provider Emergency Medicine; PCP Nurse Practitioner Family
DX: J44.1 Chronic obstructive pulmonary disease with (acute) exacerbation (principal); R74.02 Elevation of levels of lactic acid dehydrogenase [LDH]; R00.0 Tachycardia, unspecified; I49.1 Atrial premature depolarization; E87.1 Hypo-osmolality and hyponatremia; R11.2 Nausea with vomiting, unspecified; I25.10 Atherosclerotic heart disease of native coronary artery without angina pectoris; I10 Essential (primary) hypertension; E78.5 Hyperlipidemia, unspecified; F17.210 Nicotine dependence, cigarettes, uncomplicated
CPT/HCPCS: 71045; 80053; 82803; 83690; 83735; 84484; 85025; 85610; 87040; 87077; 87154; 87186; 87631; 93005; 96365; 96366; 99285; J0696; J7030

== ENCOUNTER 2024-10-08 11:15 | Inpatient (IN) | payer OTHER, SELFPAY ==
[2024-10-08] VITALS (10 sets, daily range): BP systolic 121–148; BP diastolic 60–99; PULSE 71–106; RESP 14–20; TEMP 36.7–36.9; O2SAT 91–100; BMI 38.0; BMI 33.3
[2024-10-08 12:06] LABS: VBG Base Excess 4.4 mmol/L (-2.4-2.3); VBG HCO3 29.8 mmol/L (23-30); VBG Oxygen Saturation 71.1 % (50-70); VBG PH 7.36 mmol/L (7.31-7.41); VBG PO2 36.1 mmol/L (28-40); VBG Total CO2 31.4 mmol/L (23-27)
[2024-10-08 12:07] LABS: Basophils % 0.1 % (0.1-2.0); Hematocrit 37.7 % (37.0-47.0); Hemoglobin 12.3 g/dL (12.2-16.2); Immature Granulocytes # 0.05 10^3uL; Immature Granulocytes % 0.5 %; Lymphocytes # 0.9 K/mm3 (0.7-4.5); Lymphocytes % 8.6 % (10-50); Mean Corpuscular HGB Conc 32.6 g/dL (31.8-35.4); Mean Corpuscular Hemoglobin 31.9 pg (27.0-31.2); Mean Corpuscular Volume 97.9 fl (81-99); Mean Platelet Volume 11.2 fl (7.4-10.4); Monocytes # 0.3 K/mm3 (0.1-1.0); Monocytes % 2.9 % (1.7-9.3); Neutrophils # 9.6 K/mm3 (1.8-7.8); Neutrophils % 87.9 % (37.0-80.0); Nucleated Red Blood Cells # 0 10^3/uL; Nucleated Red Blood Cells % 0 %; Platelet Count 190 K/mm3 (142-424); Red Blood Count 3.85 M/mm3 (4.20-5.40); Red Cell Distribution Width 12.7 % (11.5-17.5); Red Cell Distribution Width-SD 45.4 fL; White Blood Count 10.9 K/mm3 (4.8-10.8)
[2024-10-08 12:10] LABS: Lactate Venous 2.8 mmol/L (0.4-2.0); VBG PCO2 53.7 mmol/L (35-51)
[2024-10-08 12:22] LABS: Alanine Aminotransferase 27 U/L (12-78); Albumin Level 4.3 g/dl (3.5-5.0); Albumin/Globulin Ratio 1.2 (1.1-1.8); Alkaline Phosphatase 89 U/L (38-126); Anion Gap 6.7 mEq/L (5-15); Aspartate Amino Transferase 34 U/L (14-36); Bilirubin,Total 0.5 mg/dl (0.2-1.3); Blood Urea Nitrogen 31 mg/dl (7-17); Calcium 8.9 mg/dl (8.4-10.2); Carbon Dioxide 32 mmol/L (22.0-30.0); Chloride 93 mmol/L (98-107); Creatinine Clearance Estimated 122 mL/min (50-200); Estimated Glomerular Filt Rate 64 ml/min (>60); GFR (African American) 78 ML/MIN (>60); Globulin 3.5 g/dL (1.3-3.2); Glucose 217 mg/dl (74-100); Lipase 86 U/L (23-300); Potassium 3.7 mmoL/L (3.5-5.1); Sodium 128 mmol/L (136-145); Total Protein,Serum 7.8 g/dl (6.3-8.2)
--- NOTE | 2024-10-08 12:22 | HMH.EDGENADL ---
Discharge Plan Disposition Patient Disposition: Admitted Condition: Fair Prescriptions Prescriptions: No Action cholecalciferol (vitamin D3) 125 mcg (5,000 unit) capsule 125 mcg PO DAILY Entresto 24-26 mg tablet 1 tab PO BID cyanocobalamin (vitamin B-12) 5,000 mcg capsule 5,000 mcg PO DAILY metoprolol succinate 50 mg tablet extended release 24 hr 50 mg PO DAILY Qty: 90 3RF spironolactone 25 mg tablet 25 mg PO DAILY Qty: 90 3RF furosemide 40 mg tablet 40 mg PO DAILY Qty: 30 5RF fluticasone propionate 50 mcg/actuation spray,suspension 1 spray intranasal BID Rx Instructions: administer into each nostril Anoro Ellipta 62.5-25 mcg/actuation blister with device 1 inh INHALATION DAILY loratadine [Claritin] 10 mg Tablet 10 mg PO DAILY albuterol sulfate [Ventolin HFA] 90 mcg/actuation HFA aerosol inhaler 2 inh INHALATION Q6HP PRN (Reason: Shortness Of Breath Or Wheezing) simvastatin 40 mg tablet 40 mg PO HS buspirone 10 mg tablet 10 mg PO TID montelukast 10 mg Tablet 10 mg PO PM 30 Days Qty: 30 0RF bupropion HCl 150 mg tablet extended release 24 hr 300 mg PO DAILY sertraline 100 mg tablet 100 mg PO DAILY ipratropium-albuterol 0.5 mg-3 mg(2.5 mg base)/3 mL solution for nebulization 3 ml inhalation Q6H doxycycline hyclate 100 mg capsule 100 mg PO BID 5 Days Qty: 10 0RF prednisone 20 mg tablet 40 mg PO DAILY 5 Days Qty: 10 0RF Referrals Follow up/Referrals: Azucena Clarke APRN [Primary Care Provider] - See instructions Clinical Impressions Clinical Impression: Bacteremia due to Escherichia coli, Nausea & vomiting, Abdominal pain Print Language Print Language: [place] Discharge ED Provider: Ashly Mosley General Adult HPI General Chief complaint: Recheck/Abnormal Lab/Rx Stated complaint: ER Follow-Up:Sepsis Time Seen by Provider: 10/08/24 11:50 Mode of Arrival: Wheelchair Source of Information: Patient Description of Symptoms (Recalled from ER Triage Doc. by RN): patient states she has been weak nauseated and abdominal pain since monday was laso called for postive blood cultures History of Present Illness HPI narrative: This patient is a 59-year-old female with a history of morbid obesity, COPD on 2 to 3 L nasal cannula chronically, CHF, depression, hypertension, hyperlipidemia presenting to the emergency department for evaluation with concern for positive blood cultures. Patient was evaluated here 2 days ago for shortness of breath and was diagnosed with COPD exacerbation. She was discharged home with oral steroids and antibiotics, but she states she is not been able to take the antibiotic because she has had intractable nausea and vomiting. She also states that she is having some generalized abdominal pain. She is unable to eat or drink much at all. She states that her last bowel movement was yesterday and was normal for her. No diarrhea, constipation, melena, hematochezia. She notes she is having subjective fevers as well. She is continuing to have some cough. Related Data Home Medications ?Medication ?Instructions ?Recorded ?Confirmed fluticasone propionate 50 1 spray intranasal BID 11/02/22 04/30/24 mcg/actuation nasal spray,suspension loratadine 10 mg tablet (Claritin) 10 mg PO DAILY 11/02/22 04/30/24 umeclidinium 62.5 mcg-vilanterol 1 inh inhalation DAILY 11/02/22 04/30/24 25 mcg/actuation powdr for inhalation (Anoro Ellipta) albuterol sulfate 90 mcg/actuation 2 inh inhalation Q6HP PRN 11/03/22 04/30/24 aerosol inhaler (Ventolin HFA) Shortness Of Breath Or Wheezing buspirone 10 mg tablet 10 mg PO TID 11/03/22 04/30/24 simvastatin 40 mg tablet 40 mg PO HS 11/03/22 04/30/24 cholecalciferol (vitamin D3) 125 125 mcg PO DAILY 12/26/23 04/30/24 mcg (5,000 unit) capsule cyanocobalamin (vitamin B-12) 5,000 mcg PO DAILY 12/26/23 04/30/24 5,000 mcg capsule sacubitril 24 mg-valsartan 26 mg 1 tab PO BID 12/26/23 04/30/24 tablet (Entresto) bupropion HCl 150 mg 24 hr tablet, 300 mg PO DAILY 04/15/24 04/30/24 extended release ipratropium 0.5 mg-albuterol 3 mg 3 ml inhalation Q6H 04/15/24 04/30/24 (2.5 mg base)/3 mL nebulization soln sertraline 100 mg tablet 100 mg PO DAILY 04/15/24 04/30/24 Previous Rx's ?Medication ?Instructions ?Recorded montelukast 10 mg tablet 10 mg PO PM 30 days #30 tabs 01/26/23 metoprolol succinate 50 mg 50 mg PO DAILY #90 tabs 04/30/24 tablet,extended release 24 hr spironolactone 25 mg tablet 25 mg PO DAILY #90 tabs 06/11/24 furosemide 40 mg tablet 40 mg PO DAILY #30 tabs 10/02/24 doxycycline hyclate 100 mg capsule 100 mg PO BID 5 days #10 caps 10/06/24 prednisone 20 mg tablet 40 mg (2 x 20 mg) PO DAILY 5 days 10/06/24 #10 tabs Allergies Allergy/AdvReac Type Severity Reaction Status Date / Time No Known Allergies Allergy Verified 04/30/24 15:18 [facility] Disclaimer: The information contained in this section may have been updated after the patient was seen, as this information can be updated by other users. Medical History Metatarsal fracture Cataract Ectopic Anxiety and depression Pneumonia Tachycardia Acute and chronic respiratory failure with hypoxia Abnormal computerized axial tomography of chest Multiple pulmonary nodules Smoking greater than 30 pack years Non-seasonal allergic rhinitis Nocturnal hypoxemia Tobacco abuse disorder Seasonal allergies Dyspnea on exertion Chronic hypoxemic respiratory failure Dyspnea HLD (hyperlipidemia) HTN (hypertension) Lung nodule COPD (chronic obstructive pulmonary disease) Surgical History History of cholecystectomy No significant past surgical history Family History Other Cancer Coronary artery disease Social History Smoking Status: Current every day smoker tobacco type: cigarettes packs per day: 1 smoking status stop date: Jun 2023 second hand exposure: No alcohol intake: never substance use type: denies use current occupational status: disabled Travel in the last 8 weeks?: None household members: spouse housing: house current occupational exposures/hazards: No caffeine: Yes Have you lived/traveled outside [place] in past 30 days?: No Contact w/someone who lives/traveled outside [place] past 30 days?: No Exposure to someone with infectious disease in past 14 days?: No Do you have a fever (greater than 100.4 F or 38 C)?: No Have you tested positive for COVID-19?: No Exposed to someone with COVID-19 in past 14 days?: No Do you have a sore throat?: No Do you have a cough?: No Do you have any weakness?: No Do you have any diarrhea?: No Are you experiencing any unusual bleeding?: No Do you have any muscle aches/pain?: No Do you have any abdominal pain?: No Are you experiencing loss of taste or smell?: No Other Medical History Have you received the Flu Vaccine for this season: No Have you received the Pneumonia Vaccine: No ROS Obtained: Yes All systems reviewed & no additional complaints except as documented Physical Exam General General appearance: alert, in no apparent distress and obese Head Head exam: atraumatic and normocephalic Eye Eye exam: Present normal appearance, PERRL and EOMI ENT ENT exam: Present normal exam, normal oropharynx, mucous membranes moist and normal external ear exam Neck Neck exam: Present normal inspection, full ROM and trachea midline; Absent tenderness Chest Chest inspection: Present normal inspection and symmetric chest wall rise; Absent tenderness Respiratory Respiratory exam: Present normal lung sounds bilaterally; Absent respiratory distress, wheezes, stridor or accessory muscle use Cardiovascular Cardiovascular exam: Present regular rate and normal rhythm Abdominal Exam Abdominal exam: Present soft, distention (Mild) and tenderness (Generalized); Absent guarding, rebound or rigidity Extremities Exam Extremities exam: Present normal inspection, full ROM and normal capillary refill; Absent tenderness or edema Back Exam Back exam: Present normal inspection and full ROM; Absent tenderness Neurological Exam Neurological exam: Present alert, oriented X3, CN II-XII intact and normal gait; Absent motor sensory deficit Psychiatric Psychiatric exam: Present normal affect and normal mood Skin Skin exam: Present warm and dry Medical Decision Making Medical Records Medical records reviewed: Yes I reviewed the patient's medical records. Screening: Per USPSTF and CDC recommendations, given the prevalence of disease in our region, it is our hospital?s policy to screen for HIV and viral Hepatitis for all patients aged 18 and over and those with ongoing risk factors. Matt Inquiry Pt receiving controlled substance: No Vital Signs: 10/08/24 12:00 10/08/24 12:00 Temperature 98.4 F Temperature Source Oral Pulse Rate 83 Pulse Rate [Left Radial] 93 H Respiratory Rate 18 15 Blood Pressure 132/81 Blood Pressure [Left Arm] 129/87 Blood Pressure Mean [Left Arm] 101 Blood Pressure Source [Left Arm] Automatic Cuff Blood Pressure Position [Left Arm] Supine 02 Sat by Pulse Oximetry 100 96 Oxygen Delivery Method Nasal Cannula Nasal Cannula Oxygen Flow Rate (LPM) 2 2 Lab Data Lab results reviewed: Yes I reviewed the patient's lab results. Lab Results 10/08/24 11:59: VBG pH 7.36, VBG pCO2 53.7 H, VBG pO2 36.1, VBG HCO3 29.8, VBG Total CO2 31.4 H, VBG O2 Saturation 71.1 H, VBG Base Excess 4.4 H, VBG Lactic Acid 2.8 H 10/08/24 12:00: WBC 10.9 H, RBC 3.85 L, Hgb 12.3, Hct 37.7, MCV 97.9, MCH 31.9 H, MCHC 32.6, RDW 12.7, Plt Count 190, MPV 11.2 H, Neut % (Auto) 87.9 H, Lymph % (Auto) 8.6 L, [place] % (Auto) 2.9, Eos % (Auto) 0.0 L, Baso % (Auto) 0.1, Neut # (Auto) 9.6 H, Lymph # (Auto) 0.9, [place] # (Auto) 0.3, Eos # (Auto) 0.0, Baso # (Auto) 0.0, ESR 26, Sodium 128 L, Potassium 3.7, Chloride 93 L, Carbon Dioxide 32 H, Anion Gap 6.7, BUN 31 H D, Creatinine 0.90, Estimated Creat Clear 122, Estimated GFR 64, Est GFR ( Amer) 78, Glucose 217 H, Lactate 2.7 H, Calcium 8.9, Total Bilirubin 0.5, AST 34, ALT 27 D, Alkaline Phosphatase 89, C-Reactive Protein 79.0 H, Total Protein 7.8, Albumin 4.3, Globulin 3.5 H, Albumin/Globulin Ratio 1.2, Lipase 86, Procalcitonin 15.3 H 10/08/24 12:56: Urine Color Yellow, Urine Appearance Clear, Urine pH 6.0, Ur Specific [place] 1.025, Urine Protein 2+ A, Urine Glucose (UA) Negative, Urine Ketones Negative, Urine Blood 1+ A, Urine Nitrate Negative, Urine Bilirubin Negative, Urine Urobilinogen 0.2, Ur Leukocyte Esterase 1+ A, Urine RBC 3-5, Urine WBC 10-20, Ur Squamous Epith Cells 3-5, Amorphous Sediment Trace, Urine Bacteria Trace 10/08/24 12:00 10/08/24 12:00 Orders (Tests/Meds): ED MEDICATIONS Generic Name Dose Route Start Last Admin Trade Name Freq PRN Reason Stop Dose Admin Ceftriaxone Sodium 2 gm/ 100 mls @ 200 mls/hr 10/08/24 13:00 10/08/24 13:05 Sodium Chloride IV 10/18/24 12:59 200 mls/hr Q24H TAMY Administration ORDERS Category Date Time Status CT abdomen pelvis w con Stat Cat Scan 10/08/24 12:[address] angio chest PE protocol Stat Cat Scan 10/08/24 12:33 Ordered CRP [C-Reactive Protein] Stat Lab 10/08/24 12:00 Completed Complete Blood Count Auto Diff Stat Lab 10/08/24 12:00 Completed Comprehensive Metabolic Panel Stat Lab 10/08/24 12:00 Completed ESR [Erythrocyte Sedimentation Rate] Stat Lab 10/08/24 12:00 Completed Lactic Acid Stat Lab 10/08/24 12:00 Completed Lipase Stat Lab 10/08/24 12:00 Completed Procalcitonin Stat Lab 10/08/24 12:00 Completed UA [Urinalysis and Microscopic] Stat Lab 10/08/24 12:56 Completed Blood Culture Stat Micro 10/08/24 12:09 Received Urine Culture Stat Micro 10/08/24 13:50 Received VBG [Venous Blood Gas] Stat RT 10/08/24 11:59 Completed ECG Data Tracing #1: I reviewed this ECG and interpreted as documented below: Sinus rhythm with PACs with a ventricular rate of [address] changes concerning for ischemia. ECG initial impression date: 10/08/24 ECG initial impression time: 12:45 Medical Decision Narrative: In summary, this patient is a 59-year-old female presenting to the Emergency Department for evaluation of positive blood cultures when obtained 2 days ago for shortness of breath. She still is having some cough and shortness of breath as well as subjective fevers, nausea, and abdominal pain. Differential diagnoses considered include but are not limited to cystitis, pyelonephritis, sepsis, pneumonia, colitis, appendicitis, pancreatitis. Ruling out the most morbid conditions drove assessment. It should be noted patient's history includes morbid obesity, chronic respiratory failure, COPD, CHF, hypertension, hyperlipidemia which may or may not be at goal therapy. This complicates all aspects of care by increasing patient's risk for morbidity. I reviewed patient's past medical records and noted evaluation here 2 days ago as detailed in HPI. Then noted her blood cultures that had positive PCR for E. coli. I called the patient today and advised that she come back in, which is why she presented. On exam, the patient is lying in bed in no acute distress with reassuring vital signs on cardiac telemetry on her home oxygen. Cardiopulmonary exam is reassuring. She does have some mild abdominal distention with generalized tenderness, no rebound or guarding. Workup included CBC, CMP, lipase, lactic acid, VBG, ESR, CRP, procalcitonin, urinalysis, urine culture, blood cultures, EKG. Patient was not given sepsis bolus of IV fluids because she has history of CHF, obesity, chronic respiratory failure and I feel that it would be detrimental to her. On multiple subsequent reassessments, the patient is lying in bed in no acute distress, conversational, pleasant. Vitals are reassuring on cardiac telemetry. She has mild leukocytosis, significantly evaded procalcitonin, mildly elevated lactic acid all supporting diagnosis of bacteremia/sepsis. She has mild hyponatremia mildly elevated BUN. Urinalysis is concerning for infection. I started the patient on IV Rocephin. Sensitivities for E. coli are pending. I feel she would benefit from admission for sepsis. I had an interactive discussion with the hospitalist who admitted her in stable condition. Of note, patient adamantly refused CT scan of her abdomen and pelvis, which I had ordered because of her abdominal pain, nausea, vomiting, and sepsis. I had multiple discussions with her about this and she stated she was not okay with it and just to treat her urine. She stated she would reconsider later on if she did not get better. I did let the hospitalist know this. Critical Care Critical Care Time Critical Care Time: Yes Attestation: On 10/08/24, the high probability of a clinically significant, sudden or life threatening deterioration of the following system(s) required my full and direct attention, intervention and personal management. The time I documented below is in addition to time spent performing reported procedures but includes the following listed in this critical care notation. Total Time Total Critical Care Time: 35
[2024-10-08 12:38] LABS: Procalcitonin 15.3 ng/mL (0.0-2.0)
[2024-10-08 12:40] LABS: Lactic Acid 2.7 mmol/L (0.7-2.1)
--- NOTE | 2024-10-08 12:42 | ECG_ITS ---
APPROVED REPORT Exam: Resting ECG HR:89 bpm ECG Measurements Heart Rate 89 AXES QRSd 89 QRS 66 QT 388 T 66 QTc 435 Conclusion ATRIAL FIBRILLATION WITH ABERRANT CONDUCTION OR VENTRICULAR PREMATURE COMPLEXES No STEMI Electronically signed by : DEION ALCANTARA, 10/09/2024 02:58:25
--- NOTE | 2024-10-08 12:46 | HMH.ITSTN ---
went to get patient for CT's, patient stated she did not want them
[2024-10-08] MEDS: CEFTRIAXONE SODIUM 2 GM in 0.9 % SODIUM CHLORIDE 100 ML IV (13:05)
--- NOTE | 2024-10-08 13:30 | PC.NURSE ---
PT UNABLE TO PROVIDE UA AT THIS TIME. HAS QUESTION FOR MD. OFFERED TO ASSIST PT WITH ANSWERING HER QUESTION MD IS IN A PROCEDURE. STATES SHE ONLY WANTS TO ASK MD. CALL LIGHT WITHIN REACH. FAMILY AT BEDSIDE
[2024-10-08 13:38] LABS: Erythrocyte Sedimentation Rate 26 mm/hr (0-30)
[2024-10-08 13:52] LABS: Microscopic, Urine URINE MICROSCOPIC (MICROSCOPIC)
[2024-10-08 14:03] LABS: Appearance,Urine CLEAR (Clear); Bilirubin,Urine Negative (Negative); Blood, Urine 1+ (Negative); Color,Urine YELLOW (Yellow); Glucose,Urine (UA) Negative (Negative); Ketones,Urine Negative (Negative); Leukocyte Esterase,Urine 1+ (Negative); Nitrate,Urine Negative (Negative); Protein,Urine 2+ (Negative); Specific Gravity, Urine 1.025 (1.005-1.030); Urobilinogen,Urine 0.2 EU/dl (0.2)
[2024-10-08 14:14] LABS: Amorphous Sediment,Urine Trace /lpf; Bacteria,Urine Trace /lpf
--- NOTE | 2024-10-08 14:27 | PC.NURSE ---
DR CRUZ AT BEDSIDE TO UPDATE PT AND FAMILY
--- NOTE | 2024-10-08 14:43 | PC.NURSE ---
SYSTEM SOFTWARE PROGRAMMER NOTIFIED OF ADMISSION
--- NOTE | 2024-10-08 15:32 | HMH.ITSTN ---
pt still refusing scans. ok to cancel orders per ED
[2024-10-08 16:07] LABS: Reflex Lactic Add Lactic Reflex
--- NOTE | 2024-10-08 16:27 | P.HP_ITS ---
History of Present Illness *Admission Date: 10/08/24 *Reason for visit:: sepsis, bacteremia *History of present illness: Patient states she has been having nausea and vomiting for the past 2 to 3 days. Previously presented to the ED on the . Cultures obtained that returned positive for E. coli. Was sent home due to relatively normal labs and tolerance of p.o. intake at that time. On presentation today, remains tachycardic. White count normal. Continues to have chills, nausea, vomiting. Stable on baseline oxygen of 2 to 3 L. Medicine consulted for admission due to bacteremia. Initiated on ceftriaxone 2 g IV once. On arrival to the floor, overall doing well. Hemodynamically stable. [facility] Disclaimer: The information contained in this section may have been updated after the patient was seen, as this information can be updated by other users. Medical History Metatarsal fracture Cataract Ectopic Anxiety and depression Pneumonia Tachycardia Acute and chronic respiratory failure with hypoxia Abnormal computerized axial tomography of chest Multiple pulmonary nodules Smoking greater than 30 pack years Non-seasonal allergic rhinitis Nocturnal hypoxemia Tobacco abuse disorder Seasonal allergies Dyspnea on exertion Chronic hypoxemic respiratory failure Dyspnea HLD (hyperlipidemia) HTN (hypertension) Lung nodule COPD (chronic obstructive pulmonary disease) Surgical History History of cholecystectomy No significant past surgical history Family History Other Cancer Coronary artery disease Social History Smoking Status: Current every day smoker tobacco type: cigarettes packs per day: 1 smoking status stop date: Jun 2023 second hand exposure: No alcohol intake: never substance use type: denies use current occupational status: disabled Travel in the last 8 weeks?: None household members: spouse housing: house current occupational exposures/hazards: No caffeine: Yes Have you lived/traveled outside [place] in past 30 days?: No Contact w/someone who lives/traveled outside US past 30 days?: No Exposure to someone with infectious disease in past 14 days?: No Do you have a fever (greater than 100.4 F or 38 C)?: No Have you tested positive for COVID-19?: No Exposed to someone with COVID-19 in past 14 days?: No Do you have a sore throat?: No Do you have a cough?: No Do you have any weakness?: No Do you have any diarrhea?: No Are you experiencing any unusual bleeding?: No Do you have any muscle aches/pain?: No Do you have any abdominal pain?: No Are you experiencing loss of taste or smell?: No Other Medical History Have you received the Flu Vaccine for this season: No Have you received the Pneumonia Vaccine: No Review of Systems Review of Systems Review of systems (narrative): 14 point review of systems performed, pertinent positives and negatives as per HPI Meds Home Medications and Allergies Home Medications ?Medication ?Instructions ?Recorded ?Confirmed ?Type fluticasone propionate 50 1 spray intranasal BID 11/02/22 10/08/24 History mcg/actuation nasal spray,suspension loratadine 10 mg tablet (Claritin) 10 mg PO DAILY 11/02/22 10/08/24 History umeclidinium 62.5 mcg-vilanterol 1 inh inhalation DAILY 11/02/22 10/08/24 History 25 mcg/actuation powdr for inhalation (Anoro Ellipta) albuterol sulfate 90 mcg/actuation 2 inh inhalation Q6HP PRN 11/03/22 10/08/24 History aerosol inhaler (Ventolin HFA) Shortness Of Breath Or Wheezing buspirone 10 mg tablet 10 mg PO TID 11/03/22 10/08/24 History simvastatin 40 mg tablet 40 mg PO HS 11/03/22 10/08/24 History montelukast 10 mg tablet 10 mg PO PM 30 days #30 tabs 01/26/23 10/08/24 Rx cholecalciferol (vitamin D3) 125 125 mcg PO DAILY 12/26/23 10/08/24 History mcg (5,000 unit) capsule cyanocobalamin (vitamin B-12) 5,000 mcg PO DAILY 12/26/23 10/08/24 History 5,000 mcg capsule sacubitril 24 mg-valsartan 26 mg 1 tab PO BID 12/26/23 04/30/24 History tablet (Entresto) bupropion HCl 150 mg 24 hr tablet, 300 mg PO DAILY 04/15/24 10/08/24 History extended release ipratropium 0.5 mg-albuterol 3 mg 3 ml inhalation Q6H 04/15/24 10/08/24 History (2.5 mg base)/3 mL nebulization soln sertraline 100 mg tablet 100 mg PO DAILY 04/15/24 10/08/24 History spironolactone 25 mg tablet 25 mg PO DAILY #90 tabs 06/11/24 10/08/24 Rx furosemide 40 mg tablet 40 mg PO DAILY #30 tabs 10/02/24 10/08/24 Rx doxycycline hyclate 100 mg capsule 100 mg PO BID 5 days #10 caps 10/06/24 Rx prednisone 20 mg tablet 40 mg (2 x 20 mg) PO DAILY 5 days 10/06/24 10/08/24 Rx #10 tabs metoprolol succinate 50 mg 100 mg PO DAILY 10/08/24 10/08/24 History tablet,extended release 24 hr New Prescriptions to Start Prescriptions: Allergies Allergy/AdvReac Type Severity Reaction Status Date / Time No Known Allergies Allergy Verified 04/30/24 15:18 Exam Data for Last 24 hours Vital signs and Labs for Last 24 Hours: Temp Pulse Resp BP Pulse Ox O2 Del Method O2 Flow Rate 98.4 F 94 H 18 133/87 96 Room Air 2 10/08/24 15:26 10/08/24 15:26 10/08/24 15:26 10/08/24 15:26 10/08/24 15:22 10/08/24 15:26 10/08/24 15:22 Laboratory Results - last 24 hr 10/08/24 11:59: VBG pH 7.36, VBG pCO2 53.7 H, VBG pO2 36.1, VBG HCO3 29.8, VBG Total CO2 31.4 H, VBG O2 Saturation 71.1 H, VBG Base Excess 4.4 H, VBG Lactic Acid 2.8 H 10/08/24 12:00: WBC 10.9 H, RBC 3.85 L, Hgb 12.3, Hct 37.7, MCV 97.9, MCH 31.9 H , MCHC 32.6, RDW 12.7, Plt Count 190, MPV 11.2 H, Neut % (Auto) 87.9 H, Lymph % (Auto) 8.6 L, [place] % (Auto) 2.9, Eos % (Auto) 0.0 L, Baso % (Auto) 0.1, Neut # (Auto) 9.6 H, Lymph # (Auto) 0.9, [place] # (Auto) 0.3, Eos # (Auto) 0.0, Baso # (Auto) 0.0, ESR 26, Sodium 128 L, Potassium 3.7, Chloride 93 L, Carbon Dioxide 32 H, Anion Gap 6.7, BUN 31 H D, Creatinine 0.90, Estimated Creat Clear 122, Estimated GFR 64, Est GFR ( Amer) 78, Glucose 217 H, Lactate 2.7 H, Calcium 8.9, Total Bilirubin 0.5, AST 34, ALT 27 D, Alkaline Phosphatase 89, C-Reactive Protein 79.0 H, Total Protein 7.8, Albumin 4.3, Globulin 3.5 H, Albumin/Globulin Ratio 1.2, Lipase 86, Procalcitonin 15.3 H 10/08/24 12:56: Urine Color Yellow, Urine Appearance Clear, Urine pH 6.0, Ur Specific [place] 1.025, Urine Protein 2+ A, Urine Glucose (UA) Negative, Urine Ketones Negative, Urine Blood 1+ A, Urine Nitrate Negative, Urine Bilirubin Negative, Urine Urobilinogen 0.2, Ur Leukocyte Esterase 1+ A, Urine RBC 3-5, Urine WBC 10-20, Ur Squamous Epith Cells 3-5, Amorphous Sediment Trace, Urine Bacteria Trace I & O for Last 24 hours: Intake & Output 10/05/24 10/06/24 10/07/24 10/08/24 23:59 23:59 23:59 23:59 Weight 113.398 kg Constitutional Constitutional: no acute distress, obese, chronically ill appearing and cooperative *Routine HEENT Exam Head: Present normocephalic Eye: Present EOMI and PERRL ENT: Present mucous membranes moist Comments: Edentulous *Routine Neck Exam Neck: Present supple; Absent lymphadenopathy *Routine Respiratory Exam Respiratory: Present prolonged expiratory phase; Absent rhonchi, wheezes or crackles *Routine Cardiovascular Exam Cardiovascular: Present RRR *Routine Abdominal Exam Abdominal: Present soft and normoactive bowel sounds; Absent tenderness *Routine Rectal Exam Rectal:: deferred *Routine Genitalia Exam Genitalia:: deferred *Routine Extremities Exam Extremities: Absent cyanosis, clubbing or edema *Routine Skin Exam Skin: Present warm; Absent rash *Routine Neurological Exam Neurological: Present alert, oriented X3 and moving all extremities; Absent altered mental status Assessment and Plan *Assessment and plan (1) Bacteremia due to Escherichia coli: Status: Acute Category: Medical Code(s): R78.81 - Bacteremia; B96.20 - Unspecified Escherichia coli [E. 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 of insulin Category: Medical Code(s): E11.9 - Type 2 diabetes mellitus without complications (4) Depression: Status: Chronic Category: Medical Code(s): F32.A - Depression, unspecified (5) Tobacco abuse disorder: Status: Chronic Category: Medical Code(s): Z72.0 - Tobacco use (6) HLD (hyperlipidemia): Status: Chronic Qualifiers: Hyperlipidemia type: unspecified Qualified Code(s): E78.5 - Hyperlipidemia, unspecified Category: Medical Code(s): E78.5 - Hyperlipidemia, unspecified (7) HTN (hypertension): Status: Chronic Qualifiers: Hypertension type: primary hypertension Qualified Code(s): I10 - Essential (primary) hypertension Category: Medical Code(s): I10 - Essential (primary) hypertension (8) CAD (coronary artery disease): Status: Acute Category: Medical Code(s): I25.10 - Atherosclerotic heart disease of [place] coronary artery without angina pectoris (9) Anxiety: Status: Acute Category: Medical Code(s): F41.9 - Anxiety disorder, unspecified (10) CHF (congestive heart failure): Status: Acute Category: Medical Code(s): I50.9 - Heart failure, unspecified (11) Nausea & vomiting: Status: Acute Category: Medical Code(s): R11.2 - Nausea with vomiting, unspecified (12) Obesity (BMI 30.0-34.9): Status: Acute Category: Medical Code(s): E66.811 - Obesity, class 1 Plan 59-year-old female who presented to the ER 2 days ago with nausea and vomiting. Was discharged home. Condition worsened, blood cultures returned positive for E. coli. Return to the ER today. Medicine consulted for admission due to bacteremia. I agreed to admit for further care. Necessitating inpatient management pending cultures and sensitivities. Started on empiric antibiotics with ceftriaxone. Stable on baseline oxygen of 2 to 3 L. Meeting sepsis criteria with positive source of infection, tachycardia and tachypnea. Problems addressed as follows: E. coli bacteremia UTI Nausea and vomiting - Urine and blood cultures repeated in the ED. Pending results. Urinalysis abnormal with leuk esterase and bacteria. - White count 10.9. Hemoglobin 12.3. Pro-Edwin severely elevated at 15. Repeat CBC, CMP, magnesium ordered for the morning along with repeat Pro-Edwin and CRP. CRP elevated at 79 - Continue ceftriaxone 2 g daily IV pending culture results. Will need 10 days total of antibiotics at discharge for bacteremia - Zofran 4 mg as needed every 6 hours for nausea Hyperglycemia: Previous A1c's unremarkable within normal range. Ordered A1c and fructosamine for the morning to evaluate for diabetes. Glucose 217 on admission. PAUL: Repeat CBC, CMP, magnesium ordered for the morning BUN 31, creatinine 0.9. HFpEF -Continue Entresto 24/26 mg twice daily, Holding spironolactone due to PAUL with BUN of 31, creatinine 0.9, and sodium 128. Continue metoprolol succinate 100 mg daily Depression: Continue BuSpar 10 mg 3 times a day, Wellbutrin 300 mg daily, Zoloft 100 mg daily COPD: - Continue Breo 1 puff daily, DuoNebs every 6 hours as needed. Supplemental oxygen for goal sats greater 90%, currently on baseline oxygen of 2 to 3 L. -Not in exacerbation HLD: Continue simvastatin 40 mg nightly Full code Regular diet
[2024-10-08 16:48] LABS: Lactic Acid Follow Up (RFLX 1) 3.5 mmol/L (0.7-2.1)
[2024-10-08 18:29] LABS: Reflex Lactic (2 hrs) Add Lactic Reflex
[2024-10-08] MEDS: MONTELUKAST SODIUM 10MG TAB 10 MG PO (18:52)
[2024-10-08 19:08] LABS: Lactic Acid Follow up (RFLX 2) 3.5 mmol/L (0.7-2.1)
[2024-10-08] MEDS: SACUBITRIL/VALSARTAN 24-26MG TABLET 1 EACH PO (20:59)
[2024-10-08] MEDS: BUSPIRONE HCL 10 MG TABLET PO (20:59)
[2024-10-08] MEDS: PRAVASTATIN 40MG TAB 80 MG PO (20:59)
[2024-10-09] VITALS: BP 119/71; PULSE 89; RESP 14; TEMP 36.5; O2SAT 96
[2024-10-09] MEDS: IPRATROPIUM/ALBUTEROL 3 ML NEB IH ×2 (00:29→09:45)
[2024-10-09 01:40] VITALS: PULSE 88
[2024-10-09 04:00] VITALS: BP 108/81; PULSE 85; RESP 14; TEMP 36.5; O2SAT 96; BMI 34.4
[2024-10-09 06:47] LABS: Hematocrit 34.9 % (37.0-47.0); Hemoglobin 11.4 g/dL (12.2-16.2); Immature Granulocytes # 0.04 10^3uL; Immature Granulocytes % 0.5 %; Lymphocytes # 1.5 K/mm3 (0.7-4.5); Lymphocytes % 19.6 % (10-50); Mean Corpuscular HGB Conc 32.7 g/dL (31.8-35.4); Mean Corpuscular Hemoglobin 31.8 pg (27.0-31.2); Mean Corpuscular Volume 97.5 fl (81-99); Mean Platelet Volume 11.8 fl (7.4-10.4); Monocytes # 0.4 K/mm3 (0.1-1.0); Monocytes % 5.1 % (1.7-9.3); Neutrophils # 5.7 K/mm3 (1.8-7.8); Neutrophils % 74.8 % (37.0-80.0); Nucleated Red Blood Cells # 0 10^3/uL; Nucleated Red Blood Cells % 0 %; Platelet Count 184 K/mm3 (142-424); Red Blood Count 3.58 M/mm3 (4.20-5.40); Red Cell Distribution Width 12.7 % (11.5-17.5); Red Cell Distribution Width-SD 45.8 fL; White Blood Count 7.6 K/mm3 (4.8-10.8)
[2024-10-09 07:03] LABS: Alanine Aminotransferase 20 U/L (12-78); Albumin Level 3.4 g/dl (3.5-5.0); Albumin/Globulin Ratio 1.1 (1.1-1.8); Alkaline Phosphatase 87 U/L (38-126); Anion Gap 4.5 mEq/L (5-15); Aspartate Amino Transferase 27 U/L (14-36); Bilirubin,Total 0.3 mg/dl (0.2-1.3); Blood Urea Nitrogen 26 mg/dl (7-17); Calcium 8.2 mg/dl (8.4-10.2); Carbon Dioxide 35 mmol/L (22.0-30.0); Chloride 95 mmol/L (98-107); Creatinine Clearance Estimated 100 mL/min (50-200); Estimated Glomerular Filt Rate 57 ml/min (>60); GFR (African American) 69 ML/MIN (>60); Globulin 3.1 g/dL (1.3-3.2); Glucose 169 mg/dl (74-100); Magnesium 1.6 mg/dl (1.6-2.3); Potassium 3.5 mmoL/L (3.5-5.1); Sodium 131 mmol/L (136-145); Total Protein,Serum 6.5 g/dl (6.3-8.2)
[2024-10-09 07:22] LABS: Procalcitonin 7.31 ng/mL (0.0-2.0)
[2024-10-09 08:00] VITALS: BP 106/67; PULSE 84; RESP 17; TEMP 36.5; O2SAT 95
--- NOTE | 2024-10-09 08:32 | HMH.PHAINT1 ---
Pharmacy Intervention Comments: MEDICATION RECONCILIATION COMPLETED ON PATIENT USING EXTERNAL FILL HISTORY FROM PHARMACY. -ANOOP BRODERICK, GABINOD
--- NOTE | 2024-10-09 09:25 | SW/DCPLANNER ---
Spoke with patient about home health services once she is medically stable and ready for discharge. Patient stated that she is not interested in home health services and that she wants to be independent as long as she can. Cornelia Richardson
[2024-10-09] MEDS: BUSPIRONE HCL 10 MG TABLET PO (09:39)
[2024-10-09] MEDS: SACUBITRIL/VALSARTAN 24-26MG TABLET 1 EACH PO (09:41)
[2024-10-09] MEDS: buPROPion HCl SR 150MG TAB 300 MG PO (09:41)
[2024-10-09] MEDS: SERTRALINE 100MG TABLET 100 MG PO (09:41)
[2024-10-09 09:45] VITALS: PULSE 77; O2SAT 96
[2024-10-09] MEDS: METOPROLOL SUCCINATE XL 50MG TABLET 50 MG PO (09:45)
[2024-10-09 10:34] LABS: Hemoglobin A1C 5.4 % (4.0-6.0)
--- NOTE | 2024-10-09 10:34 | HMH.PTEV ---
Physical Therapy Evaluation Rehab PT IP Evaluation Start: 10/08/24 17:23 Freq: ONCE Status: Active Protocol: Document 10/09/24 10:30 JOO (Rec: 10/09/24 10:33 JOO [id number]) Subjective/History History History Per H&P: Patient states she has been having nausea and vomiting for the past 2 to 3 days. Previously presented to the ED on the . Cultures obtained that returned positive for E. coli. Was sent home due to relatively normal labs and tolerance of p .o. intake at that time. On presentation today, remains tachycardic. White count normal. Continues to have chills, nausea, vomiting. Stable on baseline oxygen of 2 to 3 L. Medicine consulted for admission due to bacteremia. Initiated on ceftriaxone 2 g IV once. Subjective Subjective Pt reports she lives with her in a single story home with a ramped entrance. Pt normally IND with mobility with RW and intermittent use of w/c. Pt reports she occasionally needs help with mobility and her is available as needed. Pt does not drive. New diagnosis of cancer in past 12 No months? [facility] How much help from another person do you currently need... Turning from your back to your side None while in a flat bed without using bedrails? Moving from lying on back to sitting on None the side of a flat bed without using bedrails? Moving to and from a bed to a chair ( None including a wheelchair)? Standing up from a chair using your arms None ? (e.g., wheelchair, bedside chair) Walking in hospital room? None Climbing 3-5 steps with a railing? A little Mobility Score 23 Mobility Level [facility] Mobility Calculator Mobility 7 Walk 25 feet or more Rehab PT IP Eval Objective Appearance Patient Behavior Appropriate,Cooperative Patient Orientation Person,Place,Situation Difficulty following instructions none Speech Pattern Clear Ambulation Patient Able to Ambulate Yes Ambulation Observation IP General Gait Pattern Observation Wide Based Gait Ambulation Distance (feet) 25 Ambulation Assistive Device None Ambulation Ability Supervision/Stand by Balance Ability to Arise Able, uses arms to help Sitting Balance Steady, safe Standing Balance Steady, wide stance Dynamic Sitting Balance Ability Good Dynamic Standing Balance Ability Fair Transfers Bed Transfer Ability Independent Sit to Stand Bed Transfer Ability Supervision/Stand by Rehab PT IP prob,goals,plan Problems Date of Evaluation: 10/09/24 Rehab Potential Rehab Potential Innapropriate for Skilled Therapy Discharge Plan PT Discharge Plan Pt safe to d/c home when deemed medically necessary d/t current level of mobility, home set-up, and family support. Pt not appropriate for skilled acute care PT at this time d/t pt?s mobility being at baseline/SUP. Eval Complexity Eval Charge Codes 18492 - Moderate Complexity PHYSICIAN CERTIFICATION: I certify the specified therapy services for Oralia Jackman are required, authorized, and reviewed every 30 days.
--- NOTE | 2024-10-09 10:43 | HMH.OTEV ---
OT Inpatient Evaluation Rehab OT IP Evaluation Start: 10/08/24 17:23 Freq: MONTHLY Status: Active Protocol: Document 10/09/24 10:32 PEARL (Rec: 10/09/24 10:42 PEARL [id number]) Rehab OT IP Assessment Subjective History Per HPI narrative from ED visit: This patient is a 59-year-old female with a history of morbid obesity, COPD on 2 to 3 L nasal cannula chronically, CHF, depression, hypertension, hyperlipidemia presenting to the emergency department for evaluation with concern for positive blood cultures. Patient was evaluated here for shortness of breath and was diagnosed with COPD exacerbation. She was discharged home with oral steroids and antibiotics, but she states she is not been able to take the antibiotic because she has had intractable nausea and vomiting. She also states that she is having some generalized abdominal pain. She is unable to eat or drink much at all. She states that her last bowel movement was yesterday and was normal for her. No diarrhea, constipation, melena, hematochezia. She notes she is having subjective fevers as well. She is continuing to have some cough. Subjective I need to go to bathroom. Pt was sitting upright in bed when therapy entered room. Pt was orient x4. Pt reported they needed to go to bathroom. Pt went from sitting upright in bed to EOB with SBA. Pt then completed a sit to stand transfer with SBA. Pt able to complete functional mobility to toilet with SBA. Pt able to complete toileting and hygiene with SBA. Pt able to complete sit to stand transfer from toilet and complete functional mobility to sink. Pt able to demo good activity tolerance and dynamic and static standing balance while completing hand washing hygiene with SBA. pt then able to complete functional mobility from sink to bed and sit with SBA. Pt then able to scoot and readjust self from EOB to sitting upright in bed with SBA. entered room while therapy was present. Pt reported they live with and is there usually / to assist if needed. pt reported ind in ADLs and IADLs. Pt reported they usually use walker or w/c depending on functional mobility task. pt reported pt does drive. pt reported they have showerchair and grab bars in bathroom. pt reported they have a ramp and live in one level home. pt reported they are at baseline. Pt left with call light and all other needs within reach. Pt's also in room when therapy left . Objective Patient Orientation Person,Place,Birthday,Patient Baseline Right Upper Extremity Gross ROM WFL Left Upper Extremity Gross ROM WFL Bed Mobility bed mobility-scooting,bed mobility - supine/sit Assist Level Supervision/Stand by Transfer Training Sit/Stand Transfer Assist Level Supervision/Stand by Performing Toilet Hygiene Ability Standby Assistance Overall Commode/Toilet Transfer Ability Standby Assistance Commode/Toilet Transfer Technique Sit to/from Ambulatory Commode/Toilet Transfer Assistive Grab Bars Devices Decrease in Endurance No: pt at baseline Rehab OT IP prob,goals,plan Problems Date of Evaluation: 10/09/24 Rehab Potential Rehab Potential Innapropriate for Skilled Therapy Discharge Plan OT Discharge Plan Pt appears to be at baseline at this time. Pt is not appropriate for skilled OT services and interventions while being admitted here at [facility]. Pt would benefit from home health services to address functional limitations in occupational performance once home to address functional limitations in endurance and UB strength. Eval Complexity Eval Charge Codes 83755 - Moderate Complexity PHYSICIAN CERTIFICATION: I certify the specified therapy services for Oralia Jackman are required, authorized, and reviewed every 30 days.
[2024-10-09] MEDS: UMECLIDINIUM/VILANTEROL 62.5/25MCG INHALER 1 PUFF IH (11:28)
--- NOTE | 2024-10-09 11:55 | EXP.DC.SUM ---
General Admission date:: 10/08/24 HPI HPI HPI: Patient states she has been having nausea and vomiting for the past 2 to 3 days. Previously presented to the ED on the . Cultures obtained that returned positive for E. coli. Was sent home due to relatively normal labs and tolerance of p.o. intake at that time. On presentation today, remains tachycardic. White count normal. Continues to have chills, nausea, vomiting. Stable on baseline oxygen of 2 to 3 L. Medicine consulted for admission due to bacteremia. Initiated on ceftriaxone 2 g IV once. On arrival to the floor, overall doing well. Hemodynamically stable. Hospital Course Hospital Course Hospital Course: August Gasper is a 59-year-old female who presented to the ER 2 days ago with nausea and vomiting. Was discharged home. Condition worsened, blood cultures returned positive for E. coli. E. coli bacteremia UTI Nausea and vomiting ? Blood cultures from 2 days ago revealed E. coli bacteremia essentially pansensitive. Repeat cultures negative. ? Clinically improved with ceftriaxone, transitioned to cefdinir 300 mg twice daily for 10 more days. Procalcitonin initially 15, improved with antibiotics. HFpEF - Euvolemic. Continue home Lasix, Entresto, metoprolol, spironolactone. Depression: - Continue BuSpar 10 mg 3 times a day, Wellbutrin 300 mg daily, Zoloft 100 mg daily COPD: - Continue Breo 1 puff daily. HLD: - Continue simvastatin 40 mg nightly Exam Data for Last 24 hours Vital signs and Labs for Last 24 Hours: Temp Pulse Resp BP Pulse Ox O2 Del Method O2 Flow Rate 97.7 F 77 17 106/67 L 96 Nasal Cannula 2 10/09/24 08:00 10/09/24 09:45 10/09/24 08:00 10/09/24 08:00 10/09/24 09:45 10/09/24 11:00 10/09/24 11:00 Laboratory Results - last 24 hr 10/08/24 11:59: VBG pH 7.36, VBG pCO2 53.7 H, VBG pO2 36.1, VBG HCO3 29.8, VBG Total CO2 31.4 H, VBG O2 Saturation 71.1 H, VBG Base Excess 4.4 H, VBG Lactic Acid 2.8 H 10/08/24 12:00: WBC 10.9 H, RBC 3.85 L, Hgb 12.3, Hct 37.7, MCV 97.9, MCH 31.9 H, MCHC 32.6, RDW 12.7, Plt Count 190, MPV 11.2 H, Neut % (Auto) 87.9 H, Lymph % (Auto) 8.6 L, [place] % (Auto) 2.9, Eos % (Auto) 0.0 L, Baso % (Auto) 0.1, Neut # (Auto) 9.6 H, Lymph # (Auto) 0.9, [place] # (Auto) 0.3, Eos # (Auto) 0.0, Baso # (Auto) 0.0, ESR 26, Sodium 128 L, Potassium 3.7, Chloride 93 L, Carbon Dioxide 32 H, Anion Gap 6.7, BUN 31 H D, Creatinine 0.90, Estimated Creat Clear 122, Estimated GFR 64, Est GFR ( Amer) 78, Glucose 217 H, Lactate 2.7 H, Calcium 8.9, Total Bilirubin 0.5, AST 34, ALT 27 D, Alkaline Phosphatase 89, C-Reactive Protein 79.0 H, Total Protein 7.8, Albumin 4.3, Globulin 3.5 H, Albumin/Globulin Ratio 1.2, Lipase 86, Procalcitonin 15.3 H 10/08/24 12:56: Urine Color Yellow, Urine Appearance Clear, Urine pH 6.0, Ur Specific [place]rill 1.025, Urine Protein 2+ A, Urine Glucose (UA) Negative, Urine Ketones Negative, Urine Blood 1+ A, Urine Nitrate Negative, Urine Bilirubin Negative, Urine Urobilinogen 0.2, Ur Leukocyte Esterase 1+ A, Urine RBC 3-5, Urine WBC 10-20, Ur Squamous Epith Cells 3-5, Amorphous Sediment Trace, Urine Bacteria Trace 10/08/24 16:22: Lactate 3.5 H 10/08/24 18:45: Lactate 3.5 H 10/09/24 05:34: WBC 7.6 D, RBC 3.58 L, Hgb 11.4 L, Hct 34.9 L, MCV 97.5, MCH 31.8 H, MCHC 32.7, RDW 12.7, Plt Count 184, MPV 11.8 H, Neut % (Auto) 74.8, Lymph % (Auto) 19.6, Lincoln % (Auto) 5.1, Eos % (Auto) 0.0 L, Baso % (Auto) 0.0 L, Neut # (Auto) 5.7, Lymph # (Auto) 1.5, Lincoln # (Auto) 0.4, Eos # (Auto) 0.0, Baso # (Auto) 0.0, Sodium 131 L, Potassium 3.5, Chloride 95 L, Carbon Dioxide 35 H, Anion Gap 4.5 L, BUN 26 H, Creatinine 1.00, Estimated Creat Clear 100, Estimated GFR 57 L, Est GFR ( Amer) 69, Glucose 169 H D, Hemoglobin A1c 5.4, Calcium 8.2 L, Magnesium 1.6, Total Bilirubin 0.3, AST 27, ALT 20 D, Alkaline Phosphatase 87, Total Protein 6.5, Albumin 3.4 L D, Globulin 3.1, Albumin/Globulin Ratio 1.1, Procalcitonin 7.31 H I & O for Last 24 hours: Intake & Output 10/06/24 10/07/24 10/08/24 10/09/24 23:59 23:59 23:59 23:59 Intake Total 360 / 600 600 / 600 Balance 360 / 600 600 / 600 Weight 99.592 kg 103.283 kg Results Data Completed and Pending Labs on day of discharge: Labs from last 24 hours 10/09/24 10/08/24 10/08/24 05:34 18:45 16:22 WBC 7.6 D RBC 3.58 L Hgb 11.4 L Hct 34.9 L MCV 97.5 MCH 31.8 H MCHC 32.7 RDW 12.7 Plt Count 184 MPV 11.8 H Neut % (Auto) 74.8 Lymph % (Auto) 19.6 Lincoln % (Auto) 5.1 Eos % (Auto) 0.0 L Baso % (Auto) 0.0 L Neut # (Auto) 5.7 Lymph # (Auto) 1.5 Lincoln # (Auto) 0.4 Eos # (Auto) 0.0 Baso # (Auto) 0.0 ESR VBG pH VBG pCO2 VBG pO2 VBG HCO3 VBG Total CO2 VBG O2 Saturation VBG Base Excess VBG Lactic Acid Sodium 131 L Potassium 3.5 Chloride 95 L Carbon Dioxide 35 H Anion Gap 4.5 L BUN 26 H Creatinine 1.00 Estimated Creat Clear 100 Estimated GFR 57 L Est GFR ( Amer) 69 Glucose 169 H D Hemoglobin A1c 5.4 Lactate 3.5 H 3.5 H Calcium 8.2 L Magnesium 1.6 Total Bilirubin 0.3 AST 27 ALT 20 D Alkaline Phosphatase 87 C-Reactive Protein Total Protein 6.5 Albumin 3.4 L D Globulin 3.1 Albumin/Globulin Ratio 1.1 Lipase Procalcitonin 7.31 H Urine Color Urine Appearance Urine pH Ur Specific Sherrill Urine Protein Urine Glucose (UA) Urine Ketones Urine Blood Urine Nitrate Urine Bilirubin Urine Urobilinogen Ur Leukocyte Esterase Urine RBC Urine WBC Ur Squamous Epith Cells Amorphous Sediment Urine Bacteria 10/08/24 10/08/24 10/08/24 12:56 12:00 11:59 WBC 10.9 H RBC 3.85 L Hgb 12.3 Hct 37.7 MCV 97.9 MCH 31.9 H MCHC 32.6 RDW 12.7 Plt Count 190 MPV 11.2 H Neut % (Auto) 87.9 H Lymph % (Auto) 8.6 L Lincoln % (Auto) 2.9 Eos % (Auto) 0.0 L Baso % (Auto) 0.1 Neut # (Auto) 9.6 H Lymph # (Auto) 0.9 Lincoln # (Auto) 0.3 Eos # (Auto) 0.0 Baso # (Auto) 0.0 ESR 26 VBG pH 7.36 VBG pCO2 53.7 H VBG pO2 36.1 VBG HCO3 29.8 VBG Total CO2 31.4 H VBG O2 Saturation 71.1 H VBG Base Excess 4.4 H VBG Lactic Acid 2.8 H Sodium 128 L Potassium 3.7 Chloride 93 L Carbon Dioxide 32 H Anion Gap 6.7 BUN 31 H D Creatinine 0.90 Estimated Creat Clear 122 Estimated GFR 64 Est GFR ( Amer) 78 Glucose 217 H Hemoglobin A1c Lactate 2.7 H Calcium 8.9 Magnesium Total Bilirubin 0.5 AST 34 ALT 27 D Alkaline Phosphatase 89 C-Reactive Protein 79.0 H Total Protein 7.8 Albumin 4.3 Globulin 3.5 H Albumin/Globulin Ratio 1.2 Lipase 86 Procalcitonin 15.3 H Urine Color Yellow Urine Appearance Clear Urine pH 6.0 Ur Specific Sherrill 1.025 Urine Protein 2+ A Urine Glucose (UA) Negative Urine Ketones Negative Urine Blood 1+ A Urine Nitrate Negative Urine Bilirubin Negative Urine Urobilinogen 0.2 Ur Leukocyte Esterase 1+ A Urine RBC 3-5 Urine WBC 10-20 Ur Squamous Epith Cells 3-5 Amorphous Sediment Trace Urine Bacteria Trace DS: Diagnosis Discharge Diagnosis (1) Bacteremia due to Escherichia coli: Status: Acute Code(s): R78.81 - Bacteremia; B96.20 - Unspecified Escherichia coli [E. coli] as the cause of diseases classified elsewhere (2) Urinary tract infection: Status: Acute Code(s): N39.0 - Urinary tract infection, site not specified (3) Diabetes: Status: Acute Code(s): E11.9 - Type 2 diabetes mellitus without complications Qualifiers: Diabetes mellitus complication status: with unspecified complications Diabetes mellitus [employer] insulin use: with [employer] use Diabetes mellitus type: type 2 Qualified Code(s): E11.8 - Type 2 diabetes mellitus with unspecified complications; Z79.4 - long term (current) use of insulin (4) Depression: Status: Chronic Code(s): F32.A - Depression, unspecified (5) Tobacco abuse disorder: Status: Chronic Code(s): Z72.0 - Tobacco use (6) HLD (hyperlipidemia): Status: Chronic Code(s): E78.5 - Hyperlipidemia, unspecified Qualifiers: Hyperlipidemia type: unspecified Qualified Code(s): E78.5 - Hyperlipidemia, unspecified (7) HTN (hypertension): Status: Chronic Code(s): I10 - Essential (primary) hypertension Qualifiers: Hypertension type: primary hypertension Qualified Code(s): I10 - Essential (primary) hypertension (8) CAD (coronary artery disease): Status: Acute Code(s): I25.10 - Atherosclerotic heart disease of [place] coronary artery without angina pectoris (9) Anxiety: Status: Acute Code(s): F41.9 - Anxiety disorder, unspecified (10) CHF (congestive heart failure): Status: Acute Code(s): I50.9 - Heart failure, unspecified (11) Nausea & vomiting: Status: Acute Code(s): R11.2 - Nausea with vomiting, unspecified (12) Obesity (BMI 30.0-34.9): Status: Acute Code(s): E66.811 - Obesity, class 1 Meds Home Medications and Allergies Home Medications ?Medication ?Instructions ?Recorded ?Confirmed ?Type fluticasone propionate 50 1 spray intranasal BID 11/02/22 10/08/24 History mcg/actuation nasal spray,suspension loratadine 10 mg tablet (Claritin) 10 mg PO DAILY 11/02/22 10/08/24 History umeclidinium 62.5 mcg-vilanterol 1 inh inhalation DAILY 11/02/22 10/08/24 History 25 mcg/actuation powdr for inhalation (Anoro Ellipta) albuterol sulfate 90 mcg/actuation 2 inh inhalation Q6HP PRN 11/03/22 10/08/24 History aerosol inhaler (Ventolin HFA) Shortness Of Breath Or Wheezing buspirone 10 mg tablet 10 mg PO TID 11/03/22 10/08/24 History simvastatin 40 mg tablet 40 mg PO HS 11/03/22 10/08/24 History montelukast 10 mg tablet 10 mg PO PM 30 days #30 tabs 01/26/23 10/08/24 Rx cholecalciferol (vitamin D3) 125 125 mcg PO DAILY 12/26/23 10/08/24 History mcg (5,000 unit) capsule cyanocobalamin (vitamin B-12) 5,000 mcg PO DAILY 12/26/23 10/08/24 History 5,000 mcg capsule sacubitril 24 mg-valsartan 26 mg 1 tab PO BID 12/26/23 10/09/24 History tablet (Entresto) bupropion HCl 150 mg 24 hr tablet, 300 mg PO DAILY 04/15/24 10/08/24 History extended release ipratropium 0.5 mg-albuterol 3 mg 3 ml inhalation Q6H 04/15/24 10/08/24 History (2.5 mg base)/3 mL nebulization soln sertraline 100 mg tablet 100 mg PO DAILY 04/15/24 10/08/24 History spironolactone 25 mg tablet 25 mg PO DAILY #90 tabs 06/11/24 10/08/24 Rx furosemide 40 mg tablet 40 mg PO DAILY #30 tabs 10/02/24 10/08/24 Rx prednisone 20 mg tablet 40 mg (2 x 20 mg) PO DAILY 5 days 10/06/24 10/08/24 Rx #10 tabs metoprolol succinate 50 mg 50 mg PO DAILY 10/08/24 10/09/24 History tablet,extended release 24 hr cefdinir 300 mg capsule 300 mg PO BID 9 days #18 caps 10/09/24 Rx hydrocodone 5 mg-acetaminophen 325 1 tab PO Q8H PRN pain #12 tabs 10/16/24 Rx mg tablet New Prescriptions to Start Prescriptions: Buddy Otero Allergies Allergy/AdvReac Type Severity Reaction Status Date / Time No Known Allergies Allergy Verified 04/30/24 15:18 Discharge Plan Disposition Patient Disposition: Home, Self-Care Condition: Fair Discharge Order Discharge Orders: Discharge Order (Routine); Ordered 10/09/24 Ordered By: Buddy Tavarez Follow up Plan Follow up with: Azucena Clarke APRN [Primary Care Provider, Medical] - 10/16/24 10:00 am Prescriptions/Medication Reconciliation: New cefdinir 300 mg capsule 300 mg PO BID 9 Days Qty: 18 0RF Continued cholecalciferol (vitamin D3) 125 mcg (5,000 unit) capsule 125 mcg PO DAILY Entresto 24-26 mg tablet 1 tab PO BID cyanocobalamin (vitamin B-12) 5,000 mcg capsule 5,000 mcg PO DAILY spironolactone 25 mg tablet 25 mg PO DAILY Qty: 90 3RF furosemide 40 mg tablet 40 mg PO DAILY Qty: 30 5RF metoprolol succinate 50 mg tablet extended release 24 hr 50 mg PO DAILY fluticasone propionate 50 mcg/actuation spray,suspension 1 spray intranasal BID Rx Instructions: administer into each nostril umeclidinium-vilanterol [Anoro Ellipta] 62.5-25 mcg/actuation blister with device 1 inh INHALATION DAILY loratadine [Claritin] 10 mg Tablet 10 mg PO DAILY albuterol sulfate [Ventolin HFA] 90 mcg/actuation HFA aerosol inhaler 2 inh INHALATION Q6HP PRN (Reason: Shortness Of Breath Or Wheezing) simvastatin 40 mg tablet 40 mg PO HS buspirone 10 mg tablet 10 mg PO TID montelukast 10 mg Tablet 10 mg PO PM 30 Days Qty: 30 0RF bupropion HCl 150 mg tablet extended release 24 hr 300 mg PO DAILY sertraline 100 mg tablet 100 mg PO DAILY ipratropium-albuterol 0.5 mg-3 mg(2.5 mg base)/3 mL solution for nebulization 3 ml inhalation Q6H prednisone 20 mg tablet 40 mg PO DAILY 5 Days Qty: 10 0RF Discontinued doxycycline hyclate 100 mg capsule 100 mg PO BID 5 Days Qty: 10 0RF No Action hydrocodone-acetaminophen 5-325 mg tablet 1 tab PO Q8H PRN (Reason: pain) Qty: 12 0RF Problem Reconciliation Problems Reviewed?: Yes Patient Discharge Instructions Patient Instructions: DI for Bacteremia-Adult, Stop Light Infection Print Language: Cuban Providers Primary Care Provider: Azucena Clarke Admit Provider: Buddy Tavarez Attending Provider: Buddy Tavarez
[2024-10-09] MEDS: CEFTRIAXONE SODIUM 2 GM in 0.9 % SODIUM CHLORIDE 100 ML IV (12:18)
[2024-10-09] MEDS: ONDANSETRON 4MG/2ML VIAL 4 MG IV (12:18)
--- NOTE | 2024-10-09 13:53 | SW/DCPLANNER ---
I have arranged [facility] services for this patient for transportation home.
--- NOTE | 2024-10-09 23:53 | PC.NURSE ---
Lab called with blood cuture sensitivity, MD Conroy aware at this time.
--- NOTE | 2024-10-10 10:01 | SW/DCPLANNER ---
Spoke with patient on the phone. Patient stated that she is doing good. Patient stated that she is aware of her upcoming appointment. Patient stated that she was able to get her new medicine picked up from [facility]. Patient stated that she has no concerns or questions at this time. Cornelia Richardson
[2024-10-15 16:07] LABS: Fructosamine 203
== END 2024-10-09 14:07 | disposition home or self-care (01) | DRG 872 ==
LOC: ER 14:25 → 2ND 16:20
PROVIDERS: Internal Medicine Adolescent Medicine; Admitting Provider Student in an Organized Health Care Education/Training Program; Emergency Provider Emergency Medicine; PCP Nurse Practitioner Family; Visit Provider Student in an Organized Health Care Education/Training Program
DX: R78.81 Bacteremia (principal); N39.0 Urinary tract infection, site not specified; I50.32 Chronic diastolic (congestive) heart failure; N17.9 Acute kidney failure, unspecified; J96.10 Chronic respiratory failure, unspecified whether with hypoxia or hypercapnia; E87.1 Hypo-osmolality and hyponatremia; J44.1 Chronic obstructive pulmonary disease with (acute) exacerbation; B96.20 Unspecified Escherichia coli [E. coli] as the cause of diseases classified elsewhere; F32.A Depression, unspecified; E78.5 Hyperlipidemia, unspecified; I11.0 Hypertensive heart disease with heart failure; I25.10 Atherosclerotic heart disease of native coronary artery without angina pectoris; F41.9 Anxiety disorder, unspecified; E66.811 Obesity, class 1; F17.210 Nicotine dependence, cigarettes, uncomplicated; R74.02 Elevation of levels of lactic acid dehydrogenase [LDH]; R00.0 Tachycardia, unspecified; I49.1 Atrial premature depolarization; R11.2 Nausea with vomiting, unspecified; E11.65 Type 2 diabetes mellitus with hyperglycemia; Z68.34 Body mass index [BMI] 34.0-34.9, adult; Z79.4 Long term (current) use of insulin; Z79.899 Other long term (current) drug therapy
CPT/HCPCS: 36415; 80053; 81001; 82803; 82985; 83036; 83605; 83690; 83735; 84145; 85025; 85651; 86140; 87040; 87086; 93005; 94640; 97162; 97166; 99291; J0696; J2405

== ENCOUNTER 2024-10-16 15:40 | Emergency (ER) | payer OTHER, SELFPAY ==
--- NOTE | 2024-10-16 | XR_ITS ---
FINAL REPORT CLINICAL HISTORY: Right knee pain COMPARISON: None FINDINGS: 3 views of the right knee were obtained. There is a nondisplaced fracture of the proximal fibula, spiral type. Mild narrowing of the medial compartment joint space is noted. There is a small to moderate joint effusion. There is no acute soft tissue abnormality. IMPRESSION: Proximal fibular fracture with small to moderate joint effusion. Reviewed, Interpreted and Dictated by Christopher Patel MD Transcribed by Leandra Osborne Authenticated and [facility]
--- NOTE | 2024-10-16 | CT_ITS ---
PROCEDURE INFORMATION: Exam: CT Right Lower Extremity Without Contrast, Knee Exam date and time: 10/16/2024 5:28 PM Age: 59 years old Clinical indication: Pain; Lower leg; Right; Additional info: Pain lower leg; Fracture on xrays TECHNIQUE: Imaging protocol: CT of the right lower extremity without contrast was performed. Exam focused on the knee. Radiation optimization: All CT scans at this facility use at least one of these dose optimization techniques: automated exposure control; mA and/or kV adjustment per patient size (includes targeted exams where dose is matched to clinical indication); or iterative reconstruction. COMPARISON: No relevant prior studies available. FINDINGS: Bones/joints: Moderate osteophytosis and degenerative changes involve the 3 compartments of the right knee. Nonspecific curvy linear calcific density associated with the ACL footprint on the lateral femoral condyle without adjacent soft tissue fluid/edema. Proximal fibular metaphysis cortical lucency compatible with nondisplaced fracture. Soft tissues: See Bones/joints finding. IMPRESSION: 1. Proximal fibular metaphysis cortical lucency compatible with nondisplaced fracture. 2. Moderate osteophytosis and degenerative changes involve the 3 compartments of the right knee. 3. Nonspecific curvy linear calcific density associated with the ACL footprint on the lateral femoral condyle without adjacent soft tissue fluid/edema. Recommend further evaluation with MRI to evaluate for soft tissue injury at this location.
--- NOTE | 2024-10-16 | CT_ITS ---
PROCEDURE INFORMATION: Exam: XR Right Ankle Exam date and time: 10/16/2024 4:20 PM Age: 59 years old Clinical indication: Pain; Ankle; Right; Additional info: C/O right ankle pain TECHNIQUE: Imaging protocol: Radiologic exam of the right ankle. Views: 3 or more views. COMPARISON: No relevant prior studies available. FINDINGS: Bones/joints: Small plantar calcaneal spur. Small posterior calcaneal enthesophyte. No acutely displaced fracture or dislocation. Soft tissues: Normal. IMPRESSION: No acute findings.
--- NOTE | 2024-10-16 | XR_ITS ---
PROCEDURE INFORMATION: Exam: XR Right Foot Exam date and time: 10/16/2024 4:26 PM Age: 59 years old Clinical indication: Pain; Foot; Right; Additional info: C/O right foot pain TECHNIQUE: Imaging protocol: Radiologic exam of the right foot. Views: 3 or more views. COMPARISON: No relevant prior studies available. FINDINGS: Bones/joints: Small plantar calcaneal spur. Small posterior calcaneal enthesophyte. No acutely displaced fracture or dislocation. Soft tissues: No significant soft tissue swelling. IMPRESSION: No acute findings.
--- NOTE | 2024-10-16 | XR_ITS ---
PROCEDURE INFORMATION: Exam: XR Right Tibia and Fibula Exam date and time: 10/16/2024 4:22 PM Age: 59 years old Clinical indication: Pain; Lower leg; Right; Additional info: C/O right lower leg pain TECHNIQUE: Imaging protocol: Radiologic exam of the right tibia and fibula. Views: 2 views. COMPARISON: No relevant prior studies available. FINDINGS: Bones/joints: Multiple linear lucencies in the proximal fibular metaphysis. Small plantar calcaneal spur. Small posterior calcaneal enthesophyte. Soft tissues: Normal. IMPRESSION: Multiple linear lucencies in the proximal fibular metaphysis. Consistent with a minimally comminuted fracture.
--- NOTE | 2024-10-16 16:23 | PC.NURSE ---
Xray is at the bedside.
[2024-10-16 16:30] VITALS: BP 120/92; PULSE 85; RESP 14; O2SAT 93
[2024-10-16 17:00] VITALS: BP 146/95; PULSE 87; RESP 16; O2SAT 92
--- NOTE | 2024-10-16 17:20 | PC.NURSE ---
PT gone to CT via stretcher.
--- NOTE | 2024-10-16 17:33 | PC.NURSE ---
PT back to room.
[2024-10-16 18:00] VITALS: BP 126/108; PULSE 100; RESP 16; O2SAT 91
[2024-10-16 18:30] VITALS: BP 133/107; PULSE 111; O2SAT 90
--- NOTE | 2024-10-16 18:52 | HMH.EDGENADL ---
Discharge Plan Disposition Patient Disposition: Home, Self-Care Condition: Good Prescriptions Prescriptions: New hydrocodone-acetaminophen 5-325 mg tablet 1 tab PO Q8H PRN (Reason: pain) Qty: 12 0RF No Action cholecalciferol (vitamin D3) 125 mcg (5,000 unit) capsule 125 mcg PO DAILY Entresto 24-26 mg tablet 1 tab PO BID cyanocobalamin (vitamin B-12) 5,000 mcg capsule 5,000 mcg PO DAILY spironolactone 25 mg tablet 25 mg PO DAILY Qty: 90 3RF furosemide 40 mg tablet 40 mg PO DAILY Qty: 30 5RF metoprolol succinate 50 mg tablet extended release 24 hr 50 mg PO DAILY cefdinir 300 mg capsule 300 mg PO BID 9 Days Qty: 18 0RF fluticasone propionate 50 mcg/actuation spray,suspension 1 spray intranasal BID Rx Instructions: administer into each nostril umeclidinium-vilanterol [Anoro Ellipta] 62.5-25 mcg/actuation blister with device 1 inh INHALATION DAILY loratadine [Claritin] 10 mg Tablet 10 mg PO DAILY albuterol sulfate [Ventolin HFA] 90 mcg/actuation HFA aerosol inhaler 2 inh INHALATION Q6HP PRN (Reason: Shortness Of Breath Or Wheezing) simvastatin 40 mg tablet 40 mg PO HS buspirone 10 mg tablet 10 mg PO TID montelukast 10 mg Tablet 10 mg PO PM 30 Days Qty: 30 0RF bupropion HCl 150 mg tablet extended release 24 hr 300 mg PO DAILY sertraline 100 mg tablet 100 mg PO DAILY ipratropium-albuterol 0.5 mg-3 mg(2.5 mg base)/3 mL solution for nebulization 3 ml inhalation Q6H prednisone 20 mg tablet 40 mg PO DAILY 5 Days Qty: 10 0RF Referrals Follow up/Referrals: Keon Chow DO [Staff Physician, Orthopedics] - See instructions Azucena Clarke APRN [Primary Care Provider, Medical] - See instructions Activity Restrictions/Add. Instructions Additional Instructions/Restrictions: You were evaluated in the emergency department today and diagnosed with fractures of your right foot as well as a fracture of your proximal fibula. Please keep your splint on, clean, and dry. Do not remove it. Do not get it wet. Do not bear weight on your right lower extremity. Use wheelchair or walker at home as needed to help facilitate this. 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 Alternatively, you may take Tylenol and ibuprofen every 4-6 hours as needed for pain. Return to the emergency department for new or worsening symptoms. Call orthopedics tomorrow to schedule an appointment Clinical Impressions Clinical Impression: Foot fracture, right, Fracture of fibula, proximal Stand Alone Forms Stand Alone Forms: Work/School Release Instructions Patient Instructions: DI for Foot Fracture, How to Take Care of Your Splint Print Language Print Language: Kazakh Discharge ED Provider: Ashly Mosley General Adult HPI General Chief complaint: PAIN Stated complaint: AO 10/15/24 fell, inj bottom and ankle Time Seen by Provider: 10/16/24 15:40 History of Present Illness HPI narrative: This patient is a 59-year-old female with history of COPD on home oxygen, obesity presented to the emergency department for evaluation with concern for right lower extremity pain after falling when getting out of the van last night.? She states that she injured her right foot and felt a pop.? She did not hit her head or lose consciousness.? She did not completely fall to the ground.? She denies any headache, neck pain, back pain, chest pain, abdominal pain, numbness, tingling, or other concerns.? She was well prior to this with no prodrome of any symptoms.? Her biggest concern is right foot and ankle pain.? She is still able to bear weight on it, but hurts to do so. Related Data Home Medications ?Medication ?Instructions ?Recorded ?Confirmed fluticasone propionate 50 1 spray intranasal BID 11/02/22 10/08/24 mcg/actuation nasal spray,suspension loratadine 10 mg tablet (Claritin) 10 mg PO DAILY 11/02/22 10/08/24 umeclidinium 62.5 mcg-vilanterol 1 inh inhalation DAILY 11/02/22 10/08/24 25 mcg/actuation powdr for inhalation (Anoro Ellipta) albuterol sulfate 90 mcg/actuation 2 inh inhalation Q6HP PRN 11/03/22 10/08/24 aerosol inhaler (Ventolin HFA) Shortness Of Breath Or Wheezing buspirone 10 mg tablet 10 mg PO TID 11/03/22 10/08/24 simvastatin 40 mg tablet 40 mg PO HS 11/03/22 10/08/24 cholecalciferol (vitamin D3) 125 125 mcg PO DAILY 12/26/23 10/08/24 mcg (5,000 unit) capsule cyanocobalamin (vitamin B-12) 5,000 mcg PO DAILY 12/26/23 10/08/24 5,000 mcg capsule sacubitril 24 mg-valsartan 26 mg 1 tab PO BID 12/26/23 10/09/24 tablet (Entresto) bupropion HCl 150 mg 24 hr tablet, 300 mg PO DAILY 04/15/24 10/08/24 extended release ipratropium 0.5 mg-albuterol 3 mg 3 ml inhalation Q6H 04/15/24 10/08/24 (2.5 mg base)/3 mL nebulization soln sertraline 100 mg tablet 100 mg PO DAILY 04/15/24 10/08/24 metoprolol succinate 50 mg 50 mg PO DAILY 10/08/24 10/09/24 tablet,extended release 24 hr Previous Rx's ?Medication ?Instructions ?Recorded montelukast 10 mg tablet 10 mg PO PM 30 days #30 tabs 01/26/23 spironolactone 25 mg tablet 25 mg PO DAILY #90 tabs 06/11/24 furosemide 40 mg tablet 40 mg PO DAILY #30 tabs 10/02/24 prednisone 20 mg tablet 40 mg (2 x 20 mg) PO DAILY 5 days 10/06/24 #10 tabs cefdinir 300 mg capsule 300 mg PO BID 9 days #18 caps 10/09/24 hydrocodone 5 mg-acetaminophen 325 1 tab PO Q8H PRN pain #12 tabs 10/16/24 mg tablet Allergies Allergy/AdvReac Type Severity Reaction Status Date / Time No Known Allergies Allergy Verified 04/30/24 15:18 [facility] Disclaimer: The information contained in this section may have been updated after the patient was seen, as this information can be updated by other users. Medical History Metatarsal fracture Cataract Ectopic Anxiety and depression Pneumonia Tachycardia Acute and chronic respiratory failure with hypoxia Abnormal computerized axial tomography of chest Multiple pulmonary nodules Smoking greater than 30 pack years Non-seasonal allergic rhinitis Nocturnal hypoxemia Tobacco abuse disorder Seasonal allergies Dyspnea on exertion Chronic hypoxemic respiratory failure Dyspnea HLD (hyperlipidemia) HTN (hypertension) Lung nodule COPD (chronic obstructive pulmonary disease) Surgical History History of cholecystectomy No significant past surgical history Family History Other Cancer Coronary artery disease Social History Smoking Status: Current every day smoker tobacco type: cigarettes packs per day: 1 smoking status stop date: Jun 2023 second hand exposure: No alcohol intake: never substance use type: denies use current occupational status: disabled Travel in the last 8 weeks?: None household members: spouse housing: house current occupational exposures/hazards: No caffeine: Yes Other Medical History Have you received the Flu Vaccine for this season: No Have you received the Pneumonia Vaccine: No ROS Obtained: Yes All systems reviewed & no additional complaints except as documented Physical Exam General General appearance: alert and in no apparent distress Head Head exam: atraumatic and normocephalic Eye Eye exam: Present normal appearance, PERRL and EOMI ENT ENT exam: Present normal exam, normal oropharynx, mucous membranes moist and normal external ear exam Neck Neck exam: Present normal inspection, full ROM and trachea midline; Absent tenderness Chest Chest inspection: Present normal inspection and symmetric chest wall rise; Absent tenderness Respiratory Respiratory exam: Present normal lung sounds bilaterally; Absent respiratory distress, wheezes, stridor or accessory muscle use Cardiovascular Cardiovascular exam: Present regular rate and normal rhythm Abdominal Exam Abdominal exam: Present soft; Absent distention, tenderness or guarding Extremities Exam Extremities exam: Present tenderness (R foot, R mid/proximal tib/fib), normal capillary refill and other (No open wounds, neurovascularly intact distally); Absent edema Back Exam Back exam: Present normal inspection and full ROM; Absent tenderness Neurological Exam Neurological exam: Present alert, oriented X3, CN II-XII intact and normal gait; Absent motor sensory deficit Psychiatric Psychiatric exam: Present normal affect and normal mood Skin Skin exam: Present warm and dry Medical Decision Making Medical Records Medical records reviewed: Yes I reviewed the patient's medical records. Screening: Per USPSTF and CDC recommendations, given the prevalence of disease in our region, it is our hospital?s policy to screen for HIV and viral Hepatitis for all patients aged 18 and over and those with ongoing risk factors. Matt Inquiry Pt receiving controlled substance: Yes Matt was queried for this patient: Yes Risks and benefits of using a controlled substance: were discussed with pt by me Vital Signs: 10/16/24 16:30 10/16/24 17:00 10/16/24 18:00 Temperature Temperature Source Pulse Rate 85 87 100 H Pulse Rate [Radial] Respiratory Rate 14 16 16 Blood Pressure 120/92 H 146/95 H 126/108 H Blood Pressure [Left Arm] Blood Pressure Mean [Left Arm] Blood Pressure Source Blood Pressure Source [Left Arm] Blood Pressure Position Blood Pressure Position [Left Arm] 02 Sat by Pulse Oximetry 93 L 92 L 91 L Oxygen Delivery Method Nasal Cannula Nasal Cannula Nasal Cannula Oxygen Flow Rate (LPM) 2 2 2 10/16/24 18:30 10/16/24 19:11 10/16/24 19:25 Temperature 97.9 F 97.8 F Temperature Source Oral Oral Pulse Rate 111 H 106 H Pulse Rate [Radial] 89 Respiratory Rate 18 16 Blood Pressure 133/107 H 133/97 H Blood Pressure [Left Arm] 140/95 H Blood Pressure Mean [Left Arm] 110 Blood Pressure Source Automatic Cuff Blood Pressure Source [Left Arm] Automatic Cuff Blood Pressure Position Supine Blood Pressure Position [Left Arm] Sitting 02 Sat by Pulse Oximetry 90 L 95 Oxygen Delivery Method Nasal Cannula Nasal Cannula Room Air Oxygen Flow Rate (LPM) 2 2 Lab Data Lab results reviewed: Yes I reviewed the patient's lab results. Orders (Tests/Meds): ED MEDICATIONS Discontinued Medications Generic Name Dose Route Start Last Admin Trade Name Freq PRN Reason Stop Dose Admin Acetaminophen 1,000 mg 10/16/24 18:47 Acetaminophen 500mg Tab PO 10/16/24 18:48 ONCE ONE Ondansetron HCl 4 mg 10/16/24 18:47 Ondansetron 4mg Odt SL 10/16/24 18:48 ONCE ONE Oxycodone HCl 10 mg 10/16/24 18:48 Oxycodone 5mg Immediate Release Tablet PO 10/16/24 18:49 ONCE ONE ORDERS Category Date Time Status CT ankle RT wo con Routine Cat Scan 10/16/[address] knee RT wo con Routine Cat Scan 10/16/24 Taken XR ankle RT min 3V Routine Exams 10/16/24 Taken XR foot RT min 3V Routine Exams 10/16/24 Taken XR knee RT 3V Routine Exams 10/16/24 Taken XR tibia fibula RT 2V Routine Exams 10/16/24 Taken Medical Decision Narrative: In summary, this patient is a 59-year-old female presenting to the Emergency Department for evaluation of right lower extremity pain after mechanical ground-level fall. Differential diagnoses considered include but are not limited to fracture, contusion, strain/sprain, polytrauma. Ruling out the most morbid conditions drove assessment. It should be noted patient's history includes morbid obesity, COPD with chronic respiratory failure on oxygen which are not at goal therapy. This complicates all aspects of care by increasing patient's risk for morbidity. Unfortunately, our entire computer system is down at this time and I am not able to review patient's past medical records.? On exam, the patient is sitting upright in no acute distress.? She has tenderness to palpation of her right foot, ankle, and lower tib-fib but otherwise exam is completely normal.? No tenderness to palpation elsewhere, normal lung sounds, benign abdominal exam.? She is alert and completely neurologically intact.? Vitals are reassuring on cardiac telemetry on her home oxygen.? Workup included x-rays of the right knee, tib-fib, ankle, and foot.? Based on reassuring history and exam, I do not feel that other labs or imaging are indicated currently as I feel they would likely not international exchange coordinator. I independently interpreted XR prior to the radiologist read and noted nondisplaced fracture through proximal fibula with normal ankle joint, no widening. Please see their read for final interpretation.? Given the patient has an isolated proximal fibular fracture on CT scan with apparent normal ankle, I elected to obtain femoral XR, CT knee and ankle to rule out tibial plateau fx vs ankle joint disruption.? Patient refused femoral x-ray because she was advised that she would have to lie flat for this, and she states that her femur is not hurting at all and she does not want it x-rayed.? We had risk versus benefit discussion of missing potential fracture, and she states that she knows that it is not broken.? She was agreeable to CT scans, which demonstrated no obvious tibial plateau fracture, however she does have multiple fractures involving her right foot, mostly avulsion fractures. Given fractures, decision was made to place the patient in the right lower extremity posterior splint with stirrup. She notes she has a wheelchair and a walker at home to help her get around, so I feel she will then be appropriate for discharge home with close outpatient follow-up with orthopedics. Patient was neurovascularly intact before and after splinting. She tolerated this well was given instructions for nonweightbearing status at home. She was discharged with plan for close follow-up with orthopedics and prescription for [place] to have as needed for severe pain. Procedures Risk/Benefits of Procedure(s) Were Explained: Yes Orthopedic Splinting/Casting Injury #1: Side: right Upper Extremity Immobilizer: applied by nurse/dr yun Lower Extremity Injury Location: lower leg Lower Extremity Immobilizer: posterior splint and stirrup splint Other Orthopedic Equipment: other (walker/wheelchair at home) Post Cast/Splinting Neuro Status: intact and no change Post Cast/Splinting Vasc Status: intact and no change Critical Care Critical Care Time Critical Care Time: No
[2024-10-16 19:11] VITALS: BP 140/95; PULSE 89; RESP 18; TEMP 36.6; O2SAT 95; BMI 37.2
[2024-10-16 19:25] VITALS: BP 133/97; PULSE 106; RESP 16; TEMP 36.6; O2SAT 94
== END 2024-10-16 19:32 | disposition home or self-care (01) ==
PROVIDERS: Emergency Provider Emergency Medicine; PCP Nurse Practitioner Family
DX: S82.451A Displaced comminuted fracture of shaft of right fibula, initial encounter for closed fracture (principal); S92.901A Unspecified fracture of right foot, initial encounter for closed fracture; V48.4XXA Person boarding or alighting a car injured in noncollision transport accident, initial encounter
CPT/HCPCS: 29515; 73562; 73590; 73610; 73630; 73700; 99285

== ENCOUNTER 2024-10-28 15:50 | Outpatient (RCR) | payer OTHER, SELFPAY | END 2024-10-28 23:59 | disposition home or self-care (01) | LOC: PT 15:50 | PROVIDERS: Visit Provider Physician Assistant | DX: S52.001A Unspecified fracture of upper end of right ulna, initial encounter for closed fracture (principal) | CPT/HCPCS: 97760 ==

== ENCOUNTER 2024-11-18 13:11 | Outpatient (CLI) | payer OTHER, SELFPAY ==
--- OUTSIDE RECORDS SUMMARY | 2024-11-18 13:14 | XMS_ITS | Clinical Summary ---
Author Organization Healthcare Address [address] [place] [address] Care Team Providers Care Dog Boarder Name Role Phone Andreina Shah APRN Primary [...] Date Last Done Comments [facility]-Depression Screening 1966 [facility]-/Child/Adol SDOH Screenings 1966 [facility]- SDOH Screenings 1984 [facility]-Adult SDOH Screenings 1984 [facility]-Hepatitis B Vaccines (1 of 3 - 19+ 3-dose series) 1985 [facility]-Pap Smear 08/16/1987 [facility]-DTaP,Tdap,and Td Vaccine s (1 - Tdap) 07/24/1996 07/23/1996 [facility]-Cervical Cancer Screening 1996 [facility]-HPV/Cotest 1996 CT Colonography 08/16/2011 Colonoscopy 08/16/2011 FIT-DNA 08/16/2011 FIT 08/16/2011 FOBT 08/16/2011 Sigmoidoscopy 08/16/2011 [facility]-Colorectal Cancer Screening 08/16/2011 [facility]-Pneumococcal Vaccine: 50 + Years (1 of 1 - PCV) 2016 [facility]-Zoster Vaccines (1 of 2) 2016 IFS-[id number] Vaccine (1 - 20 24-25 season) 2024 [facility]-Influenza Vaccine ([place] Ended) 2025 HPV Vaccines Aged Out No longer eligi ble based on patient's age to complete this topic [facility]-HIB Vaccines Aged Out No longer e [...] Insurance [employer] Care Teams Dog Boarder Relationship Specialty Start Date End Date Andreina Shah APRN PCP - General 10/02/20
--- NOTE | 2024-11-18 13:15 | XR_ITS ---
FINAL REPORT CLINICAL HISTORY: fracture COMPARISON: 10/16/2024 FINDINGS: RIGHT KNEE 3 views of the right knee were obtained. There is no acute fracture or dislocation. There is mild medial compartment joint space narrowing. Visualized joint spaces are normally aligned. Soft tissues are unremarkable. IMPRESSION: Mild medial compartment joint space narrowing without acute bony abnormality. Reviewed, Interpreted and Dictated by Christopher Patel MD Transcribed by Lindsay Luna Authenticated and [facility]
== END 2024-11-18 23:59 | disposition home or self-care (01) ==
LOC: RAD 13:12
PROVIDERS: PCP Nurse Practitioner Family; Visit Provider Physician Assistant
DX: M25.861 Other specified joint disorders, right knee (principal)
CPT/HCPCS: 73562

== ENCOUNTER 2025-02-28 20:40 | Emergency (ER) | payer OTHER, SELFPAY ==
[2025-02-28] VITALS (16 sets, daily range): BP systolic 78–131; BP diastolic 29–101; PULSE 73–148; RESP 15–29; TEMP 36.6; O2SAT 86–96; BMI 32.1
--- NOTE | 2025-02-28 20:42 | XR_ITS ---
PROCEDURE INFORMATION: Exam: XR Chest Exam date and time: 02/28/2025 9:16 PM Age: 59 years old Clinical indication: Pain; Chest pressure; Additional info: Shortness of air/cp TECHNIQUE: Imaging protocol: Radiologic exam of the chest. Views: 1 view. COMPARISON: CR XR CHEST PORTABLE 10/06/2024 9:34 PM FINDINGS: Lungs: Chronic right pulmonary volume loss with mild interstitial prominence. No consolidation. Pleural spaces: Unremarkable. No pleural effusion. No pneumothorax. Heart/Mediastinum: Unremarkable. No cardiomegaly. Bones/joints: Unremarkable. IMPRESSION: No acute findings.
--- NOTE | 2025-02-28 20:43 | ECG_ITS ---
APPROVED REPORT Exam: Resting ECG HR:135 bpm ECG Measurements Heart Rate 135 AXES TN 144 P 64 QRSd 82 QRS 48 QT 312 T 35 QTc 391 Conclusion Sinus tachycardia with runs of supraventricular tachycardia Electronically signed by : Kameron Layton, 03/01/2025 01:34:00
--- NOTE | 2025-02-28 20:48 | [facility].EDCP ---
Discharge Plan Disposition Patient Disposition: Home, Self-Care Condition: Good Prescriptions Prescriptions: No Action cholecalciferol (vitamin D3) 125 mcg (5,000 unit) capsule 125 mcg PO DAILY Entresto 24-26 mg tablet 1 tab PO BID cyanocobalamin (vitamin B-12) 5,000 mcg capsule 5,000 mcg PO DAILY spironolactone 25 mg tablet 25 mg PO DAILY Qty: 90 3RF furosemide 40 mg tablet 40 mg PO DAILY Qty: 30 5RF metoprolol succinate 50 mg tablet extended release 24 hr 50 mg PO DAILY cefdinir 300 mg capsule 300 mg PO BID 9 Days Qty: 18 0RF hydrocodone-acetaminophen 5-325 mg tablet 1 tab PO Q8H PRN (Reason: pain) Qty: 12 0RF fluticasone propionate 50 mcg/actuation spray,suspension 1 spray intranasal BID Rx Instructions: administer into each nostril umeclidinium-vilanterol [Anoro Ellipta] 62.5-25 mcg/actuation blister with device 1 inh INHALATION DAILY loratadine [Claritin] 10 mg Tablet 10 mg PO DAILY albuterol sulfate [Ventolin HFA] 90 mcg/actuation HFA aerosol inhaler 2 inh INHALATION Q6HP PRN (Reason: Shortness Of Breath Or Wheezing) simvastatin 40 mg tablet 40 mg PO HS buspirone 10 mg tablet 10 mg PO TID montelukast 10 mg Tablet 10 mg PO PM 30 Days Qty: 30 0RF bupropion HCl 150 mg tablet extended release 24 hr 300 mg PO DAILY sertraline 100 mg tablet 100 mg PO DAILY ipratropium-albuterol 0.5 mg-3 mg(2.5 mg base)/3 mL solution for nebulization 3 ml inhalation Q6H prednisone 20 mg tablet 40 mg PO DAILY 5 Days Qty: 10 0RF Referrals Follow up/Referrals: Azucena Clarke APRN [Primary Care Provider, Medical] - See instructions Activity Restrictions/Add. Instructions Additional Instructions/Restrictions: Your labs were normal. I want you to start taking Metoprolol succcinate 100 mg daily. We will arrange for you to be seen in the cardiology clinic at 1 PM on Monday afternoon. In the meantime, if you have any recurrence of palpitations, chest pain, shortness of breath, or any other new or worsening symptoms please return. Clinical Impressions Clinical Impression: Supraventricular tachycardia Print Language Print Language: Estonian Discharge ED Provider: Kameron Layton HPI <THUY Weber - Last Filed: 02/28/25 22:07> General Chief Complaint: Arrhythmia/Palpitations Stated Complaint: Chest Pain Time Seen by Provider: 02/28/25 20:42 Mode of Arrival: EMS Source of Information: Patient and Medical Record Limitations: No Limitations History of Present Illness HPI narrative: 59-year-old female presents to the emergency department via EMS for palpitations shortness of breath that occurred around 7 PM, with associated lightheadedness, patient denies any overt chest pain or chest tightness, denies any fever chills cough congestion, denies any abdominal pain nausea vomiting constipation diarrhea no urinary type symptomatology, patient tells me that around 7 or 7:30 PM that she took 50 mg p.o. metoprolol XL, then took an additional dose, and route with EMS, and she also was given 4 baby aspirin . Patient upon my examination the bedside states that her symptomatology is improved, patient is current everyday smoker, denies any alcohol or drug use, other past medical history is consistent with HFpEF, RONAN, MDD, CAD, COPD, hypertension, hyperlipidemia. Initial triage vitals notable for tachycardia at 148 bpm, SpO2 is 94% on 2 L nasal cannula which is her baseline. Please note that above description of symptoms, in this electronic medical record under categorization of recalled from ER triage doctor by RN are reflective of an initial nursing assessment, however, is not reflective of my full history and physical exam that was personally taken and clarified. Consequentially, this preceding description of symptoms, which may include the patient's categorized chief complaint in the EMR, do not reflect my personal clinical impression, and the ultimate description of history of present illness and patient stated complaints should be deferred to this section of the note. Unless stated otherwise or congruent with this section of the note, additional signs, symptoms, or incongruence should be interpreted as inaccurate with my clinical impression. complaint: other Onset (ago): hour(s) Related Data Home Medications ?Medication ?Instructions ?Recorded ?Confirmed fluticasone propionate 50 1 spray intranasal BID 11/02/22 12/16/24 mcg/actuation nasal spray,suspension loratadine 10 mg tablet (Claritin) 10 mg PO DAILY 11/02/22 12/16/24 umeclidinium 62.5 mcg-vilanterol 1 inh inhalation DAILY 11/02/22 12/16/24 25 mcg/actuation powdr for inhalation (Anoro Ellipta) albuterol sulfate 90 mcg/actuation 2 inh inhalation Q6HP PRN 11/03/22 12/16/24 aerosol inhaler (Ventolin HFA) Shortness Of Breath Or Wheezing buspirone 10 mg tablet 10 mg PO TID 11/03/22 12/16/24 simvastatin 40 mg tablet 40 mg PO HS 11/03/22 12/16/24 cholecalciferol (vitamin D3) 125 125 mcg PO DAILY 12/26/23 12/16/24 mcg (5,000 unit) capsule cyanocobalamin (vitamin B-12) 5,000 mcg PO DAILY 12/26/23 12/16/24 5,000 mcg capsule sacubitril 24 mg-valsartan 26 mg 1 tab PO BID 12/26/23 12/16/24 tablet (Entresto) bupropion HCl 150 mg 24 hr tablet, 300 mg PO DAILY 04/15/24 12/16/24 extended release ipratropium 0.5 mg-albuterol 3 mg 3 ml inhalation Q6H 04/15/24 12/16/24 (2.5 mg base)/3 mL nebulization soln sertraline 100 mg tablet 100 mg PO DAILY 04/15/24 12/16/24 metoprolol succinate 50 mg 50 mg PO DAILY 10/08/24 12/16/24 tablet,extended release 24 hr Previous Rx's ?Medication ?Instructions ?Recorded montelukast 10 mg tablet 10 mg PO PM 30 days #30 tabs 01/26/23 spironolactone 25 mg tablet 25 mg PO DAILY #90 tabs 06/11/24 furosemide 40 mg tablet 40 mg PO DAILY #30 tabs 10/02/24 prednisone 20 mg tablet 40 mg (2 x 20 mg) PO DAILY 5 days 10/06/24 #10 tabs cefdinir 300 mg capsule 300 mg PO BID 9 days #18 caps 10/09/24 hydrocodone 5 mg-acetaminophen 325 1 tab PO Q8H PRN pain #12 tabs 10/16/24 mg tablet Allergies Allergy/AdvReac Type Severity Reaction Status Date / Time No Known Allergies Allergy Verified 12/16/24 14:19 PFSH <THUY Weber - Last Filed: 02/28/25 22:07> [facility] Disclaimer: The information contained in this section may have been updated after the patient was seen, as this information can be updated by other users. Medical History Metatarsal fracture Cataract Ectopic Anxiety and depression Pneumonia Tachycardia Acute and chronic respiratory failure with hypoxia Abnormal computerized axial tomography of chest Multiple pulmonary nodules Smoking greater than 30 pack years Non-seasonal allergic rhinitis Nocturnal hypoxemia Tobacco abuse disorder Seasonal allergies Dyspnea on exertion Chronic hypoxemic respiratory failure Dyspnea HLD (hyperlipidemia) HTN (hypertension) Lung nodule COPD (chronic obstructive pulmonary disease) Surgical History History of cholecystectomy No significant past surgical history Family History Other Cancer Coronary artery disease Social History Smoking Status: Current every day smoker tobacco type: cigarettes packs per day: 1 smoking status stop date: Jun 2023 second hand exposure: No alcohol intake: never substance use type: denies use current occupational status: disabled Travel in the last 8 weeks?: None household members: spouse housing: house current occupational exposures/hazards: No caffeine: Yes Have you lived/traveled outside [place] in past 30 days?: No Contact w/someone who lives/traveled outside US past 30 days?: No Exposure to someone with infectious disease in past 14 days?: No Do you have a fever (greater than 100.4 F or 38 C)?: No Have you tested positive for COVID-19?: No Exposed to someone with COVID-19 in past 14 days?: No Do you have a sore throat?: No Do you have a cough?: No Do you have any weakness?: No Do you have any diarrhea?: No Are you experiencing any unusual bleeding?: No Do you have any muscle aches/pain?: No Do you have any abdominal pain?: No Are you experiencing loss of taste or smell?: No Other Medical History Have you received the Flu Vaccine for this season: No Have you received the Pneumonia Vaccine: No <THUY Weber - Last Filed: 02/28/25 22:07> ROS Obtained: Yes All systems reviewed & no additional complaints except as documented Physical Exam <THUY Weber - Last Filed: 02/28/25 22:07> General General appearance: alert and in no apparent distress Head Head exam: atraumatic and normocephalic Eye Eye exam: Present normal appearance, PERRL and EOMI Neck Neck exam: Present full ROM; Absent meningismus Chest Chest inspection: Present normal inspection; Absent tenderness Respiratory Respiratory exam: Absent respiratory distress, wheezes, stridor, accessory muscle use or prolonged expiratory phase Cardiovascular Cardiovascular exam: Present regular rate, tachycardia and other (Pulses equal and symmetric in bilateral upper and lower extremities) Abdominal Exam Abdominal exam: Absent distention, tenderness, guarding or rebound Extremities Exam Extremities exam: Present other (No edema of the bilateral lower extremities); Absent edema Neurological Exam Neurological exam: Present alert Psychiatric Psychiatric exam: Present normal affect Skin Skin exam: Present warm and dry HEART Score <THUY Weber - Last Filed: 02/28/25 22:07> HEART Score HEART Score assessment performed?: Yes HEART Score: 4 <Kameron Layton DO - Last Filed: 03/01/25 00:39> HEART Score History (anamnesis): Slightly suspicious ECG: Normal Age: 45-65 years Risk factors: 3 or more risk factors Troponin: </= normal limit HEART Score: 3 Critical Care <THUY Weber - Last Filed: 02/28/25 22:07> Critical Care Time Critical Care Time: No <Kameron Layton DO - Last Filed: 03/01/25 00:39> Critical Care Time Critical Care Time: Yes Attestation: On 02/28/25, the high probability of a clinically significant, sudden or life threatening deterioration of the following system(s) required my full and direct attention, intervention and personal management. The time I documented below is in addition to time spent performing reported procedures but includes the following listed in this critical care notation. Total Time Total Critical Care Time: 37 Medical Decision Making <THUY Weber - Last Filed: 02/28/25 22:07> Medical Records Medical records reviewed: Yes I reviewed the patient's medical records. Matt Inquiry Pt receiving controlled substance: No Matt was queried for this patient: No Vital Signs Vital Signs: 02/28/25 20:50 02/28/25 21:00 02/28/25 21:04 Temperature 98 F Temperature Source Oral Pulse Rate 148 H 124 H Pulse Rate [Radial] 148 H Respiratory Rate 20 28 H 15 Blood Pressure 78/29 L Blood Pressure [Right Arm] 102/64 L Blood Pressure Mean Blood Pressure Mean [Right Arm] 76 Blood Pressure Position [Right Arm] Sitting 02 Sat by Pulse Oximetry 94 L 93 L 93 L Oxygen Delivery Method Nasal Cannula Nasal Cannula Nasal Cannula Oxygen Flow Rate (LPM) 3 3 3 02/28/25 21:05 02/28/25 21:07 02/28/25 21:08 Temperature Temperature Source Pulse Rate 128 H 113 H 117 H Pulse Rate [Radial] Respiratory Rate 17 18 29 H Blood Pressure 89/73 L 131/101 H 102/77 L Blood Pressure [Right Arm] Blood Pressure Mean Blood Pressure Mean [Right Arm] Blood Pressure Position [Right Arm] 02 Sat by Pulse Oximetry 92 L 88 L 86 L Oxygen Delivery Method Nasal Cannula Nasal Cannula Nasal Cannula Oxygen Flow Rate (LPM) 3 3 3 02/28/25 21:15 02/28/25 21:26 02/28/25 21:30 Temperature Temperature Source Pulse Rate 97 H 102 H 85 Pulse Rate [Radial] Respiratory Rate 17 18 Blood Pressure 80/61 L 89/67 L Blood Pressure [Right Arm] Blood Pressure Mean 67 74 Blood Pressure Mean [Right Arm] Blood Pressure Position [Right Arm] 02 Sat by Pulse Oximetry 96 96 94 L Oxygen Delivery Method Nasal Cannula Nasal Cannula Nasal Cannula Oxygen Flow Rate (LPM) 3 3 3 02/28/25 22:00 02/28/25 22:15 02/28/25 22:30 Temperature Temperature Source Pulse Rate 89 88 82 Pulse Rate [Radial] Respiratory Rate 26 H 24 20 Blood Pressure 94/74 L 106/69 L Blood Pressure [Right Arm] Blood Pressure Mean Blood Pressure Mean [Right Arm] Blood Pressure Position [Right Arm] 02 Sat by Pulse Oximetry 95 96 94 L Oxygen Delivery Method Nasal Cannula Nasal Cannula Nasal Cannula Oxygen Flow Rate (LPM) 3 3 3 02/28/25 23:00 02/28/25 23:15 02/28/25 23:30 Temperature Temperature Source Pulse Rate 82 76 73 Pulse Rate [Radial] Respiratory Rate Blood Pressure Blood Pressure [Right Arm] Blood Pressure Mean Blood Pressure Mean [Right Arm] Blood Pressure Position [Right Arm] 02 Sat by Pulse Oximetry 94 L 95 96 Oxygen Delivery Method Nasal Cannula Nasal Cannula Nasal Cannula Oxygen Flow Rate (LPM) 3 3 3 02/28/25 23:45 Temperature Temperature Source Pulse Rate 75 Pulse Rate [Radial] Respiratory Rate Blood Pressure Blood Pressure [Right Arm] Blood Pressure Mean Blood Pressure Mean [Right Arm] Blood Pressure Position [Right Arm] 02 Sat by Pulse Oximetry 94 L Oxygen Delivery Method Nasal Cannula Oxygen Flow Rate (LPM) 3 Lab Data Lab results reviewed: Yes I reviewed the patient's lab results. Labs: Lab Results 02/28/25 20:50: Sodium 135 L, Potassium 4.1, Chloride 89 L, Carbon Dioxide 35 H, Anion Gap 15.1 H, BUN 19 H, Creatinine 0.90, Estimated Creat Clear 112, Estimated GFR 64, Est GFR ( Amer) 78, Glucose 243 H, Calcium 9.0, Magnesium 1.6, Total Bilirubin 0.8, AST 28, ALT 20, Alkaline Phosphatase 108, Troponin I < 0.01, NT-Pro-B Natriuret Pep 284 H, Total Protein 7.8, Albumin 4.2, Globulin 3.6 H, Albumin/Globulin Ratio 1.2, Lipase 68, TSH 1.53, Thyroxine (T4) 11.0, HCV Ab FERNANDO w/Rflx PCR Qn Reactive, HIV Ag/Ab Combo Qual Negative 02/28/25 21:12: WBC 6.0, RBC 4.13 L, Hgb 13.8, Hct 40.3, MCV 97.6, MCH 33.4 H, MCHC 34.2, RDW 12.1, Plt Count 160, MPV 10.9 H, Neut % (Auto) 63.1, Lymph % (Auto) 29.2, [place] % (Auto) 6.5, Eos % (Auto) 0.7, Baso % (Auto) 0.3, Neut # (Auto) 3.8, Lymph # (Auto) 1.8, [place] # (Auto) 0.4, Eos # (Auto) 0.0, Baso # (Auto) 0.0, PT 10.3, INR 0.92, D-Dimer 0.89 H 02/28/25 21:26: VBG pH 7.43 H, VBG pCO2 52.6 H, VBG pO2 113.7 H, VBG HCO3 34.1 H, VBG Total CO2 35.7 H, VBG O2 Saturation 98.4 H, VBG Base Excess 9.8 H, VBG Lactic Acid 2.2 H 02/28/25 23:34: Troponin I < 0.01 02/28/25 21:12 02/28/25 20:50 Response Orders (Tests/Meds): ED MEDICATIONS Discontinued Medications Generic Name Dose Route Start Last Admin Trade Name Freq PRN Reason Stop Dose Admin Metoprolol Tartrate 5 mg 02/28/25 21:01 02/28/25 21:01 Metoprolol Tartrate 5mg/5ml Vial IV 02/28/25 21:02 5 mg ONCE ONE Administration ORDERS Category Date Time Status CT angio abdomen pelvis Stat Cat Scan 02/28/25 21:[address] angio chest PE protocol Stat Cat Scan 02/28/25 20:47 Ordered XR chest portable Stat Exams 02/28/25 20:42 Completed Complete Blood Count Auto Diff Stat Lab 02/28/25 21:12 Completed Comprehensive Metabolic Panel Stat Lab 02/28/25 20:50 Completed D-Dimer Stat Lab 02/28/25 21:12 Completed HCV RNA PCR, Quant Stat Lab 02/28/25 20:50 Received HIV Combo Stat Lab 02/28/25 20:50 Completed Hepatitis C Ab Qual. W/ RFX Stat Lab 02/28/25 20:50 Completed Lipase Stat Lab 02/28/25 20:50 Completed Magnesium Stat Lab 02/28/25 20:50 Completed NT Pro Brain Natriuretic Pep. Stat Lab 02/28/25 20:50 Completed PT INR [Prothrombin Time INR] Stat Lab 02/28/25 21:12 Completed T4 (Thyroxine) Stat Lab 02/28/25 20:50 Completed TSH [Thyroid Stimulating Hormone] Stat Lab 02/28/25 20:50 Completed Troponin I Q3H Lab 02/28/25 23:34 Completed Troponin I Q3H Lab 03/01/25 02:45 Ordered Troponin I Stat Lab 02/28/25 20:50 Completed Urinalysis and Microscopic Stat Lab 02/28/25 20:48 Ordered VBG [Venous Blood Gas] Stat RT 02/28/25 21:26 Completed MDM Narrative Medical Decision Narrative: 59-year-old female presents the emergency department with palpitations shortness of breath lightheadedness, differential diagnose include but not limited to, ACS cardiac arrhythmia, electrolyte disturbance, acute hypoxemic respiratory failure, COPD exacerbation, CHF/admission, pneumonia, anxiety reaction, panic attack, thyrotoxicosis among others. I discussed this patient's case with the attending physician Dr. Layton he saw and examined the patient as well Will obtain basic laboratory studies, EKG, UA, magnesium level, VBG, proBNP coags troponin, TSH and T4 chest x-ray, CTA chest with and without contrast PE protocol, CTA abdomen pelvis dissection protocol. Initial EKG reviewed by myself and the attending physician is concerning for SVT tachycardia with a rate of 135, will obtain additional EKG and will place patient on the pads. Repeat EKG is still concerning for SVT. Tachycardia at 135 bpm, will give 5 mg IV metoprolol. Patient's heart rate improved to around 90 to 100 bpm after 5 mg IV metoprolol dose. Blood pressure stable. Initial troponin is within normal limits at less than 0.01, proBNP is mildly elevated at 284 otherwise unremarkable CMP CBC unremarkable VBG notable for pH 7.43, pCO2 is 52.6, bicarb is elevated at 34.1, venous lactic acid is minimally elevated 2.2. Coags within normal limits Of note I was called to the bedside by nursing staff and CT technicians, patient is intermittently refusing CT imaging. Patient states I am not going in that machine . When asking the patient why patient states she I cannot lay flat . Patient also is telling me that now she wants to go home . I had a long discussion with patient and family at the bedside. Patient and family want to discuss further treatment plan/workup. At this time she would like to forego CT imaging. I discussed this patient's case with the attending physician Dr. Layton at shift change, he will be assuming admitted the patient's care/workup, disposition is pending reassessment and CT imaging and further laboratory studies. <Kameron Layton, DO - Last Filed: 03/01/25 00:39> Vital Signs Vital Signs: 02/28/25 20:50 02/28/25 21:00 02/28/25 21:04 Temperature 98 F Temperature Source Oral Pulse Rate 148 H 124 H Pulse Rate [Radial] 148 H Respiratory Rate 20 28 H 15 Blood Pressure 78/29 L Blood Pressure [Right Arm] 102/64 L Blood Pressure Mean Blood Pressure Mean [Right Arm] 76 Blood Pressure Position [Right Arm] Sitting 02 Sat by Pulse Oximetry 94 L 93 L 93 L Oxygen Delivery Method Nasal Cannula Nasal Cannula Nasal Cannula Oxygen Flow Rate (LPM) 3 3 3 02/28/25 21:05 02/28/25 21:07 02/28/25 21:08 Temperature Temperature Source Pulse Rate 128 H 113 H 117 H Pulse Rate [Radial] Respiratory Rate 17 18 29 H Blood Pressure 89/73 L 131/101 H 102/77 L Blood Pressure [Right Arm] Blood Pressure Mean Blood Pressure Mean [Right Arm] Blood Pressure Position [Right Arm] 02 Sat by Pulse Oximetry 92 L 88 L 86 L Oxygen Delivery Method Nasal Cannula Nasal Cannula Nasal Cannula Oxygen Flow Rate (LPM) 3 3 3 02/28/25 21:15 02/28/25 21:26 02/28/25 21:30 Temperature Temperature Source Pulse Rate 97 H 102 H 85 Pulse Rate [Radial] Respiratory Rate 17 18 Blood Pressure 80/61 L 89/67 L Blood Pressure [Right Arm] Blood Pressure Mean 67 74 Blood Pressure Mean [Right Arm] Blood Pressure Position [Right Arm] 02 Sat by Pulse Oximetry 96 96 94 L Oxygen Delivery Method Nasal Cannula Nasal Cannula Nasal Cannula Oxygen Flow Rate (LPM) 3 3 3 02/28/25 22:00 02/28/25 22:15 02/28/25 22:30 Temperature Temperature Source Pulse Rate 89 88 82 Pulse Rate [Radial] Respiratory Rate 26 H 24 20 Blood Pressure 94/74 L 106/69 L Blood Pressure [Right Arm] Blood Pressure Mean Blood Pressure Mean [Right Arm] Blood Pressure Position [Right Arm] 02 Sat by Pulse Oximetry 95 96 94 L Oxygen Delivery Method Nasal Cannula Nasal Cannula Nasal Cannula Oxygen Flow Rate (LPM) 3 3 3 02/28/25 23:00 02/28/25 23:15 02/28/25 23:30 Temperature Temperature Source Pulse Rate 82 76 73 Pulse Rate [Radial] Respiratory Rate Blood Pressure Blood Pressure [Right Arm] Blood Pressure Mean Blood Pressure Mean [Right Arm] Blood Pressure Position [Right Arm] 02 Sat by Pulse Oximetry 94 L 95 96 Oxygen Delivery Method Nasal Cannula Nasal Cannula Nasal Cannula Oxygen Flow Rate (LPM) 3 3 3 02/28/25 23:45 Temperature Temperature Source Pulse Rate 75 Pulse Rate [Radial] Respiratory Rate Blood Pressure Blood Pressure [Right Arm] Blood Pressure Mean Blood Pressure Mean [Right Arm] Blood Pressure Position [Right Arm] 02 Sat by Pulse Oximetry 94 L Oxygen Delivery Method Nasal Cannula Oxygen Flow Rate (LPM) 3 Lab Data Labs: Lab Results 02/28/25 20:50: Sodium 135 L, Potassium 4.1, Chloride 89 L, Carbon Dioxide 35 H, Anion Gap 15.1 H, BUN 19 H, Creatinine 0.90, Estimated Creat Clear 112, Estimated GFR 64, Est GFR ( Amer) 78, Glucose 243 H, Calcium 9.0, Magnesium 1.6, Total Bilirubin 0.8, AST 28, ALT 20, Alkaline Phosphatase 108, Troponin I < 0.01, NT-Pro-B Natriuret Pep 284 H, Total Protein 7.8, Albumin 4.2, Globulin 3.6 H, Albumin/Globulin Ratio 1.2, Lipase 68, TSH 1.53, Thyroxine (T4) 11.0, HCV Ab FERNANDO w/Rflx PCR Qn Reactive, HIV Ag/Ab Combo Qual Negative 02/28/25 21:12: WBC 6.0, RBC 4.13 L, Hgb 13.8, Hct 40.3, MCV 97.6, MCH 33.4 H, MCHC 34.2, RDW 12.1, Plt Count 160, MPV 10.9 H, Neut % (Auto) 63.1, Lymph % (Auto) 29.2, [place] % (Auto) 6.5, Eos % (Auto) 0.7, Baso % (Auto) 0.3, Neut # (Auto) 3.8, Lymph # (Auto) 1.8, [place] # (Auto) 0.4, Eos # (Auto) 0.0, Baso # (Auto) 0.0, PT 10.3, INR 0.92, D-Dimer 0.89 H 02/28/25 21:26: VBG pH 7.43 H, VBG pCO2 52.6 H, VBG pO2 113.7 H, VBG HCO3 34.1 H, VBG Total CO2 35.7 H, VBG O2 Saturation 98.4 H, VBG Base Excess 9.8 H, VBG Lactic Acid 2.2 H 02/28/25 23:34: Troponin I < 0.01 Response Orders (Tests/Meds): ED MEDICATIONS Discontinued Medications Generic Name Dose Route Start Last Admin Trade Name Freq PRN Reason Stop Dose Admin Metoprolol Tartrate 5 mg 02/28/25 21:01 02/28/25 21:01 Metoprolol Tartrate 5mg/5ml Vial IV 02/28/25 21:02 5 mg ONCE ONE Administration ORDERS Category Date Time Status CT angio abdomen pelvis Stat Cat Scan 02/28/25 21:[address] angio chest PE protocol Stat Cat Scan 02/28/25 20:47 Ordered XR chest portable Stat Exams 02/28/25 20:42 Completed Complete Blood Count Auto Diff Stat Lab 02/28/25 21:12 Completed Comprehensive Metabolic Panel Stat Lab 02/28/25 20:50 Completed D-Dimer Stat Lab 02/28/25 21:12 Completed HCV RNA PCR, Quant Stat Lab 02/28/25 20:50 Received HIV Combo Stat Lab 02/28/25 20:50 Completed Hepatitis C Ab Qual. W/ RFX Stat Lab 02/28/25 20:50 Completed Lipase Stat Lab 02/28/25 20:50 Completed Magnesium Stat Lab 02/28/25 20:50 Completed NT Pro Brain Natriuretic Pep. Stat Lab 02/28/25 20:50 Completed PT INR [Prothrombin Time INR] Stat Lab 02/28/25 21:12 Completed T4 (Thyroxine) Stat Lab 02/28/25 20:50 Completed TSH [Thyroid Stimulating Hormone] Stat Lab 02/28/25 20:50 Completed Troponin I Q3H Lab 02/28/25 23:34 Completed Troponin I Q3H Lab 03/01/25 02:45 Ordered Troponin I Stat Lab 02/28/25 20:50 Completed Urinalysis and Microscopic Stat Lab 02/28/25 20:48 Ordered VBG [Venous Blood Gas] Stat RT 02/28/25 21:26 Completed ECG Data Tracing #1: Attestation: I reviewed this ECG and interpreted as documented below: ECG Narrative: EKG person interpreted by me demonstrates supraventricular tachycardia with intermittent spans of sinus tachycardia. There is a left axis, no overt STEMI. Tracing #2: Attestation: I reviewed this ECG and interpreted as documented below: ECG Narrative: Repeat EKG was also interpreted by me. This is sinus tachycardia with intermittent runs of supraventricular tachycardia with a narrow QRS. No overt STEMI Tracing #3: Attestation: I reviewed this ECG and interpreted as documented below: ECG Narrative: EKG #3 was personally turbid by me and demonstrates normal sinus rhythm at a rate of 93 bpm, normal axis, no AR prolongation, narrow QRS, no QTc prolongation. No ST elevation or depression. No overt signs of ischemia or with MDM Narrative Medical Decision Narrative: 59-year-old female presents the emergency department with palpitations shortness of breath lightheadedness, differential diagnose include but not limited to, ACS cardiac arrhythmia, electrolyte disturbance, acute hypoxemic respiratory failure, COPD exacerbation, CHF/admission, pneumonia, anxiety reaction, panic attack, thyrotoxicosis among others. I discussed this patient's case with the attending physician Dr. Layton he saw and examined the patient as well Will obtain basic laboratory studies, EKG, UA, magnesium level, VBG, proBNP coags troponin, TSH and T4 chest x-ray, CTA chest with and without contrast PE protocol, CTA abdomen pelvis dissection protocol. Initial EKG reviewed by myself and the attending physician is concerning for SVT tachycardia with a rate of 135, will obtain additional EKG and will place patient on the pads. Repeat EKG is still concerning for SVT. Tachycardia at 135 bpm, will give 5 mg IV metoprolol. Patient's heart rate improved to around 90 to 100 bpm after 5 mg IV metoprolol dose. Blood pressure stable. Initial troponin is within normal limits at less than 0.01, proBNP is mildly elevated at 284 otherwise unremarkable CMP CBC unremarkable VBG notable for pH 7.43, pCO2 is 52.6, bicarb is elevated at 34.1, venous lactic acid is minimally elevated 2.2. Coags within normal limits Of note I was called to the bedside by nursing staff and CT technicians, patient is intermittently refusing CT imaging. Patient states I am not going in that machine . When asking the patient why patient states she I cannot lay flat . Patient also is telling me that now she wants to go home . I had a long discussion with patient and family at the bedside. Patient and family want to discuss further treatment plan/workup. At this time she would like to forego CT imaging. I discussed this patient's case with the attending physician Dr. Layton at shift change, he will be assuming admitted the patient's care/workup, disposition is pending reassessment and CT imaging and further laboratory studies. Transfer of care note I was consulted by the [facility], and we discussed the complexity of problems being addressed. I approved the treatment and management plan for this patient's care in the emergency department, thus performing a substantive portion of the medical decision making. Kameron Calin, DO This is Dr. Layton. I was present in the patient's room at the time of arrival. Patient does have a history of SVT and was admitted to the hospital for this back in March of last year. She was stabilized on 50 mg of metoprolol succinate daily and was discharged home. She has not had a recurrence of symptoms since that time. Tonight she began experiencing palpitations so she came into the hospital. Patient tells me that she took a total of 100 mg of metoprolol succinate today to stop her symptoms. This did not improve her symptoms so she presented to the emergency department for further evaluation. Rhythm on the monitor was consistent with supraventricular tachycardia with a rate in the 140s and 150s. We obtained an EKG that was interpreted above and showed intermittent sinus tachycardia and supraventricular tachycardia. We decided to administer 5 mg of metoprolol IV to the patient. This resolved her rhythm and she converted to normal sinus rhythm with no recurrence of supraventricular tachycardia. Initially I had planned to scan the patient for pulmonary embolism. However, the patient does not want to lay flat for the scan and is refusing the scan. Therefore I discussed this case directly with Dr. Hancock he felt like it would be reasonable to obtain a D-dimer on the patient and proceed from there. Labs are interpreted by me and demonstrate no leukocytosis or transfusional anemia. Coags are normal. VBG shows no findings consistent with hypercapnia or acidosis. CMP shows no significant correctable electrolyte derangements or evidence of acute kidney injury. The patient's troponin was less than 0.01, a delta troponin was obtained and is also less than 0.01. Patient's D-dimer did result in a 0.89 which effectively rules out pulmonary embolism by years criteria. At this point the patient had remained hemodynamically stable while in the emergency department with no recurrence of SVT. Dr. Hancock's recommendations for this patient is for her to start taking metoprolol 100 mg daily instead of 50 mg daily. He would like to see her in the clinic on Monday at 1 PM. Patient is agreeable with this plan and acknowledges understanding. I have asked her to return to the emergency department if she has recurrence of symptoms or development of chest pain or shortness of breath. At this time all questions have been answered and all parties are agreeable with the decision to discharge home. Patient assures me that she has access to metoprolol at home to be able to take 100 mg daily for the next 3 days. We will not prescribe extra this time and will allow her to follow-up with cardiology in the clinic for further prescriptions of this
--- NOTE | 2025-02-28 21:00 | ECG_ITS ---
APPROVED REPORT Exam: Resting ECG HR:131 bpm ECG Measurements Heart Rate 131 AXES AR 144 P 64 QRSd 81 QRS 67 QT 313 T 31 QTc 390 Conclusion Sinus tachycardia with runs of intermittent supraventricular tachycardia Electronically signed by : Kameron Layton, 03/01/2025 01:34:20
[2025-02-28] MEDS: METOPROLOL TARTRATE 5MG/5ML VIAL 5 MG IV (21:01)
[2025-02-28 21:09] LABS: Alanine Aminotransferase 20 U/L (12-78); Albumin Level 4.2 g/dl (3.5-5.0); Albumin/Globulin Ratio 1.2 (1.1-1.8); Alkaline Phosphatase 108 U/L (38-126); Anion Gap 15.1 mEq/L (5-15); Aspartate Amino Transferase 28 U/L (14-36); Bilirubin,Total 0.8 mg/dl (0.2-1.3); Blood Urea Nitrogen 19 mg/dl (7-17); Calcium 9.0 mg/dl (8.4-10.2); Carbon Dioxide 35 mmol/L (22.0-30.0); Chloride 89 mmol/L (98-107); Creatinine Clearance Estimated 112 mL/min (50-200); Creatinine,Serum 0.90 mg/dl (0.52-1.04); Estimated Glomerular Filt Rate 64 ml/min (>60); GFR (African American) 78 ML/MIN (>60); Globulin 3.6 g/dL (1.3-3.2); Glucose 243 mg/dl (74-100); Lipase 68 U/L (23-300); Magnesium 1.6 mg/dl (1.6-2.3); Potassium 4.1 mmoL/L (3.5-5.1); Sodium 135 mmol/L (136-145); Total Protein,Serum 7.8 g/dl (6.3-8.2)
--- NOTE | 2025-02-28 21:14 | ECG_ITS ---
APPROVED REPORT Exam: Resting ECG HR:93 bpm ECG Measurements Heart Rate 93 AXES [place] 144 P 60 QRSd 101 QRS 56 QT 357 T 55 QTc 408 Conclusion Normal sinus rhythm Normal axis Normal intervals No STEMI Electronically signed by : Kameron Layton, 03/01/2025 01:34:49
[2025-02-28 21:18] LABS: NT Pro Brain Natriuretic Pep. 284 pg/mL (0-125)
[2025-02-28 21:20] LABS: Troponin I < 0.01 ng/ml (0.00-0.034)
[2025-02-28 21:25] LABS: Hematocrit 40.3 % (37.0-47.0); Hemoglobin 13.8 g/dL (12.2-16.2); Immature Granulocytes % 0.2 %; Mean Corpuscular HGB Conc 34.2 g/dL (31.8-35.4); Mean Corpuscular Hemoglobin 33.4 pg (27.0-31.2); Mean Corpuscular Volume 97.6 fl (81-99); Nucleated Red Blood Cells % 0 %; Platelet Count 160 K/mm3 (142-424); Red Blood Count 4.13 M/mm3 (4.20-5.40); Red Cell Distribution Width-SD 43.9 fL; White Blood Count 6.0 K/mm3 (4.8-10.8)
--- NOTE | 2025-02-28 21:27 | PC.NURSE ---
repeat green top sent to the lab at this time.
[2025-02-28 21:44] LABS: VBG HCO3 34.1 mmol/L (23-30); VBG PH 7.43 mmol/L (7.31-7.41); VBG PO2 113.7 mmol/L (28-40)
[2025-02-28 21:48] LABS: Lactate Venous 2.2 mmol/L (0.4-2.0); VBG PCO2 52.6 mmol/L (35-51)
[2025-02-28 21:49] LABS: INR 0.92 (0.9-1.1); Prothrombin Time 10.3 seconds (10.1-12.5)
--- NOTE | 2025-02-28 21:58 | HMH.ITSTN ---
This radiotelegraph operator and radiotelegraph operator Teresa went to get this patient for her CT scans and she stated that she was not going to go through a tube, she couldn't do it . This radiotelegraph operator spoke with Martínez about what the patient had voiced and he went to speak with her. He told us to hold off on the CT scans for now.
[2025-02-28 22:00] LABS: Hepatitis C Ab Qual. W/ RFX REACTIVE (Negative)
[2025-02-28 22:14] LABS: T4 (Thyroxine) 11.0 ug/dl (5.53-11.0)
--- NOTE | 2025-02-28 22:25 | PC.NURSE ---
pt currently refusing CT scans at this time, ED provider aware
[2025-02-28 22:27] LABS: Thyroid Stimulating Hormone 1.53 uIU/mL (0.465-4.68)
--- NOTE | 2025-02-28 22:30 | PC.NURSE ---
ED provider at the bedside
[2025-02-28 22:51] LABS: D-Dimer 0.89 ug/mL (0.0-0.5)
[2025-03-01 00:20] LABS: Troponin I < 0.01 ng/ml (0.00-0.034)
[2025-03-01 00:49] VITALS: BP 108/68; PULSE 72; RESP 24; TEMP 37.2; O2SAT 94
[2025-03-01 01:45] LABS: Reflex Lactic Add Lactic Reflex
== END 2025-03-01 00:51 | disposition home or self-care (01) ==
PROVIDERS: Physician Assistant; Emergency Provider Student in an Organized Health Care Education/Training Program; PCP Nurse Practitioner Family
DX: I47.10 Supraventricular tachycardia, unspecified (principal); R07.9 Chest pain, unspecified; R74.02 Elevation of levels of lactic acid dehydrogenase [LDH]; F17.210 Nicotine dependence, cigarettes, uncomplicated; J44.9 Chronic obstructive pulmonary disease, unspecified; I11.0 Hypertensive heart disease with heart failure; I50.9 Heart failure, unspecified; E78.5 Hyperlipidemia, unspecified
CPT/HCPCS: 71045; 80053; 82803; 83690; 83735; 83880; 84436; 84443; 84484; 85025; 85378; 85610; 86803; 87389; 87522; 93005; 96374; 99285

== ENCOUNTER 2025-03-06 14:59 | Outpatient (CLI) | payer OTHER, SELFPAY ==
--- OUTSIDE RECORDS SUMMARY | 2025-03-03 05:41 | XMS_ITS | Continuity of Care Document ---
Author Organization [facility] Address [address] [place] [address] Phone Care Team Providers Care Monorail Car Operator Name Role Phone Yana Reddy RN Unavailable Unavailable Allergies, Adverse Reactions, Alerts Substance Reaction Status Criticality No Known Allergies Active No Inform ation Medications Medication Instructions Dosage Effective Dates (start - stop) Status Comments IPRATROPIUM-ALBUTEROL 0.5-2.5 (3) MG/3ML INHALE CONTENTS OF 1 VIAL USING NEBULIZER FOUR TIMES A DAY NEEDED FOR SHORTNESS OF BREATH OR WHEEZING - Active FLUTICASONE PROPIONATE 50 MCG/ACT USE 2 SPRAYS IN EACH NOSTRIL DAILY - Active ondansetron [address] 1 tablet by translingual route every 8 hours on top of the tongue where they will dissolve, then swallow 4 MG - Active BUSPIRONE HYDROCHLORIDE 10 MG TABLET TAKE 1 TABLET BY MOUTH THREE TIMES DAILY NEEDED - Active ENTRESTO 24-26 MG TAKE 1 TABLET BY MOUTH TWICE DAILY - Active DULERA 200-5 MCG/ACT INHALE 2 PUFF BY INHALATION ROUTE 2 TIMES EVERY DAY IN THE MORNING AND EVENING 2.00 puff - Active BUPROPION HYDROCHLORIDE ER (XL) 150 MG TABLET TAKE 1 TABLET BY MOUTH TWICE DAILY - Active MONTELUKAST SODIUM 10 MG TABLET TAKE 1 TABLET BY MOUTH EVERY EVENING - Active SERTRALINE HYDROCHLORIDE 100 MG TABLET TAKE 1 TABLET BY MOUTH AT BEDTIME - Active azithromycin 250 mg tablet take 2 tablet by oral route every day for 1 day then 1 tablet (250 mg) by oral route once daily for 4 days 500 MG - Active sodium chloride 0.9 % for nebulization INHALE THE CONTENTS OF 1 VIAL BY INHALATION ROUTE VIA NEBULIZER NEEDED WHEEZING - Active cyanocobalamin (vitamin B-12) 5,000 mcg capsule TAKE 1 TABLET BY MOUTH DAILY - Active Vitamin D3 125 mcg (5,000 unit) tablet take 1 tablet by oral route every day 1 tablet - Active albuterol sulfate 2.5 mg/3 mL (0.083 %) solution for nebulization inhale 3 milliliter by nebulization route 3 times every day 2.5 MG - Active loratadine 10 mg tablet TAKE 1 TABLET BY MOUTH ONCE DAILY - Active simvastatin 40 mg tablet Take 1 tablet by mouth daily at bedtime - Active Ventolin HFA 90 mcg/actuation aerosol inhaler TAKE 2 PUFFS BY MOUTH FOUR TIMES A DAY NEEDED - Active metoprolol tartrate 50 mg tablet take 1 tablet by oral route 2 times every day with meals 50 MG - Active hydrocodone 5 mg-acetaminophen 325 mg tablet take 1 tablet by oral route every 8 hours as needed for pain - Active Advance Directives Directive Yes / No Effective Date File Name No Information Encounters Encounter Description Practice Location Reason(s) For Visit Diagnoses Date Provider [facility], [address] [place] [address], [id number], [place] tel:[phone] No Information 5 Maureen Millan. [address], [place], [id number], [place]. tel:[phone] [facility], [address] [place] [address], [address], [place] tel:[phone] [facility] [place] No Information 5 Vince Zeng. [address] [place] [place], [place], [id number], [place]. tel:[phone] [place] [address], [address] [place] [address], [facility], tel:[phone] [facility] [place] No Information Feb-0 8-202 5 Clarke Azucena. [address] [place], [place], [id number], . tel:[phone] [place] [address], [address] [place] [address], [facility], [place] tel:[phone] [facility] [place] No Information Sep-0 5-202 5 Clarke Azucena. [address] [place], [place], [id number], [place]. tel:[phone] [place] [address], [address] [place] [address], [facility], tel:[phone] [facility] [place] No Information Sep-0 2-202 5 Clarke Azucena. [address] [place], [place], [id number], [place]. tel:[phone] [place] [address], [address] [place] [address], [facility], tel:[phone] [facility] [place] No Information 1 1- 5 Clarke Azucena. [address] [place], [place], [address] [place] [address], . tel:[phone] [place] [address], [address] [place] [address], [facility], tel:[phone] [facility] [place] Chronic obstructive pulmonary disease, unspecifiedAt risk for falling Dec-0 7- 5 Clarke Azucena. [address] [place], [place], [id number], . tel:[phone] [place] [address], [address] [place] [address], [facility], tel:[phone] [facility] [place] No Information 5 Clarke Azucena. [address] [place], [place], [id number], [place]. tel:[phone] [place] [address], [address] [place] [address], [facility], tel:[phone] [facility] [place] follow up labs (chief complaint) Body mass index [BMI] 34.0-34.9, adultChronic obstructive pulmonary disease, unspecifiedEssentia l (primary) hypertensionObesity , unspecifiedPrediabe tesVitamin B12 deficiencyVitamin D deficiency, unspecifiedMixed hyperlipidemia 5 Clarke Azucena. [address] [place], [place], [id number], [place]. tel:[phone] [place] [address], [facility], tel:[phone] [facility] [place] Follow Up (chief complaint)Lab s (chief complaint) Essential (primary) hypertensionBody mass index [BMI] 35.0-35.9, adultChronic obstructive pulmonary disease, unspecifiedObesity, unspecifiedNicotine dependence, cigarettes, uncomplicatedPredia betes 5 Clarke Azucena. [address] [place], [place], [id number], [place]. tel:[phone] [place] [address], [address] [place] [address], [facility], [place] tel:[phone] [facility] [place] No Information 5 Maureen Millan. [address], [place], [id number], [place]. tel:[phone] [facility], [address] [place] [address], [facility], [place] tel:[phone] [facility] [place] At risk for fallingChronic obstructive pulmonary disease, unspecifiedStress incontinence (female) (male) 4 Clarke Azucena. [address] [place] [address], [id number], . tel:[phone] [place] [address], [address] [place] [address], [facility], tel:[phone] [facility] Hospital Follow Up (chief complaint)Whe elchair (chief complaint)uri nary incontinence (chief complaint)Dep ression screening (chief complaint)Pra pare (chief complaint) Essential (primary) hypertensionMixed hyperlipidemiaUnspe cified diastolic (congestive) heart failureCOPD w/ acute exacerbationPrediab etesNicotine dependence, cigarettes, uncomplicatedSolita ry pulmonary noduleStress incontinence (female) (male)Extreme povertyUnemployment , unspecifiedUnavaila bility and inaccessibility of other helping agenciesUnavailabil ity and inaccessibility of health-care facilitiesEncounter for screening for depressionBody mass index [BMI] 37.0-37.9, adult Apr- 4 Clarke Azucena. [address] [place] [address], [id number], . tel:[phone] [place] [address], [address] [place] [address], [facility], tel:[phone] [facility] cough/congest ion (chief complaint) COPD w/ acute exacerbationAcute upper respiratory infection, unspecifiedEssentia l (primary) hypertension 4 Clarke Azucena. [address] [place] [address], [id number], . tel:[phone] [place] [address], [address] [place] [address], [facility], tel:[phone] [facility] cough/congest ion (chief complaint)tel ehealth (chief complaint) Chronic obstructive pulmonary disease, unspecifiedAcute upper respiratory infection, unspecified Sep-2 4 Clarke Azucena. [address] [place] [address], [id number], [place]. tel:[phone] [place] [address], [address] [place] [address], [facility], tel:[phone] [facility] JULIATHIKARTHIKEYAN SOB (chief complaint)Tel ehealth/Telep oly (chief complaint) COPD w/ acute exacerbation 4 Clarke Azucena. [address] [place], [place], [address] [place] [address], . tel:[phone] [place] [address], [address] [place] [address], [facility], tel:[phone] [facility]EN Encounter for prophylactic measures, unspecified 4 Clarke Azucena. [address] [place], [address] [place] [address], . tel:[phone] [place] [address], [address] [place] [address], [facility], tel:[phone] [facility] [place] FOLLOW UP FROM HOSPITAL (chief complaint) Body mass index [BMI] 35.0-35.9, adultEssential (primary) hypertensionNicotin e dependence, cigarettes, uncomplicatedObesit y, unspecifiedChronic obstructive pulmonary disease, unspecifiedUnspecif ied diastolic (congestive) heart failure 3 Clarke Azucena. [address] [place], [address] [place] [address], . tel:[phone] [place] [address], [address] [place] [address], [facility], tel:[phone] [facility] CYNTHIKARTHIKEYAN hosptial f/u (chief complaint) Body mass index [BMI] 37.0-37.9, adultChronic obstructive pulmonary disease, unspecifiedNicotine dependence, cigarettes, uncomplicatedThyroi d noduleAt risk for falling 3 Clarke Azucena. [address] [place], [address] [place] [address], . tel:[phone] [place] [address], [address] [place] [address], [facility], tel:[phone] [facility] Vitamin D deficiency, unspecifiedVitamin B12 deficiency 3 Clarke Azucena. [address] [place], [place], [id number], . tel:[phone] [place] [address], [address] [place] [address], [facility], tel:[phone] [facility] [place] follow up (chief complaint) Encounter for screening for depressionEncounter for screening examination for other mental health and behavioral disordersChronic obstructive pulmonary disease, unspecifiedMajor depressive disorder, recurrent, unspecifiedNicotine dependence, cigarettes, uncomplicatedObesit y, unspecifiedEssentia l (primary) hypertensionVitamin D deficiency, unspecifiedMixed hyperlipidemia 3 Clarke Azucena. [address] [place], [place], [address] [place] [address], . tel:[phone] [place] [address], [address] [place] [address], [facility], tel:[phone] [facility] [place] hypertension (chief complaint)Fol low Up for CT (chief complaint)hyp erlipidemia (chief complaint) Chronic obstructive pulmonary disease, unspecifiedSolitary pulmonary noduleEssential (primary) hypertension 2 Clarke Azucena. [address], [place], [id number], [place]. tel:[phone] [place] [address], [address] [place] [address], [facility], [place] tel:[phone] [facility] No Information 2 Clarke Azucena. [address], [place], [id number], [place]. tel:[phone] [place] [address], [address] [place] [address], [facility], [place] tel:[phone] [facility] [place] Encounter for issue of repeat prescriptionOther care home (current) drug therapyEncounter for screening for diseases of the blood and blood-forming organs and certain disorders involving the immune mechanismEncounter for screening for diabetes mellitusEncounter for screening for nutritional disorderEncounter for screening for other metabolic disordersEncounter for screening for lipoid disordersEncounter for screening examination for other mental health and behavioral disordersEncounter for screening for depressionEncntr screen mammogram for malignant neoplasm of breastFamily history of malignant neoplasm of breastCyst of kidney, acquiredCyst of kidney, acquiredDisorder of kidney and ureter, unspecifiedOther diseases of spleenAtheroscleros is of aortaOther specified noninfective disorders of lymphatic vesselsPanlobular emphysemaObstructiv e sleep apnea (adult) (pediatric)Hemateme sisObesity, unspecifiedOther abnormalities of breathingEncounter for immunizationSolitar y pulmonary noduleMajor depressive disorder, recurrent, unspecifiedEssentia l (primary) hypertensionVitamin D deficiency, unspecifiedOther seasonal allergic rhinitisNicotine dependence, cigarettes, uncomplicatedChroni c obstructive pulmonary disease, unspecifiedMixed hyperlipidemiaUnspe cified asthma, uncomplicatedEncoun ter for other general examinationBody mass index [BMI] 32.0-32.9, adultEncounter for screening for malignant neoplasm of colon 2 Clarke Azucena. [address], [place], [id number], . tel:[phone] [place] [address], [facility], tel:[phone] [facility] [place] No Information 2 Clarke Azucena. [address] [place], [place], [id number], . tel:[phone] [place] [address], [address] [place] [address], [facility], tel:[phone] [facility] [place] No Information 1 Clarke Azucena. [address], [place], [id number], . tel:[phone] [place] [address], [address] [place] [address], [facility], tel:[phone] [facility] [place] No Information 1 Clarke Azucena. [address], [place], [id number], [place]. tel:[phone] [place] [address], [address] [place] [address], [facility], tel:[phone] [facility] [place] No Information 1 Clarke Azucena. [address], [place], [id number], [place]. tel:[phone] [place] [address], [address] [place] [address], [facility], tel:[phone] [facility] [place] No Information 1 Clarke Azucena. [address], [place], [id number], [place]. tel:[phone] [place] [address], [address] [place] [address], [facility], tel:[phone] [facility] [place] No Information 0 No Information [facility], [address] [place] [address], [facility], tel:[phone] [facility] [place] No Information 0 No Information [facility], [address] [place] [address], [facility], tel:[phone] [facility] [place] No Information 0 No Information [facility], [address] [place] [address], [facility], tel:[phone] [facility] [place] No Information 0 No Information [facility], [address] [place] [address], [address], [place] tel:[phone] [facility] No Information 0 No Information [facility], [address] [place] [address], [address], [place] tel:[phone] [facility] No Information 0 No Information [facility], [address] [place] [address], [address], [place] tel:[phone] [facility] No Information 0 No Information [facility], [address] [place] [address], [address], [place] tel:[phone] [facility] No Information 0 No Information Family History Family Member Type Diagnosis Age At Onset Sister Problem lymphoma (older sister) Mother Problem malignant neopla sm of breast in first degree relative Sister Problem Suicide (younger sister) Sister Problem at (younger siste r) Sister Problem annyuerism (older sister) Sister Problem liver failure r/t etoh and d rugs (younger sister) Immunizations Vaccine Date Status Comments Influenza virus vaccine, trivalent (IIV3), split virus, preservative free, 0.5 mL dosage, for intramuscular use refused Source: Ne w Immunization Record Influenza, injectable, quadrivalent, MDCK, preservative and antibiotic free, 0.5 mL dosage, Flucelvax Quad administered Note: Patient tolera luz well. No reaction. ; Source: New Immunization Record Td (adult), adsorbed administered Source: Other Registry Payers Payer name Insurance type Covered republican ID Authoriza tion(s) [facility]- Medicaid [employer] [place] [id number] [facility]- Medicaid Aetna Wrap Payer [id number] H[facility]- Covered Under [place] CI [id number] [facility]- Medicaid [employer] [place] [id number] [facility]- Medicaid Aetna Wrap Payer [id number] [facility]- Medicaid Aetna Better [place] [place] CI [id number] [facility]- Medicaid Aetna Wrap Payer [id number] Social History Type Description Quantity Date Captured Comments Alcohol Use Details Unknown Caffeine Use Details Unknown Tobacco Use Status Smoking Status No Information Sex Female Sexual Orientation Straight or heterosexual Jul Gender Identity Choose not to disclose Chief Complaint And Reason For Visit No Information Plan Of Treatment Date Type Action Status Goal Influenza vaccine. Due on Oc due Goal Unhealthy drug use screening due Goal Generalized Anxi ety Disorder - 7 (RONAN-7). Due on due Goal Diabetes screening. Due on due Goal Vitamin D. Due on due Goal Obtain Height, Weight, and B [place]. Due on due Goal Depression screening. Due on due Goal Tobacco screening. Due on due Goal Drug Abuse Scree vandana Test (DAST). Due on due Goal Tobacco Use Screening. Due o n due Goal HPV. Due on due Goal TSH. Due on due Goal HPV testing. Due on 025 due Goal Vitamin B12. Due on 026 due Goal Pap/HPV testing. Due on due Goal Drug Abuse Scree vandana Test (DAST-10). Due on due Goal CMP. Due on due Goal HIV screen due Goal CBC. Due on due Goal Tobacco Use Cess ation Counseling. Due on due Goal Follow up Plan f or abnormal BMI (Less than 18.5, greater than 25). Due on due Goal ECG. Due on due Goal PAP. Due on due Goal Hepatitis C Screening due Goal Lipid panel. Due on due Goal Taking Aspirin o r other anti-coagulant. Due on due Goal Urinalysis. Due on due Goal Hematocrit/Hemoglobin. Due o n due Goal Hemoglobin (Pree eagle/HR 9 months). Due on due Goal Obtain blood Pressure. Due o n due Goal Lipid panel. Due on due Goal HPV testing. Due on due Goal HPV. Due on due Goal Tobacco Use Cess ation Counseling. Due on due Goal Vitamin B12. Due on due Goal Tobacco screening. Due on due Goal Influenza vaccine. Due on due Goal Pap/HPV testing. Due on due Goal HIV screen due Goal Unhealthy drug use screening due Goal TSH. Due on due Goal Drug Abuse Scree vandana Test (DAST). Due on due Goal Follow up Plan f or abnormal BMI (Less than 18.5, greater than 25). Due on due Goal Diabetes screening. Due on due Goal Depression screening. Due on due Goal Tobacco Use Screening. Due o n due Goal CBC. Due on due Goal Hepatitis C Screening due Goal CMP. Due on due Goal Generalized Anxi ety Disorder - 7 (RONAN-7). Due on due Goal PAP. Due on due Goal Hemoglobin (Pree eagle/HR 9 months). Due on due Goal Hematocrit/Hemoglobin. Due o n due Goal ECG. Due on due Goal Urinalysis. Due on due Goal Obtain blood Pressure. Due o n due Goal Taking Aspirin o r other anti-coagulant. Due on due Goal Drug Abuse Scree vandana Test (DAST-10). Due on due Goal Vitamin D. Due on due Goal Obtain Height, Weight, and B [place]. Due on due Goal Lipid panel. Due on 026 due Goal PAP. Due on due Goal Diabetes screening. Due on due Goal HPV testing. Due on 025 due Goal Hepatitis C Screening due Goal Depression screening. Due on due Goal Vitamin D. Due on due Goal Unhealthy drug use screening due Goal Vitamin B12. Due on 026 due Goal Influenza vaccine. Due on due Goal CMP. Due on due Goal Generalized Anxi ety Disorder - 7 (RONAN-7). Due on due Goal Drug Abuse Scree vandana Test (DAST-10). Due on due Goal Obtain Height, Weight, and B [place]. Due on due Goal Pap/HPV testing. Due on due Goal Tobacco screening. Due on due Goal TSH. Due on due Goal ECG. Due on due Goal Follow up Plan f or abnormal BMI (Less than 18.5, greater than 25). Due on due Goal Tobacco Use Cess ation Counseling. Due on due Goal Tobacco Use Screening. Due o n due Goal Drug Abuse Scree vandana Test (DAST). Due on due Goal Urinalysis. Due on 25 due Goal HPV. Due on due Goal CBC. Due on due Goal Hematocrit/Hemoglobin. Due o n due Goal Obtain blood Pressure. Due o n due Goal Taking Aspirin o r other anti-coagulant. Due on due Goal HIV screen due Goal Hemoglobin (Pree eagle/HR 9 months). Due on due Goal Lipid 17-20 y due Goal Lipid 9-11 y due Goal Lipid panel. Due on due Goal Tobacco screening. Due on due Goal Depression screening. Due on due Goal Unhealthy drug use screening due Goal Follow up Plan f or abnormal BMI (Less than 18.5, greater than 25). Due on due Goal Drug Abuse Scree vandana Test (DAST-10). Due on due Goal Tobacco Use Cess ation Counseling. Due on due Goal Obtain Height, Weight, and B [place]. Due on due Goal Hepatitis C Screening due Goal HPV. Due on due Goal Tobacco Use Screening. Due o n due Goal Drug Abuse Scree vandana Test (DAST). Due on due Goal Diabetes screening. Due on due Goal CMP. Due on due Goal Vitamin D. Due on due Goal Pap/HPV testing. Due on due Goal Vitamin B12. Due on due Goal Generalized Anxi ety Disorder - 7 (RONAN-7). Due on due Goal Taking Aspirin o r other anti-coagulant. Due on due Goal Influenza vaccine. Due on due Goal HPV testing. Due on due Goal CBC. Due on due Goal HIV screen due Goal TSH. Due on due Goal PAP. Due on due Goal ECG. Due on due Goal Obtain blood Pressure. Due o n due Goal Urinalysis. Due on 25 due Goal Lifestyle education regardin g diet completed Goal Lipid panel. Due on due Goal ECG. Due on due Goal Obtain blood Pressure. Due o n due Goal Diabetes screening. Due on due Goal CBC. Due on due Goal Unhealthy drug use screening due Goal CMP. Due on due Goal Tobacco screening. Due on due Goal Hepatitis C Screening due Goal Obtain Height, Weight, and B [place]. Due on due Goal Vitamin D. Due on due Goal PAP. Due on due Goal Drug Abuse Scree vandana Test (DAST-10). Due on due Goal Tobacco Use Screening. Due o n due Goal HPV. Due on due Goal TSH. Due on due Goal Vitamin B12. Due on due Goal Follow up Plan f or abnormal BMI (Less than 18.5, greater than 25). Due on due Goal HPV testing. Due on due Goal Influenza vaccine. Due on due Goal Depression screening. Due on due Goal Tobacco Use Cess ation Counseling. Due on due Goal Generalized Anxi ety Disorder - 7 (RONAN-7). Due on due Goal Drug Abuse Scree vandana Test (DAST). Due on due Goal Pap/HPV testing. Due on due Goal HIV screen due Goal Urinalysis. Due on due Goal Taking Aspirin o r other anti-coagulant. Due on due Goal Lifestyle education regardin g diet completed Goal TSH. Due on due Goal Obtain Height, Weight, and B [place]. Due on due Goal Vitamin B12. Due on due Goal Tobacco Use Screening. Due o n due Goal CMP. Due on due Goal Unhealthy drug use screening due Goal HIV screen due Goal HPV. Due on due Goal Depression screening. Due on due Goal Pap/HPV testing. Due on due Goal Tobacco Use Cess ation Counseling. Due on due Goal Influenza vaccine. Due on due Goal Drug Abuse Scree vandana Test (DAST-10). Due on due Goal Hepatitis C Screening due Goal Diabetes screening. Due on O due Goal Tobacco screening. Due on due Goal Vitamin D. Due on due Goal PAP. Due on due Goal Follow up Plan f or abnormal BMI (Less than 18.5, greater than 25). Due on due Goal Taking Aspirin o r other anti-coagulant. Due on due Goal CBC. Due on due Goal Urinalysis. Due on due Goal Drug Abuse Scree vandana Test (DAST). Due on due Goal Generalized Anxi ety Disorder - 7 (RONAN-7). Due on due Goal HPV testing. Due on due Goal ECG. Due on due Goal Obtain blood Pressure. Due o n due Goal Lipid panel. Due on due Goal Unhealthy drug use screening due Goal Vitamin D. Due on due Goal TSH. Due on due Goal HPV testing. Due on [address]-Colonography. Due on due Goal Follow up Plan f or abnormal BMI (Less than 18.5, greater than 25). Due on due Goal Drug Abuse Scree vandana Test (DAST-10). Due on due Goal CBC. Due on due Goal CMP. Due on due Goal Pap/HPV testing. Due on due Goal Hepatitis C Screening due Goal Colonoscopy. Due on 024 due Goal FOBT. Due on due Goal HIV screen due Goal PAP. Due on due Goal Obtain Height, Weight, and B KY. Due on due Goal HPV. Due on due Goal Tobacco Use Screening. Due o n due Goal Depression screening. Due on due Goal Influenza vaccine. Due on due Goal FIT-DNA. Due on due Goal FIT. Due on due Goal Lipid panel. Due on 029 due Goal Drug Abuse Scree vandana Test (DAST). Due on due Goal Diabetes screening. Due on O due Goal Tobacco Use Cess ation Counseling. Due on due Goal Vitamin B12. Due on 025 due Goal Mammogram. Due on due Goal Generalized Anxi ety Disorder - 7 (RONAN-7). Due on due Goal Urinalysis. Due on 24 due Goal Obtain blood Pressure. Due o n due Goal Taking Aspirin o r other anti-coagulant. Due on due Goal ECG. Due on due Goal CBC. Due on due Goal Mammogram. Due on due Goal Drug Abuse Scree vandana Test (DAST). Due on due Goal Pap/HPV testing. Due on due Goal CMP. Due on due Goal FOBT. Due on due Goal Hepatitis C Screening due Goal PAP. Due on due Goal FIT-DNA. Due on due Goal Diabetes screening. Due on O due Goal Colonoscopy. Due on due Goal Drug Abuse Scree vandana Test (DAST-10). Due on due Goal CT-Colonography. Due on due Goal Follow up Plan f or abnormal BMI (Less than 18.5, greater than 25). Due on due Goal Vitamin D. Due on due Goal TSH. Due on due Goal HPV. Due on due Goal Vitamin B12. Due on due Goal Tobacco Use Cess ation Counseling. Due on due Goal FIT. Due on due Goal Tobacco Use Screening. Due o n due Goal Depression screening. Due on due Goal ECG. Due on due Goal HIV screen due Goal Obtain Height, Weight, and B KY. Due on due Goal Lipid panel. Due on due Goal Influenza vaccine. Due on due Goal Taking Aspirin o r other anti-coagulant. Due on due Goal HPV testing. Due on due Goal Unhealthy drug use screening due Goal Obtain blood Pressure. Due o n due Goal Urinalysis. Due on due Goal Generalized Anxi ety Disorder - 7 (RONAN-7). Due on due Goal Lifestyle education regardin g diet completed Goal Mammogram. Due on due Goal PAP. Due on due Goal HPV testing. Due on due Goal CBC. Due on due Goal Obtain Height, Weight, and B KY. Due on due Goal Unhealthy drug use screening due Goal Vitamin B12. Due on due Goal Pap/HPV testing. Due on due Goal Drug Abuse Scree vandana Test (DAST-10). Due on due Goal Follow up Plan f or abnormal BMI (Less than 18.5, greater than 25). Due on due Goal Lipid panel. Due on due Goal FIT. Due on due Goal HPV. Due on due Goal Hepatitis C Screening. Due o n due Goal FIT-DNA. Due on due Goal TSH. Due on due Goal CMP. Due on due Goal Vitamin D. Due on due Goal FOBT. Due on due Goal Influenza vaccine. Due on Oc due Goal Drug Abuse Scree vandana Test (DAST). Due on due Goal Tobacco Use Screening. Due o n due Goal Colonoscopy. Due on due Goal Taking Aspirin o r other anti-coagulant. Due on due Goal Generalized Anxi ety Disorder - 7 (RONAN-7). Due on due Goal ECG. Due on due Goal Depression screening. Due on due Goal HIV screen due Goal Tobacco Use Cess ation Counseling. Due on due Goal Obtain blood Pressure. Due o n due Goal Diabetes screening. Due on S due Goal Urinalysis. Due on due Goal CT-Colonography. Due on due Goal Hepatitis C Screening. Due o n due Goal CMP. Due on due Goal Influenza vaccine. Due on Se due Goal Mammogram. Due on due Goal Vitamin D. Due on due Goal Colonoscopy. Due on due Goal FIT-DNA. Due on due Goal Generalized Anxi ety Disorder - 7 (RONAN-7). Due on due Goal HIV screen due Goal Depression screening. Due on due Goal Tobacco Use Screening. Due o n due Goal Drug Abuse Scree vandana Test (DAST-10). Due on due Goal Diabetes screening. Due on due Goal CT-Colonography. Due on due Goal Tobacco Use Cess ation Counseling. Due on due Goal Lipid panel. Due on due Goal FIT. Due on due Goal FOBT. Due on due Goal Unhealthy drug use screening due Goal PAP. Due on due Goal HPV testing. Due on due Goal Pap/HPV testing. Due on due Goal Follow up Plan f or abnormal BMI (Less than 18.5, greater than 25). Due on due Goal Obtain Height, Weight, and B KY. Due on due Goal HPV. Due on due Goal Vitamin B12. Due on due Goal Drug Abuse Scree vandana Test (DAST). Due on due Goal TSH. Due on due Goal CBC. Due on due Goal Urinalysis. Due on due Goal ECG. Due on due Goal Obtain blood Pressure. Due o n due Goal Taking Aspirin o r other anti-coagulant. Due on due Goal Vitamin D. Due on due Goal Tobacco Use Cess ation Counseling. Due on due Goal Drug Abuse Scree vandana Test (DAST-10). Due on due Goal HPV. Due on due Goal Vitamin B12. Due on due Goal FOBT. Due on due Goal HIV screen due Goal Follow up Plan f or abnormal BMI (Less than 18.5, greater than 25). Due on due Goal HPV testing. Due on due Goal Pap/HPV testing. Due on due Goal FIT. Due on due Goal Drug Abuse Scree vandana Test (DAST). Due on due Goal Lipid panel. Due on due Goal CBC. Due on due Goal TSH. Due on due Goal Tobacco Use Screening. Due o n due Goal PAP. Due on due Goal Unhealthy drug use screening due Goal Colonoscopy. Due on due Goal Mammogram. Due on due Goal Hepatitis C Screening. Due o n due Goal Generalized Anxi ety Disorder - 7 (RONAN-7). Due on due Goal FIT-DNA. Due on due Goal Depression screening. Due on due Goal Taking Aspirin o r other anti-coagulant. Due on due Goal Influenza vaccine. Due on due Goal ECG. Due on due Goal CT-Colonography. Due on due Goal Urinalysis. Due on due Goal Diabetes screening. Due on due Goal Obtain Height, Weight, and B KY. Due on due Goal Obtain blood Pressure. Due o n due Goal CMP. Due on due Goal Diabetes screening. Due on due Goal Lipid panel. Due on due Goal Influenza vaccine. Due on due Goal FIT-DNA. Due on due Goal CBC. Due on due Goal FIT. Due on due Goal CT-Colonography. Due on due Goal Vitamin D. Due on due Goal HIV screen due Goal Drug Abuse Scree vandana Test (DAST-10). Due on due Goal Unhealthy drug use screening due Goal Follow up Plan f or abnormal BMI (Less than 18.5, greater than 25). Due on due Goal Generalized Anxi ety Disorder - 7 (RONAN-7). Due on due Goal Drug Abuse Scree vandana Test (DAST). Due on due Goal HPV testing. Due on due Goal HPV. Due on due Goal Mammogram. Due on due Goal PAP. Due on due Goal Depression screening. Due on due Goal TSH. Due on due Goal CMP. Due on due Goal Vitamin B12. Due on due Goal Hepatitis C Screening. Due o n due Goal Pap/HPV testing. Due on due Goal Colonoscopy. Due on due Goal FOBT. Due on due Goal Tobacco Use Screening. Due o n due Goal Tobacco Use Cess ation Counseling. Due on due Goal Obtain Height, Weight, and B KY. Due on due Goal ECG. Due on due Goal Obtain blood Pressure. Due o n due Goal Taking Aspirin o r other anti-coagulant. Due on due Goal Urinalysis. Due on due Goal CMP. Due on due Goal Vitamin B12. Due on due Goal Colonoscopy. Due on due Goal Diabetes screening. Due on due Goal Influenza vaccine. Due on due Goal HPV. Due on due Goal Generalized Anxi ety Disorder - 7 (RONAN-7). Due on due Goal FOBT. Due on due Goal Pap/HPV testing. Due on due Goal HIV screen due Goal FIT-DNA. Due on due Goal Unhealthy drug use screening due Goal CBC. Due on due Goal Follow up Plan f or abnormal BMI (Less than 18.5, greater than 25). Due on due Goal CT-Colonography. Due on due Goal HPV testing. Due on 023 due Goal Vitamin D. Due on 4 due Goal Drug Abuse Scree vandana Test (DAST-10). Due on due Goal Mammogram. Due on 3 due Goal Obtain blood Pressure. Due o n due Goal Obtain Height, Weight, and B KY. Due on due Goal Tobacco Use Screening. Due o n due Goal Depression screening. Due on due Goal ECG. Due on due Goal Drug Abuse Scree vandana Test (DAST). Due on due Goal PAP. Due on due Goal TSH. Due on due Goal FIT. Due on due Goal Tobacco Use Cess ation Counseling. Due on due Goal Lipid panel. Due on 028 due Goal Urinalysis. Due on 23 due Goal Hepatitis C Screening. Due o n due Goal Taking Aspirin o r other anti-coagulant. Due on due Goal Lifestyle education regardin g diet completed Goal CBC. Due on due Goal Vitamin B12. Due on due Goal CT-Colonography. Due on due Goal HPV. Due on due Goal Obtain Height, Weight, and B KY. Due on due Goal HIV screen due Goal PAP. Due on due Goal Follow up Plan f or abnormal BMI (Less than 18.5, greater than 25). Due on due Goal Diabetes screening. Due on due Goal Tobacco Use Cess ation Counseling. Due on due Goal Pap/HPV testing. Due on due Goal TSH. Due on due Goal Drug Abuse Scree vandana Test (DAST-10). Due on due Goal HPV testing. Due on due Goal Vitamin D. Due on due Goal Hepatitis C Screening. Due o n due Goal Tobacco Use Screening. Due o n due Goal FIT. Due on due Goal Depression screening. Due on due Goal Colonoscopy. Due on due Goal Lipid panel. Due on due Goal FOBT. Due on due Goal Influenza vaccine. Due on due Goal Unhealthy drug use screening due Goal Drug Abuse Scree vandana Test (DAST). Due on due Goal CMP. Due on due Goal ECG. Due on due Goal Mammogram. Due on due Goal Obtain blood Pressure. Due o n due Goal Taking Aspirin o r other anti-coagulant. Due on due Goal Generalized Anxi ety Disorder - 7 (RONAN-7). Due on due Goal Urinalysis. Due on due Goal FIT-DNA. Due on due Goal Lifestyle education regardin g diet completed Goal Hepatitis C Screening. Due o n due Goal Vitamin B12. Due on due Goal HPV testing. Due on 023 due Goal Tobacco Use Screening. Due o n due Goal Colonoscopy. Due on due Goal CMP. Due on due Goal Pap/HPV testing. Due on due Goal Follow up Plan f or abnormal BMI (Less than 18.5, greater than 25). Due on due Goal PAP. Due on due Goal FOBT. Due on due Goal CBC. Due on due Goal Mammogram. Due on due Goal Obtain Height, Weight, and B KY. Due on due Goal Diabetes screening. Due on due Goal Vitamin D. Due on due Goal Drug Abuse Scree vandana Test (DAST). Due on due Goal Influenza vaccine. Due on due Goal Tobacco Use Cess ation Counseling. Due on due Goal Generalized Anxi ety Disorder - 7 (RONAN-7). Due on due Goal Depression screening. Due on due Goal FIT-DNA. Due on due Goal Lipid panel. Due on 023 due Goal HIV screen due Goal Unhealthy drug use screening due Goal ECG. Due on due Goal FIT. Due on due Goal Taking Aspirin o r other anti-coagulant. Due on due Goal TSH. Due on due Goal HPV. Due on due Goal Drug Abuse Scree vandana Test (DAST-10). Due on due Goal Obtain blood Pressure. Due o n due Goal CT-Colonography. Due on due Goal Urinalysis. Due on 23 due Goal Tobacco cessation counseling completed Goal Influenza vaccine. Due on due Goal Lipid panel. Due on 022 due Goal Pap/HPV testing. Due on due Goal Generalized Anxi ety Disorder - 7 (RONAN-7). Due on due Goal Colonoscopy. Due on due Goal Mammogram. Due on due Goal HIV screen. Due on due Goal Urinalysis. Due on due Goal FOBT. Due on due Goal ECG. Due on due Goal Depression screening. Due on due Goal Drug Abuse Scree vandana Test (DAST). Due on due Goal Urinalysis. Due on due Goal ECG. Due on due Goal Lipid panel. Due on due Goal Influenza vaccine. Due on due Goal Pap/HPV testing. Due on due Goal Depression screening. Due on due Goal Drug Abuse Scree vandana Test (DAST). Due on due Goal Mammogram. Due on due Goal Colonoscopy. Due on due Goal HIV screen. Due on due Goal FOBT. Due on due Goal Generalized Anxi ety Disorder - 7 (RONAN-7). Due on due Goal Influenza vaccine. Due on due Goal Lipid panel. Due on due Goal HIV screen. Due on due Goal Colonoscopy. Due on 022 due Goal Pap/HPV testing. Due on due Goal Mammogram. Due on 2 due Goal Depression screening. Due on due Goal Drug Abuse Scree vandana Test (DAST). Due on due Goal FOBT. Due on due Goal Generalized Anxi ety Disorder - 7 (RONAN-7). Due on due Referral Referred To: [facility] Ordered: Referrals: Physical Medicine and Rehabilitation. [facility]. Location: [place]. Evaluate and treat Appointment date/timeframe: 06/26/2024 ordered Referral Ordered: X-RAY EXAM CHEST 2 VIEWS Bilateral chest Appointment date/timeframe: 1 Day ordered Referral Referred To: Power wheelchair NOC Ordered: Referrals: Power wheelchair NOC ordered Appointment [facility] - F/u ER Vi sit, Incont. Supplies BOOKED History Of Present Illness Encounter Date Complaint History Of Prese nt Illness follow up labs August is here to day for f/u on recent labsOverall doing well- hx of copd- has on o2 3L NC 90% o2, no apparent [id number] 5.6b12 [id number] D, CMP, TSH okHLD: LDL 140, Trigs 166She states she is feeling good today Labs Pt is here today to have labs collected. 1x attempt in right ac with butterfly needle. Successfully collected 3 tubes, pt tolerated well, gauze and coban applied, pt instructed to remove in 5-10 minutes, pt voiced understanding. Pt is scheduled to rtc in 2 weeks to follow up on lab results. Follow Up August is here to day for lab collection and hospital follow up. She states she was admitted to [facility] on 10/08/24 for sepsis and respiratory failure. She was given iv ceftiraxone and discharged home the following day. She then was in the ER on 10/15/24 for rt foot, proximal fibular fracture. Today she states she is doing better.Needs refills on medications.Recent visit w/ the orthopedic surgeon on the , will f/u in 3 weeks with them.On 2 L o2 NC today in office 96% o2 sat+ cough, dryincreased smoking 3 ppdstates daughter is on my nerves. Refills sent todaynon-fasting labs collectedRTC 2 weeks f/u on lab resultKeep all specialty appointments Depression screening Depression screening completed 05/01/24. Pt scored 3, provider aware. -ALMA GARCIA Prapardave [place] complete d 05/01/24. -ALMA GARCIA Wheelchair Pt is requesting a new wheelchair.states that she would benefit from a power wheelchair, as with her COPD becomes soa with extra efforts of mobility.Current wheel chair is about 5 years old and is wearing out, the wheels are spreading out.She is o2 dependent on 3L Recent fractures in left foot healing.Ambulates in the home about 50% 0f time.Difficult w/ soa and foot. urinary incontinence Still has u rinary incontinence with cough and sneezeWheelchair bound 50% of timeCOPD- worsening, recent hospitalization w/ respiratory failure, o2 dependentStill needs adult briefs for toileting needs/[facility] Follow Up Pt went to ER on 04.15.24, she was admitted overnight for SVT, hypotension, and Respiratory Failure. Pt was discharged home on 04.16.24.On 04/30/2024 she was seen by cardiology for f/u.She was given metoprolol 50 mg bid to help control her heart rate. She was unable or unwilling to have heart cath completed. She will f/u with them in 1 month.August states she is breathing well today- 94% on 3L and does not feel short of breath while sitting still.She does feel winded when moving from chair to toilet, or very short distances of ambulation.She states she has not been using Anoro Ellipta- that Dr. Alvarez had her on since November of this year, but is using Dulera and seems it is working well.Oralia is a poor historian, and it is not certain which she is using, but does have the dulera here with her today. She missed Dr. Alvarez's appt last month and has not had her repeat CT of chest he recommended to be completed in December of this year for worsening of her lung nodules. She was advised to schedule the CT and follow up with Dr. Romero. She verbalized understanding. cough/congestion Oralia is here i n office today as she is not doing any better since her telehealth visit on 02/13/24. She has had cough, congestion x 2 weeks. She was given a course of zithromax as well as steroid dose pack.Today she has increased productive cough- yellow, increased soadifficulty w/ laying down.She states she did call [facility] but has not had a call back at this time.She does have saline solution for her nebulizer to thin secretions.she states she has been compliant w/ her medications. cough/congestion Oralia is here t jj via telephone only. She reports that for the past week has had a cough and congestion that is progressing worse. She is wheel chair bound and o2 dependent and unable to come in for visit. She denies fever, but report increase soa. telehealth Patient and/or G xiao has verified being in the [facility] and has given verbal consent to be treated via telehealth/telephone consultation. Today's visit is being completed via; Telephone.Patient and/or Guardian provided full consent to use this technology. Patient and/or guardian was advised of the limitations of a video/phone visit via telehealthProvider completed this visit within his/her office. Patient's location during this visit- Patients workplace. SOB COPD Exacerbatio n:Oralia called into the office today to request something for her breathing. She has been a no show for last 3 appointments with me and has missed all her specialist appointments as well.She states that she is unable to come in today for a visit because she can not walk here, nor find a ride.Today she states for the past 2 days has been very short of breath. She has her air conditioner and 2 fans running.She has stopped smoking in June.She is a poor historian. She is not sure what medications she is in need of for refills. She has been using her nebulizer 4 or more times daily.She is on home O2 2L NC continuously. She measures her O2 levels at home- reports 92% on 2L NC, 85% on room airShe is able to speak in full sentences on the phone.Due to her past copd exacerabtions and her reported productive cough w/ sputum color change to yellow, I am also sending in a steroid dose pack and azithromycin for prophylactic treatment of PNA, and in hopes to keep her from hospitalization. Refills of maintenance medications also sent today. Telehealth/Telephone Patient has verified being in the [facility] and has given verbal consent to be treated via telephone consultation. Today's visit is being completed via; telephonePatient provided full consent to use this technology. Patient was advised of the limitations of a phone visit via telephone. Provider completed this visit within her office. Patient's location during this visit is [address] [place] [address]. FOLLOW UP FROM HOSPITAL August is here today for a complex follow up from an admission to [facility]. for COPD exacerbation/respiratory failure.She states she is doing better since her admission, but continues to have a productive cough with thick phlegm. She denies fever, states that she does feel soa at times. Currently 81% on 4 L NC o2. This is a higher requirement than her normal 2 L at home. She continues to smoke 4-5 cigarrets daily- but she states she has cut back.She was sent home w/ 5 days of cefdinir and prednisone- that she has finishedShe is due for medication refillsDM: a1c was 5.8 on 01.24.23Echo was completed while in hospital r/t elevated bnp of 4450. Grade II diastolic dysfuntion noted. No valvular disease.stop lisinopril- start entresto - plan to increase in 1 month for better chf maintainenceLasix was given and rx for 20 mg daily to be continued at home. hosptial f/u August is here to day for a recent hospital f/u. She was admitted to [facility] on 11/02/22 after a vistit with pulmonary.She was found to be in respiratory failure, admitted to [facility] and started on Levaquin 750 mg iv dailyToday she states she is feeling betterusing o2, night and day 2L77% o2 when off here in office, while on 2L 91%Continues to smoke- worse than before, not interested in quitting She will f/u with pulmonology next weekShe states she has become weaker and has difficulty getting around.She feels a power wheel chair would facilitate ease of her daily needsShe reports she did have a fall yesterday at home due to weakness and unsteadiness on her feet. follow up c/o shortness of breathApril has not bee seen in office since October of last yearShe reports cough productive with yellow mucus, and soaSoa worse x past weekHas a nebulizer- only doing her rescue treatmentsHas not had medications in a while- outHas not been seen since October last yearDeclines flu vaccine (last dose was 09/23/21)Pt is non-compliant with medications and appointmentsShe continues to smoke 1 ppdStates she is on O2 all night Today she is with out her q5Yidqm ox 83-87%- not in any distress in office and able to speak in full sentencesShe does report chills and increase difficulty breathing this past weekwill give zpakNon-fasting labs today Follow Up for CT CT results from 10/01/21 Reviewed W/ Pt:Resolved 10 mm pleural based nodule opacity RLL. Multiple other small pleural nodules, stable, most likely benign. Need further evaluation for f/u CT in 12 months. Pt is on home O2 continuously.Continues to smoke dailyEncouraged smoking cessation hyperlipidemia The hyperlipidem ia is poorly controlled. Risk factors include age over 50, obesity, poor diet, sedentary life style and smoking. The patient is adhering to medication for their hyperlipidemia. The patient is not adhering to diet and exercise for their hyperlipidemia. Associated symptoms include constipation and dyspnea. Pertinent negatives include chest pain, constant hunger, hypoglycemic episodes, increased fatigue, palpitations, rash, transient weakness, vision loss and vomiting. hypertension Additional infor mation: BP today is 116/70 in right arm. Instructions Date Instruction Additional Infor mation Low fat, low cholest isabela diet. Avoid fatty, fried, and greasy foods. Physical activity as tolerated. Counseled on risks of associated comorbidities, such as heart disease and stroke. Encouraged avoidance of tobacco products. Related to Mixed hyperlipidemia 15 minutes of sun ex posure daily to naturally raise vitamin D levels Related to Vitamin D deficiency, unspecified Eat foods rich in B- 12. Additional oral B12 replacement if indicated. Related to Vitamin B12 deficiency Patient educated on the importance of maintaining glycemic control. Counseled on diet, exercise and other lifestyle factors that can impact glucose control. Instructed on the importance of taking all medications as prescribed. Patient aware of the importance of diabetic eye exams, dental check ups, foot exams and diabetic foot care. Patient verbalized understanding. Related to Prediabetes Dietary Instructions for a healthy weight: BMI should be between the range of 18.5-24.9 for an adult; and Caloric intake should be around 7612-2719 for a female, and 1234-1406 for an adult male. Fiber intake should be about 14 grams for 1000 calories per day. That is about 20-30 grams daily. Good sources of fiber are oatmeal, fortified grains, and green leafy vegetables, apples. You can also use Carbohydrate counting to maintain a healthy weight. One serving is equal to 15 grams (1 piece of bread, small fruit, or 1 cup of milk). Men should have 45-75, Women about 30-65 per meal, and snacks are recommend to be 13-30 grams each. [employer]gov is a good source for meal planning and dietary education. You may also refer to the [place] [employer] website for further low sodium, health heart diet information. Mediter[place]ian diet would be a suitable diet for your current health conditions. Related to Obesity, unspecified Patient currently do ing well. BP in goal range. No medication changes. Patient instructed to follow a low salt diet, continuing taking blood pressure medications as prescribed. Keep routine follow up with clinic. Related to Essential (primary) hypertension Patient instructed t o continue current medication regimen. Patient instructed to avoid tobacco smoke, vaping and other environmental smoke exposure. Exertional activity as tolerated to maintain lung function. Discussed signs and symptoms with COPD exacerbation, patient instructed to contact the clinic if he or she shows any signs or symptoms of COPD exacerbation. Related to Chronic obstructive pulmonary disease, unspecified Giving encouragement to exercise Related to Body mass index [BMI] 34.0-34.9, adult Lifestyle education regarding di et Related to Body mass index [BMI] 34.0-34.9, adult Patient educated on the importance of maintaining glycemic control. Counseled on diet, exercise and other lifestyle factors that can impact glucose control. Instructed on the importance of taking all medications as prescribed. Patient aware of the importance of diabetic eye exams, dental check ups, foot exams and diabetic foot care. Patient verbalized understanding. Related to Prediabetes It is recommended to stop smoking/vaping to increase overall health and decrease risk of cardiovascular disease. If you wish to stop smoking/vaping, there is a free online [place] [facility] smoking course offered through our local health department. You may call [phone] for more information. Related to Nicotine dependence, cigarettes, uncomplicated Dietary Instructions for a healthy weight: BMI should be between the range of 18.5-24.9 for an adult; and Caloric intake should be around 5373-4542 for a female, and 7417-4876 for an adult male. Fiber intake should be about 14 grams for 1000 calories per day. That is about 20-30 grams daily. Good sources of fiber are oatmeal, fortified grains, and green leafy vegetables, apples. You can also use Carbohydrate counting to maintain a healthy weight. One serving is equal to 15 grams (1 piece of bread, small fruit, or 1 cup of milk). Men should have 45-75, Women about 30-65 per meal, and snacks are recommend to be 13-30 grams each. Myplate.gov is a good source for meal planning and dietary education. You may also refer to the [place] [employer] website for further low sodium, health heart diet information. [place]iter[place] diet would be a suitable diet for your current health conditions. Related to Obesity, unspecified Patient instructed t o continue current medication regimen. Patient instructed to avoid tobacco smoke, vaping and other environmental smoke exposure. Patient instructed to limit exertional activity until COPD symptoms are under better control. Discussed signs and symptoms with COPD exacerbation. If symptoms do not improve after using medications prescribed today patient instructed to contact the clinic for a follow up appointment. Related to Chronic obstructive pulmonary disease, unspecified Patient currently do ing well. BP in goal range. No medication changes. Patient instructed to follow a low salt diet, continuing taking blood pressure medications as prescribed. Keep routine follow up with clinic. Related to Essential (primary) hypertension Giving encouragement to exercise Related to Body mass index [BMI] 35.0-35.9, adult Lifestyle education regarding di et Related to Body mass index [BMI] 35.0-35.9, adult Low fat, low cholest isabela diet. Avoid fatty, fried, and greasy foods. Physical activity as tolerated. Counseled on risks of associated comorbidities, such as heart disease and stroke. Encouraged avoidance of tobacco products. Related to Mixed hyperlipidemia Patient currently do ing well. BP in goal range. No medication changes. Patient instructed to follow a low salt diet, continuing taking blood pressure medications as prescribed. Keep routine follow up with clinic. Related to Essential (primary) hypertension Patient instructed t o continue current medication regimen. Patient instructed to avoid tobacco smoke, vaping and other environmental smoke exposure. Patient instructed to limit exertional activity until COPD symptoms are under better control. Discussed signs and symptoms with COPD exacerbation. If symptoms do not improve after using medications prescribed today patient instructed to contact the clinic for a follow up appointment. Related to COPD w/ acute exacerbation Patient educated on the importance of maintaining glycemic control. Counseled on diet, exercise and other lifestyle factors that can impact glucose control. Instructed on the importance of taking all medications as prescribed. Patient aware of the importance of diabetic eye exams, dental check ups, foot exams and diabetic foot care. Patient verbalized understanding. Related to Prediabetes Schedule the CT of c hest Dr. Silva ordered for you back in August to have completed in December 2023. Make a follow up appointment with Dr. Silva to f/u - you missed his appointment last month. Related to Solitary pulmonary nodule It is recommended to stop smoking/vaping to increase overall health and decrease risk of cardiovascular disease. If you wish to stop smoking/vaping, there is a free online [place] [facility] smoking course offered through our local health department. You may call [phone] for more information. Related to Nicotine dependence, cigarettes, uncomplicated Renew of certificati on forms completed today and sent back to [employer] for approval of supplies Related to Stress incontinence (female) (male) Giving encouragement to exercise Related to Body mass index [BMI] 37.0-37.9, adult Lifestyle education regarding di et Related to Body mass index [BMI] 37.0-37.9, adult Take all antibiotics until complete. May take with food to ease stomach irritation. If you experience frequent yeast infections, you may consider taking an OTC probiotic like culturell or align while taking antibiotics.CXR todayDepo 80 Related to Acute upper respiratory infection, unspecified Take all antibiotics until complete. May take with food to ease stomach irritation. If you experience frequent yeast infections, you may consider taking an OTC probiotic like culturell or align while taking antibiotics. Related to COPD w/ acute exacerbation Take all antibiotics until complete. May take with food to ease stomach irritation. If you experience frequent yeast infections, you may consider taking an OTC probiotic like culturell or align while taking antibiotics. Related to Acute upper respiratory infection, unspecified Patient instructed t o continue current medication regimen. Patient instructed to avoid tobacco smoke, vaping and other environmental smoke exposure. Exertional activity as tolerated to maintain lung function. Discussed signs and symptoms with COPD exacerbation, patient instructed to contact the clinic if he or she shows any signs or symptoms of COPD exacerbation. Related to Chronic obstructive pulmonary disease, unspecified Go to the ER if your O2 remains below 85% on your 2 L of O2RTC 2 weeks or sooner if not improving as expectedF/u for routine visit in 2 weeks Related to COPD w/ acute exacerbation Patient instructed t o continue current medication regimen. Patient instructed to avoid tobacco smoke, vaping and other environmental smoke exposure. Exertional activity as tolerated to maintain lung function. Discussed signs and symptoms with COPD exacerbation, patient instructed to contact the clinic if he or she shows any signs or symptoms of COPD exacerbation. Keep appt w/ Dr. Alberto on the . Related to Chronic obstructive pulmonary disease, unspecified It is recommended to stop smoking/vaping to increase overall health and decrease risk of cardiovascular disease. If you wish to stop smoking/vaping, there is a free online [place] [facility] smoking course offered through our local health department. You may call [phone] for more information. Related to Nicotine dependence, cigarettes, uncomplicated Physical activity as tolerated. Try to engage in some form of moderate physical activity for 30 minutes most days of the week. May modify activity as needed to reduce discomfort. Try to achieve/maintain a healthy body weight to reduce strain on musculoskeletal system. Verbalizes an understanding. Related to Obesity, unspecified Patient currently do ing well. BP in goal range. Changing Lisinopril 20 to etresto 24/26 mg. Patient instructed to follow a low salt diet, continuing taking blood pressure medications as prescribed. Keep routine follow up with clinic. Related to Essential (primary) hypertension Stop taking lisinopr il 20 mgStart taking entresto 24/26 mg bid Related to Unspecified diastolic (congestive) heart failure Giving encouragement to exercise Related to Body mass index [BMI] 35.0-35.9, adult Lifestyle education regarding di et Related to Body mass index [BMI] 35.0-35.9, adult Physical activity as tolerated. Try to engage in some form of moderate physical activity for 30 minutes most days of the week. May modify activity as needed to reduce discomfort. Try to achieve/maintain a healthy body weight to reduce strain on musculoskeletal system. Verbalizes an understanding. Related to Body mass index [BMI] 37.0-37.9, adult Make your home safer - To avoid falling at home, get rid of things that might make you trip or slip. This might include furniture, electrical cords, clutter, and loose rugs (figure 1). Keep your home well-lit so that you can easily see where you are going. Avoid storing things in high places so you don't have to reach or climb.?Wear non-slip socks or sturdy shoes that fit well - Wearing shoes with high heels or slippery soles, or shoes that are too loose, can lead to falls. Walking around in bare feet, or only socks, can also increase your risk of falling.?Take vitamin D pills - Taking vitamin D might lower the risk of falls in older people. This is because vitamin D helps make bones and muscles stronger. Your doctor can talk to you about whether you should take extra vitamin D, and how much.?Stay active - Moving your body regularly can help lower your risk of falling. It might also help prevent you from getting hurt if you do fall. It is best to do a few different activities that help with both strength and balance. There are many kinds of exercise that can be safe for older people. These include walking, swimming, and fay chi (a [place] martial art that involves slow, gentle movements).?Use a cane, walker, or other safety devices - If your doctor recommends that you use a cane or walker, be sure that it's the right size and you know how to use it. There are other devices that might help you avoid falling, too. These include grab bars or a sturdy seat for the shower, non-slip bath mats, and hand rails or treads for the stairs (to prevent slipping).?Take extra care if you have had surgery or are in the hospital - Ask for help with getting out of bed, getting up from a chair, or going to the bathroom. Your body needs time to heal, and it's normal to need help with these things while you recover. It can also help to keep your belongings within reach, and avoid walking around in the dark. If you need help, use the call button instead of trying to get up. Related to At risk for falling You had an incidenta l finding of thyroid nodule measuring 10 mmNo further imaging was recommended at this time per your CT report.If you have any changes, new symptoms or concerns, follow up with me. Related to Thyroid nodule It is recommended to stop smoking/vaping to increase overall health and decrease risk of cardiovascular disease. If you wish to stop smoking/vaping, there is a free online [place] [facility] smoking course offered through our local health department. You may call [phone] for more information. Related to Nicotine dependence, cigarettes, uncomplicated Patient instructed t o continue current medication regimen. Patient instructed to avoid tobacco smoke, vaping and other environmental smoke exposure. Patient instructed to limit exertional activity until COPD symptoms are under better control. Discussed signs and symptoms with COPD exacerbation. Please keep your appointment with the alternative education teacher. Related to Chronic obstructive pulmonary disease, unspecified Giving encouragement to exercise Related to Body mass index [BMI] 37.0-37.9, adult Lifestyle education regarding di et Related to Body mass index [BMI] 37.0-37.9, adult Low fat, low cholest isabela diet. Avoid fatty, fried, and greasy foods. Physical activity as tolerated. Counseled on risks of associated comorbidities, such as heart disease and stroke. Encouraged avoidance of tobacco products. Related to Mixed hyperlipidemia 15 minutes of sun ex posure daily to naturally raise vitamin D levels Related to Vitamin D deficiency, unspecified Physical activity as tolerated. Try to engage in some form of moderate physical activity for 30 minutes most days of the week. May modify activity as needed to reduce discomfort. Try to achieve/maintain a healthy body weight to reduce strain on musculoskeletal system. Verbalizes an understanding. Related to Obesity, unspecified Patient currently do ing well. BP in goal range. No medication changes. Patient instructed to follow a low salt diet, continuing taking blood pressure medications as prescribed. Keep routine follow up with clinic. Related to Essential (primary) hypertension It is recommended to stop smoking to increase overall health and decrease risk of cardiovascular disease. If you wish to stop smoking, there is a free online [place] [facility] smoking course offered through our local health department. You may call [phone] for more information. I have given you nicotine patches to begin for 4 weeks. We will reevaluate need for dose adjustment at this time. Apply patches to dry skin for 24 hours. Alternate application sites. If skin irritation occurs, discontinue use. Related to Nicotine dependence, cigarettes, uncomplicated Take medications as prescribed. Follow a sleep schedule. Try to engage in 30 minutes of moderate activity daily if tolerated, as exercise has been shown to improve depression symptoms Related to Major depressive disorder, recurrent, unspecified Patient instructed t o continue current medication regimen. Patient instructed to avoid tobacco smoke, vaping and other environmental smoke exposure. Patient instructed to limit exertional activity until COPD symptoms are under better control. Discussed signs and symptoms with COPD exacerbation. If symptoms do not improve after using medications prescribed today patient instructed to contact the clinic for a follow up appointment. Related to Chronic obstructive pulmonary disease, unspecified Patient currently do ing well. BP in goal range. No medication changes. Patient instructed to follow a low salt diet, continuing taking blood pressure medications as prescribed. Keep routine follow up with clinic.Today your BP was 116/70.Continue current medications Related to Essential (primary) hypertension Patient instructed t o continue current medication regimen. Patient instructed to avoid tobacco smoke, vaping and other environmental smoke exposure. Exertional activity as tolerated to maintain lung function. Discussed signs and symptoms with COPD exacerbation, patient instructed to contact the clinic if he or she shows any signs or symptoms of COPD exacerbation. Related to Chronic obstructive pulmonary disease, unspecified CT results from 09/19 08/10 Reviewed W/ Pt:Resolved 10 mm pleural based nodule opacity RLL. Multiple other small pleural nodules, stable, most likely benign. Need further evaluation for f/u CT in 12 months. Stop Smoking Related to Solitary pulmonary nodule Assessments Type Assessment Date No Information
--- OUTSIDE RECORDS SUMMARY | 2025-03-06 15:02 | XMS_ITS | Clinical Summary ---
Author Organization Healthcare Address [address] [place] [address] Care Team Providers Care Networking Specialist Name Role Phone Andreina Shah APRN Primary [...] 2016 UKY-Zoster Vaccines (1 of 2) 2016 [id number] Vaccine (1 - 20 24-25 season) 2025 [facility]Y-Influenza Vaccine (#1) 2025 HPV Vaccines Aged Out No longer [...] Insurance [employer] Care Teams Networking Specialist Relationship Specialty Start Date End Date Andreina Shah APRN PCP - General 10/02/20
== END 2025-03-06 23:59 | disposition home or self-care (01) ==
LOC: RT 14:59
PROVIDERS: PCP Nurse Practitioner Family; Visit Provider Internal Medicine
DX: I48.91 Unspecified atrial fibrillation (principal); I48.92 Unspecified atrial flutter; I49.1 Atrial premature depolarization; I47.19 Other supraventricular tachycardia; I49.3 Ventricular premature depolarization; I47.29 Other ventricular tachycardia; I45.89 Other specified conduction disorders; I50.9 Heart failure, unspecified
CPT/HCPCS: 93270